=== PATIENT | female | born 2005 | race Caucasian/White ===

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

== ENCOUNTER → 2025-02-16 | Outpatient (CLI) | payer MEDICAID, SELFPAY ==
[2025-02-16 17:12] LABS: Absolute Neutrophil Count 9.5 X10^3/uL (2.0-7.7); Basophil# 0.04 X10^3/uL; Basophil% 0.3 % (0-1); Eosinophil# 0.19 X10^3/uL; Eosinophils% 1.5 % (0-5); Hematocrit 30.9 % (37-47); Lymphocyte % 15.3 % (19-41); Mean Corp Hgb Conc 32.4 g/dL (32-36); Mean Corpuscular Hgb 25.9 pg (27.0-32.0); Mean Corpuscular Volume 80.1 fL (81-99); Mean Platelet Vol. 11.3 fl (6.2-12.0); Monocyte# 0.62 X10^3/uL; NRBC Flagged by Analyzer 0 % (0-5); Neutrophil # 9.45 X10^3/uL (2.7-7.7); Neutrophil % 76.4 % (47-70); Platelet Count 311 K/mm3 (150-450); RBC Distribution Width CV 16.6 % (11.6-14.6); RBC Distribution Width SD 47.3 fl (35.1-43.9); Red Blood Count 3.86 M/mm3 (4.2-5.4); White Blood Count 12.4 K/mm3 (4.4-11.0)
[2025-02-16 18:12] LABS: ALB/GLOB Ratio 1.3 RATIO (0.9-2.4); AST(SGOT) 15 U/L (<=31); Alanine Aminotransfer ALT/SGPT 8 U/L (<=34); Alkaline Phosphatase 58 U/L (35-104); Anion Gap 11 (5-15); BUN 5 mg/dL (4-19); BUN/Creat Ratio 8.5 RATIO (10-20); Calcium,Total 9.1 mg/dL (7.6-11.0); Carbon Dioxide 21.4 mmol/L (21.0-32.0); Chloride 102 mmol/L (98-108); Creatinine, Serum 0.55 mg/dL (0.70-1.20); EST Glomerular Filtration Rate 135 (>60); Glucose 82 mg/dL (70-99); Potassium 3.8 mmol/L (3.3-5.1); Sodium Level 135 mmol/L (133-145)
== END | disposition home or self-care (01) ==
PROVIDERS: Obstetrics & Gynecology; Referring Provider Advanced Practice Midwife; Visit Provider Advanced Practice Midwife
DX: O09.92 Supervision of high risk pregnancy, unspecified, second trimester (principal); O99.891 Other specified diseases and conditions complicating pregnancy; R42 Dizziness and giddiness; Z3A.00 Weeks of gestation of pregnancy not specified
CPT/HCPCS: 36415; 80053; 85025

== ENCOUNTER → 2025-03-01 | Outpatient (CLI) | payer MEDICAID, SELFPAY ==
--- NOTE | 2025-03-01 13:32 | EKG12_ITS ---
Test Reason : DIZZYNESS Blood Pressure : */* mmHG Vent. Rate : 80 BPM Atrial Rate : 80 BPM P-R Int : 116 ms QRS Dur : 82 ms QT Int : 366 ms P-R-T Axes : 58 90 59 degrees QTcB Int : 422 ms Normal sinus rhythm Rightward axis Borderline ECG Confirmed by DWIGHT MENG MD [id number]), publishing editor KATARZYNA HALLMAN ([id number]) on 03/02/2025 8:21:28 AM Referred By: Majo Martins Confirmed By: DWIGHT MENG MD
== END | disposition home or self-care (01) ==
PROVIDERS: Referring Provider Obstetrics & Gynecology; Visit Provider Obstetrics & Gynecology
DX: R42 Dizziness and giddiness (principal); R00.2 Palpitations
CPT/HCPCS: 93005

== ENCOUNTER → 2025-03-21 | Outpatient (CLI) | payer MEDICAID, SELFPAY ==
[2025-03-21 16:22] LABS: Absolute Lymphocyte Count 1.47 X10^3/uL (0.83-4.51); Absolute Neutrophil Count 9.6 X10^3/uL (2.0-7.7); Basophil# 0.03 X10^3/uL; Basophil% 0.3 % (0-1); Eosinophil# 0.07 X10^3/uL; Eosinophils% 0.6 % (0-5); Hematocrit 29.2 % (37-47); Lymphocyte # 1.47 X10^3/ul (0.83-4.51); Lymphocyte % 12.3 % (19-41); Mean Corp Hgb Conc 30.8 g/dL (32-36); Mean Corpuscular Hgb 25.1 pg (27.0-32.0); Mean Corpuscular Volume 81.6 fL (81-99); Monocyte# 0.61 X10^3/uL; Monocyte% 5.1 % (0-10); NRBC Flagged by Analyzer 0 % (0-5); Neutrophil # 9.56 X10^3/uL (2.7-7.7); Neutrophil % 79.9 % (47-70); Platelet Count 282 K/mm3 (150-450); RBC Distribution Width CV 16.2 % (11.6-14.6); RBC Distribution Width SD 48.5 fl (35.1-43.9); Red Blood Count 3.58 M/mm3 (4.2-5.4)
[2025-03-21 17:12] LABS: Glucose Challenge Gest 1H 50g 104 mg/dL (70-140); HIV Nonreactive (Nonreactive); Syphilis Antibodies Nonreactive (Nonreactive)
== END | disposition home or self-care (01) ==
PROVIDERS: Obstetrics & Gynecology; Referring Provider Advanced Practice Midwife; Visit Provider Advanced Practice Midwife
DX: O09.92 Supervision of high risk pregnancy, unspecified, second trimester (principal); Z3A.00 Weeks of gestation of pregnancy not specified; Z13.1 Encounter for screening for diabetes mellitus
CPT/HCPCS: 36415; 82950; 85025; 86703; 86780

== ENCOUNTER → 2025-05-09 | Outpatient (CLI) | payer MEDICAID, SELFPAY | END | disposition home or self-care (01) | LOC: LABSPEC 16:44 | PROVIDERS: Referring Provider Advanced Practice Midwife; Visit Provider Advanced Practice Midwife | DX: Z34.93 Encounter for supervision of normal pregnancy, unspecified, third trimester (principal); Z3A.33 33 weeks gestation of pregnancy | CPT/HCPCS: 87081 ==

== ENCOUNTER → 2025-05-23 | Outpatient (CLI) | payer MEDICAID, SELFPAY ==
[2025-05-23 10:43] LABS: Hematocrit 30.7 % (37-47); Hemoglobin 9.8 g/dL (12.0-15.0); Mean Corp Hgb Conc 31.9 g/dL (32-36); Mean Corpuscular Volume 79.7 fL (81-99); Mean Platelet Vol. 11.4 fl (6.2-12.0); Platelet Count 262 K/mm3 (150-450); RBC Distribution Width CV 17.1 % (11.6-14.6); RBC Distribution Width SD 49.0 fl (35.1-43.9); Red Blood Count 3.85 M/mm3 (4.2-5.4); White Blood Count 11.2 K/mm3 (4.4-11.0)
[2025-05-23 10:44] LABS: Immature Granulocytes Count 0.220 X10^3/uL (0.0-0.0)
[2025-05-23 10:45] LABS: Creatinine, Urine (random) 112.00 mg/dL (28.00-217.00); Protein, Urine (Random) 38.1 mg/dL (0.0-12.0); Protein:Creat Ratio 340 mg/g CRE (0-200)
[2025-05-23 11:09] LABS: AST(SGOT) 16 U/L (<=31); Alanine Aminotransfer ALT/SGPT 8 U/L (<=34); Albumin, Serum 3.7 g/dL (3.5-5.0); Alkaline Phosphatase 175 U/L (35-104); Anion Gap 11 (5-15); BUN 4 mg/dL (4-19); BUN/Creat Ratio 6.4 RATIO (10-20); Calcium,Total 9.7 mg/dL (7.6-11.0); Carbon Dioxide 22.9 mmol/L (21.0-32.0); Chloride 102 mmol/L (98-108); Globulin 3.3 g/dL (2.2-4.2); Glucose 82 mg/dL (70-99); Potassium 3.8 mmol/L (3.3-5.1)
== END | disposition home or self-care (01) ==
PROVIDERS: Referring Provider Obstetrics & Gynecology; Visit Provider Obstetrics & Gynecology
DX: O26.899 Other specified pregnancy related conditions, unspecified trimester (principal); R51.9 Headache, unspecified; R80.9 Proteinuria, unspecified; Z3A.00 Weeks of gestation of pregnancy not specified
CPT/HCPCS: 36415; 80053; 82570; 84156; 85025

== ENCOUNTER → 2025-05-25 | Outpatient (CLI) | payer MEDICAID, SELFPAY ==
--- NOTE | 2025-05-25 17:56 | US_ITS ---
PROCEDURE: OB LIMITED WITH BIOMETRICS 05/25/2025 REASON FOR EXAM: GROWTH TECHNIQUE: OB LIMITED WITH BIOMETRICS COMPARISON: None FINDINGS Number: 1 Position: Vertex Placental Position: Anterior and not low-lying. Placental Abnormalities: No evidence of previa. DIMENSIONS: Biparietal Diameter: 10.1 cm: 41 weeks and 2 days: 99 percentile/ Head Circumference: 33.8 cm: 38 weeks and 6 days: 46.6 percentile/ Abdominal Circumference: 35.1 cm: 39 weeks and 0 days: 87.3%/ Femur Length: 7.1 cm: 36 weeks and 1 day: 10.3 percentile/ ESTIMATED WEIGHT: 3629 g plus/-544 g ESTIMATED WEIGHT PERCENTILE (24+ weeks): 80 ESTIMATED GESTATIONAL AGE: Baseline: 38 weeks and 1 day By Ultrasound: 38 weeks and 3 days ESTIMATED DATE OF DELIVERY: Baseline: June 07, 2025 By Ultrasound: June 05, 2025 BIOPHYSICAL ASSESSMENT: Amniotic Fluid Volume: 3.7 cm Amniotic Fluid Index: 11.5 (8-24 cm normal range) Cardiac Motion: 152 beats per minute (average) Trunk and Limb Motion: Present. MATERNAL ANATOMY: Adnexa: Neither maternal ovary is successfully identified. US/OB Limited With Biometrics IMPRESSION: Single live intrauterine gestation with a mean gestational age of 38 weeks and 3 days. Reading Location: [facility]-
--- NOTE | 2025-05-25 17:56 | US_ITS ---
PROCEDURE: OB LIMITED WITH BIOMETRICS 05/25/2025 REASON FOR EXAM: GROWTH TECHNIQUE: OB LIMITED WITH BIOMETRICS COMPARISON: None FINDINGS Number: 1 Position: Vertex Placental Position: Anterior and not low-lying. Placental Abnormalities: No evidence of previa. DIMENSIONS: Biparietal Diameter: 10.1 cm: 41 weeks and 2 days: 99 percentile/ Head Circumference: 33.8 cm: 38 weeks and 6 days: 46.6 percentile/ Abdominal Circumference: 35.1 cm: 39 weeks and 0 days: 87.3%/ Femur Length: 7.1 cm: 36 weeks and 1 day: 10.3 percentile/ ESTIMATED WEIGHT: 3629 g plus/-544 g ESTIMATED WEIGHT PERCENTILE (24+ weeks): 80 ESTIMATED GESTATIONAL AGE: Baseline: 38 weeks and 1 day By Ultrasound: 38 weeks and 3 days ESTIMATED DATE OF DELIVERY: Baseline: June 07, 2025 By Ultrasound: June 05, 2025 BIOPHYSICAL ASSESSMENT: Amniotic Fluid Volume: 3.7 cm Amniotic Fluid Index: 11.5 (8-24 cm normal range) Cardiac Motion: 152 beats per minute (average) Trunk and Limb Motion: Present. MATERNAL ANATOMY: Adnexa: Neither maternal ovary is successfully identified. US/OB Limited With Biometrics IMPRESSION: Single live intrauterine gestation with a mean gestational age of 38 weeks and 3 days. Reading Location: [facility]-
== END | disposition home or self-care (01) ==
LOC: US 17:52
PROVIDERS: Referring Provider Obstetrics & Gynecology; Visit Provider Obstetrics & Gynecology
DX: O09.93 Supervision of high risk pregnancy, unspecified, third trimester (principal); Z3A.00 Weeks of gestation of pregnancy not specified
CPT/HCPCS: 76816

== ENCOUNTER 2025-05-31 07:20 | Inpatient (IN) | payer OTHER, MEDICAID, SELFPAY ==
[2025-05-31] VITALS (49 sets, daily range): BP systolic 113–147; BP diastolic 58–94; PULSE 66–139; RESP 16; TEMP 36.4–36.9; O2SAT 98–100; BMI 27.9
--- OUTSIDE RECORDS SUMMARY | 2025-05-31 07:14 | XMS RPT_ITS | CCD ---
Author Organization [facility] CliniSyoh Care Team Providers Care Behavioral Sciences Department Chair Name Role Phone Unavailable Primary Care Provider Unavailfabio e Free, Text Entry Unavailable Unavailable Terrell Arteaga Unavailable Unavailable DO Terrell Arteaga Attending Unavailab le Pending, Provider Primary Care Unavailable Rustam Vallejo DO Primary Care Provider RUSTAM VALLEJO Primary Care Unavailable RUSTAM VALLEJO Primary Care Unavailable RUSTAM VALLEJO Primary Care Unavailable SELIN BENAVIDES Attending Unavailable RUSTAM VALLEJO Primary Care Unavailable Generic Provider MD, No Assigned Pcp Primary Car e Provider Unavailable Unavailable Primary Care Provider Unavailfabio e NIKITA DALEY Attending Unavailable EDINIKITA QURESHI Referring Unavailable EDINIKITA QURESHI Attending Unavailable GENERIC PROVIDER, NO ASSIGNED PCP Primary Care Unavailable ZACARIAS GALLARDO Attending Unavailable ZACARIAS GALLARDO Referring Unavailable EDINIKITA QURESHI Referring Unavailable GENERIC PROVIDER, NO ASSIGNED PCP Primary Care Unavailable NO PRIMARY CARE, Primary Care Unavailable JARETT PENDLETON Referring Unavailable SOULEYMANE CONDON Attending Unavailable Care Physician, No Primary Primary Care Provider Unavailable Care Physician, No Primary Referring Provider Un available Rebeca Cruz CNM Attending Provider Rebeca Cruz CNM Referring Provider [phone] Jarett Leos Attending Provider [phone] Dr. Majo Martins MD Attending Provider [phone] Dr. Majo Martins MD Referring Provider [phone] Dr. Jakub Bush MD Attending Provider [phone] Care Physician, No Primary Primary Care Provider Unavailable Care Physician, No Primary Referring Provider Un available Rebeca Cruz CNM Attending Provider [phone] Rebeca Cruz CNM Referring Provider [phone] Dr. Marie Kelly DO Attending Provider Care Physician, No Primary Primary Care Provider Unavailable Care Physician, No Primary Referring Provider Un available Helder HUNT-CJarett Attending Provider [phone] MARIO SEGAL Attending Unavailable NO, PHYSICIAN Primary Care Unavailable NO, PHYSICIAN Primary Care Unavailable LARA RICH Attending Unavailab le NO, PHYSICIAN Primary Care Unavailable LARA RICH Attending Unavailab BARRERA Clifford Attending Unavaila ble NO, PHYSICIAN Primary Care Unavailable NO, PHYSICIAN Primary Care Unavailable PURNIMA MARTINEZ Attending Unavailable Majo Martins Attending Unavailable Care Physician, No Primary Primary Care Unava ilable Care Physician, No Primary Referring Unava ilable Rebeca Cruz Referring Unavailable Rebeca Cruz Attending Unavailable Care Physician, No Primary Primary Care Unava ilable Care Physician, No Primary Primary Care Unava ilable Rebeca Cruz Referring Unavailable Rebeca Cruz Attending Unavailable Care Physician, No Primary Primary Care Unava ilable Care Physician, No Primary Referring Unava ilable Rebeca Cruz Attending Unavailable Care Physician, No Primary Primary Care Unava ilable Care Physician, No Primary Referring Unava ilable Rebeca Cruz Attending Unavailable Care Physician, No Primary Primary Care Unava ilable Rebeca Cruz Attending Unavailable Rebeca Cruz Referring Unavailable Care Physician, No Primary Primary Care Unava ilable Majo Martins Attending Unavailable Majo Martins Referring Unavailable Care Physician, No Primary Primary Care Unava ilable Rebeca Cruz Referring Unavailable Rebeca Cruz Attending Unavailable Care Physician, No Primary Referring Unava ilable Majo Martins Attending Unavailable Care Physician, No Primary Primary Care Unava ilable Care Physician, No Primary Referring Unava ilable Rebeca Cruz Attending Unavailable Care Physician, No Primary Primary Care Unava ilable Majo Martins Referring Unavailable Care Physician, No Primary Primary Care Unava ilable Majo Martins Attending Unavailable MarcanthMajo johnston Referring Unavailable Majo Martins Attending Unavailable Care Physician, No Primary Primary Care Unava ilable Care Physician, No Primary Referring Unava ilable Jarett Pendleton NP Attending Unavailable Care Physician, No Primary Primary Care Unava ilable Care Physician, No Primary Referring Unava ilable Majo Martins Attending Unavailable Care Physician, No Primary Primary Care Unava ilable Care Physician, No Primary Primary Care Unava ilable Care Physician, No Primary Referring Unava ilable Rebeca Cruz Attending Unavailable Care Physician, No Primary Primary Care Unava ilable Care Physician, No Primary Referring Unava ilable Rebeca Cruz Attending Unavailable Care Physician, No Primary Primary Care Unava ilable Care Physician, No Primary Referring Unava ilable Helder CORPORATE ADMINISTRATOR, Jarett Attending Unavailable Marie Kelly Attending [facility] Care Phys[facility], No Primary Primary Care Unava ilable Care Physician, No Primary Referring Unava ilable Care Physician, No Primary Primary Care Unava ilable Care Physician, No Primary Referring Unava ilable Jakub Bush Attending Unavailable Care Physician, No Primary Referring Unava ilable Care Physician, No Primary Primary Care Unava ilable Rebeca Cruz Attending Unavailable Care Physician, No Primary Referring Unava ilable Care Physician, No Primary Primary Care Unava ilable Majo Martins Attending Unavailable Care Physician, No Primary Primary Care Unava ilable Majo Martins Referring Unavailable Jakub Bush Attending Unavailable Medications Current Medications Medication Drug Class(es) Dates Sig (Normalized) Sig (Original) ascorbic acid 500 mg oral tablet (11 sources) Vitamin C Start: 03-30-2025 take 1 tablet by mouth once daily Ascorbic Acid (Vitamin C) 500 mg tablet Active 500 mg PO daily March 30, 2025 12:00am clindamycin 300 mg oral capsule (1 source) Lincosamide Antibacterial Start: 02-21-2022 End: 02-28-2022 take 1 capsule by mouth twice daily clindamycin (CLEOCIN) 300 mg capsule Take 1 capsule by mouth twice daily for 7 days. 14 capsule 0 02/21/2022 02/28/2022 Active Comment on above: Take 1 capsule by [facility] twice daily for 7 days. famotidine 20 mg oral tablet (12 sources) Histamine-2 Receptor Antagonist Start: 03-28-2025 take 1 tablet by mouth twice daily Famotidine (Pepcid) 20 mg tablet Active 20 mg PO TWICE A DAY 60 4 March 28, 2025 12:00am ferrous sulfate 325 mg oral tablet (11 sources) Start: 03-28-2025 take 1 tablet by mouth once daily Ferrous Sulfate 325 mg (65 mg iron) tablet Active 325 mg PO daily March 28, 2025 12:00am [facility] No.[id number]-Dha- Epa-Fish 400 mcg-35 mg- 25 mg-5 mg tablet,chewable (14 sources) Start: 11-19-2024 Pnv No.[id number]-Dha -Epa-Fish 400 mcg-35 mg- 25 mg-5 mg tablet,chewable Active {tbl} PO November 19, 2024 1:00am Completed/Discontinued Medications Medication Drug Class(es) Dates Sig (Normalized) Sig (Original) purified protein derivative of tuberculin 50 unt/ml injectable solution (1 source) Tuberculosis Skin Test, Skin Test Antigen Start: 02-19-2023 End: 02-19-2023 tuberculin 5 UNIT/0.1ML injection Indications: Encounter for well adolescent visit , Encounter for screening for respiratory tuberculosis Inject 0.1 mL (5 Units) into the skin Once for 1 dose. 0.1 mL 0 02/19/2023 02/19/2023 Discontinued NEGATED: Highlighted row has not occurred!No Current Medications (1 source) No Current Medications Problems Active Problems Problem Classification Problem Date Documented Da te Episodic/Chronic Anxiety disorders (20 sources) Anxiety; Translations: [Anxiety disorder, unspecified] Onset: 5 11-19-2024 Chronic Cardiac dysrhythmias (4 sources) Multiple premature ventricular complexes; Translations: [Ventricular premature depolarization] Onset: 4 10-25-2024 Chronic Cardiac dysrhythmias (20 sources) Palpitations; Translations: [Palpitations] Onset: 4 09-23-2024 Episodic Comment on above: cardio consult. ekg ordered, labs cardio consult. ekg ordered, labs. ekg nl. Conditions associated with dizziness or vertigo (20 sources) Dizziness; Translations: [Dizziness and giddiness] Onset: 5 Episodic Conditions associated with dizziness or vertigo (20 sources) Conditions associated with dizziness or vertigo E Codes: Struck by; against (1 source) Other cause of strike by thrown, projected or falling object, initial encounter; Translations: [Oth cause of strike by thrown, projected or fall obj, init] Onset: 2 Episodic Genitourinary symptoms and ill-defined conditions (1 source) Proteinuria, unspecified; Translations: [Proteinuria, unspecified] Onset: 5 Episodic Headache; including migraine (1 source) Headache; including migraine; Translations: [Headache, unspecified] Onset: 5 Immunizations and screening for infectious disease (1 source) Patient encounter status; Translations: [Encounter for screening for respiratory tuberculosis] Episodic Other complications of (20 sources) Anemia of ; Translations: [Anemia complicating , unspecified trimester] 03-22-2025 Chronic Comment on above: PO iron. repeat zbigniew y April Other complications of (1 source) Anemia complicating , unspecified trimester; Translations: [Anemia complicating , unspecified trimester] Onset: 5 Chronic Other complications of (20 sources) Rubella non-immune; Translations: [Supervision of other high risk pregnancies, unspecified trimester] 11-29-2024 Episodic Comment on above: offer MMR PP Other complications of (20 sources) High risk ; Translations: [Supervision of high risk , unspecified, unspecified trimester] 12-23-2024 Episodic Comment on above: PRR, , BRIE Boy, BF Varghese Other complications of (2 sources) Supervision of high risk , unspecified, third trimester; Translations: [Supervision of high risk , unspecified, third trimester] Onset: 5 Episodic Other complications of (1 source) Gestational proteinuria, unspecified trimester; Translations: [Gestational proteinuria, unspecified trimester] Onset: 5 Episodic Other complications of (1 source) Other specified related conditions, unspecified trimester; Translations: [Other specified related conditions, unspecified trimester] Onset: 5 Episodic Other complications of (1 source) Supervision of other high risk pregnancies, unspecified trimester; Translations: [Supervision of other high risk pregnancies, unspecified trimester] Onset: 5 Episodic Other complications of (1 source) Supervision of high risk , unspecified, second trimester; Translations: [Supervision of high risk , unspecified, second trimester] Onset: 5 Episodic Other connective tissue disease (2 sources) Pain in right toe(s); Translations: [Pain in right toe(s)] Onset: 2 Episodic Other gastrointestinal disorders (2 sources) Groin mass; Translations: [Other intra-abdominal and pelvic swelling, mass and lump] Episodic Other injuries and conditions due to external causes (1 source) Unspecified injury of right foot, initial encounter; Translations: [Unspecified injury of right foot, initial encounter] Onset: 2 Episodic Other and delivery including normal (20 sources) ; Translations: [Encounter for supervision of normal , unspecified, unspecified trimester] Onset: 5 02-16-2025 Episodic Comment on above: NIPT low risk with g james- male, declines carrier GBS neg, NIPT low ri sk with gender- male, declines carrier Pleurisy; pneumothorax; pulmonary collapse (2 sources) Pleurisy; Translations: [Pleurisy] Onset: 5 Episodic Residual codes; unclassified (1 source) 37 weeks gestation of ; Translations: [37 weeks gestation of ] Onset: 5 Episodic Residual codes; unclassified (1 source) 35 weeks gestation of ; Translations: [35 weeks gestation of ] Onset: 5 Episodic Residual codes; unclassified (1 source) 33 weeks gestation of ; Translations: [33 weeks gestation of ] Onset: 5 Episodic Residual codes; unclassified (1 source) 32 weeks gestation of ; Translations: [32 weeks gestation of ] Onset: 5 Episodic Residual codes; unclassified (1 source) 29 weeks gestation of ; Translations: [29 weeks gestation of ] Onset: 5 Episodic Residual codes; unclassified (1 source) 24 weeks gestation of ; Translations: [24 weeks gestation of ] Onset: 5 Episodic Superficial injury; contusion (2 sources) Contusion of foot; Translations: [Contusion of foot] Onset: 2 09-08-2022 Episodic Unclassified (2 sources) RIGHT FOOT PAIN 09-08-2022 Comment on above: RIGHT FOOT PAIN Unclassified (1 source) Contusion of right foot, initial encounter 09-08-2022 Unclassified (1 source) Other underimmunization status; Translations: [Other underimmunization status] Onset: 5 Past or Other Problems Problem Classification Problem Date Documented Da te Episodic/Chronic Nonspecific chest pain (3 sources) Chest pain; Translations: [Chest pain, unspecified] Onset: 05-13-2024 05-13-2024 Episodic Other complications of (1 source) Supervision of high risk , unspecified, unspecified trimester; Translations: [Supervision of high risk , unspecified, unspecified trimester] Onset: 12-28-2024 Episodic Other skin disorders (2 sources) Follicular disorder, unspecified; Translations: [Follicular disorder, unspecified] Onset: 12-23-2024 Episodic Otitis media and related conditions (2 sources) Otitis media, unspecified, right ear; Translations: [Otitis media, unspecified, right ear] Onset: 12-16-2024 Episodic Residual codes; unclassified (2 sources) Encounter for procedure for purposes other than remedying health state, unspecified; Translations: [Encounter for procedure for purposes other than remedying health state, unspecified] Onset: 08-01-2024 Episodic Residual codes; unclassified (1 source) 16 weeks gestation of ; Translations: [16 weeks gestation of ] Onset: 12-28-2024 Episodic Residual codes; unclassified (1 source) 12 weeks gestation of ; Translations: [12 weeks gestation of ] Onset: 12-28-2024 Episodic Sprains and strains (2 sources) Unspecified sprain of right foot, initial encounter; Translations: [Unspecified sprain of right foot, initial encounter] Onset: 08-01-2024 Episodic Syncope (2 sources) Syncope and collapse; Translations: [Syncope and collapse] Onset: 09-20-2024 Episodic Unclassified (3 sources) Onset: 09-23-2024 Resolved: 10-25-2024 09-23-2024 Results Test Name Value Interpretation Reference Range Facility Laboratory - Chemistry and C hemistry - challengeOrdered By: Majo Martins on 05-25-2025 Glucose Ql (U) Negative [facility] Laboratory - UrinalysisOrder ed By: Majo Martins on 05-25-2025 Protein Ql (U) Negative [facility] Comment on above: Office Urine Protein previously reported as Trace OB Limited With Biometricson 05-25-2025 OB Limited With Biometrics [facility] [address] [place] [address] [id number] OB Limited With Biometrics MR#: [id number] Acct: [id number] Name: MARILU MONDRAGON Rep #: [id number] : 2005 F 19 From: Arpan jalloh MD PCP: Care Physician,No Primary Status: REG CLI Study: OB Limited With Biometrics Date of Exam: 05/25 Exam# [id number] Ordering Dr: Majo Martins PROCEDURE: OB LIMITED WITH BIOMETRICS 05/25/2025 REASON FOR EXAM: GROWTH TECHNIQUE: OB LIMITED WITH BIOMETRICS COMPARISON: None FINDINGS Number: 1 Position: Vertex Placental Position: Anterior and not low-lying. Placental Abnormalities: No evidence of previa. DIMENSIONS: Biparietal Diameter: 10.1 cm: 41 weeks and 2 days: 99 percentile/ Head Circumference: 33.8 cm: 38 weeks and 6 days: 46.6 percentile/ Abdominal Circumference: 35.1 cm: 39 weeks and 0 days: 87.3%/ Femur Length: 7.1 cm: 36 weeks and 1 day: 10.3 percentile/ ESTIMATED WEIGHT: 3629 g plus/-544 g ESTIMATED WEIGHT PERCENTILE (24+ weeks): 80 ESTIMATED GESTATIONAL AGE: Baseline: 38 weeks and 1 day By Ultrasound: 38 weeks and 3 days ESTIMATED DATE OF DELIVERY: Baseline: June 07, 2025 By Ultrasound: June 05, 2025 BIOPHYSICAL ASSESSMENT: Amniotic Fluid Volume: 3.7 cm Amniotic Fluid Index: 11.5 (8-24 cm normal range) Cardiac Motion: 152 beats per minute (average) Trunk and Limb Motion: Present. MATERNAL ANATOMY: Adnexa: Neither maternal ovary is successfully identified. US/OB Limited With Biometrics IMPRESSION: Single live intrauterine gestation with a mean gestational age of 38 weeks and 3 days. Reading Location: [facility] CC: Dr. Majo Martins MD; No Primary Care Physician E Commerce Project Manager: Signed Normal [facility] Fender Finisher Office Visit Reporton 05-25-2025 Fender Finisher Office Visit Report [facility] [address], [address] [place] [address] OFFICE VISIT Date of Service: 05/25/25 MR#: [id number] Acct: [id number] Name: MARILU MONDRAGON Rep #: [id number] : 2005 Provider: Dr. Majo huffman MD Age/Sex: 19/F Location: [facility] [place] Status: Signed Intake Vital Signs 05/23/25 09:53 05/25/25 15:32 05/25/25 15:37 Height 5 ft 8 in 5 ft 8 in 5 ft 8 in Weight: 192 lb 4 oz 191 lb BMI 29.2 29.0 BP 127/79 H 126/83 H Intake Visit Reasons: 38wk ob/nst, BP *ok per SM Chief Complaint: 38 Week OB/NST Medical Scientific Officer Required: No Is patient in pain?: No Allergies No Known Allergies Allergy (Verified 05/25/25 15:31) Medications ???Medication ???Instructions ???Recorded ???Confirmed ???Type PNV 153-FA 400 mcg-om3 35 mg-dha tab PO 11/19/24 05/25/25 History 25 mg-epa 5 mg-fish oil chew tablet famotidine 20 mg tablet (Pepcid) 20 mg PO BID #60 tabs 03/28/25 Rx ferrous sulfate 325 mg (65 mg 325 mg PO QDAY 03/28/25 05/25/25 H istory iron) tablet ascorbic acid (vitamin C) 500 mg 500 mg PO QDAY 03/30/25 05/25/25 H istory tablet Last Menstrual Period: 08/31/24 Zika: Zika virus screening: Negative : No PFSH PFSH Medical History Tachycardia Palpitations Dizziness Supervision of high-risk Anxiety Surgical History No history of previous surgery Family History Grandmother Diabetes Paternal Mother Heart disease Grandfather Myocardial infarction, Onset Age: 40 Maternal Social History adopted: No household members: significant other current occupational status: unemployed pets and animals: No history of recent travel: No sexually active: Yes Smoking Status: Never smoker alcohol intake: current alcohol intake frequency: a few times a month details: not while substance use type: does not use well-balanced diet: rarely or never caffeine: Yes Type: carbonated beverages Number of servings: 1 eating out: rarely or never during the past year weight has: increased > 10 lbs what type of physical activity do you participate in: none mikie/yarsanism: None seatbelt use: always do you feel safe at home: Yes additional social history: BF- 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 OB Visit BRIE Calculator Estimated Delivery Date Method Current WG Current Estimate 06/07/25 LMP (Certain) 38w 1d Other Estimates 06/05/25 Ultrasound #1 38w 3d Expected Delivery Route/Plan Labor Preferences- CB/BF classes: encouraged labor support person: Varghese labor intervention preferences: [] pain management options preferred: epidural if requested cut cord/dad catch: no : yes PP control planned: discussed discussed possible routes of delivery and associated risks: [] special requests: [] Specific Issue/Plans Covid status: [] Flu vaccine: [] Tdap vaccine: declines Rhogam: na LARC form signed: yes Problem list reviewed and updated with the most current plan of care details and appropriate orders placed. Relevant counseling for the gestational age provided. Continue routine care and follow up unless otherwise noted in visit notes/problem list details Initial Weight: 155 lb Date -???-???-???-???-???-? ??-???-???-???-???-??? -???- EGA Weight BP Urine Prot -???-???-???-???-???-? ??-???-???-???-???-??? -???- Glucose FHR FuHt Pres Dilation -???-???-???-???-???-? ??-???-???-???-???-??? -???- Effaced St Visit Note 11/25/24 -???-???-???-???-???-? ??-???-???-???-???-??? -???- 12w 2d 168 lb (+13 lb) 112/78 -???-???-???-???-???-? ??-???-???-???-???-??? -???- 149 -???-???-???-???-???-? ??-???-???-???-???-??? -???- KW- CRL cons with dates. accepts NIPT MFM US ordered 12/23/24 -???-???-???-???-???-? ??-???-???-???-???-??? -???- 16w 2d 167 lb (+12 lb) 110/80 Negative -???-???-???-???-???-? ??-???-???-???-???-??? -???- Negative 145 -???-???-???-???-???-? ??-???-???-???-???-??? -???- MH-No VB. Na usea resolved. Reviewed PN labs 02/16/25 -???-???-???-???-???-? ??-???-???-???-???-??? -???- 24w 1d 173 lb 4 oz (+18 lb 4 oz) 127/76 Negative -???-???-???-???-???-? ??-???-???-???-???-??? -???- Negative 145 24 -???-???-???-???-???-? ??-? (more content not included)... Normal [facility] Absolute lymphocyte countOrd ered By: Majo Martins on 05-23-2025 Lymphocytes Auto (Unsp spec) [#/Vol] 2.25 10*3/uL 0.83-4.51 [facility] Absolute neutrophil countOrd ered By: Majo Martins on 05-23-2025 Neutrophils (Bld) [#/Vol] 7.9 10*3/uL High 2.0-7.7 [facility] Anion gap in Serum or Plasma Ordered By: Majo Martins on 05-23-2025 Anion gap [Moles/Vol] 11 mmol/L 5-15 [facility] BUN/creatinine ratioOrdered By: Majo Martins on 05-23-2025 Urea nitrogen/Creatinine [Mass ratio] 6.4 mg/mg Low 10-20 [facility] Basophil percentageOrdered B y: Majo Martins on 05-23-2025 Basophils/100 WBC (Bld) 0.4 % 0-1 [facility] Bilirubin, totalOrdered By: Majo Martins on 05-23-2025 Bilirubin [Mass/Vol] 0.28 mg/dL 0.00-1.30 [facility] Blood platelets count (numbe r/volume)Ordered By: Majo Martins on 05-23-2025 Platelets (Bld) [#/Vol] 262 10*3/uL 150-450 [facility] CBC W/Diff, Automatedon 05-10 Absolute Lymph 2.25 X10 3/uL Normal 0.83-4.51 [facility] Comment on above: Performed By: #### L 500.4050, L501.0900, L100.0100 #### [facility] [address] [place], [address] Absolute Neut 7.9 X10 3/uL High 2.0-7.7 [facility] Comment on above: Performed By: #### L 500.4050, L501.0900, L100.0100 #### [facility] [address] [place], [address] Basophils/100 WBC (Bld) 0.4 % Normal 0-1 [facility] Comment on above: Performed By: #### L 500.4050, L501.0900, L100.0100 #### [facility] [address] [place], [address] Eosinophils/100 WBC (Bld) 0.8 % Normal 0-5 [facility] Comment on above: Performed By: #### L 500.4050, L501.0900, L100.0100 #### [facility] [address] [place], [address] IG% 2.000 High 0.0-0.9 [facility] Comment on above: Result Comment: IG% - Immature Granulocytes (promyelocytes, myelocytes and metamyelocytes) > 1% indicates that a LEFT SHIFT is Present. Performed By: #### L 500.4050, L501.0900, L100.0100 #### [facility] [address] [place], [address] Lymphocytes/100 WBC (Bld) 20.1 % Normal 19-41 [facility] Comment on above: Performed By: #### L 500.4050, L501.0900, L100.0100 #### [facility] [address] [place], [address] Monocytes/100 WBC (Bld) 5.8 % Normal 0-10 [facility] Comment on above: Performed By: #### L 500.4050, L501.0900, L100.0100 #### [facility] [address] [place], [address] Neutrophils/100 WBC (Bld) 70.9 % High 47-70 [facility] Comment on above: Performed By: #### L 500.4050, L501.0900, L100.0100 #### [facility] [address] [place] [address] Erythrocyte distribution width (RBC) [Ratio] 17.1 % High 11.6-14.6 [facility] Comment on above: Performed By: #### L 500.4050, L501.0900, L100.0100 #### [facility] [address] [place], [address] Hematocrit (Bld) [Volume fraction] 30.7 % Low 37-47 [facility] Comment on above: Performed By: #### L 500.4050, L501.0900, L100.0100 #### [facility] [address] [place], [address] Hemoglobin (Bld) [Mass/Vol] 9.8 g/dL Low 12.0-15.0 [facility] Comment on above: Performed By: #### L 500.4050, L501.0900, L100.0100 #### [facility] [address] [place], [address] MCH (RBC) [Entitic mass] 25.5 pg Low 27.0-32.0 [facility] Comment on above: Performed By: #### L 500.4050, L501.0900, L100.0100 #### [facility] [address] [place], [address] MCHC (RBC) [Mass/Vol] 31.9 g/dL Low 32-36 [facility] Comment on above: Performed By: #### L 500.4050, L501.0900, L100.0100 #### [facility] [address] [place], [address] MCV (RBC) [Entitic vol] 79.7 fL Low 81-99 [facility] Comment on above: Performed By: #### L 500.4050, L501.0900, L100.0100 #### [facility] [address] [place] [place], [address] Platelet mean volume (Bld) [Entitic vol] 11.4 fL Normal 6.2-12.0 [facility] Comment on above: Performed By: #### L 500.4050, L501.0900, L100.0100 #### [facility] [address] [place], [address] Platelets (Bld) [#/Vol] 262 10*3/uL Normal 150-450 [facility] Comment on above: Performed By: #### L 500.4050, L501.0900, L100.0100 #### [facility] [address] [place], [address] RBC (Bld) [#/Vol] 3.85 10*6/uL Low 4.2-5.4 [facility] Comment on above: Performed By: #### L 500.4050, L501.0900, L100.0100 #### [facility] [address] [place], [address] RDW SD 49.0 fl High 35.1-43.9 [facility] Comment on above: Performed By: #### L 500.4050, L501.0900, L100.0100 #### [facility] [address] [place], [address] WBC (Bld) [#/Vol] 11.2 10*3/uL High 4.4-11.0 [facility] Comment on above: Performed By: #### L 500.4050, L501.0900, L100.0100 #### [facility] [address] [place], [address] Carbon dioxide, total [Moles /volume] in Central venous bloodOrdered By: Majo Martins on 05-23-2025 CO2 [Moles/Vol] 22.9 mmol/L 21.0-32.0 [facility] Chloride assayOrdered By: Malachi Martins on 05-23-2025 Chloride [Moles/Vol] 102 mmol/L 98-108 [facility] Comprehensive Metabolic Prof ilon 05-23-2025 Albumin [Mass/Vol] 3.7 g/dL Normal 3.5-5.0 [facility] Comment on above: Performed By: #### L 500.4050, L501.0900, L100.0100 #### [facility] [address] [place], [address] Albumin/Globulin [Mass ratio] 1.1 {ratio} Normal 0.9-2.4 [facility] Comment on above: Performed By: #### L 500.4050, L501.0900, L100.0100 #### [facility] [address] [place], [address] ALK PHOS 175 U/L High 35-104 [facility] Comment on above: Performed By: #### L 500.4050, L501.0900, L100.0100 #### [facility] [address] [place], [address] ALT [Catalytic activity/Vol] 8 U/L Normal <=34 [facility] Comment on above: Performed By: #### L 500.4050, L501.0900, L100.0100 #### [facility] [address] [place], [address] AST [Catalytic activity/Vol] 16 U/L Normal <=31 [facility] Comment on above: Performed By: #### L 500.4050, L501.0900, L100.0100 #### [facility] [address] [place], [address] Bilirubin [Mass/Vol] 0.28 mg/dL Normal 0.00-1.30 [facility] Comment on above: Performed By: #### L 500.4050, L501.0900, L100.0100 #### [facility] [address] [place], [address] BUN/CRE 6.4 RATIO Low 10-20 [facility] Comment on above: Performed By: #### L 500.4050, L501.0900, L100.0100 #### [facility] [address] [place], [address] Calcium [Mass/Vol] 9.7 mg/dL Normal 7.6-11.0 [facility] Comment on above: Performed By: #### L 500.4050, L501.0900, L100.0100 #### [facility] [address] [place], [address] Chloride [Moles/Vol] 102 mmol/L Normal 98-108 [facility] Comment on above: Performed By: #### L 500.4050, L501.0900, L100.0100 #### [facility] [address] [place], [address] CO2 [Moles/Vol] 22.9 mmol/L Normal 21.0-32.0 [facility] Comment on above: Performed By: #### L 500.4050, L501.0900, L100.0100 #### [facility] [address] [place], [address] Creatinine [Mass/Vol] 0.61 mg/dL Low 0.70-1.20 [facility] Comment on above: Performed By: #### L 500.4050, L501.0900, L100.0100 #### [facility] [address] [place], [address] GAP 11 Normal 5-15 [facility] Comment on above: Performed By: #### L 500.4050, L501.0900, L100.0100 #### [facility] [address] [place], [address] GFR/1.73 sq M.predicted among non-blacks MDRD (S/P/Bld) [Vol rate/Area] 132 mL/min/{1.73_m2} Normal >60 [facility] Comment on above: Result Comment: mL/m in/1.73m2 CKD-EPI Creatinine Equation (2020) Performed By: #### L 500.4050, L501.0900, L100.0100 #### [facility] [address] [place], [address] Globulin (S) [Mass/Vol] 3.3 g/dL Normal 2.2-4.2 [facility] Comment on above: Performed By: #### L 500.4050, L501.0900, L100.0100 #### [facility] [address] [place], [address] Glucose [Mass/Vol] 82 mg/dL Normal 70-99 [facility] Comment on above: Performed By: #### L 500.4050, L501.0900, L100.0100 #### [facility] [address] [place], [address] Potassium [Moles/Vol] 3.8 mmol/L Normal 3.3-5.1 [facility] Comment on above: Performed By: #### L 500.4050, L501.0900, L100.0100 #### [facility] [address] [place], [address] Sodium [Moles/Vol] 135 mmol/L Normal 133-145 [facility] Comment on above: Performed By: #### L 500.4050, L501.0900, L100.0100 #### [facility] [address] [place], [address] T PROT 7.0 g/dL Normal 5.9-8.4 [facility] Comment on above: Performed By: #### L 500.4050, L501.0900, L100.0100 #### [facility] [address] [place], [address] Urea nitrogen [Mass/Vol] 4 mg/dL Normal 4-19 [facility] Comment on above: Performed By: #### L 500.4050, L501.0900, L100.0100 #### [facility] [address] [place], [address] Eosinophil %Ordered By: Alexys Martins on 05-23-2025 Eosinophils/100 WBC (Bld) 0.8 % 0-5 [facility] Erythrocyte distribution wid th ratioOrdered By: Majo Martins on 05-23-2025 Erythrocyte distribution width (RBC) [Ratio] 17.1 % High 11.6-14.6 [facility] Glomerular filtration rate ( GFR) estimation/1.73 sq m using serum, plasma, or whole bOrdered By: Majo Martins on 05-23-2025 GFR/1.73 sq M.predicted among non-blacks MDRD (S/P/Bld) [Vol rate/Area] 132 mL/min/{1.73_m2} >60 [facility] Comment on above: mL/min/1.73m2 CKD-EP I Creatinine Equation (2020) Hematocrit Auto (Bld) [Volum e fraction]Ordered By: Majo Martins on 05-23-2025 Hematocrit (Bld) [Volume fraction] 30.7 % Low 37-47 [facility] Hemoglobin measurementOrdere d By: Majo Mratins on 05-23-2025 Hemoglobin (Bld) [Mass/Vol] 9.8 g/dL Low 12.0-15.0 [facility] Immature granulocyte percent ageOrdered By: Majo Martins on 05-23-2025 Immature granulocytes/100 WBC (Bld) 2.000 % High 0.0-0.9 [facility] Comment on above: IG% - Immature Granu locytes (promyelocytes, myelocytes and metamyelocytes) > 1% indicates that a LEFT SHIFT is Present. Laboratory - Chemistry and C hemistry - challengeOrdered By: Majo Martins on 05-23-2025 AST [Catalytic activity/Vol] 16 U/L <32 [facility] Glucose Ql (U) Negative [facility] - UrinalysisOrder ed By: Majo Martins on 05-23-2025 Protein Ql (U) Trace [facility] Lymphocyte %Ordered By: Alexys Martins on 05-23-2025 Lymphocytes/100 WBC (Bld) 20.1 % 19-41 [facility] MCV (mean corpuscular volume ) determinationOrdered By: Majo Martins on 05-23-2025 MCV (RBC) [Entitic vol] 79.7 fL Low 81-99 [facility] Mean corpuscular hemoglobin (MCH) determinationOrdered By: Majo Martins on 05-23-2025 MCH (RBC) [Entitic mass] 25.5 pg Low 27.0-32.0 [facility] Mean corpuscular hemoglobin concentration (MCHC) determinationOrdered By: Majo Martins on 05-23-2025 MCHC (RBC) [Mass/Vol] 31.9 g/dL Low 32-36 [facility] Mean platelet volume determi nationOrdered By: Majo Martins on 05-23-2025 Platelet mean volume (Bld) [Entitic vol] 11.4 fL 6.2-12.0 [facility] Monocyte percentageOrdered B y: Majo Martins on 05-23-2025 Monocytes/100 WBC (Bld) 5.8 % 0-10 [facility] Neutrophil %Ordered By: Alexys Martins on 05-23-2025 Neutrophils/100 WBC (Bld) 70.9 % High 47-70 [facility] Fender Finisher Office Visit Reporton 05-23-2025 Fender Finisher Office Visit Report [facility]'[address], [address] [place] [address] OFFICE VISIT Date of Service: 05/23/25 MR#: [id number] Acct: [id number] Name: MARILU MONDRAGON Rep #: [id number] : 2005 Provider: Dr. Majo huffman MD Age/Sex: 19/F Location: [facility] [place] Status: Signed Intake Vital Signs 05/20/25 14:07 05/23/25 09:53 Height 5 ft 8 in 5 ft 8 in Weight: 192 lb 4 oz BMI 29.2 BP 127/79 H Intake Visit Reasons: 37/6, leg swelling, occ headache Medical Scientific Officer Required: No Allergies No Known Allergies Allergy (Verified 05/23/25 09:57) Medications ???Medication ???Instructions ???Recorded ???Confirmed ???Type PNV 153-FA 400 mcg-om3 35 mg-dha tab PO 11/19/24 05/23/25 History 25 mg-epa 5 mg-fish oil chew tablet famotidine 20 mg tablet (Pepcid) 20 mg PO BID #60 tabs 03/28/25 Rx ferrous sulfate 325 mg (65 mg 325 mg PO QDAY 03/28/25 05/23/25 H istory iron) tablet ascorbic acid (vitamin C) 500 mg 500 mg PO QDAY 03/30/25 05/23/25 H istory tablet Last Menstrual Period: 08/31/24 Zika: Zika virus screening: Negative : No PFSH PFSH Medical History Tachycardia Palpitations Dizziness Supervision of high-risk Anxiety Surgical History No history of previous surgery Family History Grandmother Diabetes Paternal Mother Heart disease Grandfather Myocardial infarction, Onset Age: 40 Maternal Social History adopted: No household members: significant other current occupational status: unemployed pets and animals: No history of recent travel: No sexually active: Yes Smoking Status: Never smoker alcohol intake: current alcohol intake frequency: a few times a month details: not while substance use type: does not use well-balanced diet: rarely or never caffeine: Yes Type: carbonated beverages Number of servings: 1 eating out: rarely or never during the past year weight has: increased > 10 lbs what type of physical activity do you participate in: none mikie/yarsanism: None seatbelt use: always do you feel safe at home: Yes additional social history: BF- 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 OB Visit BRIE Calculator Estimated Delivery Date Method Current WG Current Estimate 06/07/25 LMP (Certain) 37w 6d Other Estimates 06/05/25 Ultrasound #1 38w 1d Expected Delivery Route/Plan Labor Preferences- CB/BF classes: encouraged labor support person: Varghese labor intervention preferences: [] pain management options preferred: epidural if requested cut cord/dad catch: no : yes PP control planned: discussed discussed possible routes of delivery and associated risks: [] special requests: [] Specific Issue/Plans Covid status: [] Flu vaccine: [] Tdap vaccine: declines Rhogam: na LARC form signed: yes Problem list reviewed and updated with the most current plan of care details and appropriate orders placed. Relevant counseling for the gestational age provided. Continue routine care and follow up unless otherwise noted in visit notes/problem list details Initial Weight: 155 lb Date -???-???-???-???-???-? ??-???-???-???-???-??? -???- EGA Weight BP Urine Prot -???-???-???-???-???-? ??-???-???-???-???-??? -???- Glucose FHR FuHt Pres Dilation -???-???-???-???-???-? ??-???-???-???-???-??? -???- Effaced St Visit Note 11/25/24 -???-???-???-???-???-? ??-???-???-???-???-??? -???- 12w 2d 168 lb (+13 lb) 112/78 -???-???-???-???-???-? ??-???-???-???-???-??? -???- 149 -???-???-???-???-???-? ??-???-???-???-???-??? -???- KW- CRL cons with dates. accepts NIPT MFM US ordered 12/23/24 -???-???-???-???-???-? ??-???-???-???-???-??? -???- 16w 2d 167 lb (+12 lb) 110/80 Negative -???-???-???-???-???-? ??-???-???-???-???-??? -???- Negative 145 -???-???-???-???-???-? ??-???-???-???-???-??? -???- MH-No VB. Na usea resolved. Reviewed PN labs 02/16/25 -???-???-???-???-???-? ??-???-???-???-???-??? -???- 24w 1d 173 lb 4 oz (+18 lb 4 oz) 127/76 Negative -???-???-???-???-???-? ??-???-???-???-???-??? -???- Negative 145 24 -???-???-???-???-???-? ??-???-???-???-???-??? -???- SM- co dizzy spells where when she first stands up she will have heart rate and (more content not included)... Normal [facility] Potassium measurement (mass/ volume)Ordered By: Majo Martins on 05-23-2025 Potassium (Unsp spec) [Mass/Vol] 3.8 mmol/L 3.3-5.1 [facility] Protein+Creatinine Ratio,Uri neon 05-23-2025 PROT:CRE RATIO 340 mg/g CRE High 0-200 [facility] Comment on above: Performed By: #### L 500.4050, L501.0900, L100.0100 #### [facility] [address] [place], [address] Protein (U) [Mass/Vol] 38.1 mg/dL High 0.0-12.0 [facility] Comment on above: Performed By: #### L 500.4050, L501.0900, L100.0100 #### [facility] [address] [place], [address] UR CREAT 112.00 mg/dL Normal 28.00-217.00 [facility] Comment on above: Performed By: #### L 500.4050, L501.0900, L100.0100 #### [facility] [address] [place], [address] RBC Auto (Bld) [#/Vol]Ordere d By: Majo Martins on 05-23-2025 RBC (Bld) [#/Vol] 3.85 10*6/uL Low 4.2-5.4 [facility] RDWOrdered By: Majo murcia on 05-23-2025 RDW 49.0 fl High 35.1-43.9 [facility] Random urine creatinine otoniel urement (mass/volume)Ordered By: Majo Martins on 05-23-2025 Creatinine Unsp time (U) [Mass/Vol] 112.00 mg/dL 28.00-217.00 [facility] Serum creatinine measurement (mass/volume)Ordered By: Majo Martins on 05-23-2025 Creatinine [Mass/Vol] 0.61 mg/dL Low 0.70-1.20 [facility] Serum globulin measurementOr dered By: Majo Martins on 05-23-2025 Globulin (S) [Mass/Vol] 3.3 g/dL 2.2-4.2 [facility] Serum glucose measurement (m ass/volume)Ordered By: Majo Martins on 05-23-2025 Glucose [Mass/Vol] 82 mg/dL 70-99 [facility] Serum or plasma alanine yadav otransferase (ALT) measurementOrdered By: Majo Martins on 05-23-2025 ALT [Catalytic activity/Vol] 8 U/L <35 [facility] Serum or plasma albumin otoniel urement (mass/volume)Ordered By: Majo Martins on 05-23-2025 Albumin [Mass/Vol] 3.7 g/dL 3.5-5.0 [facility] Serum or plasma albumin/glob ulin mass ratioOrdered By: Majo Martins on 05-23-2025 Albumin/Globulin [Mass ratio] 1.1 {ratio} 0.9-2.4 [facility] Serum or plasma alkaline dora sphatase measurementOrdered By: Majo Martins on 05-23-2025 ALP [Catalytic activity/Vol] 175 U/L High 35-104 [facility] Serum or plasma calcium otoniel urement (mass/volume)Ordered By: Majo Martins on 05-23-2025 Calcium [Mass/Vol] 9.7 mg/dL 7.6-11.0 [facility] Serum or plasma urea nitroge n measurement (mass/volume)Ordered By: Majo Martins on 05-23-2025 Urea nitrogen [Mass/Vol] 4 mg/dL 4-19 [facility] Sodium levelOrdered By: Alexys Martins on 05-23-2025 Sodium [Moles/Vol] 135 mmol/L 133-145 [facility] Total proteinOrdered By: Oneal Martins on 05-23-2025 Protein [Mass/Vol] 7.0 g/dL 5.9-8.4 [facility] Urine protein measurement (m ass/volume)Ordered By: Majo Martins on 05-23-2025 Protein (U) [Mass/Vol] 38.1 mg/dL High 0.0-12.0 [facility] Urine protein/creatinine mas s ratioOrdered By: Majo Martins on 05-23-2025 Protein/Creatinine (U) [Mass ratio] 340 mg/g CRE High 0-200 [facility] White blood cell (WBC) count Ordered By: Majo Martins on 05-23-2025 WBC (Bld) [#/Vol] 11.2 10*3/uL High 4.4-11.0 [facility] Laboratory - Chemistry and C hemistry - challengeOrdered By: Rebeca Cruz on 05-20-2025 Glucose Ql (U) Negative [facility] - UrinalysisOrder ed By: Rebeca Cruz on 05-20-2025 Protein Ql (U) Negative [facility] Fender Finisher Office Visit Reporton 05-20-2025 Fender Finisher Office Visit Report [facility] [address], [address] [place] [address] OFFICE VISIT Date of Service: 05/20/25 MR#: [id number] Acct: [id number] Name: MARILU MONDRAGON Rep #: [id number] : 2005 Provider: TERRY Yeager ams Age/Sex: 19/F Location: [facility] [place] Status: Signed Intake Vital Signs 04/25/25 11:32 05/09/25 14:11 05/20/25 14:07 Height 5 ft 8 in 5 ft 8 in 5 ft 8 in Weight: 189 lb 6 oz BMI 28.8 BP 122/72 H Intake Visit Reasons: 37 wk ob Chief Complaint: 37wk OB Medical Scientific Officer Required: No Is patient in pain?: No Allergies No Known Allergies Allergy (Verified 05/20/25 14:05) Medications ???Medication ???Instructions ???Recorded ???Confirmed ???Type PNV 153-FA 400 mcg-om3 35 mg-dha tab PO 11/19/24 05/20/25 History 25 mg-epa 5 mg-fish oil chew tablet famotidine 20 mg tablet (Pepcid) 20 mg PO BID #60 tabs 03/28/2510/04 Rx ferrous sulfate 325 mg (65 mg 325 mg PO QDAY 03/28/25 05/20/25 H istory iron) tablet ascorbic acid (vitamin C) 500 mg 500 mg PO QDAY 03/30/25 05/20/25 H istory tablet Last Menstrual Period: 08/31/24 : No PFSH PFSH Medical History Tachycardia Palpitations Dizziness Supervision of high-risk Anxiety Surgical History No history of previous surgery Family History Grandmother Diabetes Paternal Mother Heart disease Grandfather Myocardial infarction, Onset Age: 40 Maternal Social History adopted: No household members: significant other current occupational status: unemployed pets and animals: No history of recent travel: No sexually active: Yes Smoking Status: Never smoker alcohol intake: current alcohol intake frequency: a few times a month details: not while substance use type: does not use well-balanced diet: rarely or never caffeine: Yes Type: carbonated beverages Number of servings: 1 eating out: rarely or never during the past year weight has: increased > 10 lbs what type of physical activity do you participate in: none mikie/yarsanism: None seatbelt use: always do you feel safe at home: Yes additional social history: BF- Varghese- Marcelino [employer] welder operator History 1 Elective abortions Hx Para 0 Spontaneous abortions Hx # Term Pregnancies Ectopic pregnancies Hx # Pregnancies Multiple births # of living children HPI 37 wk ob Details: MARILU MONDRAGON is a 19 year old who presents for routine OB visit. OB Visit BRIE Calculator Estimated Delivery Date Method Current WG Current Estimate 06/07/25 LMP (Certain) 37w 3d Other Estimates 06/05/25 Ultrasound #1 37w 5d Expected Delivery Route/Plan Labor Preferences- CB/BF classes: encouraged labor support person: Varghese labor intervention preferences: [] pain management options preferred: epidural if requested cut cord/dad catch: no : yes PP control planned: discussed discussed possible routes of delivery and associated risks: [] special requests: [] Specific Issue/Plans Covid status: [] Flu vaccine: [] Tdap vaccine: declines Rhogam: na LARC form signed: yes Problem list reviewed and updated with the most current plan of care details and appropriate orders placed. Relevant counseling for the gestational age provided. Continue routine care and follow up unless otherwise noted in visit notes/problem list details Initial Weight: 155 lb Date -???-???-???-???-???-? ??-???-???-???-???-??? -???- EGA Weight BP Urine Prot -???-???-???-???-???-? ??-???-???-???-???-??? -???- Glucose FHR FuHt Pres Dilation -???-???-???-???-???-? ??-???-???-???-???-??? -???- Effaced St Visit Note 11/25/24 -???-???-???-???-???-? ??-???-???-???-???-??? -???- 12w 2d 168 lb (+13 lb) 112/78 -???-???-???-???-???-? ??-???-???-???-???-??? -???- 149 -???-???-???-???-???-? ??-???-???-???-???-??? -???- KW- CRL cons with dates. accepts NIPT MFM US ordered 12/23/24 -???-???-???-???-???-? ??-???-???-???-???-??? -???- 16w 2d 167 lb (+12 lb) 110/80 Negative -???-???-???-???-???-? ??-???-???-???-???-??? -???- Negative 145 -???-???-???-???-???-? ??-???-???-???-???-??? -???- -No VB. Na usea resolved. Reviewed PN labs 02/16/25 -???-???-???-???-???-? ??-???-???-???-???-??? -???- 24w 1d 173 lb 4 oz (+18 lb 4 oz) 127/76 Negative -???-???-???-???-???-? ??-???-???-???-???-??? -???- Negative 145 24 -???-???-???-???-???-? ??-???-???-???-???-??? -???- SM- co dizzy spells where when she first stands up she will have heart rate and blood pressure spikes, he (more content not included)... Normal [facility] CT PULMONARY ARTERIESon 07-0 CT PULMONARY ARTERIES EXAMINATION: CT PULMONARY ARTERIES HISTORY: ORDERING SYSTEM PROVIDED HISTORY: Pulmonary embolism (PE) suspected, , TECHNOLOGIST PROVIDED HISTORY: Illness/Other Reason for exam: short of breath Encounter Type: Initial Additional signs and symptoms: elevated D-Dimer ORDERING SYSTEM PROVIDED DIAGNOSIS CODES: COMPARISON: None. TECHNIQUE: CT angiography of the pulmonary arteries was performed following the administration of 75 mL Isovue-370 intravenous contrast. Coronal and sagittal MIP images were performed. Dose reduction techniques were achieved by using automated exposure control and/or adjustment of mA and/or kV according to patient size and/or use of iterative reconstruction technique. FINDINGS: No supraclavicular adenopathy. Inferior visualized portion of the thyroid gland is normal. No axillary adenopathy. Heart size is normal. No pericardial effusion. Visualized portions of the lungs are clear. No acute osseous abnormality. Vertebral body height is preserved. There is thickening of the distal esophagus, may represent esophagitis. No pulmonary embolism evaluated to the level of the subsegmental pulmonary arteries. No acute aortic abnormality. IMPRESSION: 1. No pulmonary embolism evaluated to the level of the subsegmental pulmonary arteries. 2. No acute aortic abnormality. 3. No acute osseous abnormality. IPR/ads Workstation ID: [id number] Dictated by: KP BURT on FriMay 16, 2025 10:34:46 AM EDT Transcribed by: JULIAN SOTO on FriMay 16, 2025 10:48:44 AM EDT Finalized by: KP BURT on FriMay 16, 2025 10:50:14 AM EDT [facility] Comment on above: Order Comment: Injur y/Trauma or Illness?:Illness/Other How long have you had these symptoms (acute/chronic)?:Acute Reason for exam?:short of breath Type of Exam?:Initial Additional signs and symptoms?:elevated D-Dimer ED Prov Noteon 05-16-2025 ED Prov Note [facility] EMERGENCY DEPARTMENT ATTENDING NOTE: NAME: Marilu Mondragon CSN: [id number] 19 y.o. PCP: No, Physician History: Chief Complaint: Shortness of Breath HPI: The history was obtained from the patient. Marilu is a 19 y.o. female who presents with a chief complaint of Shortness of Breath. Patient is G1, 37 weeks who states that for the past 3 days has had right upper chest pain worse with breathing and shortness of breath. She was at work today and called her OB was advised to come to the ED. She denies recent travel, unilateral leg pain/swelling, cough fever chills nor any other complaints. ED Course / Medical Decision Making: ED COURSE: 19-year-old female presents with chest pain and shortness of breath. Differentials include pleurisy, PE, pneumothorax. I have ordered labs and CT PE. D-dimer elevated. CT PE demonstrates no acute findings. She is given instructions regarding pain control/Tylenol and return instructions. She verbalizes understanding and agreement with this plan After reviewing the items above, I did look at previous medical documentation, such as recent hospitalizations, office visits, and/or recent consultations with PCP/specialist. SDOH: Another factor that I considered in Marilu's care was her Social Determinants of Health (SDOH). During this ED encounter, she did NOT appear to have any significant issues identified. Laboratory & Radiological Imaging (if done): Labs Reviewed POC CBC AND DIFFERENTIAL - Abnormal; Notable for the following components: Result Value WBC 13.31 (*) RBC 3.76 (*) Hemoglobin 9.5 (*) Hematocrit 29.8 (*) MCV 79.3 (*) MCH 25.3 (*) RDW - CV 16.5 (*) Neutrophils Abs 10.34 (*) All other components within normal limits POC D-DIMER RALS - Abnormal; Notable for the following components: POC D-Dimer 1,300 (*) All other components within normal limits Narrative: A D-Dimer concentration of <350 ng/mL DDU is considered a low probability for pulmonary embolism (PE) and deep venous thrombosis (DVT). Results of this test should always be interpreted in conjunction with the patient's medical history, clinical presentation, and other findings. Clinical diagnosis should not be based on the results of the D-dimer alone. The above D-dimer cutoff pertains to its use for the exclusion of DVT or PE. The range associated with other clinical conditions (e.g. sepsis) has not been validated for this method. 90% of normal patients are less than 400 ng/ml. POC BASIC METABOLIC PANEL - RALS - Normal Narrative: [facility] has implemented the eGFR calculation approach that does not have a coefficient for race that conforms to the NKF-ASN Task Force Recommendations. POC TROPONIN I RALS - Normal POC D-DIMER POC BASIC METABOLIC PANEL POC TROPONIN I CT Pulmonary Arteries Non-public Result 1. No pulmonary embolism evaluated to the level of the subsegmental pulmonary arteries. 2. No acute aortic abnormality. 3. No acute osseous abnormality. Workstation ID: [id number] Clinical Impression: No diagnosis found. ROS: Review of Systems Respiratory: Positive for shortness of breath. Negative for cough. Cardiovascular: Positive for chest pain. Negative for leg swelling. Positives and pertinent negatives as per HPI. All other systems were reviewed and are negative. Physical Exam: Patient Vitals for the past 24 hrs: BP Temp Temp src Pulse Resp SpO2 Height Weight 05/16/25 0930 127/82 -- -- 88 17 97 % -- -- 05/16/25 0901 132/87 98.4 degrees F (36.9 degrees C) Oral 90 18 98 % 5' 10 86.2 kg (190 lb) Physical Exam Vitals and nursing note reviewed. Constitutional: Appearance: Normal appearance. HENT: Head: Normocephalic and atraumatic. Nose: Nose normal. Mouth/Throat: Mouth: Mucous membranes are moist. Pharynx: Oropharynx is clear. Eyes: Conjunctiva/sclera: Conjunctivae normal. Pupils: Pupils are equal, round, and reactive to light. Cardiovascular: Rate and Rhythm: Normal rate and regular rhythm. Heart sounds: Normal heart sounds. Musculoskeletal: Comments: No chest pain to palpation Pulmonary: Effort: Pulmonary effort is normal. Breath sounds: Normal breath sounds. Abdominal: General: Abdomen is flat. Palpations: Abdomen is soft. Skin: General: Skin is warm and dry. Neurological: General: No focal deficit present. Mental Status: She is alert and oriented to person, place, and time. Psychiatric: Mood and Affect: Mood normal. Behavior: Behavior normal. Procedures I did personally review Marilu's past medical history, surgical history, social history, as well as family history (when relevant). In this case, I also oversaw the her drug management by reviewing her medication list, allergy list, as well as the medications that I prescribed during the ED course and/or recommended as an out-patient (including possible OTC medications s (more content not included)... Normal [facility] POC BASIC METABOLIC PANEL - [facility] 05-16-2025 Chloride [Moles/Vol] 103 mmol/L Normal 98-108 [facility] Comment on above: Order Comment: [facility] has implemented the eGFR calculation approach that does not have a coefficient for race that conforms to the NKF-ASN Task Force Recommendations. CO2 [Moles/Vol] 23 mmol/L Normal 21-32 [facility] Comment on above: Order Comment: [facility] has implemented the eGFR calculation approach that does not have a coefficient for race that conforms to the NKF-ASN Task Force Recommendations. Creatinine [Mass/Vol] 0.60 mg/dL Normal 0.40-1.10 [facility] Comment on above: Order Comment: [facility] has implemented the eGFR calculation approach that does not have a coefficient for race that conforms to the NKF-ASN Task Force Recommendations. Glucose [Mass/Vol] 96 mg/dL Normal 65-99 [facility] Comment on above: Order Comment: [facility] has implemented the eGFR calculation approach that does not have a coefficient for race that conforms to the NKF-ASN Task Force Recommendations. POC GFR 133 mL/min/1.73 m2 Normal >=60 [facility] Comment on above: Order Comment: [facility] has implemented the eGFR calculation approach that does not have a coefficient for race that conforms to the NKF-ASN Task Force Recommendations. Result Comment: Tracy mated GFR was calculated using the 2020 CKD-EPI creatinine equation. POC IONIZED CALCIUM 5.1 mg/dL Normal 4.5-5.3 [facility] Comment on above: Order Comment: [facility] has implemented the eGFR calculation approach that does not have a coefficient for race that conforms to the NKF-ASN Task Force Recommendations. Potassium [Moles/Vol] 3.7 mmol/L Normal 3.5-5.1 [facility] Comment on above: Order Comment: [facility] has implemented the eGFR calculation approach that does not have a coefficient for race that conforms to the NKF-ASN Task Force Recommendations. Sodium [Moles/Vol] 137 mmol/L Normal 135-145 [facility] Comment on above: Order Comment: [facility] has implemented the eGFR calculation approach that does not have a coefficient for race that conforms to the NKF-ASN Task Force Recommendations. Urea nitrogen [Mass/Vol] 9 mg/dL Normal 8-25 [facility] Comment on above: Order Comment: [facility] has implemented the eGFR calculation approach that does not have a coefficient for race that conforms to the NKF-ASN Task Force Recommendations. POC CBC AND DIFFERENTIALon 0 05-16-2025 BASOPHILS ABSOLUTE COUNT 0.03 K/mcL Normal 0.00-0.30 [facility] Basophils/100 WBC (Bld) 0.2 % Normal [facility] Eosinophils (Bld) [#/Vol] 0.08 10*3/uL Normal 0.00-0.50 [facility] Eosinophils/100 WBC (Bld) 0.6 % Normal [facility] Erythrocyte distribution width (RBC) [Ratio] 16.5 % High 11.6-14.8 [facility] Hematocrit (Bld) [Volume fraction] 29.8 % Low 36.0-46.0 [facility] Hemoglobin (Bld) [Mass/Vol] 9.5 g/dL Low 12.0-16.0 [facility] IG ABSOLUTE 0.14 K/mcL Normal 0.00-0.30 [facility] IG PERCENT 1.10 % Normal [facility] Comment on above: Result Comment: The IG parameter is the percentage of metamyelocytes, myelocytes and promyelocytes. An immature granulocyte count (IG) of 1% or more suggests the possibility of infection, an IG count of 3% is very likely related to an infection. Lymphocytes (Bld) [#/Vol] 1.97 10*3/uL Normal 0.90-4.00 [facility] Lymphocytes/100 WBC (Bld) 14.8 % Normal [facility] MCH (RBC) [Entitic mass] 25.3 pg Low 26.0-34.0 [facility] MCV (RBC) [Entitic vol] 79.3 fL Low 80.0-100.0 [facility] MEAN CORPUSCULAR HEMOGLOBIN CONC 31.9 g/dL Normal 31.0-37.0 [facility] Monocytes (Bld) [#/Vol] 0.75 10*3/uL Normal 0.30-0.90 [facility] Monocytes/100 WBC (Bld) 5.6 % Normal [facility] NEUTROPHILS ABSOLUTE COUNT 10.34 K/mcL High 1.70-7.00 [facility] Neutrophils/100 WBC (Bld) 77.7 % Normal [facility] Platelet mean volume (Bld) [Entitic vol] 11.6 fL Normal 9.4-12.4 [facility] Platelets (Bld) [#/Vol] 242 10*3/uL Normal 150-400 [facility] RBC (Bld) [#/Vol] 3.76 10*6/uL Low 4.00-5.20 [facility] WBC (Bld) [#/Vol] 13.31 10*3/uL High 4.50-11.00 [facility] POC D-DIMER Kika 5 POC D-DIMER 1300 ng/mL DDU High <350 [facility] Comment on above: Order Comment: A D-D gerald concentration of <350 ng/mL DDU is considered a low probability for pulmonary embolism (PE) and deep venous thrombosis (DVT). Results of this test should always be interpreted in conjunction with the patient's medical history, clinical presentation, and other findings. Clinical diagnosis should not be based on the results of the D-dimer alone. The above D-dimer cutoff pertains to its use for the exclusion of DVT or PE. The range associated with other clinical conditions (e.g. sepsis) has not been validated for this method. 90% of normal patients are less than 400 ng/ml. POC TROPONIN I [facility] 2024 POC TROPONIN I < Normal <0.05 [facility] Rule out Beta Strep (Grp. B) on 05-11-2025 EFRA Group B Beta Streptococcus is not isolated. Normal [facility] Comment on above: Performed By: #### L 500.4050, L501.0900, L100.0100 #### [facility] [address] [place], [address] Laboratory - Chemistry and C hemistry - challengeOrdered By: Rebeca Cruz on 05-09-2025 Glucose Ql (U) Negative [facility] - UrinalysisOrder ed By: Rebeca Cruz on 05-09-2025 Protein Ql (U) Negative [facility] Fender Finisher Office Visit Reporton 05-09-2025 Fender Finisher Office Visit Report [facility] [address], [address] [place] [address] OFFICE VISIT Date of Service: 05/09/25 MR#: [id number] Acct: [id number] Name: MARILU MONDRAGON Rep #: [id number] : 2005 Provider: TERRY Yeager ams Age/Sex: 19/F Location: [facility] Status: Signed Intake Vital Signs 03/28/25 14:25 04/25/25 11:32 05/09/25 14:11 Height 5 ft 8 in 5 ft 8 in 5 ft 8 in Weight: 192 lb BMI 29.2 BP 121/73 H Blood Pressure Location Rt brachial Position Sitting Pulse 74 Pulse Source Monitor Intake Visit Reasons: 36 wk ob Medical Scientific Officer Required: No Accompanied by: Self Is patient in pain?: No Allergies No Known Allergies Allergy (Verified 05/09/25 14:14) Last Menstrual Period: 08/31/24 Zika: Zika virus screening: Negative : No Nurse's Note: Increased sharp, shooting pain near ribs attributes to positioning. Occasional dizziness when changing of position or moving head quickly. PFSH PFSH Medical History Tachycardia Palpitations Dizziness Supervision of high-risk Anxiety Surgical History No history of previous surgery Family History Grandmother Diabetes Paternal Mother Heart disease Grandfather Myocardial infarction, Onset Age: 40 Maternal Social History adopted: No household members: significant other current occupational status: unemployed pets and animals: No history of recent travel: No sexually active: Yes Smoking Status: Never smoker alcohol intake: current alcohol intake frequency: a few times a month details: not while substance use type: does not use well-balanced diet: rarely or never caffeine: Yes Type: carbonated beverages Number of servings: 1 eating out: rarely or never during the past year weight has: increased > 10 lbs what type of physical activity do you participate in: none mikie/yarsanism: None seatbelt use: always do you feel safe at home: Yes 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 OB Visit BRIE Calculator Estimated Delivery Date Method Current WG Current Estimate 06/07/25 LMP (Certain) 35w 6d Other Estimates 06/05/25 Ultrasound #1 36w 1d Expected Delivery Route/Plan Labor Preferences- CB/BF classes: encouraged labor support person: Varghese labor intervention preferences: [] pain management options preferred: epidural if requested cut cord/dad catch: no : yes PP control planned: discussed discussed possible routes of delivery and associated risks: [] special requests: [] Specific Issue/Plans Covid status: [] Flu vaccine: [] Tdap vaccine: declines Rhogam: na LARC form signed: yes Problem list reviewed and updated with the most current plan of care details and appropriate orders placed. Relevant counseling for the gestational age provided. Continue routine care and follow up unless otherwise noted in visit notes/problem list details Initial Weight: 155 lb Date -???-???-???-???-???-? ??-???-???-???-???-??? -???- EGA Weight BP Urine Prot -???-???-???-???-???-? ??-???-???-???-???-??? -???- Glucose FHR FuHt Pres Dilation -???-???-???-???-???-? ??-???-???-???-???-??? -???- Effaced St Visit Note 11/25/24 -???-???-???-???-???-? ??-???-???-???-???-??? -???- 12w 2d 168 lb (+13 lb) 112/78 -???-???-???-???-???-? ??-???-???-???-???-??? -???- 149 -???-???-???-???-???-? ??-???-???-???-???-??? -???- KW- CRL cons with dates. accepts NIPT MFM US ordered 12/23/24 -???-???-???-???-???-? ??-???-???-???-???-??? -???- 16w 2d 167 lb (+12 lb) 110/80 Negative -???-???-???-???-???-? ??-???-???-???-???-??? -???- Negative 145 -???-???-???-???-???-? ??-???-???-???-???-??? -???- -No VB. Na usea resolved. Reviewed PN labs 02/16/25 -???-???-???-???-???-? ??-???-???-???-???-??? -???- 24w 1d 173 lb 4 oz (+18 lb 4 oz) 127/76 Negative -???-???-???-???-???-? ??-???-???-???-???-??? -???- Negative 145 24 -???-???-???-???-???-? ??-???-???-???-???-??? -???- SM- co dizzy spells where when she first stands up she will have heart rate and blood pressure spikes, her legs turn purple, she can't stand longer than a few minutes, she also co tingling in her legs when she's sitting for too long. she saw a financial planning analyst (more content not included)... Normal [facility] Screening beta-hemolytic Str eptococcus cultureOrdered By: Rebeca Cruz on 05-09-2025 Beta-hemolytic Streptococcus culture Group B Beta Streptococcus is not isolated. [facility] - Chemistry and C hemistry - challengeOrdered By: Rebeca Cruz on 04-25-2025 Glucose Ql (U) Negative [facility] - UrinalysisOrder ed By: Rebeca Cruz on 04-25-2025 Protein Ql (U) Negative [facility] Fender Finisher Office Visit Reporton 04-25-2025 Fender Finisher Office Visit Report [address], [address] [place] [address] OFFICE VISIT Date of Service: 04/25/25 MR#: [id number] Acct: [id number] Name: MARILU MONDRAGON Rep #: [id number] : 2005 Provider: TERRY Yeager ams Age/Sex: 19/F Location: [facility] Status: Signed Intake Vital Signs 03/28/25 14:25 04/15/25 13:04 04/25/25 11:32 Height 5 ft 8 in 5 ft 8 in 5 ft 8 in Weight: 187 lb 2 oz BMI 28.4 BP 117/79 Intake Visit Reasons: 34 wk ob Chief Complaint: 34wk ob Medical Scientific Officer Required: No Is patient in pain?: No Allergies No Known Allergies Allergy (Verified 04/25/25 11:31) Medications ???Medication ???Instructions ???Recorded ???Confirmed ???Type PNV 153-FA 400 mcg-om3 35 mg-dha tab PO 11/19/24 04/25/25 History 25 mg-epa 5 mg-fish oil chew tablet famotidine 20 mg tablet (Pepcid) 20 mg PO BID #60 tabs 03/28/25 Rx ferrous sulfate 325 mg (65 mg 325 mg PO QDAY 03/28/25 04/25/25 H istory iron) tablet ascorbic acid (vitamin C) 500 mg 500 mg PO QDAY 03/30/25 04/25/25 H istory tablet Last Menstrual Period: 08/31/24 : No PFSH PFSH Medical History Tachycardia Palpitations Dizziness Supervision of high-risk Anxiety Surgical History No history of previous surgery Family History Grandmother Diabetes Paternal Mother Heart disease Grandfather Myocardial infarction, Onset Age: 40 Maternal Social History adopted: No household members: significant other current occupational status: unemployed pets and animals: No history of recent travel: No sexually active: Yes Smoking Status: Never smoker alcohol intake: current alcohol intake frequency: a few times a month details: not while substance use type: does not use well-balanced diet: rarely or never caffeine: Yes Type: carbonated beverages Number of servings: 1 eating out: rarely or never during the past year weight has: increased > 10 lbs what type of physical activity do you participate in: none mikie/yarsanism: None seatbelt use: always do you feel safe at home: Yes 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 OB Visit BRIE Calculator Estimated Delivery Date Method Current WG Current Estimate 06/07/25 LMP (Certain) 33w 6d Other Estimates 06/05/25 Ultrasound #1 34w 1d Expected Delivery Route/Plan Labor Preferences- CB/BF classes: encouraged labor support person: Varghese labor intervention preferences: [] pain management options preferred: epidural if requested cut cord/dad catch: no : yes PP control planned: discussed discussed possible routes of delivery and associated risks: [] special requests: [] Specific Issue/Plans Covid status: [] Flu vaccine: [] Tdap vaccine: declines Rhogam: na LARC form signed: yes Problem list reviewed and updated with the most current plan of care details and appropriate orders placed. Relevant counseling for the gestational age provided. Continue routine care and follow up unless otherwise noted in visit notes/problem list details Initial Weight: 155 lb Date -???-???-???-???-???-? ??-???-???-???-???-??? -???- EGA Weight BP Urine Prot -???-???-???-???-???-? ??-???-???-???-???-??? -???- Glucose FHR FuHt Pres Dilation -???-???-???-???-???-? ??-???-???-???-???-??? -???- Effaced St Visit Note 11/25/24 -???-???-???-???-???-? ??-???-???-???-???-??? -???- 12w 2d 168 lb (+13 lb) 112/78 -???-???-???-???-???-? ??-???-???-???-???-??? -???- 149 -???-???-???-???-???-? ??-???-???-???-???-??? -???- KW- CRL cons with dates. accepts NIPT MFM US ordered 12/23/24 -???-???-???-???-???-? ??-???-???-???-???-??? -???- 16w 2d 167 lb (+12 lb) 110/80 Negative -???-???-???-???-???-? ??-???-???-???-???-??? -???- Negative 145 -???-???-???-???-???-? ??-???-???-???-???-??? -???- MH-No VB. Na usea resolved. Reviewed PN labs 02/16/25 -???-???-???-???-???-? ??-???-???-???-???-??? -???- 24w 1d 173 lb 4 oz (+18 lb 4 oz) 127/76 Negative -???-???-???-???-???-? ??-???-???-???-???-??? -???- Negative 145 24 -???-???-???-???-???-? ??-???-???-???-???-??? -???- SM- co dizzy spells where when she first stands up she will have heart rate and blood pressure spikes, her (more content not included)... Normal [facility] - Chemistry and C hemistry - challengeOrdered By: Rebeca Cruz on 04-15-2025 Glucose Ql (U) Negative [facility] - UrinalysisOrder ed By: Rebeca Cruz on 04-15-2025 Protein Ql (U) Negative [facility] Fender Finisher Office Visit Reporton 04-15-2025 Fender Finisher Office Visit Report [facility] [address], [address] [place] [address] OFFICE VISIT Date of Service: 04/15/25 MR#: [id number] Acct: [id number] Name: MARILU MONDRAGON Rep #: [id number] : 2005 Provider: TERRY Yeager ams Age/Sex: 19/F Location: [facility] Status: Signed Intake Vital Signs 03/30/25 14:08 04/15/25 13:02 04/15/25 13:04 Height 5 ft 8 in 5 ft 8 in 5 ft 8 in Weight: 188 lb 2 oz BMI 28.5 BP 103/69 Intake Visit Reasons: 32wk ob Chief Complaint: 32 Week OB Medical Scientific Officer Required: No Is patient in pain?: No Allergies No Known Allergies Allergy (Verified 04/15/25 13:01) Medications ???Medication ???Instructions ???Recorded ???Confirmed ???Type PNV 153-FA 400 mcg-om3 35 mg-dha tab PO 11/19/24 04/15/25 History 25 mg-epa 5 mg-fish oil chew tablet famotidine 20 mg tablet (Pepcid) 20 mg PO BID #60 tabs 03/28/2505/04 Rx ferrous sulfate 325 mg (65 mg 325 mg PO QDAY 03/28/25 04/15/25 H istory iron) tablet ascorbic acid (vitamin C) 500 mg 500 mg PO QDAY 03/30/25 04/15/25 H istory tablet Last Menstrual Period: 08/31/24 Zika: Zika virus screening: Negative : No PFSH PFSH Medical History Tachycardia Palpitations Dizziness Supervision of high-risk Anxiety Surgical History No history of previous surgery Family History Grandmother Diabetes Paternal Mother Heart disease Grandfather Myocardial infarction, Onset Age: 40 Maternal Social History adopted: No household members: significant other current occupational status: unemployed pets and animals: No history of recent travel: No sexually active: Yes Smoking Status: Never smoker alcohol intake: current alcohol intake frequency: a few times a month details: not while substance use type: does not use well-balanced diet: rarely or never caffeine: Yes Type: carbonated beverages Number of servings: 1 eating out: rarely or never during the past year weight has: increased > 10 lbs what type of physical activity do you participate in: none mikie/yarsanism: None seatbelt use: always do you feel safe at home: Yes additional social history: BF- 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 OB Visit BRIE Calculator Estimated Delivery Date Method Current WG Current Estimate 06/07/25 LMP (Certain) 32w 3d Other Estimates 06/05/25 Ultrasound #1 32w 5d Expected Delivery Route/Plan Labor Preferences- CB/BF classes: encouraged labor support person: Varghese labor intervention preferences: [] pain management options preferred: epidural if requested cut cord/dad catch: no : yes PP control planned: discussed discussed possible routes of delivery and associated risks: [] special requests: [] Specific Issue/Plans Covid status: [] Flu vaccine: [] Tdap vaccine: declines Rhogam: na LARC form signed: yes Problem list reviewed and updated with the most current plan of care details and appropriate orders placed. Relevant counseling for the gestational age provided. Continue routine care and follow up unless otherwise noted in visit notes/problem list details Initial Weight: 155 lb Date -???-???-???-???-???-? ??-???-???-???-???-??? -???- EGA Weight BP Urine Prot -???-???-???-???-???-? ??-???-???-???-???-??? -???- Glucose FHR FuHt Pres Dilation -???-???-???-???-???-? ??-???-???-???-???-??? -???- Effaced St Visit Note 11/25/24 -???-???-???-???-???-? ??-???-???-???-???-??? -???- 12w 2d 168 lb (+13 lb) 112/78 -???-???-???-???-???-? ??-???-???-???-???-??? -???- 149 -???-???-???-???-???-? ??-???-???-???-???-??? -???- KW- CRL cons with dates. accepts NIPT MFM US ordered 12/23/24 -???-???-???-???-???-? ??-???-???-???-???-??? -???- 16w 2d 167 lb (+12 lb) 110/80 Negative -???-???-???-???-???-? ??-???-???-???-???-??? -???- Negative 145 -???-???-???-???-???-? ??-???-???-???-???-??? -???- MH-No VB. Na usea resolved. Reviewed PN labs 02/16/25 -???-???-???-???-???-? ??-???-???-???-???-??? -???- 24w 1d 173 lb 4 oz (+18 lb 4 oz) 127/76 Negative -???-???-???-???-???-? ??-???-???-???-???-??? -???- Negative 145 24 -???-???-???-???-???-? ??-???-???-???-???-??? -???- SM- co dizzy spells where when she first lucía (more content not included)... Normal [facility] Cardiology Visit Reporton Cardiology Visit Report [facility] [address] [place] [address] OFFICE VISIT Date of Service: 03/30/25 MR#: [id number] Acct: [id number] Name: MARILU MONDRAGON Rep #: [id number] : 2005 Provider: Dr. Jakub Bush MD Age/Sex: 19/F Location: [facility] [place] Status: Signed HPI HPI History of Present Illness Details: 19-year-old lady with no previous cardiac history who is currently in her first and says that she has been having palpitations as well as shortness of breath with activity. She has had some dizzy spells and what she calls near syncope but no whit syncopal episodes. She did start having some of this in September of last year she had an event monitor placed and it did not demonstrate significant abnormalities. She tells me that she has been low on iron and is being given iron supplements. She denies any whit syncopal episodes and has not had any chest pain suggestive of angina. She presents today for an evaluation of the above. Her physical exam today is unremarkable her electrocardiogram demonstrates sinus rhythm with a rate of 84 bpm and no acute changes. Intake Vital Signs 03/28/25 14:25 03/30/25 14:08 Height 5 ft 8 in 5 ft 8 in Weight: 180 lb BMI 27.3 BP 107/71 Blood Pressure Location Lt brachial Position Sitting Respiration 16 Pulse 81 Pulse Source Monitor Intake Visit Reasons: Dizziness and Giddiness/Palps (Marcanthony) Medical Scientific Officer Required: No Is patient in pain?: No Allergies No Known Allergies Allergy (Verified 03/30/25 14:16) Medications ???Medication ???Instructions ???Recorded ???Confirmed ???Type PNV 153-FA 400 mcg-om3 35 mg-dha tab PO 11/19/24 03/28/25 History 25 mg-epa 5 mg-fish oil chew tablet famotidine 20 mg tablet (Pepcid) 20 mg PO BID #60 tabs 03/28/25 Rx ferrous sulfate 325 mg (65 mg 325 mg PO QDAY 03/28/25 03/30/25 H istory iron) tablet ascorbic acid (vitamin C) 500 mg 500 mg PO QDAY 03/30/25 03/30/25 H istory tablet PFSH Medical History Tachycardia Palpitations Dizziness Supervision of high-risk Anxiety Surgical History No history of previous surgery Family History Grandmother Diabetes Paternal Mother Heart disease Grandfather Myocardial infarction, Onset Age: 40 Maternal Social History adopted: No household members: significant other current occupational status: unemployed pets and animals: No history of recent travel: No sexually active: Yes Smoking Status: Never smoker alcohol intake: current alcohol intake frequency: a few times a month details: not while substance use type: does not use well-balanced diet: rarely or never caffeine: Yes Type: carbonated beverages Number of servings: 1 eating out: rarely or never during the past year weight has: increased > 10 lbs what type of physical activity do you participate in: none mikie/yarsanism: None seatbelt use: always do you feel safe at home: Yes additional social history: ROCHELLE- 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 ROS Const Const: Negative for fatigue, weakness, headache(s), daytime sleepiness or difficulty sleeping ENT ENT: Positive for dizziness; Negative for headache(s) or Nosebleed/epistaxis Cardio Chest Pain: No Palpitations: Yes Edema: Bilateral (BLE) Resp Respiratory: Positive for SOB with activity; Negative for SOB at rest, SOB orthopnea SOB lying down or Cough GI GI: Negative nausea, vomiting or heartburn Neuro Neuro: Positive for dizziness and near syncope; Negative for lightheadedness, headache(s) or weakness Endo Endo: Negative for fatigue Cardiology Exam Const Appearance: cooperative, healthy appearing, no acute distress, well developed and well groomed Nutritional Appearance: average body habitus and well nourished Orientation: alert, awake and oriented x3 Head Head: normal to inspection, normocephalic and atraumatic Ears: hearing grossly normal bilaterally and external ears normal Nose: external nose normal, nares normal, nasal mucous membranes and turbinates normal, septum normal and no nasal discharge Face and Sinus: face symmetric Mouth: oral mucosae normal, tongue normal, oropharynx normal and moist mucous membranes Teeth and gingiva: dentition normal Throat: posterior oropharynx normal, tonsils normal and uvula midline Eyes General: appearance normal, both eyes and all related structures Eyelids: eyelids normal Conjunctivae: conjunctivae normal Pupils: PERRL, normal by confrontation and accommodation normal EOM: EOM intact bilateral (more content not included)... Normal [facility] - Chemistry and C hemistry - challengeOrdered By: Marie Dimas on 03-28-2025 Glucose Ql (U) Negative [facility] - UrinalysisOrder ed By: Marie Dimas on 03-28-2025 Protein Ql (U) Negative [facility] Office Visit Reporton 03-28-2025 [facility] Office Visit Report [address], [address] [place] [address] OFFICE VISIT Date of Service: 03/28/25 MR#: [id number] Acct: [id number] Name: MARILU MONDRAGON Rep #: [id number] : 2005 Provider: Dr. Marie Adair DO Age/Sex: 19/F Location: [facility] [place] Status: Signed Intake Vital Signs 03/17/25 09:38 03/28/25 14:24 03/28/25 14:25 Height 5 ft 8 in 5 ft 8 in 5 ft 8 in Weight: 178 lb BMI 27.0 BP 116/75 Intake Visit Reasons: 30wk ob Medical Scientific Officer Required: No Is patient in pain?: No Allergies No Known Allergies Allergy (Verified 03/28/25 14:24) Medications ???Medication ???Instructions ???Recorded ???Confirmed ???Type PNV 153-FA 400 mcg-om3 35 mg-dha tab PO 11/19/24 03/28/25 History 25 mg-epa 5 mg-fish oil chew tablet famotidine 20 mg tablet (Pepcid) 20 mg PO BID #60 tabs 03/28/25 Rx Last Menstrual Period: 08/31/24 Zika: Zika virus screening: Negative : No PFSH PFSH Medical History Tachycardia Palpitations Dizziness Supervision of high-risk Anxiety Surgical History No history of previous surgery Family History Grandmother Diabetes Paternal Mother Heart disease Grandfather Myocardial infarction, Onset Age: 40 Maternal Social History adopted: No household members: significant other current occupational status: unemployed pets and animals: No history of recent travel: No sexually active: Yes Smoking Status: Never smoker alcohol intake: current alcohol intake frequency: a few times a month details: not while substance use type: does not use well-balanced diet: rarely or never caffeine: Yes Type: carbonated beverages Number of servings: 1 eating out: rarely or never during the past year weight has: increased > 10 lbs what type of physical activity do you participate in: none mikie/yarsanism: None seatbelt use: always do you feel safe at home: Yes 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 OB Visit BRIE Calculator Estimated Delivery Date Method Current WG Current Estimate 06/07/25 LMP (Certain) 29w 6d Other Estimates 06/05/25 Ultrasound #1 30w 1d Expected Delivery Route/Plan Labor Preferences- CB/BF classes: encouraged labor support person: Varghese labor intervention preferences: [] pain management options preferred: epidural if requested cut cord/dad catch: no : yes PP control planned: discussed discussed possible routes of delivery and associated risks: [] special requests: [] Specific Issue/Plans Covid status: [] Flu vaccine: [] Tdap vaccine: declines Rhogam: na LARC form signed: yes Problem list reviewed and updated with the most current plan of care details and appropriate orders placed. Relevant counseling for the gestational age provided. Continue routine care and follow up unless otherwise noted in visit notes/problem list details Initial Weight: 155 lb Date -???-???-???-???-???-? ??-???-???-???-???-??? -???- EGA Weight BP Urine Prot -???-???-???-???-???-? ??-???-???-???-???-??? -???- Glucose FHR FuHt Pres Dilation -???-???-???-???-???-? ??-???-???-???-???-??? -???- Effaced St Visit Note 11/25/24 -???-???-???-???-???-? ??-???-???-???-???-??? -???- 12w 2d 168 lb (+13 lb) 112/78 -???-???-???-???-???-? ??-???-???-???-???-??? -???- 149 -???-???-???-???-???-? ??-???-???-???-???-??? -???- KW- CRL cons with dates. accepts NIPT MFM US ordered 12/23/24 -???-???-???-???-???-? ??-???-???-???-???-??? -???- 16w 2d 167 lb (+12 lb) 110/80 Negative -???-???-???-???-???-? ??-???-???-???-???-??? -???- Negative 145 -???-???-???-???-???-? ??-???-???-???-???-??? -???- MH-No VB. Tracy olivas resolved. Reviewed PN labs 02/16/25 -???-???-???-???-???-? ??-???-???-???-???-??? -???- 24w 1d 173 lb 4 oz (+18 lb 4 oz) 127/76 Negative -???-???-???-???-???-? ??-???-???-???-???-??? -???- Negative 145 24 -???-???-???-???-???-? ??-???-???-???-???-??? -???- SM- co dizzy spells where when she first stands up she will have heart rate and blood pressure spikes, her legs turn purple, she can't stand longer than a few minutes, she also co tingling in her legs when she's sitting for too long. she saw a financial planning analyst (more content not included)... Normal [facility] Absolute lymphocyte countOrd ered By: Majo Martins on 03-21-2025 Lymphocytes Auto (Unsp spec) [#/Vol] 1.47 10*3/uL 0.83-4.51 [facility] Absolute neutrophil countOrd ered By: Majo Martins on 03-21-2025 Neutrophils (Bld) [#/Vol] 9.6 10*3/uL High 2.0-7.7 [facility] Automated lymphocyte count a s percentage of total leukocytesOrdered By: Majo Martins on 03-21-2025 Lymphocytes/100 WBC Auto (Unsp spec) 12.3 % Low 19-41 [facility] Basophil percentageOrdered B y: Majo Martins on 03-21-2025 Basophils/100 WBC (Bld) 0.3 % 0-1 [facility] CBC W/Diff, Automatedon 03-10 Absolute Lymph 1.47 X10 3/uL Normal 0.83-4.51 [facility] Comment on above: Performed By: #### L 100.0100, L501.0250, L3890.6006, L509.8002 ####[facility] [address] [place], [address] Absolute Neut 9.6 X10 3/uL High 2.0-7.7 [facility] Comment on above: Performed By: #### L 100.0100, L501.0250, L3890.6006, L509.8002 ####[facility] [address] [place], [address] Basophils/100 WBC (Bld) 0.3 % Normal 0-1 [facility] Comment on above: Performed By: #### L 100.0100, L501.0250, L3890.6006, L509.8002 ####[facility] [address] [place], [address] Eosinophils/100 WBC (Bld) 0.6 % Normal 0-5 [facility] Comment on above: Performed By: #### L 100.0100, L501.0250, L3890.6006, L509.8002 ####[facility] [address] [place], [address] Erythrocyte distribution width (RBC) [Ratio] 16.2 % High 11.6-14.6 [facility] Comment on above: Performed By: #### L 100.0100, L501.0250, L3890.6006, L509.8002 ####[facility] [address] [place], [address] Hematocrit (Bld) [Volume fraction] 29.2 % Low 37-47 [facility] Comment on above: Performed By: #### L 100.0100, L501.0250, L3890.6006, L509.8002 ####[facility] [address] [place], [address] Hemoglobin (Bld) [Mass/Vol] 9.0 g/dL Low 12.0-15.0 [facility] Comment on above: Performed By: #### L 100.0100, L501.0250, L3890.6006, L509.8002 ####[facility] [address] [place], [address] IG% 1.800 High 0.0-0.9 [facility] Comment on above: Result Comment: IG% - Immature Granulocytes (promyelocytes, myelocytes and metamyelocytes) > 1% indicates that a LEFT SHIFT is Present. Performed By: #### L 100.0100, L501.0250, L3890.6006, L509.8002 ####[facility] [address] [place], [address] Lymphocytes/100 WBC (Bld) 12.3 % Low 19-41 [facility] Comment on above: Performed By: #### L 100.0100, L501.0250, L3890.6006, L509.8002 ####[facility] [address] [place], [address] MCH (RBC) [Entitic mass] 25.1 pg Low 27.0-32.0 [facility] Comment on above: Performed By: #### L 100.0100, L501.0250, L3890.6006, L509.8002 ####[facility] [address] [place], [address] MCHC (RBC) [Mass/Vol] 30.8 g/dL Low 32-36 [facility] Comment on above: Performed By: #### L 100.0100, L501.0250, L3890.6006, L509.8002 ####[facility] [address] [place], [address] MCV (RBC) [Entitic vol] 81.6 fL Normal 81-99 [facility] Comment on above: Performed By: #### L 100.0100, L501.0250, L3890.6006, L509.8002 ####[facility] [address] [place], [address] Monocytes/100 WBC (Bld) 5.1 % Normal 0-10 [facility] Comment on above: Performed By: #### L 100.0100, L501.0250, L3890.6006, L509.8002 ####[facility] [address] [place], [address] Neutrophils/100 WBC (Bld) 79.9 % High 47-70 [facility] Comment on above: Performed By: #### L 100.0100, L501.0250, L3890.6006, L509.8002 ####[facility] [address] [place], [address] Nucleated RBC (Bld) [#/Vol] 0 10*3/uL Normal 0-5 [facility] Comment on above: Performed By: #### L 100.0100, L501.0250, L3890.6006, L509.8002 ####[facility] [address] [place], [address] Platelet mean volume (Bld) [Entitic vol] 11.0 fL Normal 6.2-12.0 [facility] Comment on above: Performed By: #### L 100.0100, L501.0250, L3890.6006, L509.8002 ####[facility] [address] [place], [address] Platelets (Bld) [#/Vol] 282 10*3/uL Normal 150-450 [facility] Comment on above: Performed By: #### L 100.0100, L501.0250, L3890.6006, L509.8002 ####[facility] [address] [place], [address] RBC (Bld) [#/Vol] 3.58 10*6/uL Low 4.2-5.4 [facility] Comment on above: Performed By: #### L 100.0100, L501.0250, L3890.6006, L509.8002 ####[facility] [address] [place], [address] RDW SD 48.5 fl High 35.1-43.9 [facility] Comment on above: Performed By: #### L 100.0100, L501.0250, L3890.6006, L509.8002 ####[facility] [address] [place], [address] WBC (Bld) [#/Vol] 12.0 10*3/uL High 4.4-11.0 [facility] Comment on above: Performed By: #### L 100.0100, L501.0250, L3890.6006, L509.8002 ####[facility] [address] [place], [place], [id number] Eosinophil percentageOrdered By: Majo Castroemerald on 03-21-2025 Eosinophils/100 WBC (Bld) 0.6 % 0-5 [facility] Erythrocyte distribution wid th ratioOrdered By: Majo Matthewemerald on 03-21-2025 Erythrocyte distribution width (RBC) [Ratio] 16.2 % High 11.6-14.6 [facility] Erythrocyte distribution wid th standard deviationOrdered By: Majojaqui Martins on 03-21-2025 Erythrocyte distribution width (RBC) [Ratio] 48.5 fl High 35.1-43.9 [facility] Glucose Challenge Gest 1H 50 otf 03-21-2025 GLU GEST 50g 1H 104 mg/dL Normal 70-140 [facility] Comment on above: Performed By: #### L 100.0100, L501.0250, L3890.6006, L509.8002 ####[facility] [address] [place], [place], [id number] Glucose measurement at 2 lolis rs post-dose gestational glucose tolerance testOrdered By: Majo Martins on 03-21-2025 Glucose [Mass/Vol] 104 mg/dL 70-140 [facility] HIVon 03-21-2025 HIV Non-Reactive Normal Nonreactive [facility] Comment on above: Result Comment: Non- Reactive Reactive Repeatedly reactive samples must be confirmed according to CDC recommended confirmatory algorithms. The subresults for either HIVAG or AHIV can be used as an aid in the selection of the confirmation algorithm for reactive samples. Send out specimens with Reactive results to [facility] for confirmation. Order the HIV antibody detection and differentiation: lc#[id number] Performed By: #### L 100.0100, L501.0250, L3890.6006, L509.8002 ####[facility] [address] [place], [address] Hematocrit Auto (Bld) [Volum e fraction]Ordered By: Majo Martins on 03-21-2025 Hematocrit (Bld) [Volume fraction] 29.2 % Low 37-47 [facility] Hemoglobin measurementOrdere d By: Majo Martins on 03-21-2025 Hemoglobin (Bld) [Mass/Vol] 9.0 g/dL Low 12.0-15.0 [facility] Immature granulocytes/100 WB C Auto (Bld)Ordered By: Majo Martins on 03-21-2025 Immature granulocytes/100 WBC (Bld) 1.800 % High 0.0-0.9 [facility] Comment on above: IG% - Immature Granu locytes (promyelocytes, myelocytes and metamyelocytes) > 1% indicates that a LEFT SHIFT is Present. MCV (mean corpuscular volume ) determinationOrdered By: Majo Martins on 03-21-2025 MCV (RBC) [Entitic vol] 81.6 fL 81-99 [facility] Mean corpuscular hemoglobin (MCH) determinationOrdered By: Majo Martins on 03-21-2025 MCH (RBC) [Entitic mass] 25.1 pg Low 27.0-32.0 [facility] Mean corpuscular hemoglobin concentration (MCHC) determinationOrdered By: Majo Martins on 03-21-2025 MCHC (RBC) [Mass/Vol] 30.8 g/dL Low 32-36 [facility] Mean platelet volume determi nationOrdered By: Majo Martins on 03-21-2025 Platelet mean volume (Bld) [Entitic vol] 11.0 fL 6.2-12.0 [facility] Monocyte percentageOrdered B y: Majo Martins on 03-21-2025 Monocytes/100 WBC (Bld) 5.1 % 0-10 [facility] Neutrophil percentageOrdered By: Majo Martins on 03-21-2025 Neutrophils/100 WBC (Bld) 79.9 % High 47-70 [facility] No Panel InformationOrdered By: Majo Martins on 03-21-2025 HIV (1&2) Antibody Non-Reactive Nonreactive [facility] Comment on above: Non-ReactiveReactive Repeatedly reactive samples must be confirmed according to CDC recommended confirmatory algorithms. The subresults for either HIVAG or AHIV can be used as an aid in the selection of the confirmation algorithm for reactive samples.Send out specimens with Reactive results to [facility] for confirmation.Order the HIV antibody detection and differentiation: maximus#[id number] Nucleated red blood cell per centageOrdered By: Majo Martins on 03-21-2025 Nucleated RBC/100 WBC (Bld) [Ratio] 0 % 0-5 [facility] Platelet countOrdered By: Malachi Martins on 03-21-2025 Platelets (Bld) [#/Vol] 282 10*3/uL 150-450 [facility] RBC Auto (Bld) [#/Vol]Ordere d By: Majo Martins on 03-21-2025 RBC (Bld) [#/Vol] 3.58 10*6/uL Low 4.2-5.4 [facility] Syphilis Antibodieson 2024 Syphilis Abs Non-Reactive Normal Nonreactive [facility] Comment on above: Performed By: #### L 100.0100, L501.0250, L3890.6006, L509.8002 ####[facility] [address] [place], [address] White blood cell (WBC) count Ordered By: Majo Martins on 03-21-2025 WBC (Bld) [#/Vol] 12.0 10*3/uL High 4.4-11.0 [facility] Laboratory - Chemistry and C hemistry - challengeOrdered By: Jarett Pendleton on 03-17-2025 Glucose Ql (U) Negative [facility] - UrinalysisOrder ed By: Jarett Pendleton on 03-17-2025 Protein Ql (U) Negative [facility] [employer] Office Visit Reporton 03-17-2025 Fender [facility]isher Office Visit Report [address], [address] [place] [address] OFFICE VISIT Date of Service: 03/17/25 MR#: [id number] Acct: [id number] Name: MARILU MONDRAGON Rep #: [id number] : 2005 Provider: LYLY cruz Age/Sex: 19/F Location: [facility] [place] Status: Signed Intake Vital Signs 03/17/25 09:38 Height 5 ft 8 in Weight: 178 lb 8 oz BMI 27.1 BP 109/68 Intake Visit Reasons: 28wk ob/glucose Medical Scientific Officer Required: No Is patient in pain?: No Allergies No Known Allergies Allergy (Verified 03/17/25 09:38) Medications ???Medication ???Instructions ???Recorded ???Confirmed ???Type PNV 153-FA 400 mcg-om3 35 mg-dha tab PO 11/19/24 03/17/25 History 25 mg-epa 5 mg-fish oil chew tablet Last Menstrual Period: 08/31/24 Zika: Zika virus screening: Negative : Yes PFSH PFSH Medical History Tachycardia Palpitations Dizziness Supervision of high-risk Anxiety Surgical History No history of previous surgery Family History Grandmother Diabetes Paternal Mother Heart disease Grandfather Myocardial infarction, Onset Age: 40 Maternal Social History adopted: No household members: significant other current occupational status: unemployed pets and animals: No history of recent travel: No sexually active: Yes Smoking Status: Never smoker alcohol intake: current alcohol intake frequency: a few times a month details: not while substance use type: does not use well-balanced diet: rarely or never caffeine: Yes Type: carbonated beverages Number of servings: 1 eating out: rarely or never during the past year weight has: increased > 10 lbs what type of physical activity do you participate in: none mikie/yarsanism: None seatbelt use: always do you feel safe at home: Yes 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 OB Visit BRIE Calculator Estimated Delivery Date Method Current WG Current Estimate 06/07/25 LMP (Certain) 28w 2d Other Estimates 06/05/25 Ultrasound #1 28w 4d Expected Delivery Route/Plan Labor Preferences- CB/BF classes: encouraged labor support person: Varghese labor intervention preferences: [] pain management options preferred: epidural if requested cut cord/dad catch: no : yes PP control planned: discussed discussed possible routes of delivery and associated risks: [] special requests: [] Specific Issue/Plans Covid status: [] Flu vaccine: [] Tdap vaccine: declines Rhogam: na LARC form signed: yes Problem list reviewed and updated with the most current plan of care details and appropriate orders placed. Relevant counseling for the gestational age provided. Continue routine care and follow up unless otherwise noted in visit notes/problem list details Initial Weight: Not Recorded Date -???-???-???-???-???-? ??-???-???-???-???-??? -???- EGA Weight BP Urine Prot -???-???-???-???-???-? ??-???-???-???-???-??? -???- Glucose FHR FuHt Pres Dilation -???-???-???-???-???-? ??-???-???-???-???-??? -???- Effaced St Visit Note 11/25/24 -???-???-???-???-???-? ??-???-???-???-???-??? -???- 12w 2d 168 lb 112/78 -???-???-???-???-???-? ??-???-???-???-???-??? -???- 149 -???-???-???-???-???-? ??-???-???-???-???-??? -???- KW- CRL cons with dates. accepts NIPT MFM US ordered 12/23/24 -???-???-???-???-???-? ??-???-???-???-???-??? -???- 16w 2d 167 lb 110/80 Negative -???-???-???-???-???-? ??-???-???-???-???-??? -???- Negative 145 -???-???-???-???-???-? ??-???-???-???-???-??? -???- MH-No VB. Na usea resolved. Reviewed PN labs 02/16/25 -???-???-???-???-???-? ??-???-???-???-???-??? -???- 24w 1d 173 lb 4 oz 127/76 Negative -???-???-???-???-???-? ??-???-???-???-???-??? -???- Negative 145 24 -???-???-???-???-???-? ??-???-???-???-???-??? -???- SM- co dizzy spells where when she first stands up she will have heart rate and blood pressure spikes, her legs turn purple, she can't stand longer than a few minutes, she also co tingling in her legs when she's sitting for too long. she saw a financial planning analyst in the past and it was normal. she has a strong family history of heart disease. plan labs today and cardio consult 03/17/25 -???-???-???-???- (more content not included)... Normal [facility] 12 Lead EKGon 04-22-2025 12 Lead EKG [facility] [address] [place] [address] 12 Lead EKG 03/01/25 1345 MR#: [id number] Acct: [id number] Name: MARILU MONDRAGON Rep #: [id number] : 2005 19 From: Jakub Bush MD Attending Dr: Dr. Majo Martins MD Status: REG CLI Ordering Dr: Majo Martins MD Date: 03/01/25 Location: [facility] Sex: F C Admitted: Test Reason : DIZZYNESS Blood Pressure : */* mmHG Vent. Rate : 80 BPM Atrial Rate : 80 BPM P-R Int : 116 ms QRS Dur : 82 ms QT Int : 366 ms P-R-T Axes : 58 90 59 degrees QTcB Int : 422 ms Normal sinus rhythm Rightward axis Borderline ECG Confirmed by JAKUB BUSH MD ([id number]), newspaper editor managing KATARZYNA HALLMAN ([id number]) on 03/02/2025 8:21:28 AM Referred By: Majo Martins Confirmed By: JAKUB BUSH MD 03/02/25820 Date Jakub Bush MD CC: Dr. Majo Martins MD; No Primary Care Physician Signed Normal [facility] Absolute lymphocyte countOrd ered By: Majo Martins on 02-16-2025 Lymphocytes Auto (Unsp spec) [#/Vol] 1.90 10*3/uL 0.83-4.51 [facility] Absolute neutrophil countOrd ered By: Majo Martins on 02-16-2025 Neutrophils (Bld) [#/Vol] 9.5 10*3/uL High 2.0-7.7 [facility] Anion gap in Serum or Plasma Ordered By: Majo Martins on 02-16-2025 Anion gap [Moles/Vol] 11 mmol/L 5-15 [facility] Automated lymphocyte count a s percentage of total leukocytesOrdered By: Majo Martins on 02-16-2025 Lymphocytes/100 WBC Auto (Unsp spec) 15.3 % Low 19-41 [facility] BUN/creatinine ratioOrdered By: Majo Maritns on 02-16-2025 Urea nitrogen/Creatinine [Mass ratio] 8.5 mg/mg Low 10-20 [facility] Basophil percentageOrdered B y: Majo Martins on 02-16-2025 Basophils/100 WBC (Bld) 0.3 % 0-1 [facility] Bilirubin, totalOrdered By: Majo Martins on 02-16-2025 Bilirubin [Mass/Vol] 0.30 mg/dL 0.00-1.30 [facility] CBC W/Diff, Automatedon Absolute Lymph 1.90 X10 3/uL Normal 0.83-4.51 [facility] Comment on above: Performed By: #### L 500.4050, L501.0900, L100.0100 #### [facility] [address] [place], [address] Absolute Neut 9.5 X10 3/uL High 2.0-7.7 [facility] Comment on above: Performed By: #### L 500.4050, L501.0900, L100.0100 #### [facility] [address] [place], [address] Basophils/100 WBC (Bld) 0.3 % Normal 0-1 [facility] Comment on above: Performed By: #### L 500.4050, L501.0900, L100.0100 #### [facility] [address] [place], [address] Eosinophils/100 WBC (Bld) 1.5 % Normal 0-5 [facility] Comment on above: Performed By: #### L 500.4050, L501.0900, L100.0100 #### [facility] [address] [place], [address] Erythrocyte distribution width (RBC) [Ratio] 16.6 % High 11.6-14.6 [facility] Comment on above: Performed By: #### L 500.4050, L501.0900, L100.0100 #### [facility] [address] [place], [address] Hematocrit (Bld) [Volume fraction] 30.9 % Low 37-47 [facility] Comment on above: Performed By: #### L 500.4050, L501.0900, L100.0100 #### [facility] [address] [place], [address] Hemoglobin (Bld) [Mass/Vol] 10.0 g/dL Low 12.0-15.0 [facility] Comment on above: Performed By: #### L 500.4050, L501.0900, L100.0100 #### [facility] [address] [place], [address] IG% 1.500 High 0.0-0.9 [facility] Comment on above: Result Comment: IG% - Immature Granulocytes (promyelocytes, myelocytes and metamyelocytes) > 1% indicates that a LEFT SHIFT is Present. Performed By: #### L 500.4050, L501.0900, L100.0100 #### [facility] [address] [place], [address] Lymphocytes/100 WBC (Bld) 15.3 % Low 19-41 [facility] Comment on above: Performed By: #### L 500.4050, L501.0900, L100.0100 #### [facility] [address] [place], [address] MCH (RBC) [Entitic mass] 25.9 pg Low 27.0-32.0 [facility] Comment on above: Performed By: #### L 500.4050, L501.0900, L100.0100 #### [facility] [address] [place], [address] MCHC (RBC) [Mass/Vol] 32.4 g/dL Normal 32-36 [facility] Comment on above: Performed By: #### L 500.4050, L501.0900, L100.0100 #### [facility] [address] [place], [address] MCV (RBC) [Entitic vol] 80.1 fL Low 81-99 [facility] Comment on above: Performed By: #### L 500.4050, L501.0900, L100.0100 #### [facility] [address] [place], [address] Monocytes/100 WBC (Bld) 5.0 % Normal 0-10 [facility] Comment on above: Performed By: #### L 500.4050, L501.0900, L100.0100 #### [facility] [address] [place], [address] Neutrophils/100 WBC (Bld) 76.4 % High 47-70 [facility] Comment on above: Performed By: #### L 500.4050, L501.0900, L100.0100 #### [facility] [address] [place], [address] Nucleated RBC (Bld) [#/Vol] 0 10*3/uL Normal 0-5 [facility] Comment on above: Performed By: #### L 500.4050, L501.0900, L100.0100 #### [facility] [address] [place], [address] Platelet mean volume (Bld) [Entitic vol] 11.3 fL Normal 6.2-12.0 [facility] Comment on above: Performed By: #### L 500.4050, L501.0900, L100.0100 #### [facility] [address] [place], [address] Platelets (Bld) [#/Vol] 311 10*3/uL Normal 150-450 [facility] Comment on above: Performed By: #### L 500.4050, L501.0900, L100.0100 #### [facility] [address] [place], [address] RBC (Bld) [#/Vol] 3.86 10*6/uL Low 4.2-5.4 [facility] Comment on above: Performed By: #### L 500.4050, L501.0900, L100.0100 #### [facility] [address] [place], [address] RDW SD 47.3 fl High 35.1-43.9 [facility] Comment on above: Performed By: #### L 500.4050, L501.0900, L100.0100 #### [facility] [address] [place], [address] WBC (Bld) [#/Vol] 12.4 10*3/uL High 4.4-11.0 [facility] Comment on above: Performed By: #### L 500.4050, L501.0900, L100.0100 #### [facility] [address] [place], [address] Carbon dioxide, total [Moles /volume] in Central venous bloodOrdered By: Majo Martins on 02-16-2025 CO2 [Moles/Vol] 21.4 mmol/L 21.0-32.0 [facility] Chloride assayOrdered By: Malachi Martins on 02-16-2025 Chloride [Moles/Vol] 102 mmol/L 98-108 [facility] Comprehensive Metabolic Prof ilon 02-16-2025 Albumin [Mass/Vol] 4.0 g/dL Normal 3.5-5.0 [facility] Comment on above: Performed By: #### L 500.4050, L501.0900, L100.0100 #### [facility] [address] [place], [address] Albumin/Globulin [Mass ratio] 1.3 {ratio} Normal 0.9-2.4 [facility] Comment on above: Performed By: #### L 500.4050, L501.0900, L100.0100 #### [facility] [address] [place], [address] ALK PHOS 58 U/L Normal 35-104 [facility] Comment on above: Performed By: #### L 500.4050, L501.0900, L100.0100 #### [facility] [address] [place], [address] ALT [Catalytic activity/Vol] 8 U/L Normal <=34 [facility] Comment on above: Performed By: #### L 500.4050, L501.0900, L100.0100 #### [facility] [address] [place], [address] AST [Catalytic activity/Vol] 15 U/L Normal <=31 [facility] Comment on above: Performed By: #### L 500.4050, L501.0900, L100.0100 #### [facility] [address] [place], [address] Bilirubin [Mass/Vol] 0.30 mg/dL Normal 0.00-1.30 [facility] Comment on above: Performed By: #### L 500.4050, L501.0900, L100.0100 #### [facility] [address] [place], [address] BUN/CRE 8.5 RATIO Low 10-20 [facility] Comment on above: Performed By: #### L 500.4050, L501.0900, L100.0100 #### [facility] [address] [place], [address] Calcium [Mass/Vol] 9.1 mg/dL Normal 7.6-11.0 [facility] Comment on above: Performed By: #### L 500.4050, L501.0900, L100.0100 #### [facility] [address] [place], [address] Chloride [Moles/Vol] 102 mmol/L Normal 98-108 [facility] Comment on above: Performed By: #### L 500.4050, L501.0900, L100.0100 #### [facility] [address] [place], [address] CO2 [Moles/Vol] 21.4 mmol/L Normal 21.0-32.0 [facility] Comment on above: Performed By: #### L 500.4050, L501.0900, L100.0100 #### [facility] [address] [place], [address] Creatinine [Mass/Vol] 0.55 mg/dL Low 0.70-1.20 [facility] Comment on above: Performed By: #### L 500.4050, L501.0900, L100.0100 #### [facility] [address] [place], [address] GAP 11 Normal 5-15 [facility] Comment on above: Performed By: #### L 500.4050, L501.0900, L100.0100 #### [facility] [address] [place], [address] GFR/1.73 sq M.predicted among non-blacks MDRD (S/P/Bld) [Vol rate/Area] 135 mL/min/{1.73_m2} Normal >60 [facility] Comment on above: Result Comment: mL/m in/1.73m2 CKD-EPI Creatinine Equation (2020) Performed By: #### L 500.4050, L501.0900, L100.0100 #### [facility] [address] [place], [address] Globulin (S) [Mass/Vol] 3.0 g/dL Normal 2.2-4.2 [facility] Comment on above: Performed By: #### L 500.4050, L501.0900, L100.0100 #### [facility] [address] [place], [address] Glucose [Mass/Vol] 82 mg/dL Normal 70-99 [facility] Comment on above: Performed By: #### L 500.4050, L501.0900, L100.0100 #### [facility] [address] [place], [address] Potassium [Moles/Vol] 3.8 mmol/L Normal 3.3-5.1 [facility] Comment on above: Performed By: #### L 500.4050, L501.0900, L100.0100 #### [facility] [address] [place], [address] Sodium [Moles/Vol] 135 mmol/L Normal 133-145 [facility] Comment on above: Performed By: #### L 500.4050, L501.0900, L100.0100 #### [facility] [address] [place], [address] T PROT 7.0 g/dL Normal 5.9-8.4 [facility] Comment on above: Performed By: #### L 500.4050, L501.0900, L100.0100 #### [facility] [address] [place], [address] Urea nitrogen [Mass/Vol] 5 mg/dL Normal 4-19 [facility] Comment on above: Performed By: #### L 500.4050, L501.0900, L100.0100 #### [facility] [address] [place], [address] Eosinophil percentageOrdered By: Majo Martins on 02-16-2025 Eosinophils/100 WBC (Bld) 1.5 % 0-5 [facility] Erythrocyte distribution wid th (RBC) [Ratio]Ordered By: Majo Martins on 02-16-2025 Erythrocyte distribution width (RBC) [Entitic vol] 47.3 fL High 35.1-43.9 [facility] Erythrocyte distribution wid th ratioOrdered By: Majo Martins on 02-16-2025 Erythrocyte distribution width (RBC) [Ratio] 16.6 % High 11.6-14.6 [facility] Erythrocyte distribution wid th standard deviationOrdered By: Majo Martins on 02-16-2025 Erythrocyte distribution width (RBC) [Ratio] 47.3 fl High 35.1-43.9 [facility] GFR/1.73 sq M.predicted jessica g non-blacks MDRD (S/P/Bld) [Vol rate/Area]Ordered By: Majo Martins on 02-16-2025 Estimated GFR (MDRD) Non-Af Amer 135 >60 [facility] Comment on above: mL/min/1.73m2 CKD-EP I Creatinine Equation (2020) Glomerular filtration rate ( GFR) estimation/1.73 sq m using serum, plasma, or whole bOrdered By: Majo Martins on 02-16-2025 GFR/1.73 sq M.predicted among non-blacks MDRD (S/P/Bld) [Vol rate/Area] 135 mL/min/{1.73_m2} >60 [facility] Comment on above: mL/min/1.73m2 CKD-EP I Creatinine Equation (2020) Hematocrit Auto (Bld) [Volum e fraction]Ordered By: Majo Martins on 02-16-2025 Hematocrit (Bld) [Volume fraction] 30.9 % Low 37-47 [facility] Hemoglobin measurementOrdere d By: Majo Martins on 02-16-2025 Hemoglobin (Bld) [Mass/Vol] 10.0 g/dL Low 12.0-15.0 [facility] Immature granulocytes/100 WB C Auto (Bld)Ordered By: Majo Martins on 02-16-2025 Immature granulocytes/100 WBC (Bld) 1.500 % High 0.0-0.9 [facility] Comment on above: IG% - Immature Granu locytes (promyelocytes, myelocytes and metamyelocytes) > 1% indicates that a LEFT SHIFT is Present. Laboratory - Chemistry and C hemistry - challengeOrdered By: Majo Martins on 02-16-2025 AST [Catalytic activity/Vol] 15 U/L <32 [facility] Glucose Ql (U) Negative [facility] - UrinalysisOrder ed By: Majo Martins on 02-16-2025 Protein Ql (U) Negative [facility] Lymphocytes Auto (Unsp spec) [#/Vol]Ordered By: Majo Martins on 02-16-2025 Lymphocytes (Bld) [#/Vol] 1.90 10*3/uL 0.83-4.51 [facility] Lymphocytes/100 WBC Auto (Un sp spec)Ordered By: Majo Martins on 02-16-2025 Lymphocytes/100 WBC (Bld) 15.3 % Low 19-41 [facility] MCV (mean corpuscular volume ) determinationOrdered By: Majo Martins on 02-16-2025 MCV (RBC) [Entitic vol] 80.1 fL Low 81-99 [facility] Mean corpuscular hemoglobin (MCH) determinationOrdered By: Majo Martins on 02-16-2025 MCH (RBC) [Entitic mass] 25.9 pg Low 27.0-32.0 [facility] Mean corpuscular hemoglobin concentration (MCHC) determinationOrdered By: Majo Martins on 02-16-2025 MCHC (RBC) [Mass/Vol] 32.4 g/dL 32-36 [facility] Mean platelet volume determi nationOrdered By: Majo Martins on 02-16-2025 Platelet mean volume (Bld) [Entitic vol] 11.3 fL 6.2-12.0 [facility] Monocyte percentageOrdered B y: Majo Martins on 02-16-2025 Monocytes/100 WBC (Bld) 5.0 % 0-10 [facility] Neutrophil percentageOrdered By: Majo Martins on 02-16-2025 Neutrophils/100 WBC (Bld) 76.4 % High 47-70 [facility] Nucleated red blood cell per centageOrdered By: Majo Martins on 02-16-2025 Nucleated RBC/100 WBC (Bld) [Ratio] 0 % 0-5 [facility] Fender Finisher Office Visit Reporton 02-16-2025 Fender Finisher Office Visit Report [facility] [address], [address] [place] [address] OFFICE VISIT Date of Service: 02/16/25 MR#: [id number] Acct: [id number] Name: MARILU MONDRAGON Rep #: [id number] : 2005 Provider: Dr. Majo huffman MD Age/Sex: 19/F Location: [facility] Status: Signed Intake Vital Signs 12/23/24 10:14 02/16/25 15:38 02/16/25 15:41 Height 4 ft 11 in 5 ft 8 in Weight: 173 lb 4 oz BMI 26.3 BP 127/76 H Intake Visit Reasons: 24 wk ob Medical Scientific Officer Required: No Is patient in pain?: No Allergies No Known Allergies Allergy (Verified 02/16/25 15:38) Medications ???Medication ???Instructions ???Recorded ???Confirmed ???Type PNV 153-FA 400 mcg-om3 35 mg-dha tab PO 11/19/24 02/16/25 History 25 mg-epa 5 mg-fish oil chew tablet Last Menstrual Period: 08/31/24 Zika: Zika virus screening: Negative : No PFSH PFSH Family History Grandmother Diabetes Paternal Mother Heart disease Grandfather Myocardial infarction, Onset Age: 40 Maternal Social History adopted: No household members: significant other current occupational status: unemployed pets and animals: No history of recent travel: No sexually active: Yes Smoking Status: Never smoker alcohol intake: current alcohol intake frequency: a few times a month details: not while substance use type: does not use well-balanced diet: rarely or never caffeine: Yes Type: carbonated beverages Number of servings: 1 eating out: rarely or never during the past year weight has: increased > 10 lbs what type of physical activity do you participate in: none mikie/yarsanism: None seatbelt use: always do you feel safe at home: Yes additional social history: 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 OB Visit BRIE Calculator Estimated Delivery Date Method Current WG Current Estimate 06/07/25 LMP (Certain) 24w 1d Other Estimates 06/05/25 Ultrasound #1 24w 3d Expected Delivery Route/Plan Labor Preferences- CB/BF classes: [] labor support person: [] labor intervention preferences: [] pain management options preferred: [] cut cord/dad catch: [] : [] PP control planned: [] discussed possible routes of delivery and associated risks: [] special requests: [] Specific Issue/Plans Covid status: [] Flu vaccine: [] Tdap vaccine: [] Rhogam: [] LARC form signed: [] Problem list reviewed and updated with the most current plan of care details and appropriate orders placed. Relevant counseling for the gestational age provided. Continue routine care and follow up unless otherwise noted in visit notes/problem list details Initial Weight: Not Recorded Date -???-???-???-???-???-? ??-???-???-???-???-??? -???- EGA Weight BP Urine Prot -???-???-???-???-???-? ??-???-???-???-???-??? -???- Glucose FHR FuHt Pres Dilation -???-???-???-???-???-? ??-???-???-???-???-??? -???- Effaced St Visit Note 11/25/24 -???-???-???-???-???-? ??-???-???-???-???-??? -???- 12w 2d 168 lb 112/78 -???-???-???-???-???-? ??-???-???-???-???-??? -???- 149 -???-???-???-???-???-? ??-???-???-???-???-??? -???- KW- CRL cons with dates. accepts NIPT MFM US ordered 12/23/24 -???-???-???-???-???-? ??-???-???-???-???-??? -???- 16w 2d 167 lb 110/80 Negative -???-???-???-???-???-? ??-???-???-???-???-??? -???- Negative 145 -???-???-???-???-???-? ??-???-???-???-???-??? -???- MH-No VB. Na usea resolved. Reviewed PN labs 02/16/25 -???-???-???-???-???-? ??-???-???-???-???-??? -???- 24w 1d 173 lb 4 oz 127/76 -???-???-???-???-???-? ??-???-???-???-???-??? -???- 145 24 -???-???-???-???-???-? ??-???-???-???-???-??? -???- SM- co dizzy spells where when she first stands up she will have heart rate and blood pressure spikes, her legs turn purple, she can't stand longer than a few minutes, she also co tingling in her legs when she's sitting for too long. she saw a financial planning analyst in the past and it was normal. she has a strong family history of heart disease. plan labs today and cardio consult [facility] First Trimester First Trimester: Desire for , Alcohol, Tobacco Cessation, Illicit/Recreational Drug/Substance Use, Intimate Partner Violence, Barriers to care, Anticipated Course of Care, Use of Any medications, Sexual activity, Exercise, Dental Care, Sauna/Hot tub use, Seat Belt use, Childbirth classes/Hos (more content not included)... Normal [facility] Platelet countOrdered By: Malachi Martins on 02-16-2025 Platelets (Bld) [#/Vol] 311 10*3/uL 150-450 [facility] Potassium (Unsp spec) [Mass/ Vol]Ordered By: Majo Martins on 02-16-2025 Potassium [Moles/Vol] 3.8 mmol/L 3.3-5.1 [facility] Potassium measurement (mass/ volume)Ordered By: Majo Martins on 02-16-2025 Potassium (Unsp spec) [Mass/Vol] 3.8 mmol/L 3.3-5.1 [facility] RBC Auto (Bld) [#/Vol]Ordere d By: Majo Martins on 02-16-2025 RBC (Bld) [#/Vol] 3.86 10*6/uL Low 4.2-5.4 [facility] Serum creatinine measurement (mass/volume)Ordered By: Majo Martins on 02-16-2025 Creatinine [Mass/Vol] 0.55 mg/dL Low 0.70-1.20 [facility] Serum globulin measurementOr dered By: Majo Martins on 02-16-2025 Globulin (S) [Mass/Vol] 3.0 g/dL 2.2-4.2 [facility] Serum glucose measurement (m ass/volume)Ordered By: Majo Martins on 02-16-2025 Glucose [Mass/Vol] 82 mg/dL 70-99 [facility] Serum or plasma alanine yadav otransferase (ALT) measurementOrdered By: Majo Martins on 02-16-2025 ALT [Catalytic activity/Vol] 8 U/L <35 [facility] Serum or plasma albumin otoniel urement (mass/volume)Ordered By: Majo Martins on 02-16-2025 Albumin [Mass/Vol] 4.0 g/dL 3.5-5.0 [facility] Serum or plasma albumin/glob ulin mass ratioOrdered By: Majo Martins on 02-16-2025 Albumin/Globulin [Mass ratio] 1.3 {ratio} 0.9-2.4 [facility] Serum or plasma alkaline dora sphatase measurementOrdered By: Majo Martins on 02-16-2025 ALP [Catalytic activity/Vol] 58 U/L 35-104 [facility] Serum or plasma calcium otoniel urement (mass/volume)Ordered By: Majo Martins on 02-16-2025 Calcium [Mass/Vol] 9.1 mg/dL 7.6-11.0 [facility] Serum or plasma urea nitroge n measurement (mass/volume)Ordered By: Majo Martins on 02-16-2025 Urea nitrogen [Mass/Vol] 5 mg/dL 4-19 [facility] Sodium levelOrdered By: Alexys Martins on 02-16-2025 Sodium [Moles/Vol] 135 mmol/L 133-145 [facility] Total proteinOrdered By: Oneal Martins on 02-16-2025 Protein [Mass/Vol] 7.0 g/dL 5.9-8.4 [facility] White blood cell (WBC) count Ordered By: Majo Martins on 02-16-2025 WBC (Bld) [#/Vol] 12.4 10*3/uL High 4.4-11.0 [facility] ED Prov Noteon 12-23-2024 ED Prov Note ED PROVIDER NOTE [facility] EM[facility] NAME: Marilu Mondragon AGE: 19 y.o. : 2005 VISIT DATE: 12/23/2024 CSN: [id number] PCP: No, Physician Chief Complaint Patient presents with Rash Chief complaint rash History of present illness 19-year-old female who has a rash to her suprapubic area where she was shaving. 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 History reviewed. No pertinent past medical history. History reviewed. No pertinent surgical history. History reviewed. No pertinent family history. Social History Socioeconomic History Marital status: Single Tobacco Use Smoking status: Never Smokeless tobacco: Never Vaping Use Vaping status: Never Used Substance and Sexual Activity Alcohol use: Not Currently Drug use: Never Previous Medications Medication Sig amoxicillin (AMOXIL) 500 MG capsule Take 1 (one) capsule (500 mg total) by mouth 3 (three) times a day for 10 days . levonorgestrel-ethinyl estradiol (ENPRESSE) 50-30 (6)/75-40 (5)/125-30(10) per tablet Take 1 (one) tablet by mouth daily . No Known Allergies Review of Systems All other systems reviewed and are negative. No data found. Physical Exam Vitals and nursing note reviewed. Exam conducted with a experience planning strategist present. Constitutional: Appearance: Normal appearance. She is normal weight. HENT: Head: Normocephalic and atraumatic. Nose: Nose normal. Mouth/Throat: Mouth: Mucous membranes are dry. Pharynx: No posterior oropharyngeal erythema. Eyes: Extraocular Movements: Extraocular movements intact. Pupils: Pupils are equal, round, and reactive to light. Cardiovascular: Rate and Rhythm: Normal rate and regular rhythm. Pulmonary: Effort: Pulmonary effort is normal. Abdominal: General: Abdomen is flat. Bowel sounds are normal. Skin: Comments: Examination of the suprapubic area reveals folliculitis Neurological: Mental Status: She is alert. Laboratory & Radiographic Imaging (if done): No results found for this visit on 12/23/24. No orders to display Procedures Medical Decision Making Differential diagnosis Folliculitis Herpes Syphilis warts Patient's condition is consistent with a folliculitis she was placed on antibiotics Clinical Impression: 1. Folliculitis ED Disposition ED Disposition Discharge Condition Stable Comment Marilu Mondragon discharged to home/self care in stable condition. Follow-up Information Follow-up information has not been specified. Contact information for after-discharge care Follow-up information has not been specified. New Prescriptions clindamycin (CLEOCIN) 300 MG capsule Take 1 (one) capsule (300 mg total) by mouth 3 (three) times a day for 10 days . Lara Rich MD 12/26/24 2012 AUTHENTICATED BY LARA RICH, ON 12/26/2024 20:12:09 [facility] - Chemistry and C hemistry - challengeOrdered By: Jarett Pendleton on 12-23-2024 Glucose Ql (U) Negative [facility] - UrinalysisOrder ed By: Jarett Pendleton on 12-23-2024 Protein Ql (U) Negative [facility] Fender Finisher Office Visit Reporton 12-23-2024 Fender Finisher Office Visit Report [facility] [address], [address] [place] [address] OFFICE VISIT Date of Service: 12/23/24 MR#: [id number] Acct: [id number] Name: MARILU MONDRAGON Rep #: [id number] : 2005 Provider: LYLY cruz Age/Sex: 19/F Location: [facility] Status: Signed Intake Vital Signs 06/30/15 17:44 11/25/24 14:47 12/23/24 10:14 Height 4 ft 11 in 4 ft 11 in 4 ft 11 in Weight: 167 lb BMI 33.7 BP 110/80 Intake Visit Reasons: 16wk OB Chief Complaint: 16 Week OB Medical Scientific Officer Required: No Allergies No Known Allergies Allergy (Verified 11/25/24 14:39) Medications ???Medication ???Instructions ???Recorded ???Confirmed ???Type PNV 153-FA 400 mcg-om3 35 mg-dha tab PO 11/19/24 12/23/24 History 25 mg-epa 5 mg-fish oil chew tablet Last Menstrual Period: 08/31/24 Zika: Zika virus screening: Negative : Yes PFSH PFSH Family History Grandmother Diabetes Paternal Mother Heart disease Grandfather Myocardial infarction, Onset Age: 40 Maternal Social History adopted: No household members: significant other current occupational status: unemployed pets and animals: No history of recent travel: No sexually active: Yes Smoking Status: Never smoker alcohol intake: current alcohol intake frequency: a few times a month details: not while substance use type: does not use well-balanced diet: rarely or never caffeine: Yes Type: carbonated beverages Number of servings: 1 eating out: rarely or never during the past year weight has: increased > 10 lbs what type of physical activity do you participate in: none mikie/yarsanism: None seatbelt use: always do you feel safe at home: Yes additional social history: BF- 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 OB Visit BRIE Calculator Estimated Delivery Date Method Current WG Current Estimate 06/07/25 LMP (Certain) 16w 2d Other Estimates 06/05/25 Ultrasound #1 16w 4d Expected Delivery Route/Plan Labor Preferences- CB/BF classes: [] labor support person: [] labor intervention preferences: [] pain management options preferred: [] cut cord/dad catch: [] : [] PP control planned: [] discussed possible routes of delivery and associated risks: [] special requests: [] Specific Issue/Plans Covid status: [] Flu vaccine: [] Tdap vaccine: [] Rhogam: [] LARC form signed: [] Problem list reviewed and updated with the most current plan of care details and appropriate orders placed. Relevant counseling for the gestational age provided. Continue routine care and follow up unless otherwise noted in visit notes/problem list details Initial Weight: Not Recorded Date -???-???-???-???-???-? ??-???-???-???-???-??? -???- EGA Weight BP Urine Prot -???-???-???-???-???-? ??-???-???-???-???-??? -???- Glucose FHR FuHt Pres Dilation -???-???-???-???-???-? ??-???-???-???-???-??? -???- Effaced St Visit Note 11/25/24 -???-???-???-???-???-? ??-???-???-???-???-??? -???- 12w 2d 168 lb 112/78 -???-???-???-???-???-? ??-???-???-???-???-??? -???- 149 -???-???-???-???-???-? ??-???-???-???-???-??? -???- KW- CRL cons with dates. accepts NIPT MFM US ordered 12/23/24 -???-???-???-???-???-? ??-???-???-???-???-??? -???- 16w 2d 167 lb 110/80 -???-???-???-???-???-? ??-???-???-???-???-??? -???- 145 -???-???-???-???-???-? ??-???-???-???-???-??? -???- -No VB. Na usea resolved. Reviewed PN labs ACOG First Trimester First Trimester: Desire for , Alcohol, Tobacco Cessation, Illicit/Recreational Drug/Substance Use, Intimate Partner Violence, Barriers to care, Anticipated Course of Care, Use of Any medications, Sexual activity, Exercise, Dental Care, Sauna/Hot tub use, Seat Belt use, Childbirth classes/Hospital facilities, , Travel, Indications for Ultrasound and Screening for Aneuploidy; Discussed Unstable Housing, Discussed Communication Barriers, Discussed Environmental/Work Hazards and Discussed Toxoplasmosis Precations Second Trimester Second Trimester: Signs and Symptoms of Labor, Selecting a care provider, Reproductive Life Planning Contreception, Care Planning, Depression/Anxiety and Intimate Partner Violence; Discussed Tobacco Cessation Third Trimester Third Trimester: Pain Management Plans, Labor support person(s), Immediate Po (more content not included)... Normal [facility] ED Prov Noteon 12-16-2024 ED Prov Note ED PROVIDER NOTE [facility] EMERGENCY [facility] NAME: Marilu Mondragon AGE: 19 y.o. : 2005 VISIT DATE: 12/16/2024 CSN: [id number] PCP: No, Physician Chief Complaint Patient presents with Otalgia Chief complaint ear pain History of present illness 19-year-old who is here with right ear pain preceded by URI symptoms. Is here for assessment with a pulse 104 blood pressure 122/75 respirate 18 temp 98.5 History reviewed. No pertinent past medical history. History reviewed. No pertinent surgical history. History reviewed. No pertinent family history. Social History Socioeconomic History Marital status: Single Tobacco Use Smoking status: Never Smokeless tobacco: Never Vaping Use Vaping status: Never Used Substance and Sexual Activity Alcohol use: Not Currently Drug use: Never Previous Medications Medication Sig levonorgestrel-ethinyl estradiol (ENPRESSE) 50-30 (6)/75-40 (5)/125-30(10) per tablet Take 1 (one) tablet by mouth daily . No Known Allergies Review of Systems All other systems reviewed and are negative. Patient Vitals for the past 24 hrs: BP Temp Temp src Pulse Resp SpO2 Height Weight 12/16/24 1859 122/75 98.5 degrees F (36.9 degrees C) Oral (!) 104 18 96 % 5' 10 76.2 kg (168 lb) Physical Exam Vitals and nursing note reviewed. Exam conducted with a experience planning strategist present. Constitutional: Appearance: Normal appearance. She is normal weight. HENT: Head: Normocephalic and atraumatic. Ears: Comments: Right erythema edema Nose: Rhinorrhea present. Mouth/Throat: Pharynx: Posterior oropharyngeal erythema present. Eyes: Extraocular Movements: Extraocular movements intact. Pupils: Pupils are equal, round, and reactive to light. Cardiovascular: Rate and Rhythm: Normal rate and regular rhythm. Musculoskeletal: General: Normal range of motion. Cervical back: Normal range of motion and neck supple. Pulmonary: Effort: Pulmonary effort is normal. Breath sounds: Normal breath sounds. Skin: Capillary Refill: Capillary refill takes less than 2 seconds. Neurological: Mental Status: She is alert. Laboratory & Radiographic Imaging (if done): No results found for this visit on 12/16/24. No orders to display Procedures Medical Decision Making Differential diagnosis considered #1 otitis externa 2 otitis media #3 tympanic membrane rupture #4 cerumen impaction #5 foreign body #6 malignant otitis externa Patient was given a dose amoxicillin here Clinical Impression: 1. Right otitis media, unspecified otitis media type ED Disposition ED Disposition Discharge Condition Stable Comment Marilu Mondragon discharged to home/self care in stable condition. Follow-up Information Follow-up information has not been specified. Contact information for after-discharge care Follow-up information has not been specified. New Prescriptions amoxicillin (AMOXIL) 500 MG capsule Take 1 (one) capsule (500 mg total) by mouth 3 (three) times a day for 10 days . Lara Rich MD 12/16/241915 AUTHENTICATED BY LARA RICH, ON 12/16/2024 19:16:51 [facility] Chlamydia/GC ROCIO aptimaon CHLAMY,NUC ACID Negative Normal Negative [facility] Comment on above: Performed By: #### L 500.4050, L501.0900, L100.0100 #### [facility] [address] [place], [place], [id number] GC BY NUC ACID Negative Normal Negative [facility] Comment on above: Result Comment: Perf ormed at: =G - [facility] [address] [id number] Swing Type Lathe Operator: Kaila Adhiakri MD, Phone: [phone] Performed By: #### L 500.4050, L501.0900, L100.0100 #### [facility] [address] [place], [place], [id number] Urine Cultureon 11-26-2024 URC Below infection leve l. GPC Poss Enterococcus sp Joice Count 1000-10,000 Normal [facility] Comment on above: Performed By: #### L 500.4050, L501.0900, L100.0100 #### [facility] [address] [place], [address] Absolute lymphocyte countOrd ered By: Rebeca Anthony on 11-25-2024 Lymphocytes Auto (Unsp spec) [#/Vol] 2.13 10*3/uL 0.83-4.51 [facility] Absolute neutrophil countOrd ered By: Rebeca Cruz on 11-25-2024 Neutrophils (Bld) [#/Vol] 6.7 10*3/uL 2.0-7.7 [facility] Automated lymphocyte count a s percentage of total leukocytesOrdered By: Rebeca Cruz on 11-25-2024 Lymphocytes/100 WBC Auto (Unsp spec) 22.5 % 19-41 [facility] Basophil percentageOrdered B y: Rebeca Cruz on 11-25-2024 Basophils/100 WBC (Bld) 0.3 % 0-1 [facility] C. trachomatis rRNA ROCIO+prob e Ql (Unsp spec)Ordered By: Rebeca Cruz on 11-25-2024 Chlamydia DNA (ROCIO) Negative Negative [facility] CBC W/Diff, Automatedon 11-10 Absolute Lymph 2.13 X10 3/uL Normal 0.83-4.51 [facility] Comment on above: Performed By: #### L 500.4050, L501.0900, L100.0100 #### [facility] [address] [place], [address] Absolute Neut 6.7 X10 3/uL Normal 2.0-7.7 [facility] Comment on above: Performed By: #### L 500.4050, L501.0900, L100.0100 #### [facility] [address] [place], [address] Basophils/100 WBC (Bld) 0.3 % Normal 0-1 [facility] Comment on above: Performed By: #### L 500.4050, L501.0900, L100.0100 #### [facility] [address] [place], [address] Eosinophils/100 WBC (Bld) 1.1 % Normal 0-5 [facility] Comment on above: Performed By: #### L 500.4050, L501.0900, L100.0100 #### [facility] [address] [place], [address] Erythrocyte distribution width (RBC) [Ratio] 17.5 % High 11.6-14.6 [facility] Comment on above: Performed By: #### L 500.4050, L501.0900, L100.0100 #### [facility] [address] [place], [address] Hematocrit (Bld) [Volume fraction] 36.5 % Low 37-47 [facility] Comment on above: Performed By: #### L 500.4050, L501.0900, L100.0100 #### [facility] [address] [place], [address] Hemoglobin (Bld) [Mass/Vol] 11.7 g/dL Low 12.0-15.0 [facility] Comment on above: Performed By: #### L 500.4050, L501.0900, L100.0100 #### [facility] [address] [place], [address] IG% 0.500 Normal 0.0-0.9 [facility] Comment on above: Result Comment: IG% - Immature Granulocytes (promyelocytes, myelocytes and metamyelocytes) > 1% indicates that a LEFT SHIFT is Present. Performed By: #### L 500.4050, L501.0900, L100.0100 #### [facility] [address] [place], [address] Lymphocytes/100 WBC (Bld) 22.5 % Normal 19-41 [facility] Comment on above: Performed By: #### L 500.4050, L501.0900, L100.0100 #### [facility] [address] [place], [address] MCH (RBC) [Entitic mass] 23.6 pg Low 27.0-32.0 [facility] Comment on above: Performed By: #### L 500.4050, L501.0900, L100.0100 #### [facility] [address] [place], [address] MCHC (RBC) [Mass/Vol] 32.1 g/dL Normal 32-36 [facility] Comment on above: Performed By: #### L 500.4050, L501.0900, L100.0100 #### [facility] [address] [place], [address] MCV (RBC) [Entitic vol] 73.6 fL Low 81-99 [facility] Comment on above: Performed By: #### L 500.4050, L501.0900, L100.0100 #### [facility] [address] [place], [address] Monocytes/100 WBC (Bld) 5.1 % Normal 0-10 [facility] Comment on above: Performed By: #### L 500.4050, L501.0900, L100.0100 #### [facility] [address] [place], [address] Neutrophils/100 WBC (Bld) 70.5 % High 47-70 [facility] Comment on above: Performed By: #### L 500.4050, L501.0900, L100.0100 #### [facility] [address] [place], [address] Nucleated RBC (Bld) [#/Vol] 0 10*3/uL Normal 0-5 [facility] Comment on above: Performed By: #### L 500.4050, L501.0900, L100.0100 #### [facility] [address] [place], [address] Platelet mean volume (Bld) [Entitic vol] 10.8 fL Normal 6.2-12.0 [facility] Comment on above: Performed By: #### L 500.4050, L501.0900, L100.0100 #### [facility] [address] [place], [address] Platelets (Bld) [#/Vol] 345 10*3/uL Normal 150-450 [facility] Comment on above: Performed By: #### L 500.4050, L501.0900, L100.0100 #### [facility] [address] [place], [address] RBC (Bld) [#/Vol] 4.96 10*6/uL Normal 4.2-5.4 [facility] Comment on above: Performed By: #### L 500.4050, L501.0900, L100.0100 #### [facility] [address] [place], [address] RDW SD 45.1 fl High 35.1-43.9 [facility] Comment on above: Performed By: #### L 500.4050, L501.0900, L100.0100 #### [facility] [address] [place], [address] WBC (Bld) [#/Vol] 9.5 10*3/uL Normal 4.4-11.0 [facility] Comment on above: Performed By: #### L 500.4050, L501.0900, L100.0100 #### [facility] [address] [place], [address] Chlamydia trachomatis rRNA d etection by probe and target amplification methodOrdered By: Rebeca Cruz on 11-25-2024 C. trachomatis rRNA ROCIO+probe Ql (Unsp spec) Negative Negative [facility] Eosinophil percentageOrdered By: Rebeca Cruz on 11-25-2024 Eosinophils/100 WBC (Bld) 1.1 % 0-5 [facility] Erythrocyte distribution wid th (RBC) [Ratio]Ordered By: Rebeca Cruz on 11-25-2024 Erythrocyte distribution width (RBC) [Entitic vol] 45.1 fL High 35.1-43.9 [facility] Erythrocyte distribution wid th ratioOrdered By: Rebeca Cruz on 11-25-2024 Erythrocyte distribution width (RBC) [Ratio] 17.5 % High 11.6-14.6 [facility] Erythrocyte distribution wid th standard deviationOrdered By: Rebeca Cruz on 11-25-2024 Erythrocyte distribution width (RBC) [Ratio] 45.1 fl High 35.1-43.9 [facility] HIV - WCHon 11-25-2024 HIV Non-Reactive Normal Nonreactive [facility] Comment on above: Order Comment: Reaso n for Exam: Performed By: #### L 500.4050, L501.0900, L100.0100 #### [facility] [address] [place], [place] [address]all [facility] [place], [address] HIV 1 and HIV-2 antibody ass ay with HIV-1 p24 antigen detectionOrdered By: Rebeca Cruz on 11-25-2024 HIV 1+2 Ab+HIV1 p24 Ag IA Ql [facility] HIV 1+2 Ab+HIV1 p24 Ag IA Ql Ordered By: Rebeca Cruz on 11-25-2024 HIV (1&2) Antibody Non-Reactive Nonreactive [facility] Hematocrit Auto (Bld) [Volum e fraction]Ordered By: Rebeca Cruz on 11-25-2024 Hematocrit (Bld) [Volume fraction] 36.5 % Low 37-47 [facility] Hemoglobin measurementOrdere d By: Rebeca Cruz on 11-25-2024 Hemoglobin (Bld) [Mass/Vol] 11.7 g/dL Low 12.0-15.0 [facility] Hepatitis B Surface Antigeno n 11-25-2024 HEP B Surf Ag Non-Reactive Normal [facility] Comment on above: Order Comment: Reaso n for Exam: Performed By: #### L 500.4050, L501.0900, L100.0100 #### [facility] [address] [place], [place], [id number] Hepatitis B surface antigen detectionOrdered By: Rebeca Cruz on 11-25-2024 Hepatitis B Surface Antigen Non-Reactive Nonreactive [facility] Hepatitis C Antibodyon 11-25 Hepatitis C AB Non-Reactive Normal Nonreactive [facility] Comment on above: Order Comment: Reaso n for Exam: Result Comment: Non Reactive: < 0.8 Equivocal: >/= 0.8 to < 1.0 Reactive: >/= 1.0 The [facility] requires that a reactive/equivocal HCV antibody result be sent out for confirmation. HCV Quant by PCR testing. Performed By: #### L 500.4050, L501.0900, L100.0100 #### [facility] [address] [facility] [place], [place], [id number] Hepatitis C virus antibody a ssayOrdered By: Rebeca Cruz on 11-25-2024 Hepatitis C Antibody Non-Reactive Nonreactive [facility] Comment on above: Non Reactive: < 0.8 Equivocal: >/= 0.8 to < 1.0 Reactive: >/= 1.0The [facility] requires that a reactive/equivocal HCV antibody result be sent out for confirmation. HCV Quant by PCR testing. Immature granulocytes/100 WB C Auto (Bld)Ordered By: Rebeca Cruz on 11-25-2024 Immature granulocytes/100 WBC (Bld) 0.500 % 0.0-0.9 [facility] Comment on above: IG% - Immature Granu locytes (promyelocytes, myelocytes and metamyelocytes) > 1% indicates that a LEFT SHIFT is Present. L509.8000on 11-25-2024 Syphilis Abs Non-Reactive Normal [facility] Comment on above: Order Comment: Reaso n for Exam: Performed By: #### L 500.4050, L501.0900, L100.0100 #### [facility] [address] [place], [place], [id number] Lymphocytes Auto (Unsp spec) [#/Vol]Ordered By: Rebeca Cruz on 11-25-2024 Lymphocytes (Bld) [#/Vol] 2.13 10*3/uL 0.83-4.51 [facility] Lymphocytes/100 WBC Auto (Un sp spec)Ordered By: Rebeca Cruz on 11-25-2024 Lymphocytes/100 WBC (Bld) 22.5 % 19-41 [facility] MCV (mean corpuscular volume ) determinationOrdered By: Rebeca Cruz on 11-25-2024 MCV (RBC) [Entitic vol] 73.6 fL Low 81-99 [facility] Mean corpuscular hemoglobin (MCH) determinationOrdered By: Rebeca Cruz on 11-25-2024 MCH (RBC) [Entitic mass] 23.6 pg Low 27.0-32.0 [facility] Mean corpuscular hemoglobin concentration (MCHC) determinationOrdered By: Rebeca Cruz on 11-25-2024 MCHC (RBC) [Mass/Vol] 32.1 g/dL 32-36 [facility] Mean platelet volume determi nationOrdered By: Rebeca Cruz on 11-25-2024 Platelet mean volume (Bld) [Entitic vol] 10.8 fL 6.2-12.0 [facility] Miscellaneous procedureOrder ed By: Rebeca Cruz on 11-25-2024 Miscellaneous Test Comment SEE SCANNED REPORT [facility] Monocyte percentageOrdered B y: Rebeca Cruz on 11-25-2024 Monocytes/100 WBC (Bld) 5.1 % 0-10 [facility] NATERAon 11-25-2024 NATURA SEE SCANNED REPORT Normal [facility] Comment on above: Performed By: #### L 500.4050, L501.0900, L100.0100 #### [facility] [address] [facility] [place], [address] Neisseria gonorrhoeae nuclei c acid detection by amplified probe techniqueOrdered By: Rebeca Cruz on 11-25-2024 N. gonorrhoeae DNA ROCIO+probe Ql (Unsp spec) Negative Negative [facility] Comment on above: Performed at: =[address] [id number] Director: Kaila Adhikari MD, Phone: [phone] Neutrophil percentageOrdered By: Rebeca Cruz on 11-25-2024 Neutrophils/100 WBC (Bld) 70.5 % High 47-70 [facility] Nucleated red blood cell per centageOrdered By: Rebeca Cruz on 11-25-2024 Nucleated RBC/100 WBC (Bld) [Ratio] 0 % 0-5 [facility] Fender Finisher Office Visit Reporton 11-25-2024 Fender Finisher Office Visit Report [facility] [address], [address] [place] [address] OFFICE VISIT Date of Service: 11/25/24 MR#: [id number] Acct: [id number] Name: MARILU MONDRAGON Rep #: [id number] : 2005 Provider: TERRY Yeager ams Age/Sex: 19/F Location: [facility] Status: Signed Intake Vital Signs 06/30/15 17:44 11/25/24 14:36 11/25/24 14:47 Height 4 ft 11 in 5 ft 10 in 4 ft 11 in Weight: 168 lb BMI 24.0 BP 112/78 Intake Visit Reasons: New OB, BRIE 06/07/25 per JV Chief Complaint: ringworm on back and abdomen, dizzy episodes as well Medical Scientific Officer Required: No Is patient in pain?: No Allergies No Known Allergies Allergy (Verified 11/25/24 14:39) Medications ???Medication ???Instructions ???Recorded ???Confirmed ???Type PNV 153-FA 400 mcg-om3 35 mg-dha tab PO 11/19/24 11/25/24 History 25 mg-epa 5 mg-fish oil chew tablet Last Menstrual Period: 08/31/24 Zika: Zika virus screening: Negative : Yes Have you fallen in the past year?: No PFSH PFSH Family History Grandmother Diabetes Paternal Mother Heart disease Grandfather Myocardial infarction, Onset Age: 40 Maternal Social History adopted: No household members: significant other service: No current occupational status: unemployed pets and animals: No history of recent travel: No sexually active: Yes Smoking Status: Never smoker alcohol intake: current alcohol intake frequency: a few times a month details: not while substance use type: does not use well-balanced diet: rarely or never caffeine: Yes Type: carbonated beverages Number of servings: 1 eating out: rarely or never during the past year weight has: increased > 10 lbs what type of physical activity do you participate in: none mikie/yarsanism: None seatbelt use: always do you feel safe at home: Yes 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 OB Visit BRIE Calculator Estimated Delivery Date Method Current WG Current Estimate 06/07/25 LMP (Certain) 12w 2d Other Estimates 06/05/25 Ultrasound #1 12w 4d Comments: HIV: Urine Culture: Sequential Screen: NIPT Screen: Estimated Due Date: 06/07/25 Expected Delivery Route/Plan Labor Preferences- CB/BF classes: [] labor support person: [] labor intervention preferences: [] pain management options preferred: [] cut cord/dad catch: [] : [] PP control planned: [] discussed possible routes of delivery and associated risks: [] special requests: [] Specific Issue/Plans Covid status: [] Flu vaccine: [] Tdap vaccine: [] Rhogam: [] LARC form signed: [] Problem list reviewed and updated with the most current plan of care details and appropriate orders placed. Relevant counseling for the gestational age provided. Continue routine care and follow up unless otherwise noted in visit notes/problem list details Initial Weight: Not Recorded Date -???-???-???-???-???-? ??-???-???-???-???-??? -???- EGA Weight BP Urine Prot -???-???-???-???-???-? ??-???-???-???-???-??? -???- Glucose FHR FuHt Pres Dilation -???-???-???-???-???-? ??-???-???-???-???-??? -???- Effaced St Visit Note 11/25/24 -???-???-???-???-???-? ??-???-???-???-???-??? -???- 12w 2d 168 lb 112/78 -???-???-???-???-???-? ??-???-???-???-???-??? -???- 149 -???-???-???-???-???-? ??-???-???-???-???-??? -???- KW- CRL cons with dates. accepts NIPT MFM US ordered Menstrual History Last Menstrual Period: 08/31/24 Reported LMP: definite Normal amount/duration: No (shorter than usual- 4 days) Frequency in days: 28 On hormonal BC at conception: No hCG+: 10/07/24 Antepartum Record Genetic Screening: Congenital Heart Defect: Other, Neural Tube Defect: Other, Hemoglobinopathy Or Carrier: Other, Cystic Fibrosis: Other, Chromosome Abnormality: Other, Chas-Sachs: Other, Hemophilia: Other, Intellectual Disability/Autism: Other, Recurrent Loss/Stillbirth: Other, Other Structural Defect: Other, Other Genetic Disease: Other and Maternal Metabolic Disorder: Other Infection History: Live with someone with TB or Exposed to TB: No, Patient or Partner has history of Genital Herpes: No, Rash or Viral illness since last mentrual period: No, Prior GBS-Infected child: No, History of STD: No, HIV Infection: No, History of Hepatitis: No, Recent (more content not included)... Normal [facility] Platelet countOrdered By: Kamran Cruz on 11-25-2024 Platelets (Bld) [#/Vol] 345 10*3/uL 150-450 [facility] RBC Auto (Bld) [#/Vol]Ordere d By: Rebeca Cruz on 11-25-2024 RBC (Bld) [#/Vol] 4.96 10*6/uL 4.2-5.4 [facility] Rubella IgGon 11-25-2024 Rubella IgG Reactive Normal Nonreactive [facility] Comment on above: Order Comment: Reaso n for Exam: Result Comment: Anti body Results Interpretation of Immune Status Non Reactive Presumed Non-Immune Equivocal Equivocal Reactive Presumed Immune Performed By: #### L 500.4050, L501.0900, L100.0100 #### [facility] [address] [place], [place], [address] Rubella immune status IgGOrd ered By: Rebeca Cruz on 11-25-2024 Rubella IgG Antibody Reactive Nonreactive [facility] Comment on above: Antibody Results Int erpretation of Immune Status Non Reactive Presumed Non-Immune Equivocal Equivocal Reactive Presumed Immune Serum Treponema species anti body detectionOrdered By: Rebeca Cruz on 11-25-2024 Treponema sp Ab Ql (S) Non-Reactive [facility] Treponema sp Ab Ql (S)Ordere d By: Rebeca Cruz on 11-25-2024 Syphilis Total Antibody Non-Reactive [facility] Type AND Screenon 11-25-2024 Ab SCREEN GEL Negative Normal [facility] Comment on above: Order Comment: PN Performed By: #### L 500.4050, L501.0900, L100.0100 #### [facility] [address] [place], [address] Urine cultureOrdered By: Sujit Cruz on 11-25-2024 Bacteria identified Cx Nom (U) GPC Poss Enterococcus sp Abnormal [facility] White blood cell (WBC) count Ordered By: Rebeca Cruz on 11-25-2024 WBC (Bld) [#/Vol] 9.5 10*3/uL 4.4-11.0 [facility] ECG 12 lead (Clinic Performe d)on 09-23-2024 Normal sinus rhythm [facility] Work Phone: ED Prov Noteon 09-20-2024 ED Prov Note ED PROVIDER NOTE [facility] EMERGENCY DEPARTMENT NAME: Marilu Mondragon AGE: 19 y.o. : 2005 VISIT DATE: 09/20/2024 CSN: [id number] PCP: No, Physician Chief Complaint Patient presents with Dizziness Shortness of Breath Tachycardia 19-year-old female patient presents ER for evaluation of palpitations. Patient states that work when she felt lightheaded weak, noted her pulse is elevated and came in for further evaluation. Denies any syncopal episodes, chest pain or difficulty breathing, no nausea or emesis, no lower extremity swelling, symptoms were brief and self resolved History reviewed. No pertinent past medical history. History reviewed. No pertinent surgical history. History reviewed. No pertinent family history. Social History Socioeconomic History Marital status: Single Tobacco Use Smoking status: Never Smokeless tobacco: Never Vaping Use Vaping status: Never Used Substance and Sexual Activity Alcohol use: Not Currently Drug use: Never Previous Medications Medication Sig levonorgestrel-ethinyl estradiol (ENPRESSE) 50-30 (6)/75-40 (5)/125-30(10) per tablet Take 1 (one) tablet by mouth daily . No Known Allergies Review of Systems All other systems reviewed and are negative. Patient Vitals for the past 24 hrs: BP Temp Temp src Pulse Resp SpO2 Height Weight 09/20/24 1705 (!) 140/73 98.6 degrees F (37 degrees C) Temporal 88 16 100 % 5' 10 80.3 kg (177 lb) Physical Exam Vitals and nursing note reviewed. Constitutional: Appearance: Normal appearance. HENT: Head: Normocephalic and atraumatic. Right Ear: External ear normal. Left Ear: External ear normal. Nose: Nose normal. Mouth/Throat: Mouth: Mucous membranes are moist. Pharynx: Oropharynx is clear. Eyes: Extraocular Movements: Extraocular movements intact. Conjunctiva/sclera: Conjunctivae normal. Pupils: Pupils are equal, round, and reactive to light. Cardiovascular: Rate and Rhythm: Normal rate and regular rhythm. Musculoskeletal: General: Normal range of motion. Cervical back: Normal range of motion and neck supple. Pulmonary: Effort: Pulmonary effort is normal. Breath sounds: Normal breath sounds. Abdominal: General: Abdomen is flat. Bowel sounds are normal. Palpations: Abdomen is soft. Neurological: General: No focal deficit present. Mental Status: She is alert and oriented to person, place, and time. Mental status is at baseline. Psychiatric: Mood and Affect: Mood normal. Thought Content: Thought content normal. Laboratory & Radiographic Imaging (if done): No results found for this visit on 09/20/24. No orders to display EKG 12-lead Date/Time: 09/20/2024 5:20 PM Performed by: Barrera Wright MD Authorized by: Barrera Wright MD BPM: 96 Comments: Sinus rhythm, normal, normal intervals, rate 96, no Medical Decision Making Patient presents to the ER for presyncopal episode, elevated heart rate likely secondary to vasovagal episode, she otherwise well-appearing, no acute distress, EKG demonstrates no acute dysrhythmias, clinical exam she got no pitting edema, her lungs are clear, heart rate is normal, no murmurs. Recommend fluids, rest, follow-up, advised of signs and symptoms when to return The patient has been informed that they may have pre-hypertension or hypertension based on a blood pressure reading in the Emergency Department. I recommend that the patient call the primary care provider listed on their discharge instructions or a physician of their choice as soon as possible to arrange follow-up in the next 4 weeks for further evaluation of possible pre-hypertension or hypertension. . Clinical Impression: No diagnosis found. ED Disposition None Follow-up Information Follow-up information has not been specified. Contact information for after-discharge care Follow-up information has not been specified. Barrera Wright MD 09/20/24 1721 AUTHENTICATED BY BARRERA WRIGHT, ON 09/20/2024 17:21:04 [facility] ED Prov Noteon 08-01-2024 ED Prov Note ED PROVIDER NOTE [facility] EMERGENCY DEPARTMENT NAME: Marilu Mondragon AGE: 18 y.o. : 2005 VISIT DATE: 08/01/2024 CSN: [id number] PCP: No, Physician Chief Complaint Patient presents with Foot Injury History provided by: Patient Foot Injury Location: Foot Time since incident: 2 hours Severity: Mild (was able to continue to play kickball until the end of the game') Injury: yes Mechanism of injury: sports injury Foot location: Dorsum of R foot Pain details: Onset quality: Gradual Severity: Mild Ineffective treatments: Nothing tried Associated symptoms: stiffness and tenderness No past medical history on file. No past surgical history on file. No family history on file. Social History Socioeconomic History Marital status: Single Tobacco Use Smoking status: Never Smokeless tobacco: Never Vaping Use Vaping status: Never Used Substance and Sexual Activity Alcohol use: Not Currently Drug use: Never Previous Medications Medication Sig levonorgestrel-ethinyl estradiol (ENPRESSE) 50-30 (6)/75-40 (5)/125-30(10) per tablet Take 1 (one) tablet by mouth daily . No Known Allergies Review of Systems Musculoskeletal: Positive for stiffness. Patient Vitals for the past 24 hrs: BP Temp Pulse Resp SpO2 Weight 08/01/24 2243 125/81 98 degrees F (36.7 degrees C) (!) 108 16 100 % 75.3 kg (166 lb) Physical Exam Vitals and nursing note reviewed. Constitutional: General: She is awake. She is not in acute distress. Appearance: Normal appearance. She is well-developed. She is not toxic-appearing or diaphoretic. Eyes: Extraocular Movements: Extraocular movements intact. Comments: PER, unremarkable size Neck: Trachea: No tracheal deviation. Musculoskeletal: General: Tenderness present. No swelling, deformity or signs of injury. Cervical back: Normal range of motion. Right foot: Tenderness present. No bony tenderness. Pulmonary: Effort: Pulmonary effort is normal. No respiratory distress. Neurological: General: No focal deficit present. Mental Status: She is alert. Motor: No abnormal muscle tone. Coordination: Coordination normal. Comments: Awake, alert and appropriate. Psychiatric: Mood and Affect: Mood normal. Behavior: Behavior normal. Behavior is cooperative. Laboratory & Radiographic Imaging (if done): No results found for this visit on 08/01/24. XR Foot Right 3+ Views (Standard) (Results Pending) Procedures Medical Decision Making The patient has been informed that they may have pre-hypertension or hypertension based on a blood pressure reading in the Emergency Department. I recommend that the patient call the primary care provider listed on their discharge instructions or a physician of their choice as soon as possible to arrange follow-up in the next 4 weeks for further evaluation of possible pre-hypertension or hypertension. . Clinical Impression: 1. Foot sprain, right, initial encounter 2. Patient-requested procedure ED Disposition ED Disposition Discharge Condition Stable Comment Marilu Mondragon discharged to home/self care in stable condition. Follow-up Information 1. [facility] Emergency Department. Specialty: Emergency Medicine Why: If symptoms worsen [address] [facility] [id number] Contact information for after-discharge care Follow-up information has not been specified. Mario Segal MD 08/01/24 2311 AUTHENTICATED BY MARIO SEGAL, ON 08/01/2024 23:11:55 [facility] XR FOOT RIGHT 3+ VIEWS (LUCÍA DARD)on 08-01-2024 XR FOOT RIGHT 3+ VIEWS (STANDARD) EXAMINATION: XR FOOT RIGHT 3+ VIEWS (STANDARD) HISTORY: ORDERING SYSTEM PROVIDED HISTORY: Sports injury. COMPARISON: None FINDINGS: Three views of the right foot. No acute fracture. Lisfranc alignment is preserved. The joint spaces are intact. Soft tissues are within normal limits. IMPRESSION: No acute fracture or traumatic malalignment. Workstation ID: [id number] Dictated by: HUMBERTO REYES on FriAug 02, 2024 12:21:23 AM EDT Transcribed by: HUMBERTO REYES on FriAug 02, 2024 12:21:23 AM EDT Finalized by: HUMBERTO REYES on FriAug 02, 2024 12:21:23 AM EDT [facility] Comment on above: Order Comment: Injur y/Trauma or Illness?:Injury/Trauma How long have you had these symptoms (acute/chronic)?:Acute Reason for exam?:Was playing kickball tonight and missed the ball kicking the ground. Right foot pain History of cancer?:n Surgeries, chemotherapy, or radiation?:n Type of Exam?:Initial Mechanism of injury?:Was playing kickball tonight and missed the ball kicking the ground. ECG 12-LEADon 05-13-2024 ECG 12-LEAD Ventricular Rate 113 Atrial Rate 113 P-R Interval 126 QRS Duration 86 Q-T Interval 324 QTC Calculation(Bazett) 444 P Carpenter 80 R Carpenter 92 T Carpenter 67 QRS Count 19 Q Onset 218 P Onset 155 P Offset 203 T Offset 380 QTC Fredericia 400 Diagnosis Sinus tachycardia Rightward axis Nonspecific ST abnormality Abnormal ECG No previous ECGs available See ED provider note for full interpretation and clinical correlation Confirmed by Beatris Petersen ([id number]) on 05/21/2024 8:15:26 PM Normal [facility] XR CHEST 2 VIEWSon XR CHEST 2 VIEWS Interpreted By: Mcihael Finley, STUDY: XR CHEST 2 VIEWS; 05/13/2024 5:35 am INDICATION: Signs/Symptoms:cp. COMPARISON: None. ACCESSION NUMBER(S): [id number] ORDERING CLINICIAN: ZACARIAS GALLARDO FINDINGS: CARDIOMEDIASTINAL SILHOUETTE: Cardiomediastinal silhouette is normal in size and configuration. LUNGS: No pulmonary consolidation, pleural effusion or pneumothorax. ABDOMEN: No remarkable upper abdominal findings. BONES: No acute osseous abnormality. IMPRESSION: No radiographic evidence of acute cardiopulmonary pathology. MACRO: None. Signed by: Michael Finley 05/13/2024 6:26 AM Dictation workstation: [id number] [facility] XR Chest 2 Viewson No radiographic evidence of acute cardiopulmonary pathology. MACRO: None. Signed by: Michael Finley 05/13/2024 6:26 AM Dictation workstation: [id number] [facility] Interpreted By: Michael Finley, STUDY: XR CHEST 2 VIEWS; 05/13/2024 5:35 am INDICATION: Signs/Symptoms:cp. COMPARISON: None. ACCESSION NUMBER(S): [id number] ORDERING CLINICIAN: ZACARIAS GALLARDO FINDINGS: CARDIOMEDIASTINAL SILHOUETTE: Cardiomediastinal silhouette is normal in size and configuration. LUNGS: No pulmonary consolidation, pleural effusion or pneumothorax. ABDOMEN: No remarkable upper abdominal findings. BONES: No acute osseous abnormality. MMODAL Michael Finley MD - 05/13/2024 Interpreted By: Michael Finley, STUDY: XR CHEST 2 VIEWS; 05/13/2024 5:35 am INDICATION: Signs/Symptoms:cp. COMPARISON: None. ACCESSION NUMBER(S): [id number] ORDERING CLINICIAN: ZACARIAS GALLARDO FINDINGS: CARDIOMEDIASTINAL SILHOUETTE: Cardiomediastinal silhouette is normal in size and configuration. LUNGS: No pulmonary consolidation, pleural effusion or pneumothorax. ABDOMEN: No remarkable upper abdominal findings. BONES: No acute osseous abnormality. IMPRESSION: No radiographic evidence of acute cardiopulmonary pathology. MACRO: None. Signed by: Michael Finley 05/13/2024 6:26 AM Dictation workstation: [id number] [facility] Work Phone: Radiology Study observation (narrative) [facility] Work Phone: XR Chest 2 ViewsOrdered By: Michael Finley on 05-13-2024 [facility] Work Phone: 36on 02-20-2023 36 Spoke to mother willem and all was addressed patient will schedule her 2 step when she comes in for her TB read tmrw. Normal [facility] 36 Name of caller: Jany Chau phone number: [phone] Relationship to Patient: family member patient and parents Provider: Jerry Practice: Lorenza [facility]AI[facility] Chief Complaint/Reason for Call: Mother states school wants TB test that pt took 4.12.23 read twice in order for pt to start clinicals what is a good time mom ca bring pt in today. Please advise as soon as possible Best time of day caller can be reached: any Patient advised that office/PCP has 24-48 business hours to return their call: No Normal [facility] Office Visiton 02-19-2023 Follow-up visit [id number] Marilu Mondragon 2005 F Date Provider Department Center 02/19/2023 [id number] HENDERSON [facility] Family History Problem Relation Age of Onset No Known Problems Father No Known Problems Mother No Known Problems Brother No Known Problems Sister Family Status - Relation Status Age at Father Alive Mother Alive Brother Sister Level of Service:23720 [place] OFFICE/OUTPATIENT ESTABLISHED SF MDM 10-19 MIN Reason for Visit and Comments: TB test for school [Other] [facility] Progress Noteon 02-19-2023 Progress Note [facility] [address] [facility] [address] Dept: [phone] Dept Loc: [phone] Visit type: Established Patient Reason for Visit: TB test for school Assessment and Plan 1. Encounter for well adolescent visit - TB Skin Test Follow up in about 1 year (around 02/20/2024). Patient appears to be in no acute distress has no acute medical concerns during clinical stress Liset simply here to have evaluation for TV otherwise doing well. Mom discussed at bedside patient is sexually active we did discuss referral to [facility] [employer] [facility] to discuss control options mom would like her to have an implant and she states she will follow-up with [employer]. 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 She has not denies any recent concerns no shortness of breath cough cold flexion fever chills rigors nausea vomiting no ill exposures diabetic with tuberculosis or any concern for this. Has never tested positive for patient does not believe she has ever had a TB test in the past. Review of Systems Constitutional: Negative for chills and fever. HENT: Negative for congestion and sore throat. Respiratory: Negative for cough and shortness of breath. Cardiovascular: Negative for chest pain. Gastrointestinal: Negative for abdominal pain, diarrhea, nausea and vomiting. Genitourinary: Negative for difficulty urinating, dysuria, frequency and urgency. Musculoskeletal: Negative for back pain. Neurological: Negative for dizziness and light-headedness. All other systems reviewed and are negative. No Known Allergies No outpatient medications prior to visit. No facility-administered medications prior to visit. No past medical history on file. Social History Tobacco Use Smoking status: Never Smokeless tobacco: Never Substance Use Topics Alcohol use: Never No past surgical history on file. Family History Problem Relation Name Age of Onset No Known Problems Father Jose Martin No Known Problems Mother Jany No Known Problems Brother 2 No Known Problems Sister 1 Objective BP 110/64 (BP Location: Left arm, Patient Position: Sitting, BP Cuff Size: Large adult) Pulse (!) 97 Temp 36.7 ?C (98 ?F) (Temporal) Ht 5' 10 (1.778 m) Wt 149 lb 12.8 oz (67.9 kg) SpO2 98% BMI 21.49 kg/m? Physical Exam Vitals reviewed. Constitutional: General: She is not in acute distress. Appearance: Normal appearance. She is not ill-appearing or toxic-appearing. HENT: Right Ear: Tympanic membrane and ear canal normal. Left Ear: Tympanic membrane and ear canal normal. Nose: Nose normal. No congestion. Eyes: General: No scleral icterus. Conjunctiva/sclera: Conjunctivae normal. Pupils: Pupils are equal, round, and reactive to light. Cardiovascular: Rate and Rhythm: Normal rate and regular rhythm. Heart sounds: Normal heart sounds. Pulmonary: Effort: Pulmonary effort is normal. No respiratory distress. Breath sounds: Normal breath sounds. Musculoskeletal: Cervical back: Normal range of motion and neck supple. Skin: General: Skin is warm and dry. Neurological: Mental Status: She is alert. Psychiatric: Mood and Affect: Mood normal. Data Reviewed and Summarized Labs: Imaging/Testing: Selin Benavides PA-C 02/19/2023 Please note that portions of this note may have been completed with voice recognition software. Documentation reviewed prior to signing but minor errors in general ledger bookkeeper may have occurred. [facility] FO[facility] COMPLETE, MIN 3 VIEWSon 09-08-2022 FOOT COMPLETE, MIN 3 VIEWS Patient Name: MARILU MONDRAGON STUDY: FOOT; COMPLETE, MIN 3 VIEWS INDICATION: Injury to right foot, dropped a piece of wood onto foot . COMPARISON: None ACCESSION NUMBER(S): [id number] ORDERING CLINICIAN: TERRELL ARTEAGA FINDINGS: No osseous, articular, or soft tissue abnormality. IMPRESSION: Normal radiographs right foot. Electronically signed by: MALIK ZAMARRIPA MD [facility] Provider Note - ED v3on 10-3 Provider Note - ED v3 Provider Note: Chart Review: ED NOTES ED NOTES: Source of Information: Patient. EMR was reviewed for previous records. HPI: Injury to right foot. This 17-year-old white female states that prior to arrival to the ED she was chopping wood when a piece of wood fell and dropped on top of her right foot with injury. She states that she was wearing normal shoes at the time of this injury. Indicates that the pain is at the dorsal aspect of her right foot at the metatarsophalangeal joint of her third, fourth and fifth digits. Patient denies any previous injury. She denies any numbness tingling or any other injuries from this incident. Her immunizations are up-to-date. PMH: Denies PSH: Denies Social Hx: The patient denies any use of tobacco, alcohol or illicit drugs. Fam: MEDS: Denies ALLERGIES: NKDA PHYSICAL EXAM: General: Patient alert, awake, oriented X3, appears to be in no obvious distress, nontoxic, cooperative Skin: Warm. Dry. Intact. No rash. Eyes: PEARTLA, EOMIs intact, sclera white, conjunctiva clear HEENT: Atraumatic. Normo-cephalic. Oral and nasal mucosa pink and moist. Neck: Supple without meningismus, no lymphadenopathy. CV: Regular rate and rhythm without murmurs, heaves, lifts or thrills. Respiratory: Nonlabored breathing. There are no retractions or tachypnea. Lungs are clear to auscultation bilaterally. GI: Soft, nontender, without gross distention, bowel sounds present in all 4 quadrants. There is no pulsatile masses. There is no CVA tenderness. No rebound, rigidity or guarding. MUSC: Evaluation of the right lower extremity reveals no obvious deformity or obvious evidence of trauma. Patient's distal pulses are +2/4 and present the dorsalis pedis and tibialis. Cap refill less than 2 seconds light touch sensations intact. Patient does have tenderness over the dorsal aspect of the foot over the third fourth and fifth metatarsals distally. Patient has forage motion flexion-extension of the toes. Neuro: Cranial nerves II - XII grossly intact. No focal neurologic deficits are noted on exam. Lower extremities: There is no peripheral edema bilaterally, negative Homans sign. No palpable cords. Distal pulses are +2/4 and present in both lower extremities. Psych: Maintains eye contact. Cooperative. ED course: X-rays of the right foot were performed which were negative for acute abnormality. I did offer a postop shoe which she accepted and was ordered for the patient prior to being discharged home with a diagnosis: contusion of right foot. Patient encouraged to use ice for the next 48 hours for discomfort as well as [id number] Tylenol ibuprofen for pain. Referred back to her primary care doctor for follow-up. This chart was dictated with the use of Roadmap software within the framework of the current electronic medical records software. Attempts were made to edit in real time, given time constraints there is the potential for inaccuracies in my dictation. 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 MSP intact)(1). Triage Information: Most recent Vital Sign Value Date Temp (F): 98.4 09-08-2022 14:38 Temp (C): 36.8 09-08-2022 14:38 Heart Rate (beats/min): 77 09-08-2022 14:38 Respirations (breaths/min): 16 09-08-2022 14:38 SpO2 (%): 98 09-08-2022 14:38 BP Systolic (mm Hg): 122 09-08-2022 14:38 BP Diastolic (mm Hg): 77 09-08-2022 14:38 PAST MEDICAL HISTORY CURRENT OR FORMER SUBSTANCE USE: Tobacco/Nicotine Use: never smoker Alcohol Use: denies Drug Use: denies,ALLERGIES/INTOL ERANCES: No Known Allergies HEALTH HISTORY: No documented data. OUTPATIENT MEDICATIONS: Home Medications Review Status for Reconciliation: Complete Med Status: No Current Medications SIGNIFICANT EVENTS: No documented data. REVIEW OF SYSTEMS CONSTITUTIONAL: Negative for: anorexia, chills, diaphoresis, fever, malaise, weakness and weight loss EYES: Negative for: itching, lacrimation, lid swelling, pain, photophobia, redness and vision changes ENMTEars: Negative for: discharge, itching, hearing disturbance, hearing loss, (more content not included)... 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 MSP intact). Triage Date/Time: 08-Sep-2022 14:38 Vital Signs: Temperature: 98.4F ( 36.8C) Temperature Location: temporal Blood Pressure: 122/77 Mean: Heart Rate: 77 Respiratory Rate: 16 Pulse Oximetry: 98% on room air, no respiratory support Capillary Refill: < 2 seconds Weight: 70.000 kilogram(s) Pain Scale: VAS (8 yrs & older) VAS Pain Ratin Pain Location/Comments: R foot Description (frequency/quality): constant [place] Coma Scale Peds (2yrs to Adult): Best Eye Response: (E4) spontaneous Best Verbal Response: (V5) oriented Best Motor Response: (M6) obeys commands Joe Coma Scale Score: 15 Cough Lasting Greater than 2 Weeks: no Allergies: no Mask Applied: yes Last Menstrual Period: 02-Sep-2022 Patient has Homicidal Thoughts: no Acuity Level: 4 Peds Complaint Code ([facility] [place] [facility]): N/A [facility] Mode of Arrival: private vehicle The patient and/or guardian verbally acknowledges placement for services into the following (when Urgent Care Service hours are operating): emergency department ABCD PRIMARY ASSESSMENT Mental Status: active and alert Respiratory: clear Hydration: normal Symptom Notes: . Symptoms Are POSITIVE For: pain (describe) and decreased ROM. Symptoms Are Negative For: abrasion, bleeding, bruising, deformity, difficulty bending, difficulty walking, numbness and tingling. RISK SCREEN [place] Suicide Risk Screen Risk Screen Not Applicable/Able to Answer: able to be screened In the Past Month: Have you wished you were or could go to sleep and not wake up no Have you had any actual thoughts of killing yourself no Lifetime: Have you ever done, started to or prepared to do anything to end your life no Sepsis Screen High Risk Criteria Does the patient have any High Risk Conditionsno Physical Exam Pulses decreased, weak or bounding: no Capillary refill Delayed >/= 3 seconds or Flash <1 second:no Skin: Mottled, cool, flushed, tara, full body erythematous (peeling rash), petechiae below the nipple, or any purpua:no Decreased alertness, irritability, confusion, inappropriate cry, drowsiness or abnormal behavior (compared to baseline)no TRAVEL HISTORY Travel History Coronavirus Screening: no exposure or symptoms Travel Exposure History: NO travel to International locations in the past 30 days Past Medical History: Past Medical History Reviewedyes Electronic Signatures: Gi Zavala (RN) (Signed 08-Sep-2022 14:41) Authored: Quick Triage, Risk Screens, Travel History, Chart Review, Scores, Past Medical History Last Updated: 08-Sep-2022 14:41 by Gi Zavala (RN) [place] 03-01-2022 CNPN Telephone (OBGYWM) MARILU MONDRAGON ([id number]) 5 F Date Time Provider Department 03/01/22 ELENITA JEAN During your visit today, we recorded the following information about you: Elenita Jean APRN.OBIEE ARCHITECT 03/01/2022 10:52 AM Signed Please let the pt know that her US show some enlarged lymph nodes in the right and left groin area. I would recommend following up with her PCP. She can stop the atb if she has not completed it. Elenita Jean APRN.INGRID Thapa RN 03/01/2022 11:05 AM Signed Left message to call office. Melinda Terry RN 03/01/2022 11:27 AM Signed Patient's step mom notified. Kaylen Terry RN Allergies As of Date: 03/01/2022 (No Known Allergies) Date Reviewed: 02/25/2022 Reviewed by: Rosario Love Ma - Fully Assessed Reason for Visit: Results [95] Problem List As Of Date: 03/01/2022 (None) Encounter Status:Closed by KAYLEN TERRY RN on 03/01/22 [facility] US PELVIS LTDon 03-01-2022 PELVIS LTD * * *Final Report* * * DATE OF EXAM: Mar 01 2022 9:39AM U 1043 - US PELVIS LTD / PROCEDURE REASON: Lump in the groin * * * * Physician Interpretation * * * * EXAM: US PELVIS LTD EXAM DATE: 03/01/2022 9:39 AM CLINICAL HISTORY: Lump in the groin COMPARISON: None TECHNIQUE: Ultrasound of the bilateral groin soft tissues was performed using a high frequency linear transducer. The images were obtained and stored in permanent archive. RESULT: Sonographic evaluation of the bilateral groin in the region of the palpable abnormality demonstrates multiple mildly prominent and normal appearing lymph nodes. The largest lymph node on the right measures 2.6 x 1.2 x 2.1 cm and on the left groin the largest lymph node measures 1.8 x 0.7 x 1.1 cm. IMPRESSION: Prominent normal appearing lymph nodes of groin E Commerce Project Manager: ZEESHAN Transcribe Date/Time: Mar 01 2022 9:43A Dictated by : TYRONE ROGERS MD This examination was interpreted and the report reviewed and electronically signed by: TYRONE ROGERS MD on Mar 01 2022 9:50AM EST [id number] Normal [facility] CNOVon 02-25-2022 CNOV Office Visit (OBGYWM ) MARILU MONDRAGON ([id number]) 5 F Date Time Provider Department 02/25/22 4:15 PM ELENITA JEAN OBGYWM During your visit today, we recorded the following information about you: Blood pressure Weight 108/54 69.9 kg Elenita Jean APRN.OBIEE ARCHITECT 02/26/2022 8:09 AM Signed Marilu Pettitton is a 16 year old female who presents for follow up for groin lump HPI: pt states that the lump is not as painful, but feels like it has changed in size. She is still taking the antibiotic. Denies any fever or chills. 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 LMP: 02/11/2022 (Exact Date), Having periods Age at Menarche: Age at First : Age at Menopause: Flexographic Press Plate Setter History Comments: Sexual Activity: Not Asked; No partner data on record Contraception: No contraception data on record PAST MEDICAL HISTORY Diagnosis Date - NEGATIVE MEDICAL HISTORY PAST SURGICAL HISTORY Procedure Laterality Date - NONE FAMILY HISTORY Problem Relation Age of Onset - Heart Mother - Hypertension Father - Asthma Sister Social History Tobacco Use - Smoking status: Passive Smoke Exposure - Never Smoker - Smokeless tobacco: Never Used Vaping Use - Vaping Use: Never used Substance Use Topics - Alcohol use: Never - Drug use: Never Current Outpatient Medications Medication Sig - clindamycin (CLEOCIN) 300 mg capsule Take 1 capsule by mouth twice daily for 7 days. No current facility-administered medications for this visit. Allergies As of Date: 02/25/2022 (No Known Allergies) Fully Assessed 02/21/2022 REVIEW OF SYSTEMS Abdomen: No bloating, early satiety, indigestion, or increased flatulence. No abdominal pain, nausea, vomiting, diarrhea, or constipation. Bladder: No dysuria, gross hematuria, urinary frequency, urinary urgency, or incontinence. Expanded ROS: N/A Allergies and current medication updated:Yes EXAM: LMP 02/11/2022 GENERAL: pleasant, female in no apparent distress HEENT: Normocephalic, atraumatic, mucus membranes moist and no lesions CHEST: Normal inspiratory effort ABDOMEN: soft, non-tender and no masses PELVIC: Lump is slightly smaller in width but about 2 cm in length NEURO: alert and oriented x3,exam grossly non-focal ASSESSMENT/PLAN: 1. Lump in the groin - ICD9: 789.39, ICD10: R19.09 - US PELVIS LTD Elenita Jean APRN.INGRID Medical Decision Making: Problems: Low: Acute, uncomplicated illness or injury Data: Unique test(s) ordered: 1 Risk: Low: Low risk from testing/treatment Medical Decision Making Level: 3 - Low Referring Provider: SELF [200] Allergies As of Date: 02/25/2022 (No Known Allergies) Date Reviewed: 02/25/2022 Reviewed by: Rosario Love Ma - Fully Assessed Reason for Visit: Follow Up [171] Cmt: not gotten bigger but has not gotten smaller with antibiotic Primary Visit Diagnosis:Lump in the groin [R19.09] Order(s):US PELVIS LTD [[id number]] Order #: [id number] FUTURE Prescriptions as of 02/26/2022 - clindamycin (CLEOCIN) 300 mg capsule Take 1 capsule by mouth twice daily for 7 days. Problem List As Of Date: 02/25/2022 (None) Encounter Status:Closed by ELENITA JEAN on 02/26/22 [facility] CNOVon 02-21-2022 CNOV Office Visit (OBGYWM ) MARILU MONDRAGON ([id number]) 5 F Date Time Provider Department 02/21/22 11:30 AM ELENITA JEAN OBGYWM During your visit today, we recorded the following information about you: Blood pressure Weight Last Period 108/64 70.3 kg 02/11/22 Elenita Jean APRN.OBIEE ARCHITECT 02/21/2022 12:00 PM Signed Marilu Pettitton is a 16 year old female who presents for problem visit. HPI: Lump was found 2 days ago in R groin. Painful to touch with 5/10 pain. Has gotten bigger over the last couple of days. Denies any trauma to that area. She has not tried to pop it. Feels hard to touch. Denies fever/chills. Does not appear to be red. OB History No obstetric history on file. 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 Social History Tobacco Use - Smoking status: Passive Smoke Exposure - Never Smoker - Smokeless tobacco: Not on file Substance Use Topics - Alcohol use: Not on file - Drug use: Not on file No current outpatient medications on file. No current facility-administered medications for this visit. Allergies As of Date: 02/21/2022 (No Known Allergies) Fully Assessed 03/08/2016 REVIEW OF SYSTEMS Abdomen: No bloating, early satiety, indigestion, or increased flatulence. No abdominal pain, nausea, vomiting, diarrhea, or constipation. Bladder: No dysuria, gross hematuria, urinary frequency, urinary urgency, or incontinence. Breast: No breast lumps, nipple d/c, overlying skin changes, redness or skin retraction. Expanded ROS: N/A Allergies and current medication updated:Yes EXAM: BP 108/64 Wt 155 lb (70.3kg) LMP 02/11/2022 GENERAL: pleasant, female in no apparent distress HEENT: Normocephalic NECK: Supple BREAST: deferred CHEST: Normal inspiratory effort PELVIC: external genitalia normal, +right groin moveable lump under the skin measuring 1-2 cm and appears swollen resembling an abscess, normal appearing right groin BIMANUAL: Deferred NEURO: alert and oriented x3,exam grossly non-focal EXTREMITIES: normal ASSESSMENT AND PLAN: ASSESSMENT/PLAN: 1. Lump in the groin - ICD9: 789.39, ICD10: R19.09 -Clindamycin Start antibiotics. Use warm compress and ibuprofen to help with discomfort. Return with worsening symptoms for an ultrasound, or with new concerns. Sarina Cisneros APRN student TEACHING PROVIDER (Physician/PA/SOURCING ASSOCIATE) NOTE OF PERSONAL INVOLVEMENT IN CARE: I have personally seen and examined the patient and performed the medical decision-making components. I have reviewed the Advanced Practice Registered Nurse (SOURCING ASSOCIATE) Student's documentation and verified the findings in the note as written. Any additions or changes are noted in bold/italics. Signature: Elenita Jean Date: 02/21/2022 Time: 12:00 PM Medical Decision Making: Problems: Low: Acute, uncomplicated illness or injury Risk: Low: Low risk from testing/treatment Moderate: Drug management Medical Decision Making Level: 3 - Low Referring Provider: SELF [200] Allergies As of Date: 02/21/2022 (No Known Allergies) Date Reviewed: 02/21/2022 Reviewed by: Rosario Love Ma - Fully Assessed Reason for Visit: Vaginal Problem [117] Cmt: lump in the groin/ pelvic area Primary Visit Diagnosis:Lump in the groin [R19.09] Order(s):clindamycin (CLEOCIN) 300 mg capsuleTake 1 capsule by mouth twice daily for 7 days.Disp: 14 capsuleRfl: 0 Prescriptions as of 02/21/2022 - clindamycin (CLEOCIN) 300 mg capsule Take 1 capsule by mouth twice daily for 7 days. Problem List As Of Date: 02/21/2022 (None) Prescriptions ordered this encounter Disp Refills Start End CLINDAMYCIN HCL 300 MG CAPSULE 14 c* 0 02/21/2022 02/28/2022 Route: ORAL Sig: Take 1 capsule by mouth twice daily for 7 days. Encounter Status:Closed by ELENITA JEAN on 02/21/22 Normal [facility] Vital Signs Date Time Vital Sign Value Performing Clinician Facility 05-30-2025 12:50-0400 Body height 172.72 cm No Primary Care Physician [facility] 05-30-2025 12:50-0400 Body mass index (BMI) [Percentile] Per age and sex 92.1 % No Primary Care Physician [facility] 05-30-2025 12:50-0400 Body mass index (BMI) [Ratio] 29.2 kg/m2 No Primary Care Physician [facility] 05-30-2025 12:50-0400 Body weight 87.31 kg No Primary Care Physician [facility] 05-30-2025 12:50-0400 Diastolic blood pressure 80 mm[Hg] No Primary Care Physician [facility] 05-30-2025 12:50-0400 Systolic blood pressure 125 mm[Hg] No Primary Care Physician [facility] 05-25-2025 15:37-0400 Body height 172.72 cm No Primary Care Physician [facility] 05-25-2025 15:32-0400 Body mass index (BMI) [Percentile] Per age and sex 91.8 % No Primary Care Physician [facility] 05-25-2025 15:32-0400 Body mass index (BMI) [Ratio] 29 kg/m2 No Primary Care Physician [facility] 05-25-2025 15:32-0400 Body weight 86.63 kg No Primary Care Physician [facility] 05-25-2025 15:32-0400 Diastolic blood pressure 83 mm[Hg] No Primary Care Physician [facility] 05-25-2025 15:32-0400 Systolic blood pressure 126 mm[Hg] No Primary Care Physician [facility] 05-23-2025 09:53-0400 Body height 172.72 cm No Primary Care Physician [facility] 05-23-2025 09:53-0400 Body mass index (BMI) [Percentile] Per age and sex 92.1 % No Primary Care Physician [facility] 05-23-2025 09:53-0400 Body mass index (BMI) [Ratio] 29.2 kg/m2 No Primary Care Physician [facility] 05-23-2025 09:53-0400 Body weight 87.2 kg No Primary Care Physician [facility] 05-23-2025 09:53-0400 Diastolic blood pressure 79 mm[Hg] No Primary Care Physician [facility] 05-23-2025 09:53-0400 Systolic blood pressure 127 mm[Hg] No Primary Care Physician [facility] 05-20-2025 14:07-0400 Body height 172.72 cm No Primary Care Physician [facility] 05-20-2025 14:07-0400 Body mass index (BMI) [Percentile] Per age and sex 91.4 % No Primary Care Physician [facility] 05-20-2025 14:07-0400 Body mass index (BMI) [Ratio] 28.8 kg/m2 No Primary Care Physician [facility] 05-20-2025 14:07-0400 Body weight 85.89 kg No Primary Care Physician [facility] 05-20-2025 14:07-0400 Diastolic blood pressure 72 mm[Hg] No Primary Care Physician [facility] 05-20-2025 14:07-0400 Systolic blood pressure 122 mm[Hg] No Primary Care Physician [facility] 05-09-2025 14:11-0400 Body height 172.72 cm No Primary Care Physician [facility] 05-09-2025 14:11-0400 Body mass index (BMI) [Percentile] Per age and sex 92.1 % No Primary Care Physician [facility] 05-09-2025 14:11-0400 Body mass index (BMI) [Ratio] 29.2 kg/m2 No Primary Care Physician [facility] 05-09-2025 14:11-0400 Body weight 87.08 kg No Primary Care Physician [facility] 05-09-2025 14:11-0400 Diastolic blood pressure 73 mm[Hg] No Primary Care Physician [facility] 05-09-2025 14:11-0400 Heart rate 74 /min No Primary Care Physician [facility] 05-09-2025 14:11-0400 Systolic blood pressure 121 mm[Hg] No Primary Care Physician [facility] 04-25-2025 11:32-0400 Body height 172.72 cm No Primary Care Physician [facility] 04-25-2025 11:32-0400 Body mass index (BMI) [Percentile] Per age and sex 90.7 % No Primary Care Physician [facility] 04-25-2025 11:32-0400 Body mass index (BMI) [Ratio] 28.4 kg/m2 No Primary Care Physician [facility] 04-25-2025 11:32-0400 Body weight 84.87 kg No Primary Care Physician [facility] 04-25-2025 11:32-0400 Diastolic blood pressure 79 mm[Hg] No Primary Care Physician [facility] 04-25-2025 11:32-0400 Systolic blood pressure 117 mm[Hg] No Primary Care Physician [facility] 04-15-2025 13:04-0400 Body height 172.72 cm No Primary Care Physician [facility] 04-15-2025 13:02-0400 Body mass index (BMI) [Percentile] Per age and sex 90.9 % No Primary Care Physician [facility] 04-15-2025 13:02-0400 Body mass index (BMI) [Ratio] 28.5 kg/m2 No Primary Care Physician [facility] 04-15-2025 13:02-0400 Body weight 85.33 kg No Primary Care Physician [facility] 04-15-2025 13:02-0400 Diastolic blood pressure 69 mm[Hg] No Primary Care Physician [facility] 04-15-2025 13:02-0400 Systolic blood pressure 103 mm[Hg] No Primary Care Physician [facility] 03-30-2025 14:08-0400 Body height 172.72 cm No Primary Care Physician [facility] 03-30-2025 14:08-0400 Body mass index (BMI) [Percentile] Per age and sex 88.2 % No Primary Care Physician [facility] 03-30-2025 14:08-0400 Body mass index (BMI) [Ratio] 27.3 kg/m2 No Primary Care Physician [facility] 03-30-2025 14:08-0400 Body weight 81.64 kg No Primary Care Physician [facility] 03-30-2025 14:08-0400 Diastolic blood pressure 71 mm[Hg] No Primary Care Physician [facility] 03-30-2025 14:08-0400 Heart rate 81 /min No Primary Care Physician [facility] 03-30-2025 14:08-0400 Respiratory rate 16 /min No Primary Care Physician [facility] 03-30-2025 14:08-0400 Systolic blood pressure 107 mm[Hg] No Primary Care Physician [facility] 03-28-2025 14:25-0400 Body height 172.72 cm No Primary Care Physician [facility] 03-28-2025 14:24-0400 Body mass index (BMI) [Percentile] Per age and sex 87.3 % No Primary Care Physician [facility] 03-28-2025 14:24-0400 Body mass index (BMI) [Ratio] 27 kg/m2 No Primary Care Physician [facility] 03-28-2025 14:24-0400 Body weight 80.73 kg No Primary Care Physician [facility] 03-28-2025 14:24-0400 Diastolic blood pressure 75 mm[Hg] No Primary Care Physician [facility] 03-28-2025 14:24-0400 Systolic blood pressure 116 mm[Hg] No Primary Care Physician [facility] 03-17-2025 09:38-0400 Body height 172.72 cm No Primary Care Physician [facility] 03-17-2025 09:38-0400 Body mass index (BMI) [Percentile] Per age and sex 87.6 % No Primary Care Physician [facility] 03-17-2025 09:38-0400 Body mass index (BMI) [Ratio] 27.1 kg/m2 No Primary Care Physician [facility] 03-17-2025 09:38-0400 Body weight 80.96 kg No Primary Care Physician [facility] 03-17-2025 09:38-0400 Diastolic blood pressure 68 mm[Hg] No Primary Care Physician [facility] 03-17-2025 09:38-0400 Systolic blood pressure 109 mm[Hg] No Primary Care Physician [facility] 02-16-2025 15:38-0400 Body mass index (BMI) [Percentile] Per age and sex 85.1 % No Primary Care Physician [facility] 02-16-2025 15:38-0400 Body mass index (BMI) [Ratio] 26.3 kg/m2 No Primary Care Physician [facility] 02-16-2025 15:38-0400 Body weight 78.58 kg No Primary Care Physician [facility] 02-16-2025 15:38-0400 Diastolic blood pressure 76 mm[Hg] No Primary Care Physician [facility] 02-16-2025 15:38-0400 Systolic blood pressure 127 mm[Hg] No Primary Care Physician [facility] 12-23-2024 10:14-0500 Body mass index (BMI) [Percentile] Per age and sex 96.7 % No Primary Care Physician [facility] 12-23-2024 10:14-0500 Body mass index (BMI) [Ratio] 33.7 kg/m2 No Primary Care Physician [facility] 12-23-2024 10:14-0500 Body weight 75.74 kg No Primary Care Physician [facility] 12-23-2024 10:14-0500 Diastolic blood pressure 80 mm[Hg] No Primary Care Physician [facility] 12-23-2024 10:14-0500 Systolic blood pressure 110 mm[Hg] No Primary Care Physician [facility] 11-25-2024 14:36-0500 Body mass index (BMI) [Percentile] Per age and sex 73.4 % No Primary Care Physician [facility] 11-25-2024 14:36-0500 Body mass index (BMI) [Ratio] 24 kg/m2 No Primary Care Physician [facility] 11-25-2024 14:36-0500 Body weight 76.2 kg No Primary Care Physician [facility] 11-25-2024 14:36-0500 Diastolic blood pressure 78 mm[Hg] No Primary Care Physician [facility] 11-25-2024 14:36-0500 Systolic blood pressure 112 mm[Hg] No Primary Care Physician [facility] 10-25-2024 08:56-0500 Body height 177.8 cm Nikita Daley APRN-INGRID Work Phone: [facility] 10-25-2024 08:56-0500 Body mass index (BMI) [Ratio] 25.45 kg/m2 Nikita Daley APRN-INGRID Work Phone: [phone] [address] 10-25-2024 08:56-0500 Body weight 80.47 kg Nikita Daley APRN-INGRID Work Phone: [phone] [place] [address] 10-25-2024 08:56-0500 Diastolic blood pressure 54 mm[Hg] Nikita Daley APRN-INGRID Work Phone: [phone] [address] 10-25-2024 08:56-0500 Heart rate 85 /min Nikita SUAZO Work Phone: [facility] 10-25-2024 08:56-0500 SaO2% (BldA) [Mass fraction] 99 % Nikita Daley APRN-INGRID Work Phone: [phone] [address] 10-25-2024 08:56-0500 Systolic blood pressure 100 mm[Hg] Nikita Daley APRN-INGRID Work Phone: [facility] 09-23-2024 09:10-0500 Body mass index (BMI) [Ratio] 24.79 kg/m2 Nikita Daley APRN-OBIEE ARCHITECT Work Phone: [phone] [address] 09-23-2024 09:10-0500 Body weight 78.38 kg Nikita Daley APRN-INGRID Work Phone: [phone] [place] [address] 09-23-2024 08:59-0500 Body height 177.8 cm Nikita Daley APRN-INGRID Work Phone: [phone] [address] 09-23-2024 08:59-0500 Diastolic blood pressure 64 mm[Hg] Nikita Edi SOURCING ASSOCIATE-OBIEE ARCHITECT Work Phone: [facility] 09-23-2024 08:59-0500 Heart rate 105 /min Nikita Daley SOURCING ASSOCIATE-OBIEE ARCHITECT Work Phone: [facility] 09-23-2024 08:59-0500 SaO2% (BldA) [Mass fraction] 100 % Nikita Daley SOURCING ASSOCIATE-OBIEE ARCHITECT Work Phone: [facility] 09-23-2024 08:59-0500 Systolic blood pressure 118 mm[Hg] Nikita Daley SOURCING ASSOCIATE-OBIEE ARCHITECT Work Phone: [facility] 05-13-2024 06:57-0400 Diastolic blood pressure 78 mm[Hg] Zacarias Gallardo DO Work Phone: [facility] 05-13-2024 06:57-0400 Heart rate 88 /min Zacarias Gallardo DO Work Phone: [facility] 05-13-2024 06:57-0400 Respiratory rate 20 /min Zacarias Gallardo DO Work Phone: [facility] 05-13-2024 06:57-0400 SaO2% (BldA) [Mass fraction] 100 % Zacarias Gallardo DO Work Phone: [facility] 05-13-2024 06:57-0400 Systolic blood pressure 109 mm[Hg] Zacarias Gallardo DO Work Phone: [facility] 05-13-2024 05:14-0400 Body temperature 98.4 [degF] Zacarias Gallardo DO Work Phone: [facility] 05-13-2024 05:14-0400 Body weight 70.31 kg Zacarias Gallardo DO Work Phone: [facility] 02-19-2023 13:09-0400 Body height 177.8 cm Selin Benavides PA-C Work Phone: [employer] 02-19-2023 13:09-0400 Body mass index (BMI) [Percentile] Per age and sex 55.04 % Selin Benavides PA-C Work Phone: [facility] 02-19-2023 13:09-0400 Body mass index (BMI) [Ratio] 21.49 kg/m2 Selin Benavides PA-C Work Phone: [facility] 02-19-2023 13:09-0400 Body temperature 98.01 [degF] Selin Benavides PA-C Work Phone: [facility] 02-19-2023 13:09-0400 Body weight 67.95 kg Selin Benavides PA-C Work Phone: [facility] 02-19-2023 13:09-0400 Diastolic blood pressure 64 mm[Hg] Selin Benavides PA-C Work Phone: [facility] 02-19-2023 13:09-0400 Heart rate 97 /min Selin Benavides PA-C Work Phone: [facility] 02-19-2023 13:09-0400 SaO2% (BldA) [Mass fraction] 98 % Selin Benavides PA-C Work Phone: [facility] 02-19-2023 13:09-0400 Systolic blood pressure 110 mm[Hg] Selin RICHARDS-C Work Phone: [facility] 09-08-2022 17:51-0400 Diastolic blood pressure 74 mm[Hg] Text Entry Free [facility] 09-08-2022 17:51-0400 Heart rate 75 /min Text Entry Free [facility] 09-08-2022 17:51-0400 Respiratory rate 14 /min Text Entry Free [facility] 09-08-2022 17:51-0400 SaO2% (BldA) [Mass fraction] 100 % Text Entry Free [facility] 09-08-2022 17:51-0400 Systolic blood pressure 112 mm[Hg] Text Entry Free [facility] 09-08-2022 16:38-0400 Body temperature 98.24 [degF] Text Entry Free [facility] 02-25-2022 16:26-0400 Body weight 69.85 kg Elenita [place] SOURCING ASSOCIATE.OBIEE ARCHITECT Work Phone: [facility] 02-25-2022 16:26-0400 Diastolic blood pressure 54 mm[Hg] Elenita [place] SOURCING ASSOCIATE.OBIEE ARCHITECT Work Phone: [facility] 02-25-2022 16:26-0400 Systolic blood pressure 108 mm[Hg] Elenita [place] SOURCING ASSOCIATE.OBIEE ARCHITECT Work Phone: [facility] Encounters Encounter Date Encounter Type Care Provider Facility Start: 06-03-2025 ambulatory No Primary Car e Physician Facility:[facility] Start: 05-30-2025 End: 05-30-2025 ambulatory No Primary Care Physician Facility:[facility] Start: 05-30-2025 End: 05-30-[address] Majo Martins MD -[facility] Work Phone: Start: 05-25-2025 End: 05-25-[address] Majo Martins MD -[facility] Work Phone: Start: 05-25-2025 End: 05-25-2025 ambulatory Majo Martins Facility:[facility] Start: 05-25-2025 End: 05-25-[address] Majo Martins MD -[facility] Work Phone: Start: 05-25-2025 End: 05-25-2025 ambulatory No Primary Care Physician -[facility] Start: 05-23-2025 End: 05-23-[address] Majo Martins MD -[facility] Work Phone: Start: 05-23-2025 End: 05-23-2025 ambulatory No Primary Care Physician -[facility] Start: 05-23-2025 End: 05-23-2025 ambulatory Majo Martins Facility:[facility] Start: 05-20-2025 End: 05-20-2025 Patient encounter procedure Rebeca Cruz CNM -[facility] Work Phone: Start: 05-20-2025 End: 05-20-2025 ambulatory No Primary Care Physician -[facility] Start: 05-16-2025 End: 05-16-2025 Emergency department patient visit PHYSICIAN [facility] Start: 05-09-2025 End: 05-09-2025 ambulatory No Primary Care Physician -Laboratory Specimen Start: 05-09-2025 End: 05-09-2025 Patient encounter procedure Rebeca VALE -Laboratory Specimen Work Phone: Start: 05-09-2025 End: 05-09-2025 Patient encounter procedure Rebeca VALE -[facility] Work Phone: Start: 05-09-2025 End: 05-09-2025 ambulatory No Primary Care Physician -[facility] Start: 05-09-2025 End: 05-09-2025 ambulatory No Primary Care Physician Facility:[facility] Start: 04-25-2025 End: 04-25-2025 Patient encounter procedure Rebeca VALE -[facility] Work Phone: Start: 04-25-2025 End: 04-25-2025 ambulatory No Primary Care Physician [facility] Work Phone: Start: 04-15-2025 End: 04-15-2025 Patient encounter procedure Rebeca VALE -[facility] Work Phone: Start: 04-15-2025 End: 04-15-2025 ambulatory No Primary Care Physician [facility] Work Phone: Start: 03-30-2025 End: 03-30-[address] Jakub Bush MD -[facility] Work Phone: Start: 03-30-2025 End: 03-30-2025 ambulatory No Primary Care Physician [facility] Work Phone: Start: 03-28-2025 End: 03-28-[address] Marie Kelly DO -[facility] Work Phone: Start: 03-28-2025 End: 03-28-2025 ambulatory No Primary Care Physician [facility] Work Phone: Start: 03-21-2025 End: 03-21-2025 ambulatory No Primary Care Physician [facility] Work Phone: Start: 03-21-2025 End: 03-21-2025 Patient encounter procedure Rebeca Cruz CNM -Lab [facility] Start: 03-21-2025 End: 03-21-2025 ambulatory No Primary Care Physician Facility:[facility] Start: 03-17-2025 End: 03-17-2025 Patient encounter procedure aJrett Pendleton NP-Joey -[facility] Work Phone: Start: 03-17-2025 End: 03-17-2025 ambulatory No Primary Care Physician Facility:[facility] Start: 03-01-2025 End: 03-01-2025 ambulatory No Primary Care Physician Facility:[facility] Start: 03-01-2025 End: 03-01-2025 Non-patient / Non-visit Dr. Jakub Bush MD -[facility] Work Phone: Start: 03-01-2025 End: 03-01-[address] Majo Martins MD -Pulmonary Services/Neurology Work Phone: Start: 03-01-2025 End: 03-01-2025 ambulatory No Primary Care Physician Facility:[facility] Start: 02-16-2025 End: 02-16-[address] Majo Martins MD -[facility] Work Phone: Start: 02-16-2025 End: 02-16-2025 ambulatory No Primary Care Physician [facility] Work Phone: Start: 02-16-2025 End: 02-16-2025 ambulatory No Primary Care Physician Facility:[facility] Start: 01-17-2025 End: 01-17-2025 ambulatory MD NO PRIMARY CARE [facility] Start: 12-23-2024 End: 12-23-2024 Emergency department patient visit PHYSICIAN [facility] Start: 12-23-2024 End: 12-23-2024 Patient encounter procedure Jarett DESOUZA -[facility] Work Phone: Start: 12-23-2024 End: 12-23-2024 ambulatory No Primary Care Physician Facility:[facility] Start: 12-16-2024 End: 12-16-2024 Emergency department patient visit PHYSICIAN SOCO [facility] Start: 11-25-2024 End: 11-25-2024 Patient encounter procedure Rebeca Cruz CNM -[facility] Work Phone: Start: 11-25-2024 End: 11-25-2024 ambulatory No Primary Care Physician Facility:[facility] Start: 11-25-2024 End: 11-25-2024 ambulatory Rebeca Cruz Facility:[facility] Start: 10-25-2024 End: 10-25-2024 Office outpatient visit 15 minutes Nikita Daley SOURCING ASSOCIATE-OBIEE ARCHITECT Work Phone: [facility] Comment on above: Palpitations (Primar y Dx); PVC (premature ventricular contraction) Start: 10-25-2024 End: 10-25-2024 ambulatory [facility] Start: 09-23-2024 End: 09-23-2024 Subsequent hospital visit by physician Gee Gould Cardiac Room [facility] Comment on above: Palpitations Start: 09-23-2024 End: 09-23-2024 Office outpatient new 45 minutes Nikita Daley SOURCING ASSOCIATE-OBIEE ARCHITECT Work Phone: [facility] Comment on above: Palpitations (Primar y Dx) Start: 09-23-2024 End: 09-23-2024 ambulatory [facility] Start: 09-20-2024 End: 09-20-2024 Emergency department patient visit BARRERA WRIGHT [facility] Start: 08-01-2024 End: 08-01-2024 Emergency department patient visit MARIO SEGAL [facility] Start: 05-13-2024 End: 05-14-[address] [facility] Start: 05-13-2024 End: 05-13-2024 Subsequent hospital visit by physician Gee 2e Cr Nonv1 Ecg Resource [facility] Comment on above: Arrived Start: 05-13-2024 End: 05-13-2024 Emergency department patient visit Zacarias Perkins Sami DO Work Phone: [facility] Emergency Medicine Comment on above: Chest pain, unspecif ied type (Primary Dx) Start: 03-12-2023 End: 03-12-2023 ambulatory [facility] Start: 03-10-2023 End: 03-10-2023 ambulatory [facility] Start: 02-21-2023 End: 02-21-2023 ambulatory [facility] Start: 02-19-2023 End: 02-19-2023 ambulatory SELIN [facility] Start: 02-19-2023 End: 02-19-2023 Encounter for routine child health examination without abnormal findings [facility] Start: 02-19-2023 End: 02-19-2023 Office outpatient visit 10 minutes Selin Benavides PA-C Work Phone: [facility] Comment on above: Encounter for well a dolescent visit (Primary Dx); Encounter for screening for respiratory tuberculosis Start: 02-19-2023 End: 02-19-2023 Patient encounter status Selin Benavides PA-C Work Phone: [facility] Start: 09-08-2022 End: 09-08-2022 Emergency department patient visit Terrell Arteaga [facility] Emergency 04 Start: 03-01-2022 Telephone encounter Elenita guerra SOURCING ASSOCIATE.OBIEE ARCHITECT Work Phone: OB/Gynecology Comment on above: Results Start: 03-01-2022 End: 03-01-2022 Subsequent hospital visit by physician [facility] Work Phone: Radiology Comment on above: Lump in the groin [R 19.09] Start: 02-25-2022 End: 02-25-2022 Patient encounter procedure Elenita Jean SOURCING ASSOCIATE.OBIEE ARCHITECT Work Phone: OB/Gynecology Comment on above: Lump in the groin (P rimary Dx) Procedures Date Procedure Procedure Detail Performing Clinician Start: 05-25-2025 Ultrasound scan for growth No Primary Care Physician Start: 05-09-2025 Beta-hemolytic Streptococcus culture No Primary Care Physician Start: 03-21-2025 Serologic test for syphilis No Primary Care Physician Start: 11-25-2024 Hepatitis B surface antigen measurement No Primary Care Physician Start: 11-25-2024 Hepatitis C antibody measurement No Primary Care Physician Comment on above: Non Reactive: < 0.8 Equivocal: >/= 0.8 to < 1.0 Reactive: >/= 1.0The CDC requires that a reactive/equivocal HCV antibody result be sent out for confirmation. HCV Quant by PCR testing. Start: 11-25-2024 Procedure No Primary Care Physician Start: 11-25-2024 Rubella IgG measurement No Primary Care Physician Comment on above: Antibody Results Int erpretation of Immune Status Non Reactive Presumed Non-Immune Equivocal Equivocal Reactive Presumed Immune Start: 11-25-2024 Urine culture No Primar y Care Physician Start: 09-23-2024 Ecg routine ecg w/le ast 12 lds w/i&r Nikita Daley SOURCING ASSOCIATE-OBIEE ARCHITECT Work Phone: Start: 05-13-2024 Radiologic exam ches t 2 views Zacarias Gallardo DO Work Phone: Start: 05-13-2024 Ecg routine ecg w/le ast 12 lds trcg only w/o i&r Zacarias Gallardo DO Work Phone: Start: 03-01-2022 Us pelvic nonobstetr ic image dcmtn limited/f/u Elenita John SOURCING ASSOCIATE.OBIEE ARCHITECT Work Phone: Plan of Treatment Date Care Activity Detail Author Start: 2055 Zoster Vaccines (1 of 2) Zoster Vaccines (1 of 2) [facility] Start: 05-23-2025 CBC W Auto Differential panel - Blood [facility] Start: 05-23-2025 Comprehensive metabolic 2000 panel - Serum or Plasma [facility] Start: 05-23-2025 Protein/Creatinine [Ratio] in Urine [facility] Start: 05-09-2025 Group B Streptococcus Culture Group B Streptococcus Culture [facility] Start: 05-09-2025 Streptococcus agalactiae [Presence] in Unspecified specimen by Organism specific culture [facility] Start: 03-30-2025 Evaluation of diagnostic study results [facility] Start: 02-16-2025 Patient referral [facility] Work Phone: Start: 10-25-2024 End: 10-25-2024 Patient encounter procedure 10/25/2024 9:00 AM EST Office Visit [facility] [address] [place] [id number] Nikita Daley, SOURCING ASSOCIATE-OBIEE ARCHITECT [address], [address] [place] [id number] [facility] Start: 09-23-2024 End: 09-23-2026 Holter monitor study [facility] Service Area Work Phone: Comment on above: Expected: 09/23/2024 (Approximate), Expi res: 09/23/2026 Once for 1 Occurrenc es starting 09/23/2024 until 09/23/2024 Start: 07-11-2024 COVID-19 Vaccine ( season) COVID-19 Vaccine ( season) [facility] Start: 07-11-2024 Influenza vaccination Influenza Vaccine (#1) [facility] Start: 2023 Hepatitis C screening Hepatitis C Screening [facility] Start: 07-11-2023 COVID-19 Vaccine ( season) COVID-19 Vaccine ( season) [facility] Start: 07-11-2023 Influenza vaccination Influenza Vaccine (Season Ended) [facility] Start: 07-11-2022 Influenza vaccination INFLUENZA (Season Ended) [facility] Start: 2021 MENINGOCOCCAL CONJUGATE (1 - 2-dose series) MENINGOCOCCAL CONJUGATE (1 - 2-dose series) [facility] Start: 2021 Meningococcal Vaccine (1 - 2-dose series) Meningococcal Vaccine (1 - 2-dose series) [facility] Start: 2020 CHLAMYDIA SCREENING (<18) CHLAMYDIA SCREENING (<18) [facility] Start: 2020 GC (GONORRHEA) SCREENING (<18) GC (GONORRHEA) SCREENING (<18) [facility] Start: 2020 HPV Vaccines (1 - 3-dose series) HPV Vaccines (1 - 3-dose series) [facility] Start: 2019 PEDS TO ADULT TRANSITION ANNUAL ASSESSMENT PEDS TO ADULT TRANSITION ANNUAL ASSESSMENT [facility] Start: 2017 Adolescent Depression Screening Adolescent Depression Screening [facility] Start: 2017 Adult depression screening assessment DEPRESSION SCREENING [facility] Start: 2017 PEDS TO ADULT TRANSITION INITIAL DISCUSSION PEDS TO ADULT TRANSITION INITIAL DISCUSSION [facility] Start: 2016 DTaP/Tdap/Td Vaccines (6 - Tdap) DTaP/Tdap/Td Vaccines (6 - Tdap) [facility] Start: 2016 HPV VACCINE (1 - 2-dose series) HPV VACCINE (1 - 2-dose series) [facility] Start: 2016 HPV Vaccines (1 - 2-dose series) HPV Vaccines (1 - 2-dose series) [facility] Start: 2016 Urine microalbumin profile DTAP,TDAP,TD (6 - Tdap) [facility] Start: 2015 Adolescent Depression Screening Adolescent Depression Screening [facility] Start: 2015 MENINGOCOCCAL B: Consider based on risk (1 of 2 - Risk Bexsero 2-dose series) MENINGOCOCCAL B: Consider based on risk (1 of 2 - Risk Bexsero 2-dose series) [facility] Start: 2010 COVID-19 VACCINE (1) COVID-19 VACCINE (1) [facility] Start: 06-20-2010 MMR (2 of 2 - Standard series) MMR (2 of 2 - Standard series) [facility] Start: 06-20-2010 MMR Vaccines (2 of 2 - Standard series) MMR Vaccines (2 of 2 - Standard series) [facility] Start: 2009 Hearing Screening (#1) Hearing Screening (#1) [facility] Start: 2008 Well Child Visit (WCV) - Annual Well Child Visit (WCV) - Annual [facility] Start: 04-22-2006 Application of dental fluoride varnish Fluoride Varnish [facility] Start: 02-20-2006 COVID-19 Vaccine (#1) COVID-19 Vaccine (#1) [facility] Start: 2005 HIV screening HIV Screening [facility] Start: 2005 Lipid panel Lipid Panel [facility] Start: 2005 Yearly Adult Physical Yearly Adult Physical [facility] Alanine aminotransfe rase [Enzymatic activity/volume] in Serum or Plasma [facility] Albumin [Mass/volume ] in Serum or Plasma [facility] Alkaline phosphatase [Enzymatic activity/volume] in Serum or Plasma [facility] Anion gap in Serum or Plasma [facility] Beta-hemolytic Strep tococcus culture [facility] Bilirubin, total measurement [facility] BUN/Creatinine ratio [facility] Calcium [Mass/volume ] in Serum or Plasma [facility] Carbon dioxide, tota l [Moles/volume] in Central venous blood [facility] CBC W Auto Different ial panel - Blood [facility] Creatinine [Mass/vol ume] in Serum or Plasma [facility] Creatinine [Mass/vol ume] in Urine collected for unspecified duration [facility] End: 05-13-2024 ECG 12 lead [facility] Service Area Work Phone: Comment on above: Once for 1 Occurrences starting 05/13/20 until 05/13/2024 Electrocardiographic procedure [facility] Erythrocyte mean cor puscular volume determination [facility] Glucose [Mass/volume ] in Serum or Plasma [facility] Hematocrit [Volume F raction] of Blood [facility] Hemoglobin [Mass/vol ume] in Blood [facility] Leukocytes [#/volume ] in Blood [facility] Mean corpuscular hem oglobin concentration determination [facility] Mean corpuscular hem oglobin determination [facility] Measurement of gluco se 2 hours after glucose challenge for glucose tolerance test [facility] Measurement of renal function [facility] Neutrophil count [facility] Neutrophil percent differential count [facility] Patient referral [facility] Work Phone: Platelets [#/volume] in Blood [facility] Potassium measurement [facility] Protein [Mass/volume ] in Urine [facility] Protein/Creatinine [ Mass Ratio] in Urine [facility] Red blood cell count [facility] Red cell distributio n width determination [facility] Serologic test for syphilis [facility] Serum chloride measurement [facility] Sodium measurement [facility] Streptococcus agalac tiae [Presence] in Unspecified specimen by Organism specific culture [facility] Total protein measurement [facility] Urea nitrogen [Mass/ volume] in Serum or Plasma [facility] End: 03-27-2023 Us pelvic nonobstetric image dcmtn limited/f/u [facility] Radiology Routine Lump in the groin 1 Occurrences starting 02/25/2022 until 03/27/2023 [facility] Work Phone: Comment on above: 1 Occurrences starting 02/25/2022 until 03/27/2023 [facility] Immunizations Immunization Date Immunization Notes Care Provider [facility] 05-23-2010 Diphtheria, tetanus toxoids and acellular pertussis vaccine, and poliovirus vaccine, inactivated Elenita [place] SOURCING ASSOCIATE.OBIEE ARCHITECT Work Phone: [facility] 05-23-2010 hepatitis A vaccine, pediatric/adolescent dosage, 2 dose schedule Elenita [place] SOURCING ASSOCIATE.OBIEE ARCHITECT Work Phone: [facility] 05-23-2010 measles, mumps and rubella virus vaccine Elenita [place] SOURCING ASSOCIATE.OBIEE ARCHITECT Work Phone: [facility] 05-23-2010 pneumococcal conjuga te vaccine, 13 valent Elenita [place] SOURCING ASSOCIATE.OBIEE ARCHITECT Work Phone: [facility] 05-23-2010 varicella virus vaccine Quincy e [place] SOURCING ASSOCIATE.OBIEE ARCHITECT Work Phone: [facility] 09-16-2007 diphtheria, tetanus toxoids and acellular pertussis vaccine Elenita John SOURCING ASSOCIATE.OBIEE ARCHITECT Work Phone: [facility] 09-16-2007 hepatitis A vaccine, unspecified formulation Elenita [place] SOURCING ASSOCIATE.OBIEE ARCHITECT Work Phone: [facility] 09-16-2007 influenza, seasonal, injectable, preservative free Elenita Ojhn SOURCING ASSOCIATE.OBIEE ARCHITECT Work Phone: [facility] 09-16-2007 varicella virus vaccine Quincy e John SOURCING ASSOCIATE.OBIEE ARCHITECT Work Phone: [facility] 09-16-2007 influenza virus vacc ine, unspecified formulation Selin Benavides PA-C Work Phone: [facility] 08-25-2006 haemophilus influenz ae type b conjugate and Hepatitis B vaccine Elenita [place] SOURCING ASSOCIATE.OBIEE ARCHITECT Work Phone: [facility] 08-25-2006 pneumococcal conjuga te vaccine, 7 valent Elenita John SOURCING ASSOCIATE.OBIEE ARCHITECT Work Phone: [facility] 02-25-2006 diphtheria, tetanus toxoids and acellular pertussis vaccine, unspecified formulation Elenita [place] SOURCING ASSOCIATE.OBIEE ARCHITECT Work Phone: [facility] 02-25-2006 pneumococcal conjuga te vaccine, 7 valent Elenita [place] SOURCING ASSOCIATE.OBIEE ARCHITECT Work Phone: [facility] 02-25-2006 poliovirus vaccine, unspecified formulation Elenita John SOURCING ASSOCIATE.OBIEE ARCHITECT Work Phone: [facility] 2005 diphtheria, tetanus toxoids and acellular pertussis vaccine Elenita John SOURCING ASSOCIATE.OBIEE ARCHITECT Work Phone: [facility] 2005 haemophilus influenz ae type b conjugate and Hepatitis B vaccine Elenita [place] SOURCING ASSOCIATE.OBIEE ARCHITECT Work Phone: [facility] 2005 pneumococcal conjuga te vaccine, 7 valent Elenita John SOURCING ASSOCIATE.OBIEE ARCHITECT Work Phone: [facility] 2005 poliovirus vaccine, inactivated Elenita John SOURCING ASSOCIATE.OBIEE ARCHITECT Work Phone: [facility] 2005 diphtheria, tetanus toxoids and acellular pertussis vaccine, unspecified formulation Elenita John SOURCING ASSOCIATE.OBIEE ARCHITECT Work Phone: [facility] 2005 haemophilus influenz ae type b conjugate and Hepatitis B vaccine Elenita [place] SOURCING ASSOCIATE.OBIEE ARCHITECT Work Phone: [facility] 2005 pneumococcal conjuga te vaccine, 7 valent Elenita [place] SOURCING ASSOCIATE.OBIEE ARCHITECT Work Phone: [facility] 2005 poliovirus vaccine, inactivated Elenita [place] SOURCING ASSOCIATE.OBIEE ARCHITECT Work Phone: [facility] Payers Date Payer Category Payer Self-pay 2024 Private Health Insurance [id number] 2022 Medicaid [employer] U[employer] MEDICAID ODM [id number] 2022-Present [phone] [address] [place] [address] Medicaid HMO [id number] 2021 Medicaid [facility] MEDICAID [facility] MEDICAID [id number] 2021-Present [phone] [address] [place] [address] Medicaid [id number] 2021 Medicaid (Managed Care) [facility] [id number] 2021 Private Health Insurance [facility] [id number] 2021-Present [address] [place] [address] [id number]. [id number] 2021 Medicaid [id number] 2005 Unknown [id number] 2.16.840.1.945090.3.579.2. 1244 2005 Unknown [id number] 2.16.840.1.479514.3.579.2. 1244 2005 Unknown [id number] 2.16.840.1.127029.3.579.2. 1243 2005 Unknown [id number] 2.16.840.1.632400.3.579.2. 1243 2005 Unknown [id number] 2.16.840.1.540470.3.579.2. 1243 2005 Unknown [id number] 2.16.840.1.157328.3.579.2. 479 2005 Unknown [id number] 2.16840.1.944949.3.579.2. 902 2005 Unknown [id number] 2.16.840.1.529374.3.579.2. 902 2005 Unknown [id number] 2.16840.1.207414.3.579.2. 902 2005 Unknown [id number] 2.16.840.1.264562.3.579.2. 902 2005 Unknown [id number] 2.16840.1.368583.3.579.2. 902 1988 Unknown [id number] 2.16840.1.309097.3.579.2. 1069 Unknown [facility] Private Health Insurance [id number] Unknown [id number] 2.16.840.1.501745.3.579.2. 462 Unknown [id number] 2.16.840.1.045523.3.579.2. 462 Unknown [id number] 2.16.840.1.754468.3.579.2. 462 Unknown [id number] 2.16.840.1.296802.3.579.2. 462 Unknown [id number] 2.16.840.1.661882.3.579.2. 462 Unknown [id number] 2.16.840.1.640045.3.579.2. 462 Unknown [id number] 2.16.840.1.713838.3.579.2. 462 Unknown [id number] 2.16840.1.291987.3.579.2. 462 Unknown [id number] 2.16840.1.502712.3.579.2. 462 Unknown [id number] 2.840.1.090381.3.579.2. 462 Unknown [id number] 2.840.1.203224.3.579.2. 462 Unknown [id number] 2.840.1.752100.3.579.2. 462 Unknown [id number] 2.840.1.163575.3.579.2. 462 Unknown [id number] 2.840.1.930079.3.579.2. 462 Unknown [id number] 2.840.1.115197.3.579.2. 462 Unknown [id number] 2.840.1.410842.3.579.2. 462 Unknown [id number] 2.840.1.268199.3.579.2. 462 Unknown [id number] 2.840.1.942119.3.579.2. 462 Unknown [id number] 2.16840.1.255262.3.579.2. 462 Unknown [id number] 2.16840.1.365804.3.579.2. 462 Unknown [id number] 2.16840.1.466406.3.579.2. 462 Unknown [id number] 2.840.1.646126.3.579.2. 462 Social History Date Type Detail Facility Start: 01-19-2016 End: 02-16-2025 Tobacco smoking status NHIS Never smoked tobacco [facility] Start: 01-19-2016 End: 09-23-2024 Tobacco use and exposure Smokeless tobacco non-user [facility] Start: 02-21-2022 End: 02-19-2023 Alcohol intake Lifetime non-drinker (finding) [facility] Start: 02-21-2022 History SDOH Alcohol Frequency 1 [facility] Start: 2005 Sex Assigned At Not on file [facility] Start: 02-15-2022 End: 10-25-2024 Exposure to SARS-CoV-2 (event) Not sure [facility] Tobacco smoking consumption unknown [facility] History of tobacco use Passive smoker [facility] Work Phone: Start: 09-23-2024 End: 10-25-2024 Alcoholic beverage intake Ex-drinker (finding) [facility] Work Phone: Start: 09-23-2024 End: 10-25-2024 History of Social function [facility] Work Phone: Start: 09-23-2024 End: 10-25-2024 Tobacco use panel [facility] Work Phone: Start: 02-21-2025 Sex Female (finding) [facility] Start: 2005 Sex Assigned At Female [facility] Clinical Notes 02-21-2022 to 05-30-2025 Note Date & Type Note Facility 05-30-2025 Progress note [facility] 05-26-2025 Radiology Diagnostic study note [facility] Imaging Services [address] [place], [place] [address] OB Limited With Biometrics MR#: [id number] Acct: [id number] Name: MARILU MONDRAGON Rep #: [id number] : 2005 F 19 From: Andreas Joe MD PCP: Care Physician,No Primary Status: REG CLI Study:OB Limited With Biometrics Date of Exam : 05/25/25 Exam# [id number] Ordering Dr: Majo Parra MD PROCEDURE: OB LIMITED WITH BIOMETRICS 05/25/2025 REASON FOR EXAM: GROWTH TECHNIQUE: OB LIMITED WITH BIOMETRICS COMPARISON: None FINDINGS Number: 1 Position: Vertex Placental Position: Anterior and not low-lying. Placental Abnormalities: No evidence of previa. DIMENSIONS: Biparietal Diameter: 10.1 cm: 41 weeks and 2 days: 99 percentile/ Head Circumference: 33.8 cm: 38 weeks and 6 days: 46.6 percentile/ Abdominal Circumference: 35.1 cm: 39 weeks and 0 days: 87.3%/ Femur Length: 7.1 cm: 36 weeks and 1 day: 10.3 percentile/ ESTIMATED WEIGHT: 3629 g plus/-544 g ESTIMATED WEIGHT PERCENTILE (24+ weeks): 80 ESTIMATED GESTATIONAL AGE: Baseline: 38 weeks and 1 day By Ultrasound: 38 weeks and 3 days ESTIMATED DATE OF DELIVERY: Baseline: June 07, 2025 By Ultrasound: June 05, 2025 BIOPHYSICAL ASSESSMENT: Amniotic Fluid Volume: 3.7 cm Amniotic Fluid Index: 11.5 (8-24 cm normal range) Cardiac Motion: 152 beats per minute (average) Trunk and Limb Motion: Present. MATERNAL ANATOMY: Adnexa: Neither maternal ovary is successfully identified. US/OB Limited With Biometrics IMPRESSION: Single live intrauterine gestation with a mean gestational age of 38 weeks and 3days. Reading Location: [place] [address] CC: Dr. Majo Martins MD; No Primary Care Physician ~ [employer] Project Manager: Signed [facility] 05-23-2025 Progress note [facility] 05-20-2025 Progress note [facility] 05-20-2025 Progress note Note Date/Time May 20, 2025 2:44pm [facility] [address] [place] [address], [address] [place] [address] OFFICE VISIT Date of Service: 05/20/25 MR#: [id number] Acct: [id number] Name: MARILU MONDRAGON Rep #: [id number] : 2005 Provider: TERRY Cruz Age/Sex: 19/F Location: [facility] Status: Signed Intake Vital Signs 04/25/25 11:32 05/09/25 14:11 05/20/25 14:07 Height 5 ft 8 in 5 ft 8 in 5 ft 8 in Weight: 189 lb 6 oz BMI 28.8 BP 122/72 H Intake Visit Reasons: 37 wk ob Chief Complaint: 37wk OB Medical Scientific Officer Required: No Is patient in pain?: No Allergies No Known Allergies Allergy (Verified 05/20/25 14:05) Medications ?Medication ?Instructions ?Recorded ?Confirmed ?Type PNV 153-FA 400 mcg-om3 35 mg-dha tab PO 11/19/2405/20 History 25 mg-epa 5 mg-fish oil chew tablet famotidine 20 mg tablet (Pepcid) 20 mg PO BID #60 tabs 03/28/25 05/20/25 Rx ferrous sulfate 325 mg (65 mg 325 mg PO QDAY 03/28/25 05/20/25 History iron) tablet ascorbic acid (vitamin C) 500 mg 500 mg PO QDAY 05/20/25 History tablet Last Menstrual Period: 08/31/24 : No PFSH PFSH Medical History Tachycardia Palpitations Dizziness Supervision of high-risk Anxiety Surgical History No history of previous surgery Family History Grandmother Diabetes Paternal Mother Heart disease Grandfather Myocardial infarction, Onset Age: 40 Maternal Social History adopted: No household members: significant other current occupational status: unemployed pets and animals: No history of recent travel: No sexually active: Yes Smoking Status: Never smoker alcohol intake: current alcohol intake frequency: a few times a month details: not while substance use type: does not use well-balanced diet: rarely or never caffeine: Yes Type: carbonated beverages Number of servings: 1 eating out: rarely or never during the past year weight has: increased > 10 lbs what type of physical activity do you participate in: none mikie/yarsanism: None seatbelt use: always do you feel safe at home: Yes 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 OB Visit BRIE Calculator Estimated Delivery Date Method Current WG Current Estimate 06/07/25 LMP (Certain) 37w 3d Other Estimates 06/05/25 Ultrasound #1 37w 5d Expected Delivery Route/Plan Labor Preferences- CB/BF classes: encouraged labor support person: Varghese labor intervention preferences: [] pain management options preferred: epidural if requested cut cord/dad catch: no : yes PP control planned: discussed discussed possible routes of delivery and associated risks: [] special requests: [] Specific Issue/Plans Covid status: [] Flu vaccine: [] Tdap vaccine: declines Rhogam: na LARC form signed: yes Problem list reviewed and updated with the most current plan of care details and appropriate orders placed. Relevant counseling for the gestational age provided. Continue routine care and follow up unless otherwise noted in visit notes/problem list details Initial Weight: 155 lb Date -?-?-?-?-?-?-?-?-?-?-?-?- EGA Weight BP Urine Prot -?-?-?-?-?-?-?-?-?-?-?-?- Glucose FHR FuHt Pres Dilation -?-?-?-?-?-?-?-?-?-?-?-?- Effaced St Visit Note 11/25/24 -?-?-?-?-?-?-?-?-?-?-?-?- 12w 2d 168 lb (+13 lb) 112/78 -?-?-?-?-?-?-?-?-?-?-?-?- 149 -?-?-?-?-?-?-?-?-?-?-?-?- KW- CRL cons wit h dates. accepts NIPT MFM US ordered 12/23/24 -?-?-?-?-?-?-?-?-?-?-?-?- 16w 2d 167 lb (+12 lb) 110/80 Negative -?-?-?-?-?-?-?-?-?-?-?-?- Negative 145 -?-?-?-?-?-?-?-?-?-?-?-?- MH-No VB. Nausea resolved. Reviewed PN labs 02/16/25 -?-?-?-?-?-?-?-?-?-?-?-?- 24w 1d 173 lb 4 oz (+18 lb 4 oz) 127/76 Negative -?-?-?-?-?-?-?-?-?-?-?-?- Negative 145 24 -?-?-?-?-?-?-?-?-?-?-?-?- SM- co dizzy spe lls where when she first stands up she will have heart rate and blood pressure spikes, her legs turn purple, she can't stand longer than a few minutes, she also co tingling in her legs when she's sitting for too long. she saw a financial planning analyst in the past and it was normal. she has a strong family history of heart disease. plan labs today and cardio consult 03/17/25 -?-?-?-?-?-?-?-?-?-?-?-?- 28w 2d 178 lb 8 oz (+23 lb 8 oz) 109/68 Negative -?-?-?-?-?-?-?-?-?-?-?-?- Negative 153 28 -?-?-?-?-?-?-?-?-?-?-?-?- -No Vb, LOF. G ood Fm. Dizzy spells improved. Larc. Declines tdap. Will RTO next few days for 28 wk labs. 03/28/25 -?-?-?-?-?-?-?-?-?-?-?-?- 29w 6d 178 lb (+23 lb) 116/75 Negative -?-?-?-?-?-?-?-?-?-?-?-?- Negative 155 30 -?-?-?-?-?-?-?-?-?-?-?-?- JV- no lof, vagi nal bleeding, or dec fm. has been experiencing some vasovagal symptoms without passing out. sees cardiology soon. wearing compression stockings and drinking over 100oz of water a day. 04/15/25 -?-?-?-?-?-?-?-?-?-?-?-?- 32w 3d 188 lb 2 oz (+33 lb 2 oz) 103/69 Negative -?-?-?-?-?-?-?-?-?-?-?-?- Negative 140 32 -?-?-?-?-?-?-?-?-?-?-?-?- KW- no vb/lof/ct x. good fm. saw cardiology and did not get any results from this. still having intermittent tachycardia (up to 160) and swelling- drinking 100+oz water and wearing compression hose. also recommended sports drink. discussed coming off work or light duty. will discuss with her work. 04/25/25 -?-?-?-?-?-?-?-?-?-?-?-?- 33w 6d 187 lb 2 oz (+32 lb 2 oz) 117/79 Negative -?-?-?-?-?-?-?-?-?-?-?-?- Negative 135 34 -?-?-?-?-?-?-?-?-?-?-?-?- kw- no vb/lof/ct x. good fm. still having episodes of not feeling well- but is doing light duty at work and not having episodes of tachycardia. FMLA papers to triage to get filled out. paper given to be US model for [facility] 05/09/25 -?-?-?-?-?-?-?-?-?-?-?-?- 35w 6d 192 lb (+37 lb) 121/73 Negative -?-?-?-?-?-?-?-?-?-?-?-?- Negative 140 36 Cephalic 1 .5 -?-?-?-?-?-?-?-?-?-?-?-?- 60 -2 KW- no vb/ lof/ctx. good fm GBS today. Light duty papers given for work due to episodes of tachycardia. albert just last week. 05/20/25 -?-?-?-?-?-?-?-?-?-?-?-?- 37w 3d 189 lb 6 oz (+34 lb 6 oz) 122/72 Negative -?-?-?-?-?-?-?-?-?-?-?-?- Negative 145 37 Cephalic 2 -?-?-?-?-?-?-?-?-?-?-?-?- 60 -2 KW- no vb/ lof/ctx. good fm. was in [facility] ER on friday for SOB and trouble breathing dx with Pleuritis- requesting 39 week IOL on 06/03. discussed risks of elective IOL ACOG First Trimester First Trimester: Desire for , Alcohol, Tobacco Cessation, Illicit/Recreational Drug/Substance Use, Intimate Partner Violence, Barriers to care, Anticipated Course of Care, Use of Any medications, Sexual activity, Exercise, Dental Care, Sauna/Hot tub use, Seat Belt use, Childbirth classes/Hospital facilities, Travel, Indications for Ultrasound and Screening for Aneuploidy; Discussed Unstable Housing, Discussed Communication Barriers, Discussed Environmental/Work Hazards, Discussed Toxoplasmosis Precations and Discussed Second Trimester Second Trimester: Signs and Symptoms of Labor, Selecting a care provider, Reproductive Life Planning & Contreception and Care Planning; Discussed Tobacco Cessation, Discussed Depression/Anxiety and Discussed Intimate Partner Violence Third Trimester Third Trimester: Pain Management Plans, Labor support person(s), Immediate Larc, Circumcision preference, Signs and Symptoms of Preeclampsia, Infant Feeding No , [place] Education and Family Medical Leave or Disability Forms ROS Const Reports system reviewed and no additional complaints, except as documented Eyes Reports system reviewed and no additional complaints, except as documented ENT Reports system reviewed and no additional complaints, except as documented Card Reports system reviewed and no additional complaints, except as documented Resp Reports system reviewed and no additional complaints, except as documented GI Reports system reviewed and no additional complaints, except as documented, Denies nausea and Denies vomiting Reports system reviewed and no additional complaints, except as documented Musc Reports system reviewed and no additional complaints, except as documented Skin/Breast Reports system reviewed and no additional complaints, except as documented Neuro Yes system reviewed and no additional complaints, except as documented Psych Reports system reviewed and no additional complaints, except as documented Endo Reports system reviewed and no additional complaints, except as documented Nigel/Lymph Reports system reviewed and no additional complaints, except as documented Aller/Immun Reports system reviewed and no additional complaints, except as documented Exam Const General: cooperative, healthy appearing and no acute distress Orientation: alert, awake and oriented x3 Neck Neck: normal visual inspection and full ROM Resp Effort & Inspection: normal respiratory effort, able to speak in complete sentences and symmetric chest movement GI Inspection: normal to inspection Palpation: soft and other Other: gravid Skin General: no rashes or lesions noted Neuro General: patient alert, patient awake and patient oriented x3 Cognition: normal cognition Speech: speech normal Gait: normal gait Motor: muscle tone normal throughout Extrem General: normal to inspection and full ROM Psych Appearance: grossly normal Mental Status: mental status grossly normal Mood: congruent mood Affect: normal affect Speech and Movement: speech and movement normal Attitude: cooperative Thought Process: normal Thought Content: normal Judgment: judgment good Results POC Urinalysis 2 Dip (Clinic) Office Urine Glucose Negative Last Edit by Shanell Artis on 05/20/25 14:19 Office Urine Protein Negative Last Edit by Shanell Artis on 05/20/25 14:19 Coding Level of Care Code Off vis,est,level 3 Diagnoses Anemia affecting O99.019 Tachycardia R00.0 Palpitations R00.2 Dizziness R42 Rubella non-immune status, antepartum O09.899; Z28.39 Supervision of high risk in third trimester O09.93 Trimester: third trimester 37 weeks gestation of Z3A.37 Weeks of gestation: 37 weeks Anxiety F41.9 Assessment and Plan Assessment and Plan (1) Anemia affecting : Status: Acute Comment: PO iron. repeat early April (2) Tachycardia: Status: Acute (3) Palpitations: Status: Acute Comment: cardio consult. ekg ordered, labs. ekg nl. (4) Dizziness: Status: Acute (5) Rubella non-immune status, antepartum: Status: Acute Comment: offer MMR PP (6) Supervision of high-risk : Status: Acute Qualifiers: Trimester: third trimester Qualified Code(s): O09.93 - Supervision of high risk , unspecified, third trimester Comment: PRR, , BRIE 06/07/25 Boy, BF Varghese (7) : Status: Acute Qualifiers: Weeks of gestation: 37 weeks Qualified Code(s): Z3A.37 - 37 weeks gestation of Comment: GBS neg, NIPT low risk with gender- male, declines carrier (8) Anxiety: Status: Acute Orders: Orders POC Urinalysis 2 Dip (Clinic) Today Plan Details Additional Comments: ACOG trimester education reviewed and updated. see problem list details for updated plan management information and see below for orders placed at this visit. GA appropriate handout given. 05/20/25 1444 <Electronically signed by Rebeca ybarra CNM> Date _ Rebeca Cruz CNM [facility] Signature: Date (if applicable) CC: ~ [employer] Work Phone: 1(591) 940-900006-30-2025 Progress [facility] [address] [place] [address], [address] [place] [address] OFFICE VISIT Date of Service: 05/09/25 MR#: [id number] Acct: [id number] Name: MARILU MONDRAGON Rep #: [id number] : 2005 Provider: TERRY Cruz Age/Sex: 19/F Location: [facility] Status: Signed Intake Vital Signs 03/28/25 14:25 04/25/25 11:32 05/09/25 14:11 Height 5 ft 8 in 5 ft 8 in 5 ft 8 in Weight: 192 lb BMI 29.2 BP 121/73 H Blood Pressure Location Rt brachial Position Sitting Pulse 74 Pulse Source Monitor Intake Visit Reasons: 36 wk ob Medical Scientific Officer Required: No Accompanied by: Self Is patient in pain?: No Allergies No Known Allergies Allergy (Verified 05/09/25 14:14) Last Menstrual Period: 08/31/24 Zika: Zika virus screening: Negative : No Nurse's Note: Increased sharp, shooting pain near ribs attributes to positioning. Occasional dizziness whenchanging of position or moving head quickly. PFSH [facility] Medical History Tachycardia Palpitations Dizziness Supervision of high-risk Anxiety Surgical History No history of previous surgery Family History Grandmother Diabetes Paternal Mother Heart disease Grandfather Myocardial infarction, Onset Age: 40 Maternal Social History adopted: No household members: significant other current occupational status: unemployed pets and animals: No history of recent travel: No sexually active: Yes Smoking Status: Never smoker alcohol intake: current alcohol intake frequency: a few times a month details: not while substance use type: does not use well-balanced diet: rarely or never caffeine: Yes Type: carbonated beverages Number of servings: 1 eating out: rarely or never during the past year weight has: increased > 10 lbs what type of physical activity do you participate in: none mikie/yarsanism: None seatbelt use: always do you feel safe at home: Yes 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 OB Visit BRIE Calculator Estimated Delivery Date Method Current WG Current Estimate 06/07/25 LMP (Certain) 35w 6d Other Estimates 06/05/25 Ultrasound #1 36w 1d Expected Delivery Route/Plan Labor Preferences- CB/BF classes: encouraged labor support person: Varghese labor intervention preferences: [] pain management options preferred: epidural if requested cut cord/dad catch: no : yes PP control planned: discussed discussed possible routes of delivery and associated risks: [] special requests: [] Specific Issue/Plans Covid status: [] Flu vaccine: [] Tdap vaccine: declines Rhogam: na LARC form signed: yes Problem list reviewed and updated with the most current plan of care details and appropriate ordersplaced. Relevant counseling for the gestational age provided. Continue routine care and follow up unless otherwise noted in visit notes/problem list details Initial Weight: 155 lb Date -?-?-?-?-?-?-?-?-?-?-?-?- EGA Weight BP Urine Prot -?-?-?-?-?-?-?-?-?-?-?-?- Glucose FHR FuHt Pres Dilation -?-?-?-?-?-?-?-?-?-?-?-?- Effaced St Visit Note 11/25/24 -?-?-?-?-?-?-?-?-?-?-?-?- 12w 2d 168 lb (+13 lb) 112/78 -?-?-?-?-?-?-?-?-?-?-?-?- 149 -?-?-?-?-?-?-?-?-?-?-?-?- KW- CRL cons wit h dates. accepts NIPT MFM US ordered 12/23/24 -?-?-?-?-?-?-?-?-?-?-?-?- 16w 2d 167 lb (+12 lb) 110/80 Negative -?-?-?-?-?-?-?-?-?-?-?-?- Negative 145 -?-?-?-?-?-?-?-?-?-?-?-?- MH-No VB. Nausea resolved. Reviewed PN labs 02/16/25 -?-?-?-?-?-?-?-?-?-?-?-?- 24w 1d 173 lb 4 oz (+18 lb 4 oz) 127/76 Negative -?-?-?-?-?-?-?-?-?-?-?-?- Negative 145 24 -?-?-?-?-?-?-?-?-?-?-?-?- SM- co dizzy spe lls where when she first stands up she will have heart rate and blood pressure spikes, her legs turn purple, she can't stand longer than a few minutes, she also co tingling in her legs when she's sitting for too long. she saw a financial planning analyst in the past and itwas normal. she has a strong family history of heart disease. plan labs today and cardio consult 03/17/25 -?-?-?-?-?-?-?-?-?-?-?-?- 28w 2d 178 lb 8 oz (+23 lb 8 oz) 109/68 Negative -?-?-?-?-?-?-?-?-?-?-?-?- Negative 153 28 -?-?-?-?-?-?-?-?-?-?-?-?- MH-No Vb, LOF. G ood Fm. Dizzy spells improved. Larc. Declines tdap. Will RTO next few days for 28 wk labs. 03/28/25 -?-?-?-?-?-?-?-?-?-?-?-?- 29w 6d 178 lb (+23 lb) 116/75 Negative -?-?-?-?-?-?-?-?-?-?-?-?- Negative 155 30 -?-?-?-?-?-?-?-?-?-?-?-?- JV- no lof, vagi nal bleeding, or dec fm. has been experiencing some vasovagal symptoms without passing out. sees cardiology soon. wearing compression stockings and drinking [id number] of water a day. 04/15/25 -?-?-?-?-?-?-?-?-?-?-?-?- 32w 3d 188 lb 2 oz (+33 lb 2 oz) 103/69 Negative -?-?-?-?-?-?-?-?-?-?-?-?- Negative 140 32 -?-?-?-?-?-?-?-?-?-?-?-?- KW- no vb/lof/ct x. good fm. saw cardiology and did not get any results from this. still having intermittent tachycardia (up to 160) and swelling- drinking 100+oz water and wearing compression hose. also recommended sports drink. discussed coming off work or light duty. will discuss with her work. 04/25/25 -?-?-?-?-?-?-?-?-?-?-?-?- 33w 6d 187 lb 2 oz (+32 lb 2 oz) 117/79 Negative -?-?-?-?-?-?-?-?-?-?-?-?- Negative 135 34 -?-?-?-?-?-?-?-?-?-?-?-?- kw- no vb/lof/ct x. good fm. still having episodes of not feeling well- but is doing light duty at work and not having episodes of tachycardia. FMLA papers to triage to get filled out. paper given to be US model for [facility] 05/09/25 -?-?-?--?-?-?-?-?-?-?-?-?- 35w 6d 192 lb (+37 lb) 121/73 Negative -?-?-?-?-?-?-?-?-?-?-?-?- Negative 140 36 Cephalic 1 .5 -?-?-?-?-?-?-?-?-?--?-?-?- 60 -2 KW- no vb/ lof/ctx. good fm GBS today. Light duty papers given for work due to episodes of tachycardia. grandma just last week. ACOG First Trimester First Trimester: Desire for , Alcohol, Tobacco Cessation, Illicit/Recreational Drug/Substance Use, Intimate Partner Violence, Barriers to care, Anticipated Course of Care, Use of Any medications, Sexual activity, Exercise, Dental Care, Sauna/Hot tub use, Seat Belt use, Childbirth c lasses/Hospital facilities, Travel, Indications for Ultrasound and Screening for Aneuploidy; Discussed Unstable Housing, Discussed Communication Barriers, Discussed Environmental/Work Hazards, Discussed Toxoplasmosis Precations and Discussed Second Trimester Second Trimester: Signs and Symptoms of Labor, Selecting a care provider, Reproductive Life Planning & Contreception and Care Planning; Discussed Tobacco Cessation, Discussed Depression/Anxiety and Discussed Intimate Partner Violence Third Trimester Third Trimester: Pain Management Plans, Labor support person(s), Immediate Larc, Circumcision preference, Signs and Symptoms of Preeclampsia, Infant Feeding No , Education and Family Medical Leave or Disability Forms ROS Const Reports system reviewed and no additional complaints, except as documented Eyes Reports system reviewed and no additional complaints, except as documented ENT Reports system reviewed and no additional complaints, except as documented Card Reports system reviewed and no additional complaints, except as documented Resp Reports system reviewed and no additional complaints, except as documented GI Reports system reviewed and no additional complaints, except as documented, Denies nausea and Denies vomiting Reports system reviewed and no additional complaints, except as documented Musc Reports system reviewed and no additional complaints, except as documented Skin/Breast Reports system reviewed and no additional complaints, except as documented Neuro Yes system reviewed and no additional complaints, except as documented Psych Reports system reviewed and no additional complaints, except as documented Endo Reports system reviewed and no additional complaints, except as documented Nigel/Lymph Reports system reviewed and no additional complaints, except as documented Aller/Immun Reports system reviewed and no additional complaints, except as documented Exam Const General: cooperative, healthy appearing and no acute distress Orientation: alert, awake and oriented x3 Neck Neck: normal visual inspection and full ROM Resp Effort & Inspection: normal respiratory effort, able to speak in complete sentences and symmetric chest movement GI Inspection: normal to inspection Palpation: soft and other Other: gravid Skin General: no rashes or lesions noted Neuro General: patient alert, patient awake and patient oriented x3 Cognition: normal cognition Speech: speech normal Gait: normal gait Motor: muscle tone normal throughout Extrem General: normal to inspection and full ROM Psych Appearance: grossly normal Mental Status: mental status grossly normal Mood: congruent mood Affect: normal affect Speech and Movement: speech and movement normal Attitude: cooperative Thought Process: normal Thought Content: normal Judgment: judgment good Results POC Urinalysis 2 Dip (Clinic) Office Urine Glucose Negative Last Edit by Liliana Khanna on 05/09/25 14 :24 Office Urine Protein Negative Last Edit by Liliana Khanna on 05/09/25 14 :24 Coding Level of Care Code Off vis,est,level 3 Diagnoses Anemia affecting O99.019 Tachycardia R00.0 Palpitations R00.2 Dizziness R42 Rubella non-immune status, antepartum O09.899; Z28.39 Supervision of high risk in third trimester O09.93 Trimester: third trimester 35 weeks gestation of Z3A.35 Weeks of gestation: 35 weeks Anxiety F41.9 Assessment and Plan Assessment and Plan (1) Anemia affecting : Status: Acute Comment: PO iron. repeat early April (2) Tachycardia: Status: Acute (3) Palpitations: Status: Acute Comment: cardio consult. ekg ordered, labs. ekg nl. (4) Dizziness: Status: Acute (5) Rubella non-immune status, antepartum: Status: Acute Comment: offer MMR PP (6) Supervision of high-risk : Status: Acute Qualifiers: Trimester: third trimester Qualified Code(s): O09.93 - Supervision of high risk , unspecified, third trimester Comment: PRR, , BRIE 06/07/25 Boy, BF Varghese (7) : Status: Acute Qualifiers: Weeks of gestation: 35 weeks Qualified Code(s): Z3A.35 - 35 weeks gestation of Comment: NIPT low risk with gender- male, declines carrier (8) Anxiety: Status: Acute Orders: Orders Culture, Group B Streptococcus Today Z3A.33 - 33 weeks gestation of POC Urinalysis 2 Dip (Clinic) Today Plan Details Additional Comments: ACOG trimester education reviewed and updated. see problem list details for updated plan management information and see below for orders placed atthis visit. [place] appropriate handout given. 05/09/25 1438 s CNM> Date _ Rebeca Cruz CNM Cosigner Signature: Date (if applicable) CC: ~ [facility]06-30-2025 Progress note Author Rebeca Cruz [facility] Note Date/Time May 09, 2025 2:38 pm [facility] [address], [address] [place] [address] OFFICE VISIT Date of Service: 05/09/25 MR#: [id number] Acct: [id number] Name: MARILU MONDRAGON Rep #: [id number] : 2005 Provider: TERRY Cruz Age/Sex: 19/F Location: [facility] [place] Status: Signed Intake Vital Signs 03/28/25 14:25 04/25/25 11:32 05/09/25 14:11 Height 5 ft 8 in 5 ft 8 in 5 ft 8 in Weight: 192 lb BMI 29.2 BP 121/73 H Blood Pressure Location Rt brachial Position Sitting Pulse 74 Pulse Source Monitor Intake Visit Reasons: 36 wk ob Medical Scientific Officer Required: No Accompanied by: Self Is patient in pain?: No Allergies No Known Allergies Allergy (Verified 05/09/25 14:14) Last Menstrual Period: 08/31/24 Zika: Zika virus screening: Negative : No Nurse's Note: Increased sharp, shooting pain near ribs attributes to positioning. Occasional dizziness when changing of position or moving head quickly. PFSH PFSH Medical History Tachycardia Palpitations Dizziness Supervision of high-risk Anxiety Surgical History No history of previous surgery Family History Grandmother Diabetes Paternal Mother Heart disease Grandfather Myocardial infarction, Onset Age: 40 Maternal Social History adopted: No household members: significant other current occupational status: unemployed pets and animals: No history of recent travel: No sexually active: Yes Smoking Status: Never smoker alcohol intake: current alcohol intake frequency: a few times a month details: not while substance use type: does not use well-balanced diet: rarely or never caffeine: Yes Type: carbonated beverages Number of servings: 1 eating out: rarely or never during the past year weight has: increased > 10 lbs what type of physical activity do you participate in: none mikie/yarsanism: None seatbelt use: always do you feel safe at home: Yes 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 OB Visit BRIE Calculator Estimated Delivery Date Method Current WG Current Estimate 06/07/25 LMP (Certain) 35w 6d Other Estimates 06/05/25 Ultrasound #1 36w 1d Expected Delivery Route/Plan Labor Preferences- CB/BF classes: encouraged labor support person: Varghese labor intervention preferences: [] pain management options preferred: epidural if requested cut cord/dad catch: no : yes PP control planned: discussed discussed possible routes of delivery and associated risks: [] special requests: [] Specific Issue/Plans Covid status: [] Flu vaccine: [] Tdap vaccine: declines Rhogam: na LARC form signed: yes Problem list reviewed and updated with the most current plan of care details and appropriate orders placed. Relevant counseling for the gestational age provided. Continue routine care and follow up unless otherwise noted in visit notes/problem list details Initial Weight: 155 lb Date -?-?-?-?-?-?-?-?-?-?-?-?- EGA Weight BP Urine Prot -?-?-?-?-?-?-?-?-?-?-?-?- Glucose FHR FuHt Pres Dilation -?-?-?-?-?-?-?-?-?-?-?-?- Effaced St Visit Note 11/25/24 -?-?-?-?-?-?-?-?-?-?-?-?- 12w 2d 168 lb (+13 lb) 112/78 -?-?-?-?-?-?-?-?-?-?-?-?- 149 -?-?-?-?-?-?-?-?-?-?-?-?- KW- CRL cons wit h dates. accepts NIPT MFM US ordered 12/23/24 -?-?-?-?-?-?-?-?-?-?-?-?- 16w 2d 167 lb (+12 lb) 110/80 Negative -?-?-?-?-?-?-?-?-?-?-?-?- Negative 145 -?-?-?-?-?-?-?-?-?-?-?-?- MH-No VB. Nausea resolved. Reviewed PN labs 02/16/25 -?-?-?-?-?-?-?-?-?-?-?-?- 24w 1d 173 lb 4 oz (+18 lb 4 oz) 127/76 Negative -?-?-?-?-?-?-?-?-?-?-?-?- Negative 145 24 -?-?-?-?-?-?-?-?-?-?-?-?- SM- co dizzy spe lls where when she first stands up she will have heart rate and blood pressure spikes, her legs turn purple, she can't stand longer than a few minutes, she also co tingling in her legs when she's sitting for too long. she saw a financial planning analyst in the past and it was normal. she has a strong family history of heart disease. plan labs today and cardio consult 03/17/25 -?-?-?-?-?-?-?-?-?-?-?-?- 28w 2d 178 lb 8 oz (+23 lb 8 oz) 109/68 Negative -?-?-?-?-?-?-?-?-?-?-?-?- Negative 153 28 -?-?-?-?-?-?-?-?-?-?-?-?- MH-No Vb, LOF. G ood Fm. Dizzy spells improved. Larc. Declines tdap. Will RTO next few days for 28 wk labs. 03/28/25 -?-?-?-?-?-?-?-?-?-?-?-?- 29w 6d 178 lb (+23 lb) 116/75 Negative -?-?-?-?-?-?-?-?-?-?-?-?- Negative 155 30 -?-?-?-?-?-?-?-?-?-?-?-?- JV- no lof, vagi nal bleeding, or dec fm. has been experiencing some vasovagal symptoms without passing out. sees cardiology soon. wearing compression stockings and drinking over 100oz of water a day. 04/15/25 -?-?-?-?-?-?-?-?-?-?-?-?- 32w 3d 188 lb 2 oz (+33 lb 2 oz) 103/69 Negative -?-?-?-?-?-?-?-?-?-?-?-?- Negative 140 32 -?-?-?-?-?-?-?-?-?-?-?-?- KW- no vb/lof/ct x. good fm. saw cardiology and did not get any results from this. still having intermittent tachycardia (up to 160) and swelling- drinking 100+oz water and wearing compression hose. also recommended sports drink. discussed coming off work or light duty. will discuss with her work. 04/25/25 -?-?-?-?-?-?-?-?-?-?-?-?- 33w 6d 187 lb 2 oz (+32 lb 2 oz) 117/79 Negative -?-?-?-?-?-?-?-?-?-?-?-?- Negative 135 34 -?-?-?-?-?-?-?-?-?-?-?-?- kw- no vb/lof/ct x. good fm. still having episodes of not feeling well- but is doing light duty at work and not having episodes of tachycardia. FMLA papers to triage to get filled out. paper given to be US model for [facility] 05/09/25 -?-?-?--?-?-?-?-?-?-?-?-?- 35w 6d 192 lb (+37 lb) 121/73 Negative -?-?-?-?-?-?-?-?-?-?-?-?- Negative 140 36 Cephalic 1 .5 -?-?-?-?-?-?-?-?-?--?-?-?- 60 -2 KW- no vb/ lof/ctx. good fm GBS today. Light duty papers given for work due to episodes of tachycardia. grandma just last week. ACOG First Trimester First Trimester: Desire for , Alcohol, Tobacco Cessation, Illicit/Recreational Drug/Substance Use, Intimate Partner Violence, Barriers to care, Anticipated Course of Care, Use of Any medications, Sexual activity, Exercise, Dental Care, Sauna/Hot tub use, Seat Belt use, Childbirth classes/Hospital facilities, Travel, Indications for Ultrasound and Screening for Aneuploidy; Discussed Unstable Housing, Discussed Communication Barriers, Discussed Environmental/Work Hazards, Discussed Toxoplasmosis Precations and Discussed Second Trimester Second Trimester: Signs and Symptoms of Labor, Selecting a care provider, Reproductive Life Planning & Contreception and Care Planning; Discussed Tobacco Cessation, Discussed Depression/Anxiety and Discussed Intimate Partner Violence Third Trimester Third Trimester: Pain Management Plans, Labor support person(s), Immediate Larc, Circumcision preference, Signs and Symptoms of Preeclampsia, Infant Feeding No , Education and Family Medical Leave or Disability Forms ROS Const Reports system reviewed and no additional complaints, except as documented Eyes Reports system reviewed and no additional complaints, except as documented ENT Reports system reviewed and no additional complaints, except as documented Card Reports system reviewed and no additional complaints, except as documented Resp Reports system reviewed and no additional complaints, except as documented GI Reports system reviewed and no additional complaints, except as documented, Denies nausea and Denies vomiting Reports system reviewed and no additional complaints, except as documented Musc Reports system reviewed and no additional complaints, except as documented Skin/Breast Reports system reviewed and no additional complaints, except as documented Neuro Yes system reviewed and no additional complaints, except as documented Psych Reports system reviewed and no additional complaints, except as documented Endo Reports system reviewed and no additional complaints, except as documented Nigel/Lymph Reports system reviewed and no additional complaints, except as documented Aller/Immun Reports system reviewed and no additional complaints, except as documented Exam Const General: cooperative, healthy appearing and no acute distress Orientation: alert, awake and oriented x3 Neck Neck: normal visual inspection and full ROM Resp Effort & Inspection: normal respiratory effort, able to speak in complete sentences and symmetric chest movement GI Inspection: normal to inspection Palpation: soft and other Other: gravid Skin General: no rashes or lesions noted Neuro General: patient alert, patient awake and patient oriented x3 Cognition: normal cognition Speech: speech normal Gait: normal gait Motor: muscle tone normal throughout Extrem General: normal to inspection and full ROM Psych Appearance: grossly normal Mental Status: mental status grossly normal Mood: congruent mood Affect: normal affect Speech and Movement: speech and movement normal Attitude: cooperative Thought Process: normal Thought Content: normal Judgment: judgment good Results POC Urinalysis 2 Dip (Clinic) Office Urine Glucose Negative Last Edit by Liliana Khanna on 05/09/25 14 :24 Office Urine Protein Negative Last Edit by Liliana Khanna on 05/09/25 14 :24 Coding Level of Care Code Off vis,est,level 3 Diagnoses Anemia affecting O99.019 Tachycardia R00.0 Palpitations R00.2 Dizziness R42 Rubella non-immune status, antepartum O09.899; Z28.39 Supervision of high risk in third trimester O09.93 Trimester: third trimester 35 weeks gestation of Z3A.35 Weeks of gestation: 35 weeks Anxiety F41.9 Assessment and Plan Assessment and Plan (1) Anemia affecting : Status: Acute Comment: PO iron. repeat early April (2) Tachycardia: Status: Acute (3) Palpitations: Status: Acute Comment: cardio consult. ekg ordered, labs. ekg nl. (4) Dizziness: Status: Acute (5) Rubella non-immune status, antepartum: Status: Acute Comment: offer MMR PP (6) Supervision of high-risk : Status: Acute Qualifiers: Trimester: third trimester Qualified Code(s): O09.93 - Supervision of high risk , unspecified, third trimester Comment: PRR, , BRIE 06/07/25 Boy, BF Varghese (7) : Status: Acute Qualifiers: Weeks of gestation: 35 weeks Qualified Code(s): Z3A.35 - 35 weeks gestation of Comment: NIPT low risk with gender- male, declines carrier (8) Anxiety: Status: Acute Orders: Orders Culture, Group B Streptococcus Today Z3A.33 - 33 weeks gestation of POC Urinalysis 2 Dip (Clinic) Today Plan Details Additional Comments: ACOG trimester education reviewed and updated. see problem list details for updated plan management information and see below for orders placed at this visit. [place] appropriate handout given. 05/09/25 9711 <Electronically signed by Rebeca ybarra CNM> Date _ Rebeca Cruz CNM Cosignzenon Signature: Date (if applicable) CC: ~ [facility] Work Phone: [phone] [facility] [address] [place] [address], [address] [place] [address] OFFICE VISIT Date of Service: 04/25/25 MR#: [id number] Acct: [id number] Name: MARILU MONDRAGON #: [id number] : 2005 Provider: TERRY Cruz Age/Sex: 19/F Location: [facility] [place] Status: Signed Intake Vital Signs 03/28/25 14:25 04/15/25 13:04 04/25/25 11:32 Height 5 ft 8 in 5 ft 8 in 5 ft 8 in Weight: 187 lb 2 oz BMI 28.4 BP 117/79 Intake Visit Reasons: 34 wk ob Chief Complaint: 34wk ob Medical Scientific Officer Required: No Is patient in pain?: No Allergies No Known Allergies Allergy (Verified 04/25/25 11:31) Medications 3 ?Medication ?Instructions ?Recorded ?Confirmed ?Type PNV 153-FA 400 mcg-om3 35 mg-dha tab PO 11/19/2404/25 History 25 mg-epa 5 mg-fish oil chew tablet famotidine 20 mg tablet (Pepcid) 20 mg PO BID #60 tabs 03/28/25 04/25/25 Rx ferrous sulfate 325 mg (65 mg 325 mg PO QDAY 03/28/25 04/25/25 History iron) tablet ascorbic acid (vitamin C) 500 mg 500 mg PO QDAY 04/25/25 History tablet Last Menstrual Period: 08/31/24 : No PFSH PFSH Medical History Tachycardia Palpitations Dizziness Supervision of high-risk Anxiety Surgical History No history of previous surgery Family History Grandmother Diabetes Paternal Mother Heart disease Grandfather Myocardial infarction, Onset Age: 40 Maternal Social History adopted: No household members: significant other current occupational status: unemployed pets and animals: No history of recent travel: No sexually active: Yes Smoking Status: Never smoker alcohol intake: current alcohol intake frequency: a few times a month details: not while substance use type: does not use well-balanced diet: rarely or never caffeine: Yes Type: carbonated beverages Number of servings: 1 eating out: rarely or never during the past year weight has: increased > 10 lbs what type of physical activity do you participate in: none mikie/yarsanism: None seatbelt use: always do you feel safe at home: Yes 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 OB Visit BRIE Calculator Estimated Delivery Date Method Current WG Current Estimate 06/07/25 LMP (Certain) 33w 6d Other Estimates 06/05/25 Ultrasound #1 34w 1d Expected Delivery Route/Plan Labor Preferences- CB/BF classes: encouraged labor support person: Varghese labor intervention preferences: [] pain management options preferred: epidural if requested cut cord/dad catch: no : yes PP control planned: discussed discussed possible routes of delivery and associated risks: [] special requests: [] Specific Issue/Plans Covid status: [] Flu vaccine: [] Tdap vaccine: declines Rhogam: na LARC form signed: yes Problem list reviewed and updated with the most current plan of care details and appropriate ordersplaced. Relevant counseling for the gestational age provided. Continue routine care and follow up unless otherwise noted in visit notes/problem list details Initial Weight: 155 lb Date -?-?-?-?-?-?-?-?-?-?-?-?- EGA Weight BP Urine Prot -?-?-?-?-?-?-?-?-?-?-?-?- Glucose FHR FuHt Pres Dilation -?-?-?-?-?-?-?-?-?-?-?-?- Effaced St Visit Note 11/25/24 -?-?-?-?-?-?-?-?-?-?-?-?- 12w 2d 168 lb (+13 lb) 112/78 -?-?-?-?-?-?-?-?-?-?-?-?- 149 -?-?-?-?-?-?-?-?-?-?-?-?- KW- CRL cons wit h dates. accepts NIPT MFM US ordered 12/23/24 -?-?-?-?-?-?-?-?-?-?-?-?- 16w 2d 167 lb (+12 lb) 110/80 Negative -?-?-?-?-?-?-?-?-?-?-?-?- Negative 145 -?-?-?-?-?-?-?-?-?-?-?-?- MH-No VB. Nausea resolved. Reviewed PN labs 02/16/25 -?-?-?-?-?-?-?-?-?-?-?-?- 24w 1d 173 lb 4 oz (+18 lb 4 oz) 127/76 Negative -?-?-?-?-?-?-?-?-?-?-?-?- Negative 145 24 -?-?-?-?-?-?-?-?-?-?-?-?- SM- co dizzy spe lls where when she first stands up she will have heart rate and blood pressure spikes, her legs turn purple, she can't stand longer than a few minutes, she also co tingling in her legs when she's sitting for too long. she saw a financial planning analyst in the past and itwas normal. she has a strong family history of heart disease. plan labs today and cardio consult 03/17/25 -?-?-?-?-?-?-?-?-?-?-?-?- 28w 2d 178 lb 8 oz (+23 lb 8 oz) 109/68 Negative -?-?-?-?-?-?-?-?-?-?-?-?- Negative 153 28 -?-?-?-?-?-?-?-?-?-?-?-?- -No Vb, LOF. G ood Fm. Dizzy spells improved. Larc. Declines tdap. Will RTO next few days for 28 wk labs. 03/28/25 -?-?-?-?-?-?-?-?-?-?-?-?- 29w 6d 178 lb (+23 lb) 116/75 Negative -?-?-?-?-?-?-?-?-?-?-?-?- Negative 155 30 -?-?-?-?-?-?-?-?-?-?-?-?- JV- no lof, vagi nal bleeding, or dec fm. has been experiencing some vasovagal symptoms without passing out. sees cardiology soon. wearing compression stockings and drinking rleg530te of water a day. 04/15/25 -?-?-?-?-?-?-?-?-?-?-?-?- 32w 3d 188 lb 2 oz (+33 lb 2 oz) 103/69 Negative -?-?-?-?-?-?-?-?-?-?-?-?- Negative 140 32 -?-?-?-?-?-?-?-?-?-?-?-?- KW- no vb/lof/ct x. good fm. saw cardiology and did not get any results from this. still having intermittent tachycardia (up to 160) and swelling- drinking 100+oz water and wearing compression hose. also recommended sports drink. discussed coming off work or light duty. will discuss with her work. 04/25/25 -?-?-?-?-?-?-?-?-?-?-?-?- 33w 6d 187 lb 2 oz (+32 lb 2 oz) 117/79 Negative -?-?-?-?-?-?-?-?-?-?-?-?- Negative 135 34 -?-?-?-?-?-?-?-?-?-?-?-?- kw- no vb/lof/ct x. good fm. still having episodes of not feeling well- but is doing light duty at work and not having episodes of tachycardia. FMLA papers to triage to get filled out. paper given to be US model for [facility] ACOG First Trimester First Trimester: Desire for , Alcohol, Tobacco Cessation, Illicit/Recreational Drug/Substance Use, Intimate Partner Violence, Barriers to care, Anticipated Course of Care, Use of Any medications, Sexual activity, Exercise, Dental Care, Sauna/Hot tub use, Seat Belt use, Childbirth c lasses/Hospital facilities, Travel, Indications for Ultrasound and Screening for Aneuploidy; Discussed Unstable Housing, Discussed Communication Barriers, Discussed Environmental/Work Hazards, Discussed Toxoplasmosis Precations and Discussed Second Trimester Second Trimester: Signs and Symptoms of Labor, Selecting a care provider, Reproductive Life Planning & Contreception and Care Planning; Discussed Tobacco Cessation, Discussed Depression/Anxiety and Discussed Intimate Partner Violence Third Trimester Third Trimester: Pain Management Plans, Labor support person(s), Immediate Larc, Circumcision preference, Signs and Symptoms of Preeclampsia, Feeding No , [place] Education and Family Medical Leave or Disability Forms ROS Const Reports system reviewed and no additional complaints, except as documented Eyes Reports system reviewed and no additional complaints, except as documented ENT Reports system reviewed and no additional complaints, except as documented Card Reports system reviewed and no additional complaints, except as documented Resp Reports system reviewed and no additional complaints, except as documented GI Reports system reviewed and no additional complaints, except as documented, Denies nausea and Denies vomiting Reports system reviewed and no additional complaints, except as documented Musc Reports system reviewed and no additional complaints, except as documented Skin/Breast Reports system reviewed and no additional complaints, except as documented Neuro Yes system reviewed and no additional complaints, except as documented Psych Reports system reviewed and no additional complaints, except as documented Endo Reports system reviewed and no additional complaints, except as documented Nigel/Lymph Reports system reviewed and no additional complaints, except as documented Aller/Immun Reports system reviewed and no additional complaints, except as documented Exam Const General: cooperative, healthy appearing and no acute distress Orientation: alert, awake and oriented x3 Neck Neck: normal visual inspection and full ROM Resp Effort & Inspection: normal respiratory effort, able to speak in complete sentences and symmetric chest movement GI Inspection: normal to inspection Palpation: soft and other Other: gravid Skin General: no rashes or lesions noted Neuro General: patient alert, patient awake and patient oriented x3 Cognition: normal cognition Speech: speech normal Gait: normal gait Motor: muscle tone normal throughout Extrem General: normal to inspection and full ROM Psych Appearance: grossly normal Mental Status: mental status grossly normal Mood: congruent mood Affect: normal affect Speech and Movement: speech and movement normal Attitude: cooperative Thought Process: normal Thought Content: normal Judgment: judgment good Results POC Urinalysis 2 Dip (Clinic) Office Urine Glucose Negative Last Edit by Shanell Artis on 04/25/25 11:39 Office Urine Protein Negative Last Edit by Shanell Artis on 04/25/25 11:39 Coding Level of Care Code Off vis,est,level 3 Diagnoses Anemia affecting O99.019 Tachycardia R00.0 Palpitations R00.2 Dizziness R42 Rubella non-immune status, antepartum O09.899; Z28.39 Supervision of high risk in third trimester O09.93 Trimester: third trimester 33 weeks gestation of Z3A.33 Weeks of gestation: 33 weeks Anxiety F41.9 Assessment and Plan Assessment and Plan (1) Anemia affecting : Status: Acute Comment: PO iron. repeat early April (2) Tachycardia: Status: Acute (3) Palpitations: Status: Acute Comment: cardio consult. ekg ordered, labs. ekg nl. (4) Dizziness: Status: Acute (5) Rubella non-immune status, antepartum: Status: Acute Comment: offer MMR PP (6) Supervision of high-risk : Status: Acute Qualifiers: Trimester: third trimester Qualified Code(s): O09.93 - Supervision of high risk , unspecified, third trimester Comment: PRR, , BRIE 06/07/25 Boy, BF Varghese (7) : Status: Acute Qualifiers: Weeks of gestation: 33 weeks Qualified Code(s): Z3A.33 - 33 weeks gestation of Comment: NIPT low risk with gender- male, declines carrier (8) Anxiety: Status: Acute Orders: Orders POC Urinalysis 2 Dip (Clinic) Today Plan Details Additional Comments: ACOG trimester education reviewed and updated. see problem list details for updated plan management information and see below for orders placed atthis visit. [place] appropriate handout given. 04/25/25 1202 s TERRY> Date _ Rebeca Lira Signature: Date (if applicable) CC: ~ [facility] [id number] [facility] [address] [place] [address], [address] [place] [address] OFFICE VISIT Date of Service: 04/15/25 MR#: [id number] Acct: [id number] Name: MARILU MONDRAGON #: [id number] : 2005 Provider: TERRY Cruz Age/Sex: 19/F Location: [facility] [place] Status: Signed Intake Vital Signs 03/30/25 14:08 04/15/25 13:02 04/15/25 13:04 Height 5 ft 8 in 5 ft 8 in 5 ft 8 in Weight: 188 lb 2 oz BMI 28.5 BP 103/69 Intake Visit Reasons: 32wk ob Chief Complaint: 32 Week OB Medical Scientific Officer Required: No Is patient in pain?: No Allergies No Known Allergies Allergy (Verified 04/15/25 13:01) Medications ?Medication ?Instructions ?Recorded ?Confirmed ?Type PNV 153-FA 400 mcg-om3 35 mg-dha tab PO 11/19/2404/15 History 25 mg-epa 5 mg-fish oil chew tablet famotidine 20 mg tablet (Pepcid) 20 mg PO BID #60 tabs 03/28/25 04/15/25 Rx ferrous sulfate 325 mg (65 mg 325 mg PO QDAY 03/28/25 04/15/25 History iron) tablet ascorbic acid (vitamin C) 500 mg 500 mg PO QDAY 04/15/25 History tablet Last Menstrual Period: 08/31/24 Zika: Zika virus screening: Negative : No PFSH PFSH Medical History Tachycardia Palpitations Dizziness Supervision of high-risk Anxiety Surgical History No history of previous surgery Family History Grandmother Diabetes Paternal Mother Heart disease Grandfather Myocardial infarction, Onset Age: 40 Maternal Social History adopted: No household members: significant other current occupational status: unemployed pets and animals: No history of recent travel: No sexually active: Yes Smoking Status: Never smoker alcohol intake: current alcohol intake frequency: a few times a month details: not while substance use type: does not use well-balanced diet: rarely or never caffeine: Yes Type: carbonated beverages Number of servings: 1 eating out: rarely or never during the past year weight has: increased > 10 lbs what type of physical activity do you participate in: none mikie/yarsanism: None seatbelt use: always do you feel safe at home: Yes 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 OB Visit BRIE Calculator Estimated Delivery Date Method Current WG Current Estimate 06/07/25 LMP (Certain) 32w 3d Other Estimates 06/05/25 Ultrasound #1 32w 5d Expected Delivery Route/Plan Labor Preferences- CB/BF classes: encouraged labor support person: Varghese labor intervention preferences: [] pain management options preferred: epidural if requested cut cord/dad catch: no : yes PP control planned: discussed discussed possible routes of delivery and associated risks: [] special requests: [] Specific Issue/Plans Covid status: [] Flu vaccine: [] Tdap vaccine: declines Rhogam: na LARC form signed: yes Problem list reviewed and updated with the most current plan of care details and appropriate ordersplaced. Relevant counseling for the gestational age provided. Continue routine care and follow up unless otherwise noted in visit notes/problem list details Initial Weight: 155 lb Date -?-?-?-?-?-?-?-?-?-?-?-?- EGA Weight BP Urine Prot -?-?-?-?-?-?-?-?-?-?-?-?- Glucose FHR FuHt Pres Dilation -?-?-?-?-?-?-?-?-?-?-?-?- Effaced St Visit Note 11/25/24 -?-?-?-?-?-?-?-?-?-?-?-?- 12w 2d 168 lb (+13 lb) 112/78 -?-?-?-?-?-?-?-?-?-?-?-?- 149 -?-?-?-?-?-?-?-?-?-?-?-?- KW- CRL cons wit h dates. accepts NIPT MFM US ordered 12/23/24 -?-?-?-?-?-?-?-?-?-?-?-?- 16w 2d 167 lb (+12 lb) 110/80 Negative -?-?-?-?-?-?-?-?-?-?-?-?- Negative 145 -?-?-?-?-?-?-?-?-?-?-?-?- MH-No VB. Nausea resolved. Reviewed PN labs 02/16/25 -?-?-?-?-?-?-?-?-?-?-?-?- 24w 1d 173 lb 4 oz (+18 lb 4 oz) 127/76 Negative -?-?-?-?-?-?-?-?-?-?-?-?- Negative 145 24 -?-?-?-?-?-?--?-?-?-?-?-?- SM- co dizzy spe lls where when she first stands up she will have heart rate and blood pressure spikes, her legs turn purple, she can't stand longer than a few minutes, she also co tingling in her legs when she's sitting for too long. she saw a financial planning analyst in the past and itwas normal. she has a strong family history of heart disease. plan labs today and cardio consult 03/17/25 -?-?-?-?-?-?-?-?-?-?-?-?- 28w 2d 178 lb 8 oz (+23 lb 8 oz) 109/68 Negative -?-?-?-?-?-?-?-?-?-?-?-?- Negative 153 28 -?-?-?-?-?-?-?-?-?-?-?-?- MH-No Vb, LOF. G ood Fm. Dizzy spells improved. Larc. Declines tdap. Will RTO next few days for 28 wk labs. 03/28/25 -?-?-?-?-?-?-?--?-?-?-?-?- 29w 6d 178 lb (+23 lb) 116/75 Negative -?-?-?-?-?-?-?-?-?-?-?-?- Negative 155 30 -?-?-?-?-?-?-?-?-?-?-?-?- JV- no lof, vagi nal bleeding, or dec fm. has been experiencing some vasovagal symptoms without passing out. sees cardiology soon. wearing compression stockings and drinking [id number] of water a day. 04/15/25 -?-?-?-?-?-?-?-?-?-?-?-?- 32w 3d 188 lb 2 oz (+33 lb 2 oz) 103/69 -?-?-?-?-?-?-?-?-?-?-?-?- 140 32 -?-?-?-?-?-?-?-?-?-?-?-?- KW- no vb/lof/ct x. good fm. saw cardiology and did not get any results from this. still having intermittent tachycardia (up to 160) and swelling- drinking 100+oz water and wearing compression hose. also recommended sports drink. discussed coming off work or light duty. will discuss with her work. ACOG First Trimester First Trimester: Desire for , Alcohol, Tobacco Cessation, Illicit/Recreational Drug/Substance Use, Intimate Partner Violence, Barriers to care, Anticipated Course of Care, Use of Any medications, Sexual activity, Exercise, Dental Care, Sauna/Hot tub use, Seat Belt use, Childbirth c lasses/Hospital facilities, Travel, Indications for Ultrasound and Screening for Aneuploidy; Discussed Unstable Housing, Discussed Communication Barriers, Discussed Environmental/Work Hazards, Discussed Toxoplasmosis Precations and Discussed Second Trimester Second Trimester: Signs and Symptoms of Labor, Selecting a care provider, Reproductive Life Planning & Contreception and Care Planning; Discussed Tobacco Cessation, Discussed Depression/Anxiety and Discussed Intimate Partner Violence Third Trimester Third Trimester: Pain Management Plans, Labor support person(s), Immediate Larc, Circumcision preference, Signs and Symptoms of Preeclampsia, Feeding No , [place] Education and Family Medical Leave or Disability Forms ROS Const Reports system reviewed and no additional complaints, except as documented Eyes Reports system reviewed and no additional complaints, except as documented ENT Reports system reviewed and no additional complaints, except as documented Card Reports system reviewed and no additional complaints, except as documented Resp Reports system reviewed and no additional complaints, except as documented GI Reports system reviewed and no additional complaints, except as documented, Denies nausea and Denies vomiting Reports system reviewed and no additional complaints, except as documented Musc Reports system reviewed and no additional complaints, except as documented Skin/Breast Reports system reviewed and no additional complaints, except as documented Neuro Yes system reviewed and no additional complaints, except as documented Psych Reports system reviewed and no additional complaints, except as documented Endo Reports system reviewed and no additional complaints, except as documented Nigel/Lymph Reports system reviewed and no additional complaints, except as documented Aller/Immun Reports system reviewed and no additional complaints, except as documented Exam Const General: cooperative, healthy appearing and no acute distress Orientation: alert, awake and oriented x3 Neck Neck: normal visual inspection and full ROM Resp Effort & Inspection: normal respiratory effort, able to speak in complete sentences and symmetric chest movement GI Inspection: normal to inspection Palpation: soft and other Other: gravid Skin General: no rashes or lesions noted Neuro General: patient alert, patient awake and patient oriented x3 Cognition: normal cognition Speech: speech normal Gait: normal gait Motor: muscle tone normal throughout Extrem General: normal to inspection and full ROM Psych Appearance: grossly normal Mental Status: mental status grossly normal Mood: congruent mood Affect: normal affect Speech and Movement: speech and movement normal Attitude: cooperative Thought Process: normal Thought Content: normal Judgment: judgment good Coding Level of Care Code Off vis,est,level 3 Diagnoses 32 weeks gestation of Z3A.32 Weeks of gestation: 32 weeks Supervision of high risk in third trimester O. Trimester: third trimester Rubella non-immune status, antepartum O09.899; Z28.39 Dizziness R42 Palpitations R00.2 Tachycardia R00.0 Anemia affecting O99.019 Anxiety F41.9 Assessment and Plan Assessment and Plan (1) : Status: Acute Qualifiers: Weeks of gestation: 32 weeks Qualified Code(s): Z3A.32 - 32 weeks gestation of Comment: NIPT low risk with gender- male, declines carrier (2) Supervision of high-risk : Status: Acute Qualifiers: Trimester: third trimester Qualified Code(s): O09.93 - Supervision of high risk , unspecified, third trimester Comment: PRR, , BRIE 06/07/25 Boy, BF Varghese (3) Rubella non-immune status, antepartum: Status: Acute Comment: offer MMR PP (4) Dizziness: Status: Acute (5) Palpitations: Status: Acute Comment: cardio consult. ekg ordered, labs. ekg nl. (6) Tachycardia: Status: Acute (7) Anemia affecting : Status: Acute Comment: PO iron. repeat early April (8) Anxiety: Status: Acute Orders: Orders POC Urinalysis 2 Dip (Clinic) Today Plan Details Additional Comments: ACOG trimester education reviewed and updated. see problem list details for updated plan management information and see below for orders placed atthis visit. [place] appropriate handout given. 04/15/25 1329 s TERRY> Date _ Rebeca Lira Signature: Date (if applicable) CC: ~ [id number] [facility] [address] [place] [address], [address] [place] [address] OFFICE VISIT Date of Service: 03/28/25 MR#: [id number] Acct: [id number] Name: MARILU MONDRAGON Rep #: [id number] : 2005 Provider: Dr. Donna Kelly, Age/Sex: 19/F Location: [facility] [place] Status: Signed Intake Vital Signs 03/17/25 09:38 03/28/25 14:24 03/28/25 14:25 Height 5 ft 8 in 5 ft 8 in 5 ft 8 in Weight: 178 lb BMI 27.0 BP 116/75 Intake Visit Reasons: 30wk ob Medical Scientific Officer Required: No Is patient in pain?: No Allergies No Known Allergies Allergy (Verified 03/28/25 14:24) Medications ?Medication ?Instructions ?Recorded ?Confirmed ?Type PNV 153-FA 400 mcg-om3 35 mg-dha tab PO 11/19/2403/28 History 25 mg-epa 5 mg-fish oil chew tablet famotidine 20 mg tablet (Pepcid) 20 mg PO BID #60 tabs 03/28/25 03/28/25 Rx Last Menstrual Period: 08/31/24 Zika: Zika virus screening: Negative : No PFSH PFSH Medical History Tachycardia Palpitations Dizziness Supervision of high-risk Anxiety Surgical History No history of previous surgery Family History Grandmother Diabetes Paternal Mother Heart disease Grandfather Myocardial infarction, Onset Age: 40 Maternal Social History adopted: No household members: significant other current occupational status: unemployed pets and animals: No history of recent travel: No sexually active: Yes Smoking Status: Never smoker alcohol intake: current alcohol intake frequency: a few times a month details: not while substance use type: does not use well-balanced diet: rarely or never caffeine: Yes Type: carbonated beverages Number of servings: 1 eating out: rarely or never during the past year weight has: increased > 10 lbs what type of physical activity do you participate in: none mikie/yarsanism: None seatbelt use: always do you feel safe at home: Yes 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 OB Visit BRIE Calculator Estimated Delivery Date Method Current WG Current Estimate 06/07/25 LMP (Certain) 29w 6d Other Estimates 06/05/25 Ultrasound #1 30w 1d Expected Delivery Route/Plan Labor Preferences- CB/BF classes: encouraged labor support person: Varghese labor intervention preferences: [] pain management options preferred: epidural if requested cut cord/dad catch: no : yes PP control planned: discussed discussed possible routes of delivery and associated risks: [] special requests: [] Specific Issue/Plans Covid status: [] Flu vaccine: [] Tdap vaccine: declines Rhogam: na LARC form signed: yes Problem list reviewed and updated with the most current plan of care details and appropriate ordersplaced. Relevant counseling for the gestational age provided. Continue routine care and follow up unless otherwise noted in visit notes/problem list details Initial Weight: 155 lb Date -?-?-?-?-?-?-?-?-?-?-?-?- EGA Weight BP Urine Prot -?-?-?-?-?-?-?-?-?-?-?-?- Glucose FHR FuHt Pres Dilation -?-?-?-?-?-?-?-?-?-?-?-?- Effaced St Visit Note 11/25/24 -?-?-?-?-?-?-?-?-?-?-?-?- 12w 2d 168 lb (+13 lb) 112/78 -?-?-?-?-?-?-?-?-?-?-?-?- 149 -?-?-?-?-?-?-?-?-?-?-?-?- KW- CRL cons wit h dates. accepts NIPT MFM US ordered 12/23/24 -?-?-?-?-?-?-?-?-?-?-?-?- 16w 2d 167 lb (+12 lb) 110/80 Negative -?-?-?-?-?-?--?-?-?-?-?-?- Negative 145 -?-?-?-?-?-?-?-?-?-?-?-?- MH-No VB. Nausea resolved. Reviewed PN labs 02/16/25 -?-?-?-?-?-?-?-?-?-?-?-?- 24w 1d 173 lb 4 oz (+18 lb 4 oz) 127/76 Negative -?-?-?-?-?-?-?-?-?-?-?-?- Negative 145 24 -?-?-?-?-?-?-?-?-?-?-?-?- SM- co dizzy spe lls where when she first stands up she will have heart rate and blood pressure spikes, her legs turn purple, she can't stand longer than a few minutes, she also co tingling in her legs when she's sitting for too long. she saw a financial planning analyst in the past and itwas normal. she has a strong family history of heart disease. plan labs today and cardio consult 03/17/25 -?-?-?-?-?-?--?-?-?-?-?-?- 28w 2d 178 lb 8 oz (+23 lb 8 oz) 109/68 Negative -?-?-?-?-?-?-?-?-?-?-?-?- Negative 153 28 -?-?-?-?-?-?-?-?-?-?-?-?- MH-No Vb, LOF. G ood Fm. Dizzy spells improved. Larc. Declines tdap. Will RTO next few days for 28 wk labs. 03/28/25 -?-?-?-?-?-?-?-?-?-?-?-?- 29w 6d 178 lb (+23 lb) 116/75 -?-?-?-?-?-?-?-?-?-?-?-?- 155 30 -?-?-?-?-?-?-?-?-?-?-?-?- JV- no lof, vagi nal bleeding, or dec fm. has been experiencing some vasovagal symptoms without passing out. sees cardiology soon. wearing compression stockings and drinking [id number] of water a day. ACOG First Trimester First Trimester: Desire for , Alcohol, Tobacco Cessation, Illicit/Recreational Drug/Substance Use, Intimate Partner Violence, Barriers to care, Anticipated Course of Care, Use of Any medications, Sexual activity, Exercise, Dental Care, Sauna/Hot tub use, Seat Belt use, Childbirth c lasses/Hospital facilities, Travel, Indications for Ultrasound and Screening for Aneuploidy; Discussed Unstable Housing, Discussed Communication Barriers, Discussed Environmental/Work Hazards, Discussed Toxoplasmosis Precations and Discussed Second Trimester Second Trimester: Signs and Symptoms of Labor, Selecting a care provider, Reproductive Life Planning & Contreception and Care Planning; Discussed Tobacco Cessation, Discussed Depression/Anxiety and Discussed Intimate Partner Violence Third Trimester Third Trimester: Pain Management Plans, Labor support person(s), Immediate Larc, Circumcision preference, Signs and Symptoms of Preeclampsia, Feeding No , [place] Education and Family Medical Leave or Disability Forms ROS Const Denies fever(s) GI Reports as per HPI and Denies abdominal pain Reports as per HPI, Denies abnormal vaginal bleeding, Denies dysuria and Denies vaginal discharge Exam Const General: healthy appearing, comfortable and no acute distress GI Inspection: normal to inspection Palpation: soft and nontender Coding Level of Care Code Off vis,est,level 3 Diagnoses Anemia affecting O99.019 Tachycardia R00.0 Palpitations R00.2 Dizziness R42 Rubella non-immune status, antepartum O09.899; Z28.39 Supervision of high risk in third trimester O09.93 Trimester: third trimester 29 weeks gestation of Z3A.29 Weeks of gestation: 29 weeks Anxiety F41.9 Assessment and Plan Assessment and Plan (1) Anemia affecting : Status: Acute Comment: PO iron. repeat early April (2) Tachycardia: Status: Acute (3) Palpitations: Status: Acute Comment: cardio consult. ekg ordered, labs. ekg nl. (4) Dizziness: Status: Acute (5) Rubella non-immune status, antepartum: Status: Acute Comment: offer MMR PP (6) Supervision of high-risk : Status: Acute Qualifiers: Trimester: third trimester Qualified Code(s): O09.93 - Supervision of high risk , unspecified, third trimester Comment: PRR, , BRIE 06/07/25 Boy, BF Varghese (7) : Status: Acute Qualifiers: Weeks of gestation: 29 weeks Qualified Code(s): Z3A.29 - 29 weeks gestation of Comment: NIPT low risk with gender- male, declines carrier (8) Anxiety: Status: Acute Medications: New famotidine (Pepcid) 20 mg PO BID 60 tabs 4RF 03/28/25 1448 e Veljasbir DO> Date _ Marie Gloverignzenon Signature: Date (if applicable) CC: ~ [facility]05-19-2025 Progress note Author Marie Dimas [facility] Note Date/Time March 28, 2025 2:48p m [facility] [address], [address] [place] [address] OFFICE VISIT Date of Service: 03/28/25 MR#: [id number] Acct: [id number] Name: MARILU MONDRAGON Rep #: [id number] : 2005 Provider: Dr. Donna Kelly, Age/Sex: 19/F Location: [facility] [place] Status: Signed Intake Vital Signs 03/17/25 09:38 03/28/25 14:24 03/28/25 14:25 Height 5 ft 8 in 5 ft 8 in 5 ft 8 in Weight: 178 lb BMI 27.0 BP 116/75 Intake Visit Reasons: 30wk ob Medical Scientific Officer Required: No Is patient in pain?: No Allergies No Known Allergies Allergy (Verified 03/28/25 14:24) Medications ?Medication ?Instructions ?Recorded ?Confirmed ?Type PNV 153-FA 400 mcg-om3 35 mg-dha tab PO 11/19/2403/28 History 25 mg-epa 5 mg-fish oil chew tablet famotidine 20 mg tablet (Pepcid) 20 mg PO BID #60 tabs 03/28/25 03/28/25 Rx Last Menstrual Period: 08/31/24 Zika: Zika virus screening: Negative : No PFSH PFSH Medical History Tachycardia Palpitations Dizziness Supervision of high-risk Anxiety Surgical History No history of previous surgery Family History Grandmother Diabetes Paternal Mother Heart disease Grandfather Myocardial infarction, Onset Age: 40 Maternal Social History adopted: No household members: significant other current occupational status: unemployed pets and animals: No history of recent travel: No sexually active: Yes Smoking Status: Never smoker alcohol intake: current alcohol intake frequency: a few times a month details: not while substance use type: does not use well-balanced diet: rarely or never caffeine: Yes Type: carbonated beverages Number of servings: 1 eating out: rarely or never during the past year weight has: increased > 10 lbs what type of physical activity do you participate in: none mikie/yarsanism: None seatbelt use: always do you feel safe at home: Yes 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 OB Visit BRIE Calculator Estimated Delivery Date Method Current WG Current Estimate 06/07/25 LMP (Certain) 29w 6d Other Estimates 06/05/25 Ultrasound #1 30w 1d Expected Delivery Route/Plan Labor Preferences- CB/BF classes: encouraged labor support person: Varghese labor intervention preferences: [] pain management options preferred: epidural if requested cut cord/dad catch: no : yes PP control planned: discussed discussed possible routes of delivery and associated risks: [] special requests: [] Specific Issue/Plans Covid status: [] Flu vaccine: [] Tdap vaccine: declines Rhogam: na LARC form signed: yes Problem list reviewed and updated with the most current plan of care details and appropriate orders placed. Relevant counseling for the gestational age provided. Continue routine care and follow up unless otherwise noted in visit notes/problem list details Initial Weight: 155 lb Date -?-?-?-?-?-?-?-?-?-?-?-?- EGA Weight BP Urine Prot -?-?-?-?-?-?-?-?-?-?-?-?- Glucose FHR FuHt Pres Dilation -?-?-?-?-?-?-?-?-?-?-?-?- Effaced St Visit Note 11/25/24 -?-?-?-?-?-?-?-?-?-?-?-?- 12w 2d 168 lb (+13 lb) 112/78 -?-?-?-?-?-?-?-?-?-?-?-?- 149 -?-?-?-?-?-?-?-?-?-?-?-?- KW- CRL cons wit h dates. accepts NIPT MFM US ordered 12/23/24 -?-?-?-?-?-?-?-?-?-?-?-?- 16w 2d 167 lb (+12 lb) 110/80 Negative -?-?-?-?-?-?--?-?-?-?-?-?- Negative 145 -?-?-?-?-?-?-?-?-?-?-?-?- MH-No VB. Nausea resolved. Reviewed PN labs 02/16/25 -?-?-?-?-?-?-?-?-?-?-?-?- 24w 1d 173 lb 4 oz (+18 lb 4 oz) 127/76 Negative -?-?-?-?-?-?-?-?-?-?-?-?- Negative 145 24 -?-?-?-?-?-?-?-?-?-?-?-?- SM- co dizzy spe lls where when she first stands up she will have heart rate and blood pressure spikes, her legs turn purple, she can't stand longer than a few minutes, she also co tingling in her legs when she's sitting for too long. she saw a financial planning analyst in the past and it was normal. she has a strong family history of heart disease. plan labs today and cardio consult 03/17/25 -?-?-?-?-?-?--?-?-?-?-?-?- 28w 2d 178 lb 8 oz (+23 lb 8 oz) 109/68 Negative -?-?-?-?-?-?-?-?-?-?-?-?- Negative 153 28 -?-?-?-?-?-?-?-?-?-?-?-?- MH-No Vb, LOF. G ood Fm. Dizzy spells improved. Larc. Declines tdap. Will RTO next few days for 28 wk labs. 03/28/25 -?-?-?-?-?-?-?-?-?-?-?-?- 29w 6d 178 lb (+23 lb) 116/75 -?-?-?-?-?-?-?-?-?-?-?-?- 155 30 -?-?-?-?-?-?-?-?-?-?-?-?- JV- no lof, vagi nal bleeding, or dec fm. has been experiencing some vasovagal symptoms without passing out. sees cardiology soon. wearing compression stockings and drinking over 100oz of water a day. ACOG First Trimester First Trimester: Desire for , Alcohol, Tobacco Cessation, Illicit/Recreational Drug/Substance Use, Intimate Partner Violence, Barriers to care, Anticipated Course of Care, Use of Any medications, Sexual activity, Exercise, Dental Care, Sauna/Hot tub use, Seat Belt use, Childbirth classes/Hospital facilities, Travel, Indications for Ultrasound and Screening for Aneuploidy; Discussed Unstable Housing, Discussed Communication Barriers, Discussed Environmental/Work Hazards, Discussed Toxoplasmosis Precations and Discussed Second Trimester Second Trimester: Signs and Symptoms of Labor, Selecting a care provider, Reproductive Life Planning & Contreception and Care Planning; Discussed Tobacco Cessation, Discussed Depression/Anxiety and Discussed Intimate Partner Violence Third Trimester Third Trimester: Pain Management Plans, Labor support person(s), Immediate Larc, Circumcision preference, Signs and Symptoms of Preeclampsia, Infant Feeding No , [place] Education and Family Medical Leave or Disability Forms ROS Const Denies fever(s) GI Reports as per HPI and Denies abdominal pain Reports as per HPI, Denies abnormal vaginal bleeding, Denies dysuria and Denies vaginal discharge Exam Const General: healthy appearing, comfortable and no acute distress GI Inspection: normal to inspection Palpation: soft and nontender Coding Level of Care Code Off vis,est,level 3 Diagnoses Anemia affecting O99.019 Tachycardia R00.0 Palpitations R00.2 Dizziness R42 Rubella non-immune status, antepartum O09.899; Z28.39 Supervision of high risk in third trimester O09.93 Trimester: third trimester 29 weeks gestation of Z3A.29 Weeks of gestation: 29 weeks Anxiety F41.9 Assessment and Plan Assessment and Plan (1) Anemia affecting : Status: Acute Comment: PO iron. repeat early April (2) Tachycardia: Status: Acute (3) Palpitations: Status: Acute Comment: cardio consult. ekg ordered, labs. ekg nl. (4) Dizziness: Status: Acute (5) Rubella non-immune status, antepartum: Status: Acute Comment: offer MMR PP (6) Supervision of high-risk : Status: Acute Qualifiers: Trimester: third trimester Qualified Code(s): O09.93 - Supervision of high risk , unspecified, third trimester Comment: PRR, , BRIE 06/07/25 Boy, BF [place] (7) : Status: Acute Qualifiers: Weeks of gestation: 29 weeks Qualified Code(s): Z3A.29 - 29 weeks gestation of Comment: NIPT low risk with gender- male, declines carrier (8) Anxiety: Status: Acute Medications: New famotidine (Pepcid) 20 mg PO BID 60 tabs 4RF 03/28/25 1448 <Electronically signed by Marie Loyd DO> Date _ Marie Kelly DO Cosigner Signature: Date (if applicable) CC: ~ [facility] Work Phone: [phone] 867-123304-09-2025 Evaluation note* Diagnosis Onset Date Resolution Status Admit Date Anxiety acute February 16 3:21pm Dizziness acute February 16 3:21pm Palpitations acute February 16, 2 025 3:21pm acute February 16 3:21pm Rubella non-immune status, antepartum acute February 16, 2025 3:21pm Supervision of high-risk acute February 16, 2025 3:21pm Anxiety acute March 17, 2025 9:34am Dizziness acute March 17, 2025 9:34am Palpitations acute March 17 9:34am acute March 17, 2025 9:34am Rubella non-immune status, antepartum acute March 17, 2025 9: 34am Supervision of high-risk acute March 17, 2025 9: 34am Tachycardia acute March 17, 2025 9:34am Anemia affecting acute March 28, 2025 2:14pm Anxiety acute March 28, 2025 2:14pm Dizziness acute March 28, 2025 2:14pm Palpitations acute March 28 2:14pm acute March 28, 2025 2:14pm Rubella non-immune status, antepartum acute March 28, 2025 2 :14pm Supervision of high-risk acute March 28, 2025 2 :14pm Tachycardia acute March 28 2:14pm Dizziness acute March 30, 2025 2:07pm Palpitations acute March 30 2:07pm Anemia affecting acute April 15, 2025 12:47pm Anxiety acute April 15, 2025 12:47pm Dizziness acute April 15, 2025 12:47pm Palpitations acute April 15 12:47pm acute April 15, 2025 12:47pm Rubella non-immune status, antepartum acute April 15, 2025 1 2:47pm Supervision of high-risk acute April 15, 2025 1 2:47pm Tachycardia acute April 15 12:47pm Anemia affecting acute April 25, 2025 11:29am Anxiety acute April 25 11:29am Dizziness acute April 25 11:29am Palpitations acute April 25, 025 11:29am acute April 25 11:29am Rubella non-immune status, antepartum acute April 25, 2025 11:29am Supervision of high-risk acute April 25, 2025 11:29am Tachycardia acute April 25 11:29am [facility] Work Phone: [phone] Evaluation note* Diagnosis Onset Date Resolution Status Admit Date Anxiety acute February 16 3:21pm Dizziness acute February 16 3:21pm Palpitations acute February 16, 2 025 3:21pm acute February 16 3:21pm Rubella non-immune status, antepartum acute February 16, 2025 3:21pm Supervision of high-risk acute February 16, 2025 3:21pm Anxiety acute March 17, 2025 9:34am Dizziness acute March 17, 2025 9:34am Palpitations acute March 17 9:34am acute March 17, 2025 9:34am Rubella non-immune status, antepartum acute March 17, 2025 9: 34am Supervision of high-risk acute March 17, 2025 9: 34am Tachycardia acute March 17, 2025 9:34am Anemia affecting acute March 28, 2025 2:14pm Anxiety acute March 28, 2025 2:14pm Dizziness acute March 28, 2025 2:14pm Palpitations acute March 28 2:14pm acute March 28, 2025 2:14pm Rubella non-immune status, antepartum acute March 28, 2025 2 :14pm Supervision of high-risk acute March 28, 2025 2 :14pm Tachycardia acute March 28 2:14pm Dizziness acute March 30, 2025 2:07pm Palpitations acute March 30 2:07pm Anemia affecting acute April 15, 2025 12:47pm Anxiety acute April 15, 2025 12:47pm Dizziness acute April 15, 2025 12:47pm Palpitations acute April 15 12:47pm acute April 15, 2025 12:47pm Rubella non-immune status, antepartum acute April 15, 2025 1 2:47pm Supervision of high-risk acute April 15, 2025 1 2:47pm Tachycardia acute April 15 12:47pm Anemia affecting acute April 25, 2025 11:29am Anxiety acute April 25 11:29am Dizziness acute April 25 11:29am Palpitations acute April 25, 025 11:29am acute April 25 11:29am Rubella non-immune status, antepartum acute April 25, 2025 11:29am Supervision of high-risk acute April 25, 2025 11:29am Tachycardia acute April 25 11:29am Anemia affecting acute May 09, 2025 1:46pm Anxiety acute May 09 1:46pm Dizziness acute May 09 1:46pm Palpitations acute May 09, 2 025 1:46pm acute May 09 1:46pm Rubella non-immune status, antepartum acute May 09, 2025 1:46pm Supervision of high-risk acute May 09, 2025 1:46pm Tachycardia acute May 09 1:46pm [facility] Work Phone: [phone] 349-720204-09-2025 Evaluation note* Diagnosis Onset Date Resolution Status Admit Date Anxiety acute February 16 3:21pm Dizziness acute February 16 3:21pm Palpitations acute February 16, 2 025 3:21pm acute February 16 3:21pm Rubella non-immune status, antepartum acute February 16, 2025 3:21pm Supervision of high-risk acute February 16, 2025 3:21pm Anxiety acute March 17, 2025 9:34am Dizziness acute March 17, 2025 9:34am Palpitations acute March 17 9:34am acute March 17, 2025 9:34am Rubella non-immune status, antepartum acute March 17, 2025 9: 34am Supervision of high-risk acute March 17, 2025 9: 34am Tachycardia acute March 17, 2025 9:34am Anemia affecting acute March 28, 2025 2:14pm Anxiety acute March 28, 2025 2:14pm Dizziness acute March 28, 2025 2:14pm Palpitations acute March 28 2:14pm acute March 28, 2025 2:14pm Rubella non-immune status, antepartum acute March 28, 2025 2 :14pm Supervision of high-risk acute March 28, 2025 2 :14pm Tachycardia acute March 28 2:14pm Dizziness acute March 30, 2025 2:07pm Palpitations acute March 30 2:07pm Anemia affecting acute April 15, 2025 12:47pm Anxiety acute April 15, 2025 12:47pm Dizziness acute April 15, 2025 12:47pm Palpitations acute April 15 12:47pm acute April 15, 2025 12:47pm Rubella non-immune status, antepartum acute April 15, 2025 1 2:47pm Supervision of high-risk acute April 15, 2025 1 2:47pm Tachycardia acute April 15 12:47pm Anemia affecting acute April 25, 2025 11:29am Anxiety acute April 25 11:29am Dizziness acute April 25 11:29am Palpitations acute April 25, 2 025 11:29am acute April 25 11:29am Rubella non-immune status, antepartum acute April 25, 2025 11:29am Supervision of high-risk acute April 25, 2025 11:29am Tachycardia acute April 25 11:29am Anemia affecting acute May 09, 2025 1:46pm Anxiety acute May 09 1:46pm Dizziness acute May 09 1:46pm Palpitations acute May 09, 025 1:46pm acute May 09 1:46pm Rubella non-immune status, antepartum acute May 09, 2025 1:46pm Supervision of high-risk acute May 09, 2025 1:46pm Tachycardia acute May 09 1:46pm Anemia affecting acute May 20, 2025 2:01pm Anxiety acute May 20 2:01pm Dizziness acute May 20 2:01pm Palpitations acute May 20, 025 2:01pm acute May 20 2:01pm Rubella non-immune status, antepartum acute May 20, 2025 2:01pm Supervision of high-risk acute May 20, 2025 2:01pm Tachycardia acute May 20 2:01pm [facility] Work Phone: [phone] 446-273304-09-2025 Evaluation note* Diagnosis Onset Date Resolution Status Admit Date Anxiety acute February 16 3:21pm Dizziness acute February 16 3:21pm Palpitations acute February 16, 2 025 3:21pm acute February 16 3:21pm Rubella non-immune status, antepartum acute February 16, 2025 3:21pm Supervision of high-risk acute February 16, 2025 3:21pm Anxiety acute March 17, 2025 9:34am Dizziness acute March 17, 2025 9:34am Palpitations acute March 17 9:34am acute March 17, 2025 9:34am Rubella non-immune status, antepartum acute March 17, 2025 9: 34am Supervision of high-risk acute March 17, 2025 9: 34am Tachycardia acute March 17, 2025 9:34am Anemia affecting acute March 28, 2025 2:14pm Anxiety acute March 28, 2025 2:14pm Dizziness acute March 28, 2025 2:14pm Palpitations acute March 28 2:14pm acute March 28, 2025 2:14pm Rubella non-immune status, antepartum acute March 28, 2025 2 :14pm Supervision of high-risk acute March 28, 2025 2 :14pm Tachycardia acute March 28 2:14pm Dizziness acute March 30, 2025 2:07pm Palpitations acute March 30 2:07pm Anemia affecting acute April 15, 2025 12:47pm Anxiety acute April 15, 2025 12:47pm Dizziness acute April 15, 2025 12:47pm Palpitations acute April 15 12:47pm acute April 15, 2025 12:47pm Rubella non-immune status, antepartum acute April 15, 2025 1 2:47pm Supervision of high-risk acute April 15, 2025 1 2:47pm Tachycardia acute April 15 12:47pm Anemia affecting acute April 25, 2025 11:29am Anxiety acute April 25 11:29am Dizziness acute April 25 11:29am Palpitations acute April 25, 2 025 11:29am acute April 25 11:29am Rubella non-immune status, antepartum acute April 25, 2025 11:29am Supervision of high-risk acute April 25, 2025 11:29am Tachycardia acute April 25 11:29am Anemia affecting acute May 09, 2025 1:46pm Anxiety acute May 09 1:46pm Dizziness acute May 09 1:46pm Palpitations acute May 09, 2 025 1:46pm acute May 09 1:46pm Rubella non-immune status, antepartum acute May 09, 2025 1:46pm Supervision of high-risk acute May 09, 2025 1:46pm Tachycardia acute May 09 1:46pm Anemia affecting acute May 20, 2025 2:01pm Anxiety acute May 20 2:01pm Dizziness acute May 20 2:01pm Palpitations acute May 20, 2 025 2:01pm acute May 20 2:01pm Rubella non-immune status, antepartum acute May 20, 2025 2:01pm Supervision of high-risk acute May 20, 2025 2:01pm Tachycardia acute May 20 2:01pm Anemia affecting acute May 23, 2025 9:49am Anxiety acute May 23 9:49am Dizziness acute May 23 9:49am Palpitations acute May 23, 025 9:49am acute May 23 9:49am Rubella non-immune status, antepartum acute May 23, 2025 9:49am Supervision of high-risk acute May 23, 2025 9:49am Tachycardia acute May 23 9:49am [facility] Work Phone: [phone] 999-542404-09-2025 Evaluation note* Diagnosis Onset Date Resolution Status Admit Date Anxiety acute February 16 3:21pm Dizziness acute February 16 3:21pm Palpitations acute February 16, 2 025 3:21pm acute February 16 3:21pm Rubella non-immune status, antepartum acute February 16, 2025 3:21pm Supervision of high-risk acute February 16, 2025 3:21pm Anxiety acute March 17, 2025 9:34am Dizziness acute March 17, 2025 9:34am Palpitations acute March 17 9:34am acute March 17, 2025 9:34am Rubella non-immune status, antepartum acute March 17, 2025 9: 34am Supervision of high-risk acute March 17, 2025 9: 34am Tachycardia acute March 17, 2025 9:34am Anemia affecting acute March 28, 2025 2:14pm Anxiety acute March 28, 2025 2:14pm Dizziness acute March 28, 2025 2:14pm Palpitations acute March 28 2:14pm acute March 28, 2025 2:14pm Rubella non-immune status, antepartum acute March 28, 2025 2 :14pm Supervision of high-risk acute March 28, 2025 2 :14pm Tachycardia acute March 28 2:14pm Dizziness acute March 30, 2025 2:07pm Palpitations acute March 30 2:07pm Anemia affecting acute April 15, 2025 12:47pm Anxiety acute April 15, 2025 12:47pm Dizziness acute April 15, 2025 12:47pm Palpitations acute April 15 12:47pm acute April 15, 2025 12:47pm Rubella non-immune status, antepartum acute April 15, 2025 1 2:47pm Supervision of high-risk acute April 15, 2025 1 2:47pm Tachycardia acute April 15 12:47pm Anemia affecting acute April 25, 2025 11:29am Anxiety acute April 25 11:29am Dizziness acute April 25 11:29am Palpitations acute April 25, 025 11:29am acute April 25 11:29am Rubella non-immune status, antepartum acute April 25, 2025 11:29am Supervision of high-risk acute April 25, 2025 11:29am Tachycardia acute April 25 11:29am Anemia affecting acute May 09, 2025 1:46pm Anxiety acute May 09 1:46pm Dizziness acute May 09 1:46pm Palpitations acute May 09, 2 025 1:46pm acute May 09 1:46pm Rubella non-immune status, antepartum acute May 09, 2025 1:46pm Supervision of high-risk acute May 09, 2025 1:46pm Tachycardia acute May 09 1:46pm Anemia affecting acute May 20, 2025 2:01pm Anxiety acute May 20 2:01pm Dizziness acute May 20 2:01pm Palpitations acute May 20, 2 025 2:01pm acute May 20 2:01pm Rubella non-immune status, antepartum acute May 20, 2025 2:01pm Supervision of high-risk acute May 20, 2025 2:01pm Tachycardia acute May 20 2:01pm Anemia affecting acute May 23, 2025 9:49am Anxiety acute May 23 9:49am Dizziness acute May 23 9:49am Palpitations acute May 23, 2 025 9:49am acute May 23 9:49am Rubella non-immune status, antepartum acute May 23, 2025 9:49am Supervision of high-risk acute May 23, 2025 9:49am Tachycardia acute May 23 9:49am Anemia affecting acute May 25, 2025 3:26pm Anxiety acute May 25 3:26pm Dizziness acute May 25 3:26pm Palpitations acute May 25, 2 025 3:26pm acute May 25 3:26pm Rubella non-immune status, antepartum acute May 25, 2025 3:26pm Supervision of high-risk acute May 25, 2025 3:26pm Tachycardia acute May 25 3:26pm [facility] Work Phone: [phone] 951-337404-09-2025 Evaluation note* Diagnosis Onset Date Resolution Status Admit Date Anxiety acute February 16 3:21pm Dizziness acute February 16 3:21pm Palpitations acute February 16, 2 025 3:21pm acute February 16 3:21pm Rubella non-immune status, antepartum acute February 16, 2025 3:21pm Supervision of high-risk acute February 16, 2025 3:21pm Anxiety acute March 17, 2025 9:34am Dizziness acute March 17, 2025 9:34am Palpitations acute March 17 9:34am acute March 17, 2025 9:34am Rubella non-immune status, antepartum acute March 17, 2025 9: 34am Supervision of high-risk acute March 17, 2025 9: 34am Tachycardia acute March 17, 2025 9:34am Anemia affecting acute March 28, 2025 2:14pm Anxiety acute March 28, 2025 2:14pm Dizziness acute March 28, 2025 2:14pm Palpitations acute March 28 2:14pm acute March 28, 2025 2:14pm Rubella non-immune status, antepartum acute March 28, 2025 2 :14pm Supervision of high-risk acute March 28, 2025 2 :14pm Tachycardia acute March 28 2:14pm Dizziness acute March 30, 2025 2:07pm Palpitations acute March 30 2:07pm Anemia affecting acute April 15, 2025 12:47pm Anxiety acute April 15, 2025 12:47pm Dizziness acute April 15, 2025 12:47pm Palpitations acute April 15 12:47pm acute April 15, 2025 12:47pm Rubella non-immune status, antepartum acute April 15, 2025 1 2:47pm Supervision of high-risk acute April 15, 2025 1 2:47pm Tachycardia acute April 15 12:47pm Anemia affecting acute April 25, 2025 11:29am Anxiety acute April 25 11:29am Dizziness acute April 25 11:29am Palpitations acute April 25, 2 025 11:29am acute April 25 11:29am Rubella non-immune status, antepartum acute April 25, 2025 11:29am Supervision of high-risk acute April 25, 2025 11:29am Tachycardia acute April 25 11:29am Anemia affecting acute May 09, 2025 1:46pm Anxiety acute May 09 1:46pm Dizziness acute May 09 1:46pm Palpitations acute May 09, 2 025 1:46pm acute May 09 1:46pm Rubella non-immune status, antepartum acute May 09, 2025 1:46pm Supervision of high-risk acute May 09, 2025 1:46pm Tachycardia acute May 09 1:46pm Anemia affecting acute May 20, 2025 2:01pm Anxiety acute May 20 2:01pm Dizziness acute May 20 2:01pm Palpitations acute May 20, 2 025 2:01pm acute May 20 2:01pm Rubella non-immune status, antepartum acute May 20, 2025 2:01pm Supervision of high-risk acute May 20, 2025 2:01pm Tachycardia acute May 20 2:01pm Anemia affecting acute May 23, 2025 9:49am Anxiety acute May 23 9:49am Dizziness acute May 23 9:49am Palpitations acute May 23, 025 9:49am acute May 23 9:49am Rubella non-immune status, antepartum acute May 23, 2025 9:49am Supervision of high-risk acute May 23, 2025 9:49am Tachycardia acute May 23 9:49am Anemia affecting acute May 25, 2025 3:26pm Anxiety acute May 25 3:26pm Dizziness acute May 25 3:26pm Palpitations acute May 25, 3:26pm acute May 25 3:26pm Rubella non-immune status, antepartum acute May 25, 2025 3:26pm Supervision of high-risk acute May 25, 2025 3:26pm Tachycardia acute May 25 3:26pm Anemia affecting acute May 30, 2025 12:44pm Anxiety acute May 30 12:44pm Dizziness acute May 30 12:44pm Palpitations acute May 30, 12:44pm acute May 30 12:44pm Rubella non-immune status, antepartum acute May 30, 2025 12:44pm Supervision of high-risk acute May 30, 2025 12:44pm Tachycardia acute May 30 12:44pm [facility] Work Phone: [phone] 997-495702-13-2025 Evaluation note* Diagnosis Onset Date Resolution Status Admit Date Anxiety acute December 23, 2024 10:12am acute December 23, 2024 10:12am Rubella non-immune status, antepartum acute December 23, 2 025 10:12am Supervision of high-risk acute December 23 10:12am Anxiety acute February 16 3:21pm Dizziness acute February 16 3:21pm Palpitations acute February 16, 2 025 3:21pm acute February 16 3:21pm Rubella non-immune status, antepartum acute February 16, 2025 3:21pm Supervision of high-risk acute February 16, 2025 3:21pm Anxiety acute March 17, 2025 9:34am Dizziness acute March 17, 2025 9:34am Palpitations acute March 17 9:34am acute March 17, 2025 9:34am Rubella non-immune status, antepartum acute March 17, 2025 9: 34am Supervision of high-risk acute March 17, 2025 9: 34am Tachycardia acute March 17, 2025 9:34am Anemia affecting acute March 28, 2025 2:14pm Anxiety acute March 28, 2025 2:14pm Dizziness acute March 28, 2025 2:14pm Palpitations acute March 28 2:14pm acute March 28, 2025 2:14pm Rubella non-immune status, antepartum acute March 28, 2025 2 :14pm Supervision of high-risk acute March 28, 2025 2 :14pm Tachycardia acute March 28 2:14pm [facility] Work Phone: [phone] 962-218402-13-2025 Evaluation note* Diagnosis Onset Date Resolution Status Admit Date Anxiety acute December 23, 2024 10:12am acute December 23, 2024 10:12am Rubella non-immune status, antepartum acute December 23, 2 025 10:12am Supervision of high-risk acute December 23, 2 025 10:12am Anxiety acute February 16 3:21pm Dizziness acute February 16 3:21pm Palpitations acute February 16, 2 025 3:21pm acute February 16 3:21pm Rubella non-immune status, antepartum acute February 16, 2025 3:21pm Supervision of high-risk acute February 16, 2025 3:21pm Anxiety acute March 17, 2025 9:34am Dizziness acute March 17, 2025 9:34am Palpitations acute March 17 9:34am acute March 17, 2025 9:34am Rubella non-immune status, antepartum acute March 17, 2025 9: 34am Supervision of high-risk acute March 17, 2025 9: 34am Tachycardia acute March 17, 2025 9:34am Anemia affecting acute March 28, 2025 2:14pm Anxiety acute March 28, 2025 2:14pm Dizziness acute March 28, 2025 2:14pm Palpitations acute March 28 2:14pm acute March 28, 2025 2:14pm Rubella non-immune status, antepartum acute March 28, 2025 2 :14pm Supervision of high-risk acute March 28, 2025 2 :14pm Tachycardia acute March 28 2:14pm Dizziness acute March 30, 2025 2:07pm Palpitations acute March 30 2:07pm Anemia affecting acute April 15, 2025 12:47pm Anxiety acute April 15, 2025 12:47pm Dizziness acute April 15, 2025 12:47pm Palpitations acute April 15 12:47pm acute April 15, 2025 12:47pm Rubella non-immune status, antepartum acute April 15, 2025 1 2:47pm Supervision of high-risk acute April 15, 2025 1 2:47pm Tachycardia acute April 15 12:47pm [facility] Work Phone: [phone] 834-870701-16-2025 Evaluation note* Diagnosis Onset Date Resolution Status Admit Date Anxiety acute November 25, 2024 2:32pm acute November 25, 2024 2:32pm Supervision of high-risk acute November 25 2:32pm Anxiety acute December 23, 2024 10:12am acute December 23, 2024 10:12am Rubella non-immune status, antepartum acute December 23, 2 025 10:12am Supervision of high-risk acute December 23, 2 025 10:12am Anxiety acute February 16 3:21pm Dizziness acute February 16 3:21pm Palpitations acute February 16, 2 025 3:21pm acute February 16 3:21pm Rubella non-immune status, antepartum acute February 16, 2025 3:21pm Supervision of high-risk acute February 16, 2025 3:21pm [facility] Work Phone: [phone] 613-577101-16-2025 Evaluation note* Diagnosis Onset Date Resolution Status Admit Date Anxiety acute November 25, 2024 2:32pm acute November 25, 2024 2:32pm Supervision of high-risk acute November 25 2:32pm Anxiety acute December 23, 2024 10:12am acute December 23, 2024 10:12am Rubella non-immune status, antepartum acute December 23 025 10:12am Supervision of high-risk acute December 23 025 10:12am Anxiety acute February 16 3:21pm Dizziness acute February 16 3:21pm Palpitations acute February 16 025 3:21pm acute February 16 3:21pm Rubella non-immune status, antepartum acute February 16, 2025 3:21pm Supervision of high-risk acute February 16, 2025 3:21pm Anxiety acute March 17, 2025 9:34am Dizziness acute March 17, 2025 9:34am Palpitations acute March 17 9:34am acute March 17, 2025 9:34am Rubella non-immune status, antepartum acute March 17, 2025 9: 34am Supervision of high-risk acute March 17, 2025 9: 34am Tachycardia acute March 17, 2025 9:34am [facility] Work Phone: 1([phone] 481-410812-16-2024 History of Present illness Narrative* Nikita Daley, SOURCING ASSOCIATE-OBIEE ARCHITECT - 10/25/2024 9:00 AM EST Images from the original note were not included. [facility] Cardiology Clinic Visit Note History of present illness: This is a 19 y.o. female never smoker with a history of palpitations who presents to the clinic fortesting follow up. I saw her initially on 09/23/2024 for complaints of chest pain and palpitations. 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 She was at work on 09/20/2024 subsequently the patient when she felt dizzy lightheaded and near syncopal. Reportedly her pulse at the time was 160 bpm. [place] [facility] [facility] and was discharged after an unremarkable workup. She was drinking up to 4 cans of Pepsi a day and drinks alcohol on occasion. Denies illicit drug use or tobacco use. Her EKG in the office was sinus rhythm. My examination revealed an irregular heart rhythm, likely ectopic beats so proceeded to order a 7-day event monitor. I also recommended that she avoid caffeineand alcohol. Subjective: She denies any further episodes and also endorses a decrease in frequency of her symptoms. For pastseveral weeks she is only felt random palpitations at night. She has drastically reduced her caffeine intake and mostly drinks water now. Shortly after our previous visit she found out she was and is currently 8 weeks gestation. Active Issues and Current Diagnoses Palpitations PVCs -7-day event monitor 09/23/2024 showed predominantly normal sinus rhythm with average heart rate of89 bpm and a range of 56 to 137 bpm. 22% time was spent with a heart rate greater than 100 bpm PVC burden 4%, PAC burden 0%. There were 2 occurrences of ventricular tachycardia with the longest lasting 3 beats. There were 40 patient triggers all unspecified symptoms with 24 correlating to PVC and 15 events correlating with sinus tachycardia. -CBC and metabolic panel from outside facility unremarkable Assessment and Plan -PVCs, 4% PVC burden on event monitor. Recommend she establish with a primary care provider. Conservative management by avoidance of alcohol and caffeine. Increased heart rate, palpitations and ectopy are very common and normal physiologic finding during . Her symptoms are benign and I do not recommend any treatment with beta-blockers or AV yury blockers at this time. Return to Care: As needed Objective Past Medical History No past medical history on file. Past Surgical History No past surgical history on file. Medications No current outpatient medications Allergies No Known Allergies Social History Social History Tobacco Use Smoking status: Never Passive exposure: Current Smokeless tobacco: Never Substance Use Topics Alcohol use: Not Currently Drug use: Never Family History Family History Problem Relation Name Age of Onset Heart attack Maternal Grandfather VITALS Vitals: 10/25/24 0856 BP: 100/54 Pulse: 85 SpO2: 99% Weight Vitals: 10/25/24 0856 Weight: 80.5 kg (177 lb 6.4 oz) PHYSICAL EXAM Physical Exam Vitals and nursing note reviewed. Constitutional: General: She is not in acute distress. HENT: Head: Normocephalic and atraumatic. Mouth/Throat: Mouth: Mucous membranes are moist. Pharynx: Oropharynx is clear. Eyes: General: No scleral icterus. Pupils: Pupils are equal, round, and reactive to light. Cardiovascular: Rate and Rhythm: Normal rate and regular rhythm. Pulses: Normal pulses. Heart sounds: Normal heart sounds, S1 normal and S2 normal. No murmur heard. No friction rub. Pulmonary: Effort: Pulmonary effort is normal. Breath sounds: Normal breath sounds. Abdominal: General: Bowel sounds are normal. There is no distension. Palpations: Abdomen is soft. Tenderness: There is no abdominal tenderness. Musculoskeletal: General: Normal range of motion. Cervical back: Normal range of motion and neck supple. Right lower leg: No edema. Left lower leg: No edema. Skin: General: Skin is warm and dry. Capillary Refill: Capillary refill takes less than 2 seconds. Findings: No rash. Neurological: General: No focal deficit present. Mental Status: She is alert. Psychiatric: Mood and Affect: Mood normal. Behavior: Behavior normal. Cardiovascular Labs No results found for: HGB, PLT, WBC, NA, K, CREATININE, BUN, CALCIUM, INR, BNP,TROPHS, LDLF Echocardiogram The ASCVD Risk score (Sven DK, et al., 2019) failed to calculate for the following reasons: The 2019 ASCVD risk score is only valid for ages 40 to 79 Low Risk: <5% Borderline Risk: 5%-7.4% Intermediate Risk: 7.5% - 19.9% High Risk: >20% If your symptoms worsen or progress please go directory to your nearest emergency department for evaluation. Thank you for this interesting clinical case and allowing me to participate in the care of this patient. Please reach me out if you have any questions or if you need any clarifications regarding thispatient's care. Disclaimer: This note was dictated by speech recognition, and every effort has been made to prevent any error in general ledger bookkeeper, however minor errors may be present Nikita Daley, MSN, OBIEE ARCHITECT, ACNPC, CCRN Advanced Practice Provider, Nurse Practitioner Division of Cardiovascular Medicine [facility] documented in this [facility] Work Phone: 1(198) 225-157711-14-2024 History of Present illness Narrative* GABRIELE Cespedes - 09/23/2024 9:00 AM EST Images from the original note were not included. [facility] Cardiology Clinic Visit Note History of present illness: This is a 19 y.o. female never smoker with a no significant medical history who presents to the clinic with complaints of palpitations and chest pain. 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 She was drinking up to four cans of Pepsis aday but has cut back down to once a day for the past several weeks. She drinks socially on some weekends and denies binge drinking. She also denies tobacco use or illicit drug use. For the past year she has been experiencing random palpitations that can occur any time of the day and last seconds to minutes. She also states that she has poor exercise tolerance and feels exceptionally winded and fatigue after climbing as little as 1 flight of stairs. 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 She sat down and had someone check her pulse rate which was reportedly 160s. She then presented to the [facility] ED and was evaluated. Wor up was reportedly normal. Labs were personally reviewed and were unremarkable, she was not anemic and no electrolyte abnormalities. She was discharged home. Subjective: Positive for palpitations and skipped beats, dizziness, lightheadedness, shortness of brearth and near syncope. Negative for chest pressure, edema, orthopnea, fever and chills. Past Medical History No past medical history on file. Past Surgical History History reviewed. No pertinent surgical history. Medications No current outpatient medications Allergies No Known Allergies Social History Social History Tobacco Use Smoking status: Never Passive exposure: Current Smokeless tobacco: Never Substance Use Topics Alcohol use: Not Currently Drug use: Never Family History Family History Problem Relation Name Age of Onset Heart attack Maternal Grandfather VITALS Vitals: 09/23/24 0859 BP: 118/64 Pulse: 105 SpO2: 100% Weight Vitals: 09/23/24 0910 Weight: 78.4 kg (172 lb 12.8 oz) PHYSICAL EXAM Physical Exam Vitals and nursing note reviewed. Constitutional: General: She is not in acute distress. HENT: Head: Normocephalic and atraumatic. Mouth/Throat: Mouth: Mucous membranes are moist. Pharynx: Oropharynx is clear. Eyes: General: No scleral icterus. Pupils: Pupils are equal, round, and reactive to light. Cardiovascular: Rate and Rhythm: Normal rate. Rhythm irregular. Pulses: Normal pulses. Heart sounds: Normal heart sounds, S1 normal and S2 normal. No murmur heard. No friction rub. Pulmonary: Effort: Pulmonary effort is normal. Breath sounds: Normal breath sounds. Abdominal: General: Bowel sounds are normal. There is no distension. Palpations: Abdomen is soft. Tenderness: There is no abdominal tenderness. Musculoskeletal: General: Normal range of motion. Cervical back: Normal range of motion and neck supple. Right lower leg: No edema. Left lower leg: No edema. Skin: General: Skin is warm and dry. Capillary Refill: Capillary refill takes less than 2 seconds. Findings: No rash. Neurological: General: No focal deficit present. Mental Status: She is alert. Psychiatric: Mood and Affect: Mood normal. Behavior: Behavior normal. Cardiovascular Labs No results found for: HGB, PLT, WBC, NA, K, CREATININE, BUN, CALCIUM, INR, BNP,TROPHS, LDLF Echocardiogram The ASCVD Risk score (Sven DK, et al., 2019) failed to calculate for the following reasons: The 2019 ASCVD risk score is only valid for ages 40 to 79 Low Risk: <5% Borderline Risk: 5%-7.4% Intermediate Risk: 7.5% - 19.9% High Risk: >20% Assessment and Plan -EKG today shows normal sinus rhythm. During my examination he cardiac auscultation I heard a PVC and then subsequent fast heartbeats and heart rate with slow back down and cycle like this from her 1minute auscultation. I am suspicious for cardiac arrhythmia. Differential includes paroxysmal atrial tachycardia, SVT or perhaps AVNRT. I will proceed with 7-day event monitor for evaluation. I advised her in the meantime to avoid caffeine and alcohol. Return to Care: After event monitor. If your symptoms worsen or progress please go directory to your nearest emergency department for evaluation. Thank you for this interesting clinical case and allowing me to participate in the care of this patient. Please reach me out if you have any questions or if you need any clarifications regarding thispatient's care. Disclaimer: This note was dictated by speech recognition, and every effort has been made to prevent any error in general ledger bookkeeper, however minor errors may be present Nikita Daley, MSN, OBIEE ARCHITECT, ACNPC, CCRN Advanced Practice Provider, Nurse Practitioner Division of Cardiovascular Medicine [facility] documented in this [facility] Work Phone: 1(294) 580-610007-04-2024 Emergency department Note* Zacarias Gallardo, - 05/13/2024 5:07 AM EDT HPI Chief Complaint Patient presents with Chest Pain Pt states she was running around playing tag around 45 minutes ago when she started feeling a fluttering in her chest, she states this caused her to feel panicked which she states made her chest hurt. EKG on arrival Patient presents to the emergency department secondary to palpitations and chest tightness. This occurred while she was playing hide and seek with family members. She states that she felt palpitations and it sent me into a panic attack. No other symptoms reported. History provided by: Patient lang interpreter used: No No data recorded Patient History No past medical history on file. No past surgical history on file. No family history on file. Social History Tobacco Use Smoking status: Not on file Smokeless tobacco: Not on file Substance Use Topics Alcohol use: Not on file Drug use: Not on file Physical Exam ED Triage Vitals [05/13/24 0514] Temperature Heart Rate Respirations BP 36.9 C (98.4 F) (!) 113 20 136/82 Pulse Ox Temp src Heart Rate Source Patient Position 100 % -- -- -- BP Location FiO2 (%) -- -- Physical Exam Vitals and nursing note reviewed. Constitutional: General: She is not in acute distress. Appearance: Normal appearance. She is normal weight. She is not ill-appearing, toxic-appearing or diaphoretic. Comments: Sitting up in bed text messaging on her telephone. Appears well. Not dyspneic or diaphoretic. HENT: Head: Normocephalic and atraumatic. Nose: Nose normal. No rhinorrhea. Neck: Comments: Trachea is midline Cardiovascular: Rate and Rhythm: Normal rate and regular rhythm. Heart sounds: No murmur heard. Pulmonary: Effort: Pulmonary effort is normal. Breath sounds: Normal breath sounds. No decreased breath sounds, wheezing, rhonchi or rales. Abdominal: General: Abdomen is flat. Bowel sounds are normal. There is no distension. Palpations: Abdomen is soft. Tenderness: There is no abdominal tenderness. Musculoskeletal: General: Normal range of motion. Cervical back: Normal range of motion. Skin: General: Skin is warm and dry. Findings: No rash. Neurological: General: No focal deficit present. Mental Status: She is alert and oriented to person, place, and time. Mental status is at baseline. Psychiatric: Mood and Affect: Mood normal. Behavior: Behavior normal. Thought Content: Thought content normal. Judgment: Judgment normal. ED Course & MDM Diagnoses as of 05/13/24628 Chest pain, unspecified type Medical Decision Making Twelve-lead EKG was interpreted by myself this was noted to contribute directly to patient care. Study reveals a sinus tachycardia at 113 bpm, normal axis, normal R wave progression, no acute ischemic changes. Patient's tachycardia was noted to resolve while here in the ER. She has a heart score of 0. Differential considerations would include, but not limited to, anxiety, GERD, musculoskeletal pain, amongst many others. She has no risk factors for pulmonary embolism therefore I feel this is an unlikely diagnosis as per the Wells criteria. Reassurance was given. Instructed limit activity as tolerated and follow-up with her private physician. Return if worse. Procedure Procedures Zacarias Gallardo DO 05/13/24 06 documented in this [facility] Work Phone: 1(188) 658-130607-04-2024 Physician Emergency department Note* Zacarias Perkins DO Sami - 05/13/2024 5:07 AM EDT HPI Chief Complaint Patient presents with Chest Pain Pt states she was running around playing tag around 45 minutes ago when she started feeling a fluttering in her chest, she states this caused her to feel panicked which she states made her chest hurt. EKG on arrival Patient presents to the emergency department secondary to palpitations and chest tightness. This occurred while she was playing hide and seek with family members. She states that she felt palpitations and it sent me into a panic attack. No other symptoms reported. History provided by: Patient lang interpreter used: No No data recorded Patient History No past medical history on file. No past surgical history on file. No family history on file. Social History Tobacco Use Smoking status: Not on file Smokeless tobacco: Not on file Substance Use Topics Alcohol use: Not on file Drug use: Not on file Physical Exam ED Triage Vitals [05/13/24 0514] Temperature Heart Rate Respirations BP 36.9 C (98.4 F) (!) 113 20 136/82 Pulse Ox Temp src Heart Rate Source Patient Position 100 % -- -- -- BP Location FiO2 (%) -- -- Physical Exam Vitals and nursing note reviewed. Constitutional: General: She is not in acute distress. Appearance: Normal appearance. She is normal weight. She is not ill-appearing, toxic-appearing or diaphoretic. Comments: Sitting up in bed text messaging on her telephone. Appears well. Not dyspneic or diaphoretic. HENT: Head: Normocephalic and atraumatic. Nose: Nose normal. No rhinorrhea. Neck: Comments: Trachea is midline Cardiovascular: Rate and Rhythm: Normal rate and regular rhythm. Heart sounds: No murmur heard. Pulmonary: Effort: Pulmonary effort is normal. Breath sounds: Normal breath sounds. No decreased breath sounds, wheezing, rhonchi or rales. Abdominal: General: Abdomen is flat. Bowel sounds are normal. There is no distension. Palpations: Abdomen is soft. Tenderness: There is no abdominal tenderness. Musculoskeletal: General: Normal range of motion. Cervical back: Normal range of motion. Skin: General: Skin is warm and dry. Findings: No rash. Neurological: General: No focal deficit present. Mental Status: She is alert and oriented to person, place, and time. Mental status is at baseline. Psychiatric: Mood and Affect: Mood normal. Behavior: Behavior normal. Thought Content: Thought content normal. Judgment: Judgment normal. ED Course & MDM Diagnoses as of 05/13/24 0629 Chest pain, unspecified type Medical Decision Making Twelve-lead EKG was interpreted by myself this was noted to contribute directly to patient care. Study reveals a sinus tachycardia at 113 bpm, normal axis, normal R wave progression, no acute ischemic changes. Patient's tachycardia was noted to resolve while here in the ER. She has a heart score of 0. Differential considerations would include, but not limited to, anxiety, GERD, musculoskeletal pain, amongst many others. She has no risk factors for pulmonary embolism therefore I feel this is an unlikely diagnosis as per the Wells criteria. Reassurance was given. Instructed limit activity as tolerated and follow-up with her private physician. Return if worse. Procedure Procedures Zacarias Gallardo DO 05/13/24628 [facility] Work Phone: 1(460) 114-642104-12-2023 History of Present illness Narrative* Selin Benavides PA-C - 02/19/2023 1:10 PM EDT Images from the original note were not included. [facility] [address] [facility] [address] Dept: [phone] Dept Loc: [phone] Visit type: Established Patient Reason for Visit: TB test for school Assessment and Plan 1. Encounter for well adolescent visit - TB Skin Test Follow up in about 1 year (around 02/20/2024). Patient appears to be in no acute distress has no acute medical concerns during clinical stress Chandna simply here to have evaluation for TV otherwise doing well. 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 She has not denies any recent concerns no shortness of breath cough cold flexion fever chills rigors nausea vomiting no ill exposures diabetic with tuberculosis or any concern for this. Has never tested positive for patient does not believe shehas ever had a TB test in the past. Review of Systems Constitutional: Negative for chills and fever. HENT: Negative for congestion and sore throat. Respiratory: Negative for cough and shortness of breath. Cardiovascular: Negative for chest pain. Gastrointestinal: Negative for abdominal pain, diarrhea, nausea and vomiting. Genitourinary: Negative for difficulty urinating, dysuria, frequency and urgency. Musculoskeletal: Negative for back pain. Neurological: Negative for dizziness and light-headedness. All other systems reviewed and are negative. No Known Allergies No outpatient medications prior to visit. No facility-administered medications prior to visit. No past medical history on file. Social History Tobacco Use Smoking status: Never Smokeless tobacco: Never Substance Use Topics Alcohol use: Never No past surgical history on file. Family History Problem Relation Name Age of Onset No Known Problems Father Jose Martin No Known Problems Mother Jany No Known Problems Brother 2 No Known Problems Sister 1 Objective BP 110/64 (BP Location: Left arm, Patient Position: Sitting, BP Cuff Size: Large adult) Pulse (!)97 Temp 36.7 C (98 F) (Temporal) Ht 5' 10 (1.778 m) Wt 149 lb 12.8 oz (67.9 kg) SpO2 98% BMI 21.49 kg/m Physical Exam Vitals reviewed. Constitutional: General: She is not in acute distress. Appearance: Normal appearance. She is not ill-appearing or toxic-appearing. HENT: Right Ear: Tympanic membrane and ear canal normal. Left Ear: Tympanic membrane and ear canal normal. Nose: Nose normal. No congestion. Eyes: General: No scleral icterus. Conjunctiva/sclera: Conjunctivae normal. Pupils: Pupils are equal, round, and reactive to light. Cardiovascular: Rate and Rhythm: Normal rate and regular rhythm. Heart sounds: Normal heart sounds. Pulmonary: Effort: Pulmonary effort is normal. No respiratory distress. Breath sounds: Normal breath sounds. Musculoskeletal: Cervical back: Normal range of motion and neck supple. Skin: General: Skin is warm and dry. Neurological: Mental Status: She is alert. Psychiatric: Mood and Affect: Mood normal. Data Reviewed and Summarized Labs: Imaging/Testing: Selin Benavides PA-C 02/19/2023 Please note that portions of this note may have been completed with voice recognition software. Documentation reviewed prior to signing but minor errors in general ledger bookkeeper may have occurred. documented in this [facility]04-22-2022 Miscellaneous Notes* Telephone Encounter - Kaylen Terry RN - 03/01/2022 11:26 AM EDT Patient's step mom notified. Kaylen Terry RN * Telephone Encounter - Melinda Thapa RN - 03/01/2022 11:05 AM EDT Left message to call office. Melinda Thapa RN * Telephone Encounter - Elenita Jean APRN.CNP - 03/01/2022 10:51 AM EDT Please let the pt know that her US show some enlarged lymph nodes in the right and left groin area.I would recommend following up with her PCP. She can stop the atb if she has not completed it. Elenita Jean APRN.CNP [facility] this [facility] NoteHNO ID: [id number] Author: Liliana Meneses RDMS Service: ? Author Type: Metal Painter Type: Progress Notes Filed: 03/01/2022 3:44 PM Note Text: Radiology Service Progress Note PATIENT NAME: Marilu Mondragon DATE OF SERVICE: March 01, 2022 TIME: 3:44 PM PATIENT IDENTITY VERIFICATION COMPLETED USING TWO (2) IDENTIFIERS: Name and Date of confirmed by patient verbally. FALL SCREENING: Has the patient had 2 falls in the last year or 1 fall with injury or currently using an Ambulatory Assistive Device (Walker, Cane, Wheelchair, Crutches, etc.)? No PATIENT GENDER DATA: Female. status: : No status: N/A PATIENT RELEVANT IMPLANT DATA REVIEWED: Not Applicable RADIOLOGY DEPARTMENT: Ultrasound PERIPHERAL IV DATA: Not applicable SIGNED BY: Liliana Meneses RDMS RVParish March 01, 2022 3:44 [facility]04-22-2022 History of Present illness Narrative* Liliana Meneses RDMS - 03/01/2022 9:15 AM EDT Radiology Service Progress Note PATIENT NAME: Marilu Mondragon DATE OF SERVICE: March 01, 2022 TIME: 3:44 PM PATIENT IDENTITY VERIFICATION COMPLETED USING TWO (2) IDENTIFIERS: Name and Date of confirmedby patient verbally. FALL SCREENING: Has the patient had 2 falls in the last year or 1 fall with injury or currently using an Ambulatory Assistive Device (Walker, Cane, Wheelchair, Crutches, etc.)? No PATIENT GENDER DATA: Female. status: : No status: N/A PATIENT RELEVANT IMPLANT DATA REVIEWED: Not Applicable RADIOLOGY DEPARTMENT: Ultrasound PERIPHERAL IV DATA: Not applicable SIGNED BY: Liliana Meneses RDMS RVParish March 01, 2022 3:44 PM documented in this [facility]22 NoteHNO ID: [id number] Author: Elenita Jean APRN.OBIEE ARCHITECT Service: ? Author Type: Nurse Practitioner Type: Progress Notes Filed: 02/26/2022 8:09 AM Note Text: Marilu Mondragon is a 16 year old female who presents for follow up for groin lump HPI: pt states that the lump is not as painful, but feels like it has changed in size. She is still taking the antibiotic. Denies any fever or chills. 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 LMP: 02/11/2022 (Exact Date), Having periods Age at Menarche: Age at First : Age at Menopause: Flexographic Press Plate Setter History Comments: Sexual Activity: Not Asked; No partner data on record Contraception: No contraception data on record PAST MEDICAL HISTORY Diagnosis Date - NEGATIVE MEDICAL HISTORY PAST SURGICAL HISTORY Procedure Laterality Date - NONE FAMILY HISTORY Problem Relation Age of Onset - Heart Mother - Hypertension Father - Asthma Sister Social History Tobacco Use - Smoking status: Passive Smoke Exposure - Never Smoker - Smokeless tobacco: Never Used Vaping Use - Vaping Use: Never used Substance Use Topics - Alcohol use: Never - Drug use: Never Current Outpatient Medications Medication Sig - clindamycin (CLEOCIN) 300 mg capsule Take 1 capsule by mouth twice daily for 7 days. No current facility-administered medications for this visit. Allergies As of Date: 02/25/2022 (No Known Allergies) Fully Assessed 02/21/2022 REVIEW OF SYSTEMS Abdomen: No bloating, early satiety, indigestion, or increased flatulence. No abdominal pain, nausea, vomiting, diarrhea, or constipation. Bladder: No dysuria, gross hematuria, urinary frequency, urinary urgency, or incontinence. Expanded ROS: N/A Allergies and current medication updated:Yes EXAM: LMP 02/11/2022 GENERAL: pleasant, female in no apparent distress HEENT: Normocephalic, atraumatic, mucus membranes moist and no lesions CHEST: Normal inspiratory effort ABDOMEN: soft, non-tender and no masses PELVIC: Lump is slightly smaller in width but about 2 cm in length NEURO: alert and oriented x3,exam grossly non-focal ASSESSMENT/PLAN: 1. Lump in the groin - ICD9: 789.39, ICD10: R19.09 - [employer] Elenita Jean APRN.CNP Medical Decision Making: Problems: Low: Acute, uncomplicated illness or injury Data: Unique test(s) ordered: 1 Risk: Low: Low risk from testing/treatment Medical Decision Making [facility]: [facility] History of Present illness Narrative* Elenita Jean APRN.CNP - 02/25/2022 4:23 PM EDT Marilu Mondragon is a 16 year old female who presents for follow up for groin lump HPI: pt states that the lump is not as painful, but feels like it has changed in size. She is stilltaking the antibiotic. Denies any fever or chills. 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 LMP: 02/11/2022 (Exact Date), Having periods Age at Menarche: Age at First : Age at Menopause: [employer] History Comments: Sexual Activity: Not Asked; No partner data on record Contraception: No contraception data on record PAST MEDICAL HISTORY Diagnosis Date NEGATIVE MEDICAL HISTORY PAST SURGICAL HISTORY Procedure Laterality Date NONE FAMILY HISTORY Problem Relation Age of Onset Heart Mother Hypertension Father Asthma Sister Social History Tobacco Use Smoking status: Passive Smoke Exposure - Never Smoker Smokeless tobacco: Never Used Vaping Use Vaping Use: Never used Substance Use Topics Alcohol use: Never Drug use: Never Current Outpatient Medications Medication Sig clindamycin (CLEOCIN) 300 mg capsule Take 1 capsule by mouth twice daily for 7 days. No current facility-administered medications for this visit. Allergies As of Date: 02/25/2022 (No Known Allergies) Fully Assessed 02/21/2022 REVIEW OF SYSTEMS Abdomen: No bloating, early satiety, indigestion, or increased flatulence. No abdominal pain, nausea, vomiting, diarrhea, or constipation. Bladder: No dysuria, gross hematuria, urinary frequency, urinary urgency, or incontinence. Expanded ROS: N/A Allergies and current medication updated:Yes EXAM: LMP 02/11/2022 GENERAL: pleasant, female in no apparent distress HEENT: Normocephalic, atraumatic, mucus membranes moist and no lesions CHEST: Normal inspiratory effort ABDOMEN: soft, non-tender and no masses PELVIC: Lump is slightly smaller in width but about 2 cm in length NEURO: alert and oriented x3,exam grossly non-focal ASSESSMENT/PLAN: 1. Lump in the groin - ICD9: 789.39, ICD10: R19.09 - US PELVIS LTD Elenita Jean APRN.CNP Medical Decision Making: Problems: Low: Acute, uncomplicated illness or injury Data: Unique test(s) ordered: 1 Risk: Low: Low risk from testing/treatment Medical Decision Making Level: 3 - Low [facility] NoteHNO ID: [id number] Author: Elenita Jean APRN.INGRID Service: ? Author Type: Nurse Practitioner Type: Progress Notes Filed: 02/21/2022 12:00 PM Note Text: Marilu Mondragon is a 16 year old female who presents for problem visit. HPI: Lump was found 2 days ago in R groin. Painful to touch with 5/10 pain. Has gotten bigger over the last couple of days. Denies any trauma to that area. She has not tried to pop it. Feels hard to touch. Denies fever/chills. Does not appear to be red. OB History No obstetric history on file. 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 Social History Tobacco Use - Smoking status: Passive Smoke Exposure - Never Smoker - Smokeless tobacco: Not on file Substance Use Topics - Alcohol use: Not on file - Drug use: Not on file No current outpatient medications on file. No current facility-administered medications for this visit. Allergies As of Date: 02/21/2022 (No Known Allergies) Fully Assessed 03/08/2016 REVIEW OF SYSTEMS Abdomen: No bloating, early satiety, indigestion, or increased flatulence. No abdominal pain, nausea, vomiting, diarrhea, or constipation. Bladder: No dysuria, gross hematuria, urinary frequency, urinary urgency, or incontinence. Breast: No breast lumps, nipple d/c, overlying skin changes, redness or skin retraction. Expanded ROS: N/A Allergies and current medication updated:Yes EXAM: BP 108/64 Wt 155 lb (70.3kg) LMP 02/11/2022 GENERAL: pleasant, female in no apparent distress HEENT: Normocephalic NECK: Supple BREAST: deferred CHEST: Normal inspiratory effort PELVIC: external genitalia normal, +right groin moveable lump under the skin measuring 1-2 cm and appears swollen resembling an abscess, normal appearing right groin BIMANUAL: Deferred NEURO: alert and oriented x3,exam grossly non-focal EXTREMITIES: normal ASSESSMENT AND PLAN: ASSESSMENT/PLAN: 1. Lump in the groin - ICD9: 789.39, ICD10: R19.09 -Clindamycin Start antibiotics. Use warm compress and ibuprofen to help with discomfort. Return with worsening symptoms for an ultrasound, or with new concerns. Sarina Cisneros APRN student TEACHING PROVIDER (Physician/PA/SOURCING ASSOCIATE) NOTE OF PERSONAL INVOLVEMENT IN CARE: I have personally seen and examined the patient and performed the medical decision-making components. I have reviewed the Advanced Practice Registered Nurse (SOURCING ASSOCIATE) Student's documentation and verified the findings in the note as written. Any additions or changes are noted in bold/italics. Signature: Elenita Hernandezcalf Date: 02/21/2022 Time: 12:00 PM Medical Decision Making: Problems: Low: Acute, uncomplicated illness or injury Risk: Low: Low risk from testing/treatment Moderate: Drug management Medical Decision Making [facility]: [facility] Diagnosis Lump in the groin- Primary Abdominal or pelvic swelling, mass or lump, unspecified site documented in this encounter [facility] note* Diagnosis Lump in the groin Abdominal or pelvic swelling, mass or lump, unspecified site documented in this encounter [facility] note* Diagnosis Encounter for well adolescent visit- Primary Encounter for screening for respiratory tuberculosis [facility]* Diagnosis Palpitations- Primary documented in this encounter [facility] Work Phone: Evaluation note* Diagnosis Palpitations documented in this encounter [facility] Work Phone: Evaluation note* Diagnosis Chest pain, unspecified type- Primary documented in this encounter [facility] Work Phone: Evaluation note* Diagnosis Palpitations- Primary PVC (premature ventricular contraction) Other premature beats documented in this encounter [facility] Work Phone: Hospital Discharge instructions* Attachments The following attachments cannot be sent through Care Everywhere. * Chest Pain, Child and Adolescent ED ([facility]) [facility] Work [facility]: Progress note Author Rebeca Cruz [facility] Note Date/Time April 15, 2025 1:29p [facility] [address] [place] [address], [address] [place] [address] OFFICE VISIT Date of Service: 04/15/25 MR#: [id number] Acct: [id number] Name: MARILU MONDRAGON Rep #: [id number] : 2005 Provider: TERRY Cruz Age/Sex: 19/F Location: [facility] Status: Signed Intake Vital Signs 03/30/25 14:08 04/15/25 13:02 04/15/25 13:04 Height 5 ft 8 in 5 ft 8 in 5 ft 8 in Weight: 188 lb 2 oz BMI 28.5 BP 103/69 Intake Visit Reasons: 32wk ob Chief Complaint: 32 Week OB Medical Scientific Officer Required: No Is patient in pain?: No Allergies No Known Allergies Allergy (Verified 04/15/25 13:01) Medications ?Medication ?Instructions ?Recorded ?Confirmed ?Type PNV 153-FA 400 mcg-om3 35 mg-dha tab PO 11/19/2404/15 History 25 mg-epa 5 mg-fish oil chew tablet famotidine 20 mg tablet (Pepcid) 20 mg PO BID #60 tabs 03/28/25 04/15/25 Rx ferrous sulfate 325 mg (65 mg 325 mg PO QDAY 03/28/25 04/15/25 History iron) tablet ascorbic acid (vitamin C) 500 mg 500 mg PO QDAY 04/15/25 History tablet Last Menstrual Period: 08/31/24 Zika: Zika virus screening: Negative : No PFSH PFSH Medical History Tachycardia Palpitations Dizziness Supervision of high-risk Anxiety Surgical History No history of previous surgery Family History Grandmother Diabetes Paternal Mother Heart disease Grandfather Myocardial infarction, Onset Age: 40 Maternal Social History adopted: No household members: significant other current occupational status: unemployed pets and animals: No history of recent travel: No sexually active: Yes Smoking Status: Never smoker alcohol intake: current alcohol intake frequency: a few times a month details: not while substance use type: does not use well-balanced diet: rarely or never caffeine: Yes Type: carbonated beverages Number of servings: 1 eating out: rarely or never during the past year weight has: increased > 10 lbs what type of physical activity do you participate in: none mikie/yarsanism: None seatbelt use: always do you feel safe at home: Yes 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 OB Visit BRIE Calculator Estimated Delivery Date Method Current WG Current Estimate 06/07/25 LMP (Certain) 32w 3d Other Estimates 06/05/25 Ultrasound #1 32w 5d Expected Delivery Route/Plan Labor Preferences- CB/BF classes: encouraged labor support person: Varghese labor intervention preferences: [] pain management options preferred: epidural if requested cut cord/dad catch: no : yes PP control planned: discussed discussed possible routes of delivery and associated risks: [] special requests: [] Specific Issue/Plans Covid status: [] Flu vaccine: [] Tdap vaccine: declines Rhogam: na LARC form signed: yes Problem list reviewed and updated with the most current plan of care details and appropriate orders placed. Relevant counseling for the gestational age provided. Continue routine care and follow up unless otherwise noted in visit notes/problem list details Initial Weight: 155 lb Date -?-?-?-?-?-?-?-?-?-?-?-?- EGA Weight BP Urine Prot -?-?-?-?-?-?-?-?-?-?-?-?- Glucose FHR FuHt Pres Dilation -?-?-?-?-?-?-?-?-?-?-?-?- Effaced St Visit Note 11/25/24 -?-?-?-?-?-?-?-?-?-?-?-?- 12w 2d 168 lb (+13 lb) 112/78 -?-?-?-?-?-?-?-?-?-?-?-?- 149 -?-?-?-?-?-?-?-?-?-?-?-?- KW- CRL cons wit h dates. accepts NIPT MFM US ordered 12/23/24 -?-?-?-?-?-?-?-?-?-?-?-?- 16w 2d 167 lb (+12 lb) 110/80 Negative -?-?-?-?-?-?-?-?-?-?-?-?- Negative 145 -?-?-?-?-?-?-?-?-?-?-?-?- -No VB. Nausea resolved. Reviewed PN labs 02/16/25 -?-?-?-?-?-?-?-?-?-?-?-?- 24w 1d 173 lb 4 oz (+18 lb 4 oz) 127/76 Negative -?-?-?-?-?-?-?-?-?-?-?-?- Negative 145 24 -?-?-?-?-?-?--?-?-?-?-?-?- SM- co dizzy spe lls where when she first stands up she will have heart rate and blood pressure spikes, her legs turn purple, she can't stand longer than a few minutes, she also co tingling in her legs when she's sitting for too long. she saw a financial planning analyst in the past and it was normal. she has a strong family history of heart disease. plan labs today and cardio consult 03/17/25 -?-?-?-?-?-?-?-?-?-?-?-?- 28w 2d 178 lb 8 oz (+23 lb 8 oz) 109/68 Negative -?-?-?-?-?-?-?-?-?-?-?-?- Negative 153 28 -?-?-?-?-?-?-?-?-?-?-?-?- MH-No Vb, LOF. G ood Fm. Dizzy spells improved. Larc. Declines tdap. Will RTO next few days for 28 wk labs. 03/28/25 -?-?-?-?-?-?-?--?-?-?-?-?- 29w 6d 178 lb (+23 lb) 116/75 Negative -?-?-?-?-?-?-?-?-?-?-?-?- Negative 155 30 -?-?-?-?-?-?-?-?-?-?-?-?- JV- no lof, vagi nal bleeding, or dec fm. has been experiencing some vasovagal symptoms without passing out. sees cardiology soon. wearing compression stockings and drinking over 100oz of water a day. 04/15/25 -?-?-?-?-?-?-?-?-?-?-?-?- 32w 3d 188 lb 2 oz (+33 lb 2 oz) 103/69 -?-?-?-?-?-?-?-?-?-?-?-?- 140 32 -?-?-?-?-?-?-?-?-?-?-?-?- KW- no vb/lof/ct x. good fm. saw cardiology and did not get any results from this. still having intermittent tachycardia (up to 160) and swelling- drinking 100+oz water and wearing compression hose. also recommended sports drink. discussed coming off work or light duty. will discuss with her work. ACOG First Trimester First Trimester: Desire for , Alcohol, Tobacco Cessation, Illicit/Recreational Drug/Substance Use, Intimate Partner Violence, Barriers to care, Anticipated Course of Care, Use of Any medications, Sexual activity, Exercise, Dental Care, Sauna/Hot tub use, Seat Belt use, Childbirth classes/Hospital facilities, Travel, Indications for Ultrasound and Screening for Aneuploidy; Discussed Unstable Housing, Discussed Communication Barriers, Discussed Environmental/Work Hazards, Discussed Toxoplasmosis Precations and Discussed Second Trimester Second Trimester: Signs and Symptoms of Labor, Selecting a care provider, Reproductive Life Planning & Contreception and Care Planning; Discussed Tobacco Cessation, Discussed Depression/Anxiety and Discussed Intimate Partner Violence Third Trimester Third Trimester: Pain Management Plans, Labor support person(s), Immediate Larc, Circumcision preference, Signs and Symptoms of Preeclampsia, Feeding No , Education and Family Medical Leave or Disability Forms ROS Const Reports system reviewed and no additional complaints, except as documented Eyes Reports system reviewed and no additional complaints, except as documented ENT Reports system reviewed and no additional complaints, except as documented Card Reports system reviewed and no additional complaints, except as documented Resp Reports system reviewed and no additional complaints, except as documented GI Reports system reviewed and no additional complaints, except as documented, Denies nausea and Denies vomiting Reports system reviewed and no additional complaints, except as documented Musc Reports system reviewed and no additional complaints, except as documented Skin/Breast Reports system reviewed and no additional complaints, except as documented Neuro Yes system reviewed and no additional complaints, except as documented Psych Reports system reviewed and no additional complaints, except as documented Endo Reports system reviewed and no additional complaints, except as documented Nigel/Lymph Reports system reviewed and no additional complaints, except as documented Aller/Immun Reports system reviewed and no additional complaints, except as documented Exam Const General: cooperative, healthy appearing and no acute distress Orientation: alert, awake and oriented x3 Neck Neck: normal visual inspection and full ROM Resp Effort & Inspection: normal respiratory effort, able to speak in complete sentences and symmetric chest movement GI Inspection: normal to inspection Palpation: soft and other Other: gravid Skin General: no rashes or lesions noted Neuro General: patient alert, patient awake and patient oriented x3 Cognition: normal cognition Speech: speech normal Gait: normal gait Motor: muscle tone normal throughout Extrem General: normal to inspection and full ROM Psych Appearance: grossly normal Mental Status: mental status grossly normal Mood: congruent mood Affect: normal affect Speech and Movement: speech and movement normal Attitude: cooperative Thought Process: normal Thought Content: normal Judgment: judgment good Coding Level of Care Code Off vis,est,level 3 Diagnoses 32 weeks gestation of Z3A.32 Weeks of gestation: 32 weeks Supervision of high risk in third trimester O09.93 Trimester: third trimester Rubella non-immune status, antepartum O09.899; Z28.39 Dizziness R42 Palpitations R00.2 Tachycardia R00.0 Anemia affecting O99.019 Anxiety F41.9 Assessment and Plan Assessment and Plan (1) : Status: Acute Qualifiers: Weeks of gestation: 32 weeks Qualified Code(s): Z3A.32 - 32 weeks gestation of Comment: NIPT low risk with gender- male, declines carrier (2) Supervision of high-risk : Status: Acute Qualifiers: Trimester: third trimester Qualified Code(s): O09.93 - Supervision of high risk , unspecified, third trimester Comment: PRR, , BRIE 06/07/25 Boy, BF Varghese (3) Rubella non-immune status, antepartum: Status: Acute Comment: offer MMR PP (4) Dizziness: Status: Acute (5) Palpitations: Status: Acute Comment: cardio consult. ekg ordered, labs. ekg nl. (6) Tachycardia: Status: Acute (7) Anemia affecting : Status: Acute Comment: PO iron. repeat early April (8) Anxiety: Status: Acute Orders: Orders POC Urinalysis 2 Dip (Clinic) Today Plan Details Additional Comments: ACOG trimester education reviewed and updated. see problem list details for updated plan management information and see below for orders placed at this visit. GA appropriate handout given. 04/15/25 1325 <Electronically signed by Rebeca ybarra CNM> Date _ Rebeca Cruz CNM Cosigner Signature: Date (if applicable) CC: ~ [facility] Work Phone: Progress note Author Rebeca Cruz [facility] Note Date/Time April 25, 2025 12:0 2pm [facility] [address] [place] [address], [address] [place] [address] OFFICE VISIT Date of Service: 04/25/25 MR#: [id number] Acct: [id number] Name: MARILU MONDRAGON Rep #: [id number] : 2005 Provider: TERRY Cruz Age/Sex: 19/F Location: [facility] Status: Signed Intake Vital Signs 03/28/25 14:25 04/15/25 13:04 04/25/25 11:32 Height 5 ft 8 in 5 ft 8 in 5 ft 8 in Weight: 187 lb 2 oz BMI 28.4 BP 117/79 Intake Visit Reasons: 34 wk ob Chief Complaint: 34wk ob Medical Scientific Officer Required: No Is patient in pain?: No Allergies No Known Allergies Allergy (Verified 04/25/25 11:31) Medications 3 ?Medication ?Instructions ?Recorded ?Confirmed ?Type PNV 153-FA 400 mcg-om3 35 mg-dha tab PO 11/19/2404/25 History 25 mg-epa 5 mg-fish oil chew tablet famotidine 20 mg tablet (Pepcid) 20 mg PO BID #60 tabs 03/28/25 04/25/25 Rx ferrous sulfate 325 mg (65 mg 325 mg PO QDAY 03/28/25 04/25/25 History iron) tablet ascorbic acid (vitamin C) 500 mg 500 mg PO QDAY 04/25/25 History tablet Last Menstrual Period: 08/31/24 : No PFSH PFSH Medical History Tachycardia Palpitations Dizziness Supervision of high-risk Anxiety Surgical History No history of previous surgery Family History Grandmother Diabetes Paternal Mother Heart disease Grandfather Myocardial infarction, Onset Age: 40 Maternal Social History adopted: No household members: significant other current occupational status: unemployed pets and animals: No history of recent travel: No sexually active: Yes Smoking Status: Never smoker alcohol intake: current alcohol intake frequency: a few times a month details: not while substance use type: does not use well-balanced diet: rarely or never caffeine: Yes Type: carbonated beverages Number of servings: 1 eating out: rarely or never during the past year weight has: increased > 10 lbs what type of physical activity do you participate in: none mikie/yarsanism: None seatbelt use: always do you feel safe at home: Yes 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 OB Visit BRIE Calculator Estimated Delivery Date Method Current WG Current Estimate 06/07/25 LMP (Certain) 33w 6d Other Estimates 06/05/25 Ultrasound #1 34w 1d Expected Delivery Route/Plan Labor Preferences- CB/BF classes: encouraged labor support person: Varghese labor intervention preferences: [] pain management options preferred: epidural if requested cut cord/dad catch: no : yes PP control planned: discussed discussed possible routes of delivery and associated risks: [] special requests: [] Specific Issue/Plans Covid status: [] Flu vaccine: [] Tdap vaccine: declines Rhogam: na LARC form signed: yes Problem list reviewed and updated with the most current plan of care details and appropriate orders placed. Relevant counseling for the gestational age provided. Continue routine care and follow up unless otherwise noted in visit notes/problem list details Initial Weight: 155 lb Date -?-?-?-?-?-?-?-?-?-?-?-?- EGA Weight BP Urine Prot -?-?-?-?-?-?-?-?-?-?-?-?- Glucose FHR FuHt Pres Dilation -?-?-?-?-?-?-?-?-?-?-?-?- Effaced St Visit Note 11/25/24 -?-?-?-?-?-?-?-?-?-?-?-?- 12w 2d 168 lb (+13 lb) 112/78 -?-?-?-?-?-?-?-?-?-?-?-?- 149 -?-?-?-?-?-?-?-?-?-?-?-?- KW- CRL cons wit h dates. accepts NIPT MFM US ordered 12/23/24 -?-?-?-?-?-?-?-?-?-?-?-?- 16w 2d 167 lb (+12 lb) 110/80 Negative -?-?-?-?-?-?-?-?-?-?-?-?- Negative 145 -?-?-?-?-?-?-?-?-?-?-?-?- MH-No VB. Nausea resolved. Reviewed PN labs 02/16/25 -?-?-?-?-?-?-?-?-?-?-?-?- 24w 1d 173 lb 4 oz (+18 lb 4 oz) 127/76 Negative -?-?-?-?-?-?-?-?-?-?-?-?- Negative 145 24 -?-?-?-?-?-?-?-?-?-?-?-?- SM- co dizzy spe lls where when she first stands up she will have heart rate and blood pressure spikes, her legs turn purple, she can't stand longer than a few minutes, she also co tingling in her legs when she's sitting for too long. she saw a financial planning analyst in the past and it was normal. she has a strong family history of heart disease. plan labs today and cardio consult 03/17/25 -?-?-?-?-?-?-?-?-?-?-?-?- 28w 2d 178 lb 8 oz (+23 lb 8 oz) 109/68 Negative -?-?-?-?-?-?-?-?-?-?-?-?- Negative 153 28 -?-?-?-?-?-?-?-?-?-?-?-?- MH-No Vb, LOF. G ood Fm. Dizzy spells improved. Larc. Declines tdap. Will RTO next few days for 28 wk labs. 03/28/25 -?-?-?-?-?-?-?-?-?-?-?-?- 29w 6d 178 lb (+23 lb) 116/75 Negative -?-?-?-?-?-?-?-?-?-?-?-?- Negative 155 30 -?-?-?-?-?-?-?-?-?-?-?-?- JV- no lof, vagi nal bleeding, or dec fm. has been experiencing some vasovagal symptoms without passing out. sees cardiology soon. wearing compression stockings and drinking over 100oz of water a day. 04/15/25 -?-?-?-?-?-?-?-?-?-?-?-?- 32w 3d 188 lb 2 oz (+33 lb 2 oz) 103/69 Negative -?-?-?-?-?-?-?-?-?-?-?-?- Negative 140 32 -?-?-?-?-?-?-?-?-?-?-?-?- KW- no vb/lof/ct x. good fm. saw cardiology and did not get any results from this. still having intermittent tachycardia (up to 160) and swelling- drinking 100+oz water and wearing compression hose. also recommended sports drink. discussed coming off work or light duty. will discuss with her work. 04/25/25 -?-?-?-?-?-?-?-?-?-?-?-?- 33w 6d 187 lb 2 oz (+32 lb 2 oz) 117/79 Negative -?-?-?-?-?-?-?-?-?-?-?-?- Negative 135 34 -?-?-?-?-?-?-?-?-?-?-?-?- kw- no vb/lof/ct x. good fm. still having episodes of not feeling well- but is doing light duty at work and not having episodes of tachycardia. [place] papers to triage to get filled out. paper given to be US model for [facility] ACOG First Trimester First Trimester: Desire for , Alcohol, Tobacco Cessation, Illicit/Recreational Drug/Substance Use, Intimate Partner Violence, Barriers to care, Anticipated Course of Care, Use of Any medications, Sexual activity, Exercise, Dental Care, Sauna/Hot tub use, Seat Belt use, Childbirth classes/Hospital facilities, Travel, Indications for Ultrasound and Screening for Aneuploidy; Discussed Unstable Housing, Discussed Communication Barriers, Discussed Environmental/Work Hazards, Discussed Toxoplasmosis Precations and Discussed Second Trimester Second Trimester: Signs and Symptoms of Labor, Selecting a care provider, Reproductive Life Planning & Contreception and Care Planning; Discussed Tobacco Cessation, Discussed Depression/Anxiety and Discussed Intimate Partner Violence Third Trimester Third Trimester: Pain Management Plans, Labor support person(s), Immediate Larc, Circumcision preference, Signs and Symptoms of Preeclampsia, Infant Feeding No , [place] Education and Family Medical Leave or Disability Forms ROS Const Reports system reviewed and no additional complaints, except as documented Eyes Reports system reviewed and no additional complaints, except as documented ENT Reports system reviewed and no additional complaints, except as documented Card Reports system reviewed and no additional complaints, except as documented Resp Reports system reviewed and no additional complaints, except as documented GI Reports system reviewed and no additional complaints, except as documented, Denies nausea and Denies vomiting Reports system reviewed and no additional complaints, except as documented Musc Reports system reviewed and no additional complaints, except as documented Skin/Breast Reports system reviewed and no additional complaints, except as documented Neuro Yes system reviewed and no additional complaints, except as documented Psych Reports system reviewed and no additional complaints, except as documented Endo Reports system reviewed and no additional complaints, except as documented Nigel/Lymph Reports system reviewed and no additional complaints, except as documented Aller/Immun Reports system reviewed and no additional complaints, except as documented Exam Const General: cooperative, healthy appearing and no acute distress Orientation: alert, awake and oriented x3 Neck Neck: normal visual inspection and full ROM Resp Effort & Inspection: normal respiratory effort, able to speak in complete sentences and symmetric chest movement GI Inspection: normal to inspection Palpation: soft and other Other: gravid Skin General: no rashes or lesions noted Neuro General: patient alert, patient awake and patient oriented x3 Cognition: normal cognition Speech: speech normal Gait: normal gait Motor: muscle tone normal throughout Extrem General: normal to inspection and full ROM Psych Appearance: grossly normal Mental Status: mental status grossly normal Mood: congruent mood Affect: normal affect Speech and Movement: speech and movement normal Attitude: cooperative Thought Process: normal Thought Content: normal Judgment: judgment good Results POC Urinalysis 2 Dip (Clinic) Office Urine Glucose Negative Last Edit by Shanell Artis on 04/25/25 11:39 Office Urine Protein Negative Last Edit by Shanell Artis on 04/25/25 11:39 Coding Level of Care Code Off vis,est,level 3 Diagnoses Anemia affecting O99.019 Tachycardia R00.0 Palpitations R00.2 Dizziness R42 Rubella non-immune status, antepartum O09.899; Z28.39 Supervision of high risk in third trimester O09.93 Trimester: third trimester 33 weeks gestation of Z3A.33 Weeks of gestation: 33 weeks Anxiety F41.9 Assessment and Plan Assessment and Plan (1) Anemia affecting : Status: Acute Comment: PO iron. repeat early April (2) Tachycardia: Status: Acute (3) Palpitations: Status: Acute Comment: cardio consult. ekg ordered, labs. ekg nl. (4) Dizziness: Status: Acute (5) Rubella non-immune status, antepartum: Status: Acute Comment: offer MMR PP (6) Supervision of high-risk : Status: Acute Qualifiers: Trimester: third trimester Qualified Code(s): O09.93 - Supervision of high risk , unspecified, third trimester Comment: PRR, , BRIE 06/07/25 Boy, BF Varghese (7) : Status: Acute Qualifiers: Weeks of gestation: 33 weeks Qualified Code(s): Z3A.33 - 33 weeks gestation of Comment: NIPT low risk with gender- male, declines carrier (8) Anxiety: Status: Acute Orders: Orders POC Urinalysis 2 Dip (Clinic) Today Plan Details Additional Comments: ACOG trimester education reviewed and updated. see problem list details for updated plan management information and see below for orders placed at this visit. GA appropriate handout given. 04/25/25 1202 <Electronically signed by Rebeca ybarra CNM> Date _ Rebeca Cruz CNM Cosigner Signature: Date (if applicable) CC: ~ [facility] Work Phone: Progress note Author Majo Martins [facility] Note Date/Time May 23, 2025 10:1 5am [facility] [address] [place] [address], [address] [place] [id number] OFFICE VISIT Date of Service: 05/23/25 MR#: [id number] Acct: [id number] Name: MARILU MONDRAGON Rep #: [id number] : 2005 Provider: Dr. Alexys Martins MD Age/Sex: 19/F Location: [facility] Status: Signed Intake Vital Signs 05/20/25 14:07 05/23/25 09:53 Height 5 ft 8 in 5 ft 8 in Weight: 192 lb 4 oz BMI 29.2 BP 127/79 H Intake Visit Reasons: 37/6, leg swelling, occ headache Medical Scientific Officer Required: No Allergies No Known Allergies Allergy (Verified 05/23/25 09:57) Medications ?Medication ?Instructions ?Recorded ?Confirmed ?Type PNV 153-FA 400 mcg-om3 35 mg-dha tab PO 11/19/2405/23 History 25 mg-epa 5 mg-fish oil chew tablet famotidine 20 mg tablet (Pepcid) 20 mg PO BID #60 tabs 03/28/25 05/23/25 Rx ferrous sulfate 325 mg (65 mg 325 mg PO QDAY 03/28/25 05/23/25 History iron) tablet ascorbic acid (vitamin C) 500 mg 500 mg PO QDAY 05/23/25 History tablet Last Menstrual Period: 08/31/24 Zika: Zika virus screening: Negative : No PFSH PFSH Medical History Tachycardia Palpitations Dizziness Supervision of high-risk Anxiety Surgical History No history of previous surgery Family History Grandmother Diabetes Paternal Mother Heart disease Grandfather Myocardial infarction, Onset Age: 40 Maternal Social History adopted: No household members: significant other current occupational status: unemployed pets and animals: No history of recent travel: No sexually active: Yes Smoking Status: Never smoker alcohol intake: current alcohol intake frequency: a few times a month details: not while substance use type: does not use well-balanced diet: rarely or never caffeine: Yes Type: carbonated beverages Number of servings: 1 eating out: rarely or never during the past year weight has: increased > 10 lbs what type of physical activity do you participate in: none mikie/yarsanism: None seatbelt use: always do you feel safe at home: Yes 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 OB Visit BRIE Calculator Estimated Delivery Date Method Current WG Current Estimate 06/07/25 LMP (Certain) 37w 6d Other Estimates 06/05/25 Ultrasound #1 38w 1d Expected Delivery Route/Plan Labor Preferences- CB/BF classes: encouraged labor support person: Varghese labor intervention preferences: [] pain management options preferred: epidural if requested cut cord/dad catch: no : yes PP control planned: discussed discussed possible routes of delivery and associated risks: [] special requests: [] Specific Issue/Plans Covid status: [] Flu vaccine: [] Tdap vaccine: declines Rhogam: na LARC form signed: yes Problem list reviewed and updated with the most current plan of care details and appropriate orders placed. Relevant counseling for the gestational age provided. Continue routine care and follow up unless otherwise noted in visit notes/problem list details Initial Weight: 155 lb Date -?-?-?-?-?-?-?-?-?-?-?-?- EGA Weight BP Urine Prot -?-?-?-?-?-?-?-?-?-?-?-?- Glucose FHR FuHt Pres Dilation -?-?-?-?-?-?--?-?-?-?-?-?- Effaced St Visit Note 11/25/24 -?-?-?-?-?-?-?-?-?-?-?-?- 12w 2d 168 lb (+13 lb) 112/78 -?-?-?-?-?-?-?-?-?-?-?-?- 149 -?-?-?-?-?-?-?-?-?-?-?-?- KW- CRL cons wit h dates. accepts NIPT MFM US ordered 12/23/24 -?-?-?-?-?-?-?-?-?-?-?-?- 16w 2d 167 lb (+12 lb) 110/80 Negative -?-?-?-?-?-?-?-?-?-?-?-?- Negative 145 -?-?-?-?-?-?-?-?-?-?-?-?- MH-No VB. Nausea resolved. Reviewed PN labs 02/16/25 -?-?-?-?-?-?-?-?-?-?-?-?- 24w 1d 173 lb 4 oz (+18 lb 4 oz) 127/76 Negative -?-?-?-?-?-?-?-?-?-?-?-?- Negative 145 24 -?-?-?-?-?-?-?-?-?-?-?-?- SM- co dizzy spe lls where when she first stands up she will have heart rate and blood pressure spikes, her legs turn purple, she can't stand longer than a few minutes, she also co tingling in her legs when she's sitting for too long. she saw a financial planning analyst in the past and it was normal. she has a strong family history of heart disease. plan labs today and cardio consult 03/17/25 -?-?-?-?-?-?-?-?-?-?-?-?- 28w 2d 178 lb 8 oz (+23 lb 8 oz) 109/68 Negative -?-?-?-?-?-?-?-?-?-?-?-?- Negative 153 28 -?-?-?-?-?-?-?-?-?-?-?-?- -No Vb, LOF. G ood Fm. Dizzy spells improved. Larc. Declines tdap. Will RTO next few days for 28 wk labs. 03/28/25 -?-?-?-?-?-?-?-?-?-?-?-?- 29w 6d 178 lb (+23 lb) 116/75 Negative -?-?-?-?-?-?-?-?-?-?-?-?- Negative 155 30 -?-?-?-?-?-?-?-?-?-?-?-?- JV- no lof, vagi nal bleeding, or dec fm. has been experiencing some vasovagal symptoms without passing out. sees cardiology soon. wearing compression stockings and drinking over 100oz of water a day. 04/15/25 -?-?-?-?-?-?-?-?-?-?-?-?- 32w 3d 188 lb 2 oz (+33 lb 2 oz) 103/69 Negative -?-?-?-?-?-?-?-?-?-?-?-?- Negative 140 32 -?-?-?-?-?-?-?-?-?-?-?-?- KW- no vb/lof/ct x. good fm. saw cardiology and did not get any results from this. still having intermittent tachycardia (up to 160) and swelling- drinking 100+oz water and wearing compression hose. also recommended sports drink. discussed coming off work or light duty. will discuss with her work. 04/25/25 -?-?-?-?-?-?-?-?-?-?-?-?- 33w 6d 187 lb 2 oz (+32 lb 2 oz) 117/79 Negative -?-?-?-?-?-?-?-?-?-?-?-?- Negative 135 34 -?-?-?-?-?-?-?-?-?-?-?-?- kw- no vb/lof/ct x. good fm. still having episodes of not feeling well- but is doing light duty at work and not having episodes of tachycardia. FMLA papers to triage to get filled out. paper given to be US model for [facility] 05/09/25 -?-?-?-?-?-?-?-?-?-?-?-?- 35w 6d 192 lb (+37 lb) 121/73 Negative -?-?-?-?-?-?-?-?-?-?-?-?- Negative 140 36 Cephalic 1 .5 -?-?-?-?-?-?-?-?-?-?-?-?- 60 -2 KW- no vb/ lof/ctx. good fm GBS today. Light duty papers given for work due to episodes of tachycardia. albert just last week. 05/20/25 -?-?-?-?-?-?-?-?-?-?-?-?- 37w 3d 189 lb 6 oz (+34 lb 6 oz) 122/72 Negative -?-?-?-?-?-?-?-?-?-?-?-?- Negative 145 37 Cephalic 2 -?-?-?-?-?-?-?-?-?-?-?-?- 60 -2 KW- no vb/ lof/ctx. good fm. was in [facility] ER on friday for SOB and trouble breathing dx with Pleuritis- requesting 39 week IOL on 06/03. discussed risks of elective IOL 05/23/25 -?-?-?-?-?-?-?-?-?-?-?-?- 37w 6d 192 lb 4 oz (+37 lb 4 oz) 127/79 Trace -?-?-?-?-?-?-?-?-?-?-?-?- Negative 145 37 Cephalic 1 .5 -?-?-?-?-?-?-?-?-?-?-?-?- 60 -2 SM- no vb lof good fm nr oegular ctx co headache and swelling, trace protein, labs sent nl bps. SM- no vb lof good fm nr oeg ular ctx co headache and swelling, trace protein, labs sent nl bps. i wouldn't recommend IOL yet until she is more favorable for IOL. ACOG First Trimester First Trimester: Desire for , Alcohol, Tobacco Cessation, Illicit/Recreational Drug/Substance Use, Intimate Partner Violence, Barriers to care, Anticipated Course of Care, Use of Any medications, Sexual activity, Exercise, Dental Care, Sauna/Hot tub use, Seat Belt use, Childbirth classes/Hospital facilities, Travel, Indications for Ultrasound and Screening for Aneuploidy; Discussed Unstable Housing, Discussed Communication Barriers, Discussed Environmental/Work Hazards, Discussed Toxoplasmosis Precations and Discussed Second Trimester Second Trimester: Signs and Symptoms of Labor, Selecting a care provider, Reproductive Life Planning & Contreception and Care Planning; Discussed Tobacco Cessation, Discussed Depression/Anxiety and Discussed Intimate Partner Violence Third Trimester Third Trimester: Pain Management Plans, Labor support person(s), Immediate Larc, Circumcision preference, Signs and Symptoms of Preeclampsia, Feeding No , [place] Education and Family Medical Leave or Disability Forms ROS Const Denies fever(s) GI Reports as per HPI and Denies abdominal pain Reports as per HPI, Denies abnormal vaginal bleeding, Denies dysuria and Denies vaginal discharge Exam Const General: healthy appearing, comfortable and no acute distress GI Inspection: normal to inspection Palpation: soft and nontender Results POC Urinalysis 2 Dip (Clinic) Office Urine Glucose Negative Last Edit by Jarett Glasgow on 05/23/25 10:06 Office Urine Protein Trace Last Edit by Jarett Glasgow on 05/23/25 10:06 Coding Level of Care Code Off vis,est,level 3 Diagnoses Anemia affecting O99.019 Tachycardia R00.0 Palpitations R00.2 Dizziness R42 Rubella non-immune status, antepartum O09.899; Z28.39 Supervision of high risk in third trimester O09.93 Trimester: third trimester 37 weeks gestation of Z3A.37 Weeks of gestation: 37 weeks Anxiety F41.9 Assessment and Plan Assessment and Plan (1) Anemia affecting : Status: Acute Comment: PO iron. repeat early April (2) Tachycardia: Status: Acute (3) Palpitations: Status: Acute Comment: cardio consult. ekg ordered, labs. ekg nl. (4) Dizziness: Status: Acute (5) Rubella non-immune status, antepartum: Status: Acute Comment: offer MMR PP (6) Supervision of high-risk : Status: Acute Qualifiers: Trimester: third trimester Qualified Code(s): O09.93 - Supervision of high risk , unspecified, third trimester Comment: PRR, , BRIE 06/07/25 Boy, BF Varghese (7) : Status: Acute Qualifiers: Weeks of gestation: 37 weeks Qualified Code(s): Z3A.37 - 37 weeks gestation of Comment: GBS neg, NIPT low risk with gender- male, declines carrier (8) Anxiety: Status: Acute Orders: Orders POC Urinalysis 2 Dip (Clinic) Today 05/23/25 1015 <Electronically signed by Majo murcia MD> Date _ Majo Martins MD Cosigner Signature: Date (if applicable) CC: ~ [facility] Work Phone: Progress note Author Majo Martins [facility] Note Date/Time May 30, 2025 1:41 pm [facility] [address], [address] [place] [address] OFFICE VISIT Date of Service: 05/30/25 MR#: [id number] Acct: [id number] Name: MARILU MONDRAGON Rep #: [id number] : 2005 Provider: Dr. Alexys Martins MD Age/Sex: 19/F Location: [facility] Status: Signed Intake Vital Signs 04/25/25 11:32 05/25/25 15:37 05/30/25 12:50 Height 5 ft 8 in 5 ft 8 in 5 ft 8 in Weight: 192 lb 8 oz BMI 29.2 BP 125/80 H Intake Visit Reasons: 38wk ob/nst *per Medical Scientific Officer Required: No Is patient in pain?: No Allergies No Known Allergies Allergy (Verified 05/30/25 12:51) Medications ?Medication ?Instructions ?Recorded ?Confirmed ?Type PNV 153-FA 400 mcg-om3 35 mg-dha tab PO 11/19/2405/30 History 25 mg-epa 5 mg-fish oil chew tablet famotidine 20 mg tablet (Pepcid) 20 mg PO BID #60 tabs 03/28/25 05/30/25 Rx ferrous sulfate 325 mg (65 mg 325 mg PO QDAY 03/28/25 05/30/25 History iron) tablet ascorbic acid (vitamin C) 500 mg 500 mg PO QDAY 05/30/25 History tablet Last Menstrual Period: 08/31/24 Zika: Zika virus screening: Negative : No PFSH PFSH Medical History Tachycardia Palpitations Dizziness Supervision of high-risk Anxiety Surgical History No history of previous surgery Family History Grandmother Diabetes Paternal Mother Heart disease Grandfather Myocardial infarction, Onset Age: 40 Maternal Social History adopted: No household members: significant other current occupational status: unemployed pets and animals: No history of recent travel: No sexually active: Yes Smoking Status: Never smoker alcohol intake: current alcohol intake frequency: a few times a month details: not while substance use type: does not use well-balanced diet: rarely or never caffeine: Yes Type: carbonated beverages Number of servings: 1 eating out: rarely or never during the past year weight has: increased > 10 lbs what type of physical activity do you participate in: none mikie/yarsanism: None seatbelt use: always do you feel safe at home: Yes 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 OB Visit BRIE Calculator Estimated Delivery Date Method Current WG Current Estimate 06/07/25 LMP (Certain) 38w 6d Other Estimates 06/05/25 Ultrasound #1 39w 1d Expected Delivery Route/Plan Labor Preferences- CB/BF classes: encouraged labor support person: Varghese labor intervention preferences: [] pain management options preferred: epidural if requested cut cord/dad catch: no : yes PP control planned: discussed discussed possible routes of delivery and associated risks: [] special requests: [] Specific Issue/Plans Covid status: [] Flu vaccine: [] Tdap vaccine: declines Rhogam: na LARC form signed: yes Problem list reviewed and updated with the most current plan of care details and appropriate orders placed. Relevant counseling for the gestational age provided. Continue routine care and follow up unless otherwise noted in visit notes/problem list details Initial Weight: 155 lb Date -?-?-?-?-?-?-?-?-?-?-?-?- EGA Weight BP Urine Prot -?-?-?-?-?-?-?-?-?-?-?-?- Glucose FHR FuHt Pres Dilation -?-?-?-?-?-?-?-?-?-?-?-?- Effaced St Visit Note 11/25/24 -?-?-?-?-?-?-?-?-?-?-?-?- 12w 2d 168 lb (+13 lb) 112/78 -?-?-?-?-?-?-?-?-?-?-?-?- 149 -?-?-?-?-?-?-?-?-?-?-?-?- KW- CRL cons wit h dates. accepts NIPT MFM US ordered 12/23/24 -?-?-?-?-?-?-?-?-?-?-?-?- 16w 2d 167 lb (+12 lb) 110/80 Negative -?-?-?-?-?-?-?-?-?-?-?-?- Negative 145 -?-?-?-?-?-?-?-?-?-?-?-?- MH-No VB. Nausea resolved. Reviewed PN labs 02/16/25 -?-?-?-?-?-?-?-?-?-?-?-?- 24w 1d 173 lb 4 oz (+18 lb 4 oz) 127/76 Negative -?-?-?-?-?-?-?-?-?-?-?-?- Negative 145 24 -?-?-?-?-?-?-?-?-?-?-?-?- SM- co dizzy spe lls where when she first stands up she will have heart rate and blood pressure spikes, her legs turn purple, she can't stand longer than a few minutes, she also co tingling in her legs when she's sitting for too long. she saw a financial planning analyst in the past and it was normal. she has a strong family history of heart disease. plan labs today and cardio consult 03/17/25 -?-?-?-?-?-?-?-?-?-?-?-?- 28w 2d 178 lb 8 oz (+23 lb 8 oz) 109/68 Negative -?-?-?-?-?-?-?-?-?-?-?-?- Negative 153 28 -?-?-?-?-?-?-?-?-?--?-?-?- MH-No Vb, LOF. G ood Fm. Dizzy spells improved. Larc. Declines tdap. Will RTO next few days for 28 wk labs. 03/28/25 -?-?-?-?-?-?-?-?-?-?-?-?- 29w 6d 178 lb (+23 lb) 116/75 Negative -?-?-?-?-?-?-?-?-?-?-?-?- Negative 155 30 -?-?-?-?-?-?-?-?-?-?-?-?- JV- no lof, vagi nal bleeding, or dec fm. has been experiencing some vasovagal symptoms without passing out. sees cardiology soon. wearing compression stockings and drinking over 100oz of water a day. 04/15/25 -?-?-?-?-?-?-?-?-?-?-?-?- 32w 3d 188 lb 2 oz (+33 lb 2 oz) 103/69 Negative -?-?-?-?-?-?-?-?-?-?-?-?- Negative 140 32 -?-?-?-?--?-?-?-?-?-?-?-?- KW- no vb/lof/ct x. good fm. saw cardiology and did not get any results from this. still having intermittent tachycardia (up to 160) and swelling- drinking 100+oz water and wearing compression hose. also recommended sports drink. discussed coming off work or light duty. will discuss with her work. 04/25/25 -?-?-?-?-?-?-?-?-?-?-?-?- 33w 6d 187 lb 2 oz (+32 lb 2 oz) 117/79 Negative -?-?-?-?-?-?-?-?-?-?-?-?- Negative 135 34 -?-?-?-?-?-?-?-?-?-?-?-?- kw- no vb/lof/ct x. good fm. still having episodes of not feeling well- but is doing light duty at work and not having episodes of tachycardia. FMLA papers to triage to get filled out. paper given to be US model for [facility] 05/09/25 -?-?-?-?-?-?-?-?-?-?-?-?- 35w 6d 192 lb (+37 lb) 121/73 Negative -?-?-?-?-?-?-?-?-?-?-?-?- Negative 140 36 Cephalic 1 .5 -?-?-?-?-?-?-?-?-?-?-?-?- 60 -2 KW- no vb/ lof/ctx. good fm GBS today. Light duty papers given for work due to episodes of tachycardia. albert just last week. 05/20/25 -?-?-?-?-?-?-?-?-?-?-?-?- 37w 3d 189 lb 6 oz (+34 lb 6 oz) 122/72 Negative -?-?-?-?-?-?-?-?-?-?-?-?- Negative 145 37 Cephalic 2 -?-?-?-?-?-?-?-?-?-?-?-?- 60 -2 KW- no vb/ lof/ctx. good fm. was in [facility] ER on friday for SOB and trouble breathing dx with Pleuritis- requesting 39 week IOL on 06/03. discussed risks of elective IOL 05/23/25 -?-?-?-?-?-?-?-?-?-?-?-?- 37w 6d 192 lb 4 oz (+37 lb 4 oz) 127/79 Trace -?-?--?-?-?-?-?-?-?-?-?-?- Negative 145 37 Cephalic 1 .5 -?-?-?-?-?-?-?-?-?-?-?-?- 60 -2 SM- no vb lof good fm nr oegular ctx co headache and swelling, trace protein, labs sent nl bps. SM- no vb lof good fm nr oeg ular ctx co headache and swelling, trace protein, labs sent nl bps. i wouldn't recommend IOL yet until she is more favorable for IOL. 05/25/25 -?-?-?-?-?-?-?-?-?-?-?-?- 38w 1d 191 lb (+36 lb) 126/83 Negative -?-?-?-?-?-?-?-?-?-?-?-?- Negative 140 -?-?-?-?-?-?-?-?-?-?-?-?- SM- no vb lof go od fm no reuglar ctx 05/30/25 -?-?-?-?-?-?-?-?-?-?-?-?- 38w 6d 192 lb 8 oz (+37 lb 8 oz) 125/80 Negative -?-?-?-?-?-?-?-?-?-?-?-?- Negative 140 38 -?-?-?-?-?-?-?-?-?-?-?-?- SM- no vb lof fe eling fm now, intermittent [place] still, dizziness, proteinuria. nl bps. discussed IOL 39 weeks. ACOG First Trimester First Trimester: Desire for , Alcohol, Tobacco Cessation, Illicit/Recreational Drug/Substance Use, Intimate Partner Violence, Barriers to care, Anticipated Course of Care, Use of Any medications, Sexual activity, Exercise, Dental Care, Sauna/Hot tub use, Seat Belt use, Childbirth classes/Hospital facilities, Travel, Indications for Ultrasound and Screening for Aneuploidy; Discussed Unstable Housing, Discussed Communication Barriers, Discussed Environmental/Work Hazards, Discussed Toxoplasmosis Precations and Discussed Second Trimester Second Trimester: Signs and Symptoms of Labor, Selecting a care provider, Reproductive Life Planning & Contreception and Care Planning; Discussed Tobacco Cessation, Discussed Depression/Anxiety and Discussed Intimate Partner Violence Third Trimester Third Trimester: Pain Management Plans, Labor support person(s), Immediate Larc, Circumcision preference, Signs and Symptoms of Preeclampsia, Feeding No , Education and Family Medical Leave or Disability Forms ROS Const Reports system reviewed and no additional complaints, except as documented Card Reports system reviewed and no additional complaints, except as documented Resp Reports system reviewed and no additional complaints, except as documented GI Reports system reviewed and no additional complaints, except as documented and Reports nausea Reports system reviewed and no additional complaints, except as documented Musc Reports system reviewed and no additional complaints, except as documented Exam Const General: cooperative, healthy appearing, comfortable and anxious HENTX Head: normal to inspection Nose: external nose normal Face and sinus: normal facial exam Neck Neck: normal visual inspection, full ROM and no lymphadenopathy Thyroid: thyroid normal Chest Chest palpation & inspection: normal inspection of the chest Resp Effort & Inspection: normal respiratory effort GI Inspection: normal to inspection Palpation: soft and other (gravid uterus) Other: infant vertex and appropriate size for gestational age Other: Cervical Exam: Extrem General: pedal edema Office Procedures Non-stress Test Non-Stress Test Indications for Monitoring: Yes Proteinuria Heart Rate Baseline: 140 Heart Rate Variability: moderate Movement: Present Heart Rate Accelerations: Present Decelerations: Absent Contractions: Absent Impression: Yes Reactive Non-Stress Test Category 1 Results POC Urinalysis 2 Dip (Clinic) Office Urine Glucose Negative Last Edit by Jarett Glasgow on 05/30/25 13:04 Office Urine Protein Negative Last Edit by Jarett Glasgow on 05/30/25 13:04 Coding Level of Care Code Off vis,est,level 3 Diagnoses Anemia affecting O99.019 Tachycardia R00.0 Palpitations R00.2 Dizziness R42 Rubella non-immune status, antepartum O09.899; Z28.39 Supervision of high risk in third trimester O09.93 Trimester: third trimester 38 weeks gestation of Z3A.38 Weeks of gestation: 38 weeks Anxiety F41.9 CPT Codes Non-Stress Test (15893) Assessment and Plan Assessment and Plan (1) Anemia affecting : Status: Acute Comment: PO iron. repeat early April (2) Tachycardia: Status: Acute (3) Palpitations: Status: Acute Comment: cardio consult. ekg ordered, labs. ekg nl. (4) Dizziness: Status: Acute (5) Rubella non-immune status, antepartum: Status: Acute Comment: offer MMR PP (6) Supervision of high-risk : Status: Acute Qualifiers: Trimester: third trimester Qualified Code(s): O09.93 - Supervision of high risk , unspecified, third trimester Comment: PRR, , BRIE 06/07/25 Boy, BF Varghese (7) : Status: Acute Qualifiers: Weeks of gestation: 38 weeks Qualified Code(s): Z3A.38 - 38 weeks gestation of Comment: GBS neg, NIPT low risk with gender- male, declines carrier (8) Anxiety: Status: Acute Orders: Orders POC Urinalysis 2 Dip (Clinic) Today OB NST Today O99.019 - Anemia complicating , unspecified trimester, R00.0 - Tachycardia, unspecified, R00.2 - Palpitations 05/30/25 1341 <Electronically signed by Majo murcia MD> Date _ Majo Martins MD Cosigner Signature: Date (if applicable) CC: ~ [place] [facility] Work Phone: Reason for referral (narrative)* Diagnostic Procedure Only (Routine) - Authorized Specialty Diagnoses / Procedures Referred By Alejandro pena Referred To Contact US IMAGING Diagnoses Lump in the groin Procedures US PELVIS LTD US PELVIC NONOBSTETRIC IMAGE JUAN DIEGO LIMITED/F/U Elenita Jean APRN.CNP [address] [place] [address] Us Imaging Referral ID Status Reason Start Date Expiration Date Visits Requested Visits Authorized [id number] Authorized Auto-Generat ed Referral 02/25/2022 03/27/2023 1 1 [facility] for referral (narrative)* Diagnostic Procedure Only (Routine) - Closed Specialty Diagnoses / Procedures Referred By Alejandro pena Referred To Contact US IMAGING Diagnoses Lump in the groin Procedures US PELVIS LTD US PELVIC NONOBSTETRIC IMAGE JUAN DIEGO LIMITED/F/U Elenita Jean APRN.CNP [address] [place] [address] Us Imaging Referral ID Status Reason Start Date Expiration Date V isits Requested Visits Authorized [id number] Closed Auto-Generate d Referral 02/25/2022 03/27/2023 1 1 [facility] for visit Narrative* Cardiovascular (Routine) - Authorized Specialty Diagnoses / Procedures Referred By Contac t Referred To Contact Cardiology Diagnoses Palpitations Procedures Hol[employer] 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 [place] Nikita Daley APRN-OBIEE ARCHITECT [address] [place] [address] [address] Phone: tel: fax: Referral ID Status Reason Start Date Expiration Date V isits Requested Visits Authorized [id number] Authorized 09/23/2024 09/23/2025 1 1 [facility] Work Phone: Summary Purpose Family History Relationship Condition Age at Onset Recorded Date/T faby grandmother Diabetes mellitus Unknown mother Cardiac disease Unknown grandfather Myocardial infarction 40 Advance Directives No Advanced Directives Records FoundNo Advanced Directives Records FoundNo Advanced Directives Records FoundNo Advanced Directives Records FoundNo Advanced Directives Records FoundNo Advanced Directives Records FoundNo Advanced Directives Records FoundNo Advanced Directives Records FoundNo Advanced Directives Records Found Reason for Referral * Contusion of right footContusion of right foot Chief Complaint and Reason for Visit Chief Complaint Admit Date New OB, BRIE 06/07/25 per JV November 25, 2024 2:32pm 16wk OB December 23, 2024 10:12am 24 wk ob February 16, 2025 3:21 pm Reason for Visit Admit Date Anxiety November 25, 2024 2 :32pm November 25, 2024 2 :32pm Supervision of high-risk Janua ry 2024 2:32pm Anxiety December 23, 2024 10:12am December 23, 2024 10:12am Rubella non-immune status, antepartum Fe bruary 2024 10:12am Supervision of high-risk Febru taurus 2024 10:12am Anxiety February 16, 2025 3:21 pm Dizziness February 16, 2025 3:21 pm Palpitations February 16, 2025 3:21 pm February 16, 2025 3:21 pm Rubella non-immune status, antepartum Ap ril 2024 3:21pm Supervision of high-risk February 16, 2025 3:21pm Chief Complaint Admit Date New OB, BRIE 06/07/25 per JV November 25, 2024 2:32pm 16wk OB December 23, 2024 10:12am 24 wk ob February 16, 2025 3:21 pm DIZZINESS, PALPITATIONS March 01, 2025 1:29pm DIZZINESS, PALPITATIONS March 01, 2025 1:45pm 28wk ob/glucose March 17, 2025 9:34am Reason for Visit Admit Date Anxiety November 25, 2024 2 :32pm November 25, 2024 2 :32pm Supervision of high-risk Janua ry 2024 2:32pm Anxiety December 23, 2024 10:12am December 23, 2024 10:12am Rubella non-immune status, antepartum Fe bruary 2024 10:12am Supervision of high-risk Febru [email or web address] 10:12am Anxiety February 16, 2025 3:21 pm Dizziness February 16, 2025 3:21 pm Palpitations February 16, 2025 3:21 pm February 16, 2025 3:21 pm Rubella non-immune status, antepartum Ap ril 2024 3:21pm Supervision of high-risk February 16, 2025 3:21pm Anxiety March 17, 2025 9:34am Dizziness March 17, 2025 9:34am Palpitations March 17, 2025 9:34am March 17, 2025 9:34am Rubella non-immune status, antepartum Ma y 2024 9:34am Supervision of high-risk March 172024 9:34am Tachycardia March 17, 2025 9:34am Chief Complaint Admit Date 16wk OB December 23, 2024 10:12am 24 wk ob February 16, 2025 3:21 pm DIZZINESS, PALPITATIONS March 01, 2025 1:29pm DIZZINESS, PALPITATIONS March 01, 2025 1:45pm 28wk ob/glucose March 17, 2025 9:34am 30wk ob March 28, 2025 2:14p m Reason for Visit Admit Date Anxiety December 23, 2024 10:12am December 23, 2024 10:12am Rubella non-immune status, antepartum Fe bruary 2024 10:12am Supervision of high-risk Febru taurus 2024 10:12am Anxiety February 16, 2025 3:21 pm Dizziness February 16, 2025 3:21 pm Palpitations February 16, 2025 3:21 pm February 16, 2025 3:21 pm Rubella non-immune status, antepartum Ap ril 2024 3:21pm Supervision of high-risk February 16, 2025 3:21pm Anxiety March 17, 2025 9:34am Dizziness March 17, 2025 9:34am Palpitations March 17, 2025 9:34am March 17, 2025 9:34am Rubella non-immune status, antepartum Ma y 2024 9:34am Supervision of high-risk March 172024 9:34am Tachycardia March 17, 2025 9:34am Anemia affecting March 28 2:14pm Anxiety March 28, 2025 2:14p m Dizziness March 28, 2025 2:14p m Palpitations March 28, 2025 2:14p m March 28, 2025 2:14p m Rubella non-immune status, antepartum Ma y 2024 2:14pm Supervision of high-risk March 102024 2:14pm Tachycardia March 28, 2025 2:14p m Chief Complaint Admit Date 16wk OB December 23, 2024 10:12am 24 wk ob February 16, 2025 3:21 pm DIZZINESS, PALPITATIONS March 01, 2025 1:29pm DIZZINESS, PALPITATIONS March 01, 2025 1:45pm 28wk ob/glucose March 17, 2025 9:34am 30wk ob March 28, 2025 2:14p m Dizziness and Giddiness/Palps ([place]) March 30, 2025 2:07pm Chief Complaint Admit Date 16wk OB December 23, 2024 10:12am 24 wk ob February 16, 2025 3:21 pm DIZZINESS, PALPITATIONS March 01, 2025 1:29pm DIZZINESS, PALPITATIONS March 01, 2025 1:45pm 28wk ob/glucose March 17, 2025 9:34am 30wk ob March 28, 2025 2:14p m Dizziness and Giddiness/Palps ([place]) March 30, 2025 2:07pm 32wk ob April 15, 2025 12:47 pm Reason for Visit Admit Date Anxiety December 23, 2024 10:12am December 23, 2024 10:12am Rubella non-immune status, antepartum Fe bruary 2024 10:12am Supervision of high-risk Febru [email or web address] 10:12am Anxiety February 16, 2025 3:21 pm Dizziness February 16, 2025 3:21 pm Palpitations February 16, 2025 3:21 pm February 16, 2025 3:21 pm Rubella non-immune status, antepartum Ap ril 2024 3:21pm Supervision of high-risk February 16, 2025 3:21pm Anxiety March 17, 2025 9:34am Dizziness March 17, 2025 9:34am Palpitations March 17, 2025 9:34am March 17, 2025 9:34am Rubella non-immune status, antepartum Ma y 2024 9:34am Supervision of high-risk March 172024 9:34am Tachycardia March 17, 2025 9:34am Anemia affecting March 28 2:14pm Anxiety March 28, 2025 2:14p m Dizziness March 28, 2025 2:14p m Palpitations March 28, 2025 2:14p m March 28, 2025 2:14p m Rubella non-immune status, antepartum Ma y 2024 2:14pm Supervision of high-risk March 102024 2:14pm Tachycardia March 28, 2025 2:14p m Dizziness March 30, 2025 2:07p m Palpitations March 30, 2025 2:07p m Anemia affecting April 15 12:47pm Anxiety April 15, 2025 12:47 pm Dizziness April 15, 2025 12:47 pm Palpitations April 15, 2025 12:47 pm April 15, 2025 12:47 pm Rubella non-immune status, antepartum Ju ne 2024 12:47pm Supervision of high-risk April 15, 2025 12:47pm Tachycardia April 15, 2025 12:47 pm Chief Complaint Admit Date 24 wk ob February 16, 2025 3:21 pm DIZZINESS, PALPITATIONS March 01, 2025 1:29pm DIZZINESS, PALPITATIONS March 01, 2025 1:45pm 28wk ob/glucose March 17, 2025 9:34am 30wk ob March 28, 2025 2:14p m Dizziness and Giddiness/Palps (Concha banerjee) March 30, 2025 2:07pm 32wk ob April 15, 2025 12:47 pm 34 wk ob April 25, 2025 11:2 9am Reason for Visit Admit Date Anxiety February 16, 2025 3:21 pm Dizziness February 16, 2025 3:21 pm Palpitations February 16, 2025 3:21 pm February 16, 2025 3:21 pm Rubella non-immune status, antepartum Ap ril 2024 3:21pm Supervision of high-risk February 16, 2025 3:21pm Anxiety March 17, 2025 9:34am Dizziness March 17, 2025 9:34am Palpitations March 17, 2025 9:34am March 17, 2025 9:34am Rubella non-immune status, antepartum Ma y 2024 9:34am Supervision of high-risk March 172024 9:34am Tachycardia March 17, 2025 9:34am Anemia affecting March 28 2:14pm Anxiety March 28, 2025 2:14p m Dizziness March 28, 2025 2:14p m Palpitations March 28, 2025 2:14p m March 28, 2025 2:14p m Rubella non-immune status, antepartum Ma y 2024 2:14pm Supervision of high-risk March 102024 2:14pm Tachycardia March 28, 2025 2:14p m Dizziness March 30, 2025 2:07p m Palpitations March 30, 2025 2:07p m Anemia affecting April 15 12:47pm Anxiety April 15, 2025 12:47 pm Dizziness April 15, 2025 12:47 pm Palpitations April 15, 2025 12:47 pm April 15, 2025 12:47 pm Rubella non-immune status, antepartum Ju ne 2024 12:47pm Supervision of high-risk April 15, 2025 12:47pm Tachycardia April 15, 2025 12:47 pm Anemia affecting April 25 11:29am Anxiety April 25, 2025 11:2 9am Dizziness April 25, 2025 11:2 9am Palpitations April 25, 2025 11:2 9am April 25, 2025 11:2 9am Rubella non-immune status, antepartum Ju ne 2024 11:29am Supervision of high-risk April 25, 2025 11:29am Tachycardia April 25, 2025 11:2 9am Chief Complaint Admit Date 24 wk ob February 16, 2025 3:21 pm DIZZINESS, PALPITATIONS March 01, 2025 1:29pm DIZZINESS, PALPITATIONS March 01, 2025 1:45pm 28wk ob/glucose March 17, 2025 9:34am 30wk ob March 28, 2025 2:14p m Dizziness and Giddiness/Palps (Concha banerjee) March 30, 2025 2:07pm 32wk ob April 15, 2025 12:47 pm 34 wk ob April 25, 2025 11:2 9am 36 wk ob May 09, 2025 1:46 pm Reason for Visit Admit Date Anxiety February 16, 2025 3:21 pm Dizziness February 16, 2025 3:21 pm Palpitations February 16, 2025 3:21 pm February 16, 2025 3:21 pm Rubella non-immune status, antepartum Ap ril 2024 3:21pm Supervision of high-risk February 16, 2025 3:21pm Anxiety March 17, 2025 9:34am Dizziness March 17, 2025 9:34am Palpitations March 17, 2025 9:34am March 17, 2025 9:34am Rubella non-immune status, antepartum Ma y 2024 9:34am Supervision of high-risk March 172024 9:34am Tachycardia March 17, 2025 9:34am Anemia affecting March 28 2:14pm Anxiety March 28, 2025 2:14p m Dizziness March 28, 2025 2:14p m Palpitations March 28, 2025 2:14p m March 28, 2025 2:14p m Rubella non-immune status, antepartum Ma y 2024 2:14pm Supervision of high-risk March 102024 2:14pm Tachycardia March 28, 2025 2:14p m Dizziness March 30, 2025 2:07p m Palpitations March 30, 2025 2:07p m Anemia affecting April 15 12:47pm Anxiety April 15, 2025 12:47 pm Dizziness April 15, 2025 12:47 pm Palpitations April 15, 2025 12:47 pm April 15, 2025 12:47 pm Rubella non-immune status, antepartum Ju 2024 12:47pm Supervision of high-risk April 15, 2025 12:47pm Tachycardia April 15, 2025 12:47 pm Anemia affecting April 25 11:29am Anxiety April 25, 2025 11:2 9am Dizziness April 25, 2025 11:2 9am Palpitations April 25, 2025 11:2 9am April 25, 2025 11:2 9am Rubella non-immune status, antepartum Ju ne 2024 11:29am Supervision of high-risk April 25, 2025 11:29am Tachycardia April 25, 2025 11:2 9am Anemia affecting May 09 1:46pm Anxiety May 09, 2025 1:46 pm Dizziness May 09, 2025 1:46 pm Palpitations May 09, 2025 1:46 pm May 09, 2025 1:46 pm Rubella non-immune status, antepartum Ju ne 2024 1:46pm Supervision of high-risk May 09, 2025 1:46pm Tachycardia May 09, 2025 1:46 pm Chief Complaint Admit Date 24 wk ob February 16, 2025 3:21 pm DIZZINESS, PALPITATIONS March 01, 2025 1:29pm DIZZINESS, PALPITATIONS March 01, 2025 1:45pm 28wk ob/glucose March 17, 2025 9:34am 30wk ob March 28, 2025 2:14p m Dizziness and Giddiness/Palps (Jackieo ny) March 30, 2025 2:07pm 32wk ob April 15, 2025 12:47 pm 34 wk ob April 25, 2025 11:2 9am 36 wk ob May 09, 2025 1:46 pm 37 wk ob May 20, 2025 2:01 pm Reason for Visit Admit Date Anxiety February 16, 2025 3:21 pm Dizziness February 16, 2025 3:21 pm Palpitations February 16, 2025 3:21 pm February 16, 2025 3:21 pm Rubella non-immune status, antepartum Ap ril 2024 3:21pm Supervision of high-risk February 16, 2025 3:21pm Anxiety March 17, 2025 9:34am Dizziness March 17, 2025 9:34am Palpitations March 17, 2025 9:34am March 17, 2025 9:34am Rubella non-immune status, antepartum Ma y 2024 9:34am Supervision of high-risk March 172024 9:34am Tachycardia March 17, 2025 9:34am Anemia affecting March 28 2:14pm Anxiety March 28, 2025 2:14p m Dizziness March 28, 2025 2:14p m Palpitations March 28, 2025 2:14p m March 28, 2025 2:14p m Rubella non-immune status, antepartum Ma y 2024 2:14pm Supervision of high-risk March 102024 2:14pm Tachycardia March 28, 2025 2:14p m Dizziness March 30, 2025 2:07p m Palpitations March 30, 2025 2:07p m Anemia affecting April 15 12:47pm Anxiety April 15, 2025 12:47 pm Dizziness April 15, 2025 12:47 pm Palpitations April 15, 2025 12:47 pm April 15, 2025 12:47 pm Rubella non-immune status, antepartum Ju ne 2024 12:47pm Supervision of high-risk April 15, 2025 12:47pm Tachycardia April 15, 2025 12:47 pm Anemia affecting April 25 11:29am Anxiety April 25, 2025 11:2 9am Dizziness April 25, 2025 11:2 9am Palpitations April 25, 2025 11:2 9am April 25, 2025 11:2 9am Rubella non-immune status, antepartum Ju ne 2024 11:29am Supervision of high-risk April 25, 2025 11:29am Tachycardia April 25, 2025 11:2 9am Anemia affecting May 09 1:46pm Anxiety May 09, 2025 1:46 pm Dizziness May 09, 2025 1:46 pm Palpitations May 09, 2025 1:46 pm May 09, 2025 1:46 pm Rubella non-immune status, antepartum Ju ne 2024 1:46pm Supervision of high-risk May 09, 2025 1:46pm Tachycardia May 09, 2025 1:46 pm Anemia affecting May 20 2:01pm Anxiety May 20, 2025 2:01 pm Dizziness May 20, 2025 2:01 pm Palpitations May 20, 2025 2:01 pm May 20, 2025 2:01 pm Rubella non-immune status, antepartum Ju ly 2024 2:01pm Supervision of high-risk May 20, 2025 2:01pm Tachycardia May 20, 2025 2:01 pm Chief Complaint Admit Date 24 wk ob February 16, 2025 3:21 pm DIZZINESS, PALPITATIONS March 01, 2025 1:29pm DIZZINESS, PALPITATIONS March 01, 2025 1:45pm 28wk ob/glucose March 17, 2025 9:34am 30wk ob March 28, 2025 2:14p m Dizziness and Giddiness/Palps (Jackieo ny) March 30, 2025 2:07pm 32wk ob April 15, 2025 12:47 pm 34 wk ob April 25, 2025 11:2 9am 36 wk ob May 09, 2025 1:46 pm 37 wk ob May 20, 2025 2:01 pm 37/6, leg swelling, occ headache May 232024 9:49am Reason for Visit Admit Date Anxiety February 16, 2025 3:21 pm Dizziness February 16, 2025 3:21 pm Palpitations February 16, 2025 3:21 pm February 16, 2025 3:21 pm Rubella non-immune status, antepartum Ap ril 2024 3:21pm Supervision of high-risk February 16, 2025 3:21pm Anxiety March 17, 2025 9:34am Dizziness March 17, 2025 9:34am Palpitations March 17, 2025 9:34am March 17, 2025 9:34am Rubella non-immune status, antepartum Ma 2024 9:34am Supervision of high-risk March 172024 9:34am Tachycardia March 17, 2025 9:34am Anemia affecting March 28 2:14pm Anxiety March 28, 2025 2:14p m Dizziness March 28, 2025 2:14p m Palpitations March 28, 2025 2:14p m March 28, 2025 2:14p m Rubella non-immune status, antepartum Ma y 2024 2:14pm Supervision of high-risk March 102024 2:14pm Tachycardia March 28, 2025 2:14p m Dizziness March 30, 2025 2:07p m Palpitations March 30, 2025 2:07p m Anemia affecting April 15 12:47pm Anxiety April 15, 2025 12:47 pm Dizziness April 15, 2025 12:47 pm Palpitations April 15, 2025 12:47 pm April 15, 2025 12:47 pm Rubella non-immune status, antepartum Ju 2024 12:47pm Supervision of high-risk April 15, 2025 12:47pm Tachycardia April 15, 2025 12:47 pm Anemia affecting April 25 11:29am Anxiety April 25, 2025 11:2 9am Dizziness April 25, 2025 11:2 9am Palpitations April 25, 2025 11:2 9am April 25, 2025 11:2 9am Rubella non-immune status, antepartum Ju ne 2024 11:29am Supervision of high-risk April 25, 2025 11:29am Tachycardia April 25, 2025 11:2 9am Anemia affecting May 09 1:46pm Anxiety May 09, 2025 1:46 pm Dizziness May 09, 2025 1:46 pm Palpitations May 09, 2025 1:46 pm May 09, 2025 1:46 pm Rubella non-immune status, antepartum Ju ne 2024 1:46pm Supervision of high-risk May 09, 2025 1:46pm Tachycardia May 09, 2025 1:46 pm Anemia affecting May 20 2:01pm Anxiety May 20, 2025 2:01 pm Dizziness May 20, 2025 2:01 pm Palpitations May 20, 2025 2:01 pm May 20, 2025 2:01 pm Rubella non-immune status, antepartum Ju ly 2024 2:01pm Supervision of high-risk May 20, 2025 2:01pm Tachycardia May 20, 2025 2:01 pm Anemia affecting May 23 9:49am Anxiety May 23, 2025 9:49 am Dizziness May 23, 2025 9:49 am Palpitations May 23, 2025 9:49 am May 23, 2025 9:49 am Rubella non-immune status, antepartum Ju ly 2024 9:49am Supervision of high-risk May 23, 2025 9:49am Tachycardia May 23, 2025 9:49 am Chief Complaint Admit Date 24 wk ob February 16, 2025 3:21 pm DIZZINESS, PALPITATIONS March 01, 2025 1:29pm DIZZINESS, PALPITATIONS March 01, 2025 1:45pm 28wk ob/glucose March 17, 2025 9:34am 30wk ob March 28, 2025 2:14p m Dizziness and Giddiness/Palps (Concha banerjee) March 30, 2025 2:07pm 32wk ob April 15, 2025 12:47 pm 34 wk ob April 25, 2025 11:2 9am 36 wk ob May 09, 2025 1:46 pm 37 wk ob May 20, 2025 2:01 pm 37/6, leg swelling, occ headache May 232024 9:49am 38wk ob/nst, BP *ok per SM May 25 3:26pm Reason for Visit Admit Date Anxiety February 16, 2025 3:21 pm Dizziness February 16, 2025 3:21 pm Palpitations February 16, 2025 3:21 pm February 16, 2025 3:21 pm Rubella non-immune status, antepartum Ap 2024 3:21pm Supervision of high-risk February 16, 2025 3:21pm Anxiety March 17, 2025 9:34am Dizziness March 17, 2025 9:34am Palpitations March 17, 2025 9:34am March 17, 2025 9:34am Rubella non-immune status, antepartum Ma y 2024 9:34am Supervision of high-risk March 172024 9:34am Tachycardia March 17, 2025 9:34am Anemia affecting March 28 2:14pm Anxiety March 28, 2025 2:14p m Dizziness March 28, 2025 2:14p m Palpitations March 28, 2025 2:14p m March 28, 2025 2:14p m Rubella non-immune status, antepartum Ma y 2024 2:14pm Supervision of high-risk March 102024 2:14pm Tachycardia March 28, 2025 2:14p m Dizziness March 30, 2025 2:07p m Palpitations March 30, 2025 2:07p m Anemia affecting April 15 12:47pm Anxiety April 15, 2025 12:47 pm Dizziness April 15, 2025 12:47 pm Palpitations April 15, 2025 12:47 pm April 15, 2025 12:47 pm Rubella non-immune status, antepartum Ju 2024 12:47pm Supervision of high-risk April 15, 2025 12:47pm Tachycardia April 15, 2025 12:47 pm Anemia affecting April 25 11:29am Anxiety April 25, 2025 11:2 9am Dizziness April 25, 2025 11:2 9am Palpitations April 25, 2025 11:2 9am April 25, 2025 11:2 9am Rubella non-immune status, antepartum Ju ne 2024 11:29am Supervision of high-risk April 25, 2025 11:29am Tachycardia April 25, 2025 11:2 9am Anemia affecting May 09 1:46pm Anxiety May 09, 2025 1:46 pm Dizziness May 09, 2025 1:46 pm Palpitations May 09, 2025 1:46 pm May 09, 2025 1:46 pm Rubella non-immune status, antepartum Ju ne 2024 1:46pm Supervision of high-risk May 09, 2025 1:46pm Tachycardia May 09, 2025 1:46 pm Anemia affecting May 20 2:01pm Anxiety May 20, 2025 2:01 pm Dizziness May 20, 2025 2:01 pm Palpitations May 20, 2025 2:01 pm May 20, 2025 2:01 pm Rubella non-immune status, antepartum Ju ly 2024 2:01pm Supervision of high-risk May 20, 2025 2:01pm Tachycardia May 20, 2025 2:01 pm Anemia affecting May 23 9:49am Anxiety May 23, 2025 9:49 am Dizziness May 23, 2025 9:49 am Palpitations May 23, 2025 9:49 am May 23, 2025 9:49 am Rubella non-immune status, antepartum Ju ly 2024 9:49am Supervision of high-risk May 23, 2025 9:49am Tachycardia May 23, 2025 9:49 am Anemia affecting May 25 3:26pm Anxiety May 25, 2025 3:26 pm Dizziness May 25, 2025 3:26 pm Palpitations May 25, 2025 3:26 pm May 25, 2025 3:26 pm Rubella non-immune status, antepartum Ju ly 2024 3:26pm Supervision of high-risk May 25, 2025 3:26pm Tachycardia May 25, 2025 3:26 pm Chief Complaint Admit Date 24 wk ob February 16, 2025 3:21 pm DIZZINESS, PALPITATIONS March 01, 2025 1:29pm DIZZINESS, PALPITATIONS March 01, 2025 1:45pm 28wk ob/glucose March 17, 2025 9:34am 30wk ob March 28, 2025 2:14p m Dizziness and Giddiness/Palps (Marcantho ny) March 30, 2025 2:07pm 32wk ob April 15, 2025 12:47 pm 34 wk ob April 25, 2025 11:2 9am 36 wk ob May 09, 2025 1:46 pm 37 wk ob May 20, 2025 2:01 pm 37/6, leg swelling, occ headache May 232024 9:49am 38wk ob/nst, BP *ok per SM May 25 3:26pm growth May 25, 2025 5:52 pm Chief Complaint Admit Date 24 wk ob February 16, 2025 3:21 pm DIZZINESS, PALPITATIONS March 01, 2025 1:29pm DIZZINESS, PALPITATIONS March 01, 2025 1:45pm 28wk ob/glucose March 17, 2025 9:34am 30wk ob March 28, 2025 2:14p m Dizziness and Giddiness/Palps (Marcantho ny) March 30, 2025 2:07pm 32wk ob April 15, 2025 12:47 pm 34 wk ob April 25, 2025 11:2 9am 36 wk ob May 09, 2025 1:46 pm 37 wk ob May 20, 2025 2:01 pm 37/6, leg swelling, occ headache May 232024 9:49am 38wk ob/nst, BP *ok per SM May 25 3:26pm growth May 25, 2025 5:52 pm 38wk ob/nst *per SM May 30, 2025 12:4 4pm Reason for Visit Admit Date Anxiety February 16, 2025 3:21 pm Dizziness February 16, 2025 3:21 pm Palpitations February 16, 2025 3:21 pm February 16, 2025 3:21 pm Rubella non-immune status, antepartum Ap ril 2024 3:21pm Supervision of high-risk February 16, 2025 3:21pm Anxiety March 17, 2025 9:34am Dizziness March 17, 2025 9:34am Palpitations March 17, 2025 9:34am March 17, 2025 9:34am Rubella non-immune status, antepartum Ma y 2024 9:34am Supervision of high-risk March 172024 9:34am Tachycardia March 17, 2025 9:34am Anemia affecting March 28 2:14pm Anxiety March 28, 2025 2:14p m Dizziness March 28, 2025 2:14p m Palpitations March 28, 2025 2:14p m March 28, 2025 2:14p m Rubella non-immune status, antepartum Ma y 2024 2:14pm Supervision of high-risk March 102024 2:14pm Tachycardia March 28, 2025 2:14p m Dizziness March 30, 2025 2:07p m Palpitations March 30, 2025 2:07p m Anemia affecting April 15 12:47pm Anxiety April 15, 2025 12:47 pm Dizziness April 15, 2025 12:47 pm Palpitations April 15, 2025 12:47 pm April 15, 2025 12:47 pm Rubella non-immune status, antepartum Ju ne 2024 12:47pm Supervision of high-risk April 15, 2025 12:47pm Tachycardia April 15, 2025 12:47 pm Anemia affecting April 25 11:29am Anxiety April 25, 2025 11:2 9am Dizziness April 25, 2025 11:2 9am Palpitations April 25, 2025 11:2 9am April 25, 2025 11:2 9am Rubella non-immune status, antepartum Ju ne 2024 11:29am Supervision of high-risk April 25, 2025 11:29am Tachycardia April 25, 2025 11:2 9am Anemia affecting May 09 1:46pm Anxiety May 09, 2025 1:46 pm Dizziness May 09, 2025 1:46 pm Palpitations May 09, 2025 1:46 pm May 09, 2025 1:46 pm Rubella non-immune status, antepartum Ju ne 2024 1:46pm Supervision of high-risk May 09, 2025 1:46pm Tachycardia May 09, 2025 1:46 pm Anemia affecting May 20 2:01pm Anxiety May 20, 2025 2:01 pm Dizziness May 20, 2025 2:01 pm Palpitations May 20, 2025 2:01 pm May 20, 2025 2:01 pm Rubella non-immune status, antepartum Ju ly 2024 2:01pm Supervision of high-risk May 20, 2025 2:01pm Tachycardia May 20, 2025 2:01 pm Anemia affecting May 23 9:49am Anxiety May 23, 2025 9:49 am Dizziness May 23, 2025 9:49 am Palpitations May 23, 2025 9:49 am May 23, 2025 9:49 am Rubella non-immune status, antepartum Ju ly 2024 9:49am Supervision of high-risk May 23, 2025 9:49am Tachycardia May 23, 2025 9:49 am Anemia affecting May 25 3:26pm Anxiety May 25, 2025 3:26 pm Dizziness May 25, 2025 3:26 pm Palpitations May 25, 2025 3:26 pm May 25, 2025 3:26 pm Rubella non-immune status, antepartum Ju ly 2024 3:26pm Supervision of high-risk May 25, 2025 3:26pm Tachycardia May 25, 2025 3:26 pm Anemia affecting May 30 12:44pm Anxiety May 30, 2025 12:4 4pm Dizziness May 30, 2025 12:4 4pm Palpitations May 30, 2025 12:4 4pm May 30, 2025 12:4 4pm Rubella non-immune status, antepartum Ju ly 2024 12:44pm Supervision of high-risk May 30, 2025 12:44pm Tachycardia May 30, 2025 12:4 4pm Additional Source Comments Source Comments (unrecognize d section and content) In the event this informatio n is protected by the Federal Confidentiality of Alcohol and Drug Abuse Patient Records regulations: The Federal rules restrict any use of the information to criminally investigate or prosecute any alcohol or drug abuse patient.[facility] Center[facility] the event this information is protected by the Federal Confidentiality of Alcohol and Drug Abuse Patient Records regulations: The Federal rules restrict any use of the information to criminally investigate or prosecute any alcohol or drug abuse patient.[facility] Center[facility] the event this information is protected by the Federal Confidentiality of Alcohol and Drug Abuse Patient Records regulations: The Federal rules restrict any use of the information to criminally investigate or prosecute any alcohol or drug abuse patient.[facility] Reason for Visit (unrecogniz ed section and content) Reason Comments Follow Up not gotten bigger bu t has not gotten smaller with antibiotic Reason Comments Results Reason Comments Radiology US Specialty Diagnoses / Procedures Referred By Contac t Referred To Contact US IMAGING Diagnoses Lump in the groin Procedures US PELVIS LTD US PELVIC NONOBSTETRIC IMAGE DCMTN LIMITED/F/U Elenita Jean, ROSHAN.OBIEE ARCHITECT [address] [place] [address] Us Imaging Referral ID Status Reason Start Date Expiration Date V isits Requested Visits Authorized [id number] Closed Auto-Generate d Referral 02/25/2022 03/27/2023 1 1 Reason Comments TB test for school Reason Comments Chest Pain ED follow upNPV Specialty Diagnoses / Procedures Referred By Alejandro t Referred To Contact Diagnoses Palpitations Procedures ECG 12 lead (Clinic Performed) Nikita Daley, SOURCING ASSOCIATE-OBIEE ARCHITECT [address] [facility] [address] [place] [address] Phone: tel: fax: Referral ID Status Reason Start Date Expiration Date V isits Requested Visits Authorized [id number] Authorized 09/23/2024 09/23/2025 1 1 Reason Comments Chest Pain Pt states she was ru nning around playing tag around 45 minutes ago when she started feeling a fluttering in her chest, she states this caused her to feel panicked which she states made her chest hurt. EKG on arrival Reason Comments Follow-up 1 month INFORMATION SOURCE (unrecogn ized section and content) DATE CREATED AUTHOR 03/03/2022 [facility] DATE CREATED AUTHOR AUTHOR'S ORGANIZ ATION 09/11/2022 [facility] DATE CREATED AUTHOR AUTHOR'S ORGANIZ ATION 03/16/2023 [facility] DATE CREATED AUTHOR AUTHOR'S ORGANIZ ATION 05/27/2024 [facility] DATE CREATED AUTHOR AUTHOR'S ORGANIZ ATION 10/26/2024 [facility] DATE CREATED AUTHOR AUTHOR'S ORGANIZ ATION 11/05/2024 [facility] DATE CREATED AUTHOR AUTHOR'S ORGANIZ ATION 01/18/2025 [facility] DATE CREATED AUTHOR AUTHOR'S ORGANIZ ATION 05/25/2025 [facility] DATE CREATED AUTHOR AUTHOR'S ORGANIZ ATION 05/29/2025 [facility] <item> Privacy Markings (unrecogniz ed section and content) Section Author: Yolanda Duffy PROHIBITION ON REDISCLOSURE OF CONFIDENTIAL INFORMATION This notice accompanies a disclosure of information concerning a client made to you with the consent of such client. Care Teams (unrecognized sec tion and content) Behavioral Sciences Department Chair Relationship Specialty Start Date End Date Rustam Vallejo, [address] [place] [address] PCP - General 05/31/20 Behavioral Sciences Department Chair Relationship Specialty Start Date End Date Generic Provider, [place] [address] PCP - General Tool Distributor 09/23/24 Behavioral Sciences Department Chair Relationship Specialty Start Date End Date Generic Provider, [place] [address] PCP - General Tool Distributor 09/23/24 Behavioral Sciences Department Chair Relationship Specialty Start Date End Date Generic Provider, [place] [address] PCP - General Tool Distributor 09/23/24 Team Status: Active Member Role Status Dates No Primary Care Physician Primary Care Provider Active Team Status: Inactive Member Role Status Dates No Primary Care Physician Primary Care Provider Active Start: November 25, 2024 End: November 25, 2024 No Primary Care Physician Referring Provider Active Start: November 25, 2024 End: November 25, 2024 Rebeca Cruz CNM Attending Provider Active S tart: November 25, 2024 End: November 25, 2024 Team Status: Inactive Member Role Status Dates No Primary Care Physician Primary Care Provider Active Start: November 25, 2024 End: November 25, 2024 Rebeca Cruz CNM Attending Provider Active S tart: November 25, 2024 End: November 25, 2024 Rebeca Cruz CNM Referring Provider Active S tart: November 25, 2024 End: November 25, 2024 Team Status: Inactive Member Role Status Dates No Primary Care Physician Primary Care Provider Active Start: December 23, 2024 End: December 23, 2024 No Primary Care Physician Referring Provider Active Start: December 23, 2024 End: December 23, 2024 Jarett Pendleton CORPORATE ADMINISTRATOR, CORPORATE ADMINISTRATOR-C Attending Provider Active Start: December 23, 2024 End: December 23, 2024 Team Status: Inactive Member Role Status Dates No Primary Care Physician Primary Care Provider Active Start: February 16, 2025 End: February 16, 2025 No Primary Care Physician Referring Provider Active Start: February 16, 2025 End: February 16, 2025 Dr. Majo Martins MD Attending Provider Active Start: February 16, 2025 End: February 16, 2025 Team Status: Inactive Member Role Status Dates No Primary Care Physician Primary Care Provider Active Start: February 16, 2025 End: February 16, 2025 Rebeca Cruz CNM Attending Provider Active S tart: February 16, 2025 End: February 16, 2025 Rebeca Cruz CNM Referring Provider Active S tart: February 16, 2025 End: February 16, 2025 Team Status: Inactive Member Role Status Dates No Primary Care Physician Primary Care Provider Active Start: March 01, 2025 End: March 01, 2025 Dr. Majo Martins MD Attending Provider Active Start: March 01, 2025 End: March 01, 2025 Dr. Majo Martins MD Referring Provider Active Start: March 01, 2025 End: March 01, 2025 Team Status: Active Member Role Status Dates No Primary Care Physician Primary Care Provider Active Start: March 01, 2025 End: March 01, 2025 Dr. Jakub Bush MD Attending Provider Active S tart: March 01, 2025 End: March 01, 2025 Dr. Majo Martins MD Referring Provider Active Start: March 01, 2025 End: March 01, 2025 Team Status: Inactive Member Role Status Dates No Primary Care Physician Primary Care Provider Active Start: March 17, 2025 End: March 17, 2025 No Primary Care Physician Referring Provider Active Start: March 17, 2025 End: March 17, 2025 Jarett Pendleton CORPORATE ADMINISTRATOR, CORPORATE ADMINISTRATOR-C Attending Provider Active Start: March 17, 2025 End: March 17, 2025 Team Status: Inactive Member Role Status Dates No Primary Care Physician Primary Care Provider Active Start: March 21, 2025 End: March 21, 2025 Rebeca Cruz CNM Attending Provider Active S tart: March 21, 2025 End: March 21, 2025 Rebeca Cruz CNM Referring Provider Active S tart: March 21, 2025 End: March 21, 2025 Team Status: Inactive Member Role Status Dates No Primary Care Physician Primary Care Provider Active Start: March 28, 2025 End: March 28, 2025 No Primary Care Physician Referring Provider Active Start: March 28, 2025 End: March 28, 2025 Dr. Marie Kelly DO Attending Provider Activ e Start: March 28, 2025 End: March 28, 2025 Team Status: Inactive Member Role Status Dates No Primary Care Physician Primary Care Provider Active Start: March 30, 2025 End: March 30, 2025 No Primary Care Physician Referring Provider Active Start: March 30, 2025 End: March 30, 2025 Dr. Jakub Bush MD Attending Provider Active S tart: March 30, 2025 End: March 30, 2025 Team Status: Inactive Member Role Status Dates No Primary Care Physician Primary Care Provider Active Start: April 15, 2025 End: April 15, 2025 No Primary Care Physician Referring Provider Active Start: April 15, 2025 End: April 15, 2025 Rebeca Cruz CNM Attending Provider Active S tart: April 15, 2025 End: April 15, 2025 Team Status: Inactive Member Role Status Dates No Primary Care Physician Primary Care Provider Active Start: April 25, 2025 End: April 25, 2025 No Primary Care Physician Referring Provider Active Start: April 25, 2025 End: April 25, 2025 Rebeca Cruz CNM Attending Provider Active S tart: April 25, 2025 End: April 25, 2025 Team Status: Active Member Role/Relationship Status Dates No Primary Care Physician Primary Care Provider Active Team Status: Inactive Member Role/Relationship Status Dates No Primary Care Physician Primary Care Provider Active Start: February 16, 2025 End: February 16, 2025 No Primary Care Physician Referring Provider Active Start: February 16, 2025 End: February 16, 2025 Dr. Majo Martins MD Attending Provider Active Start: February 16, 2025 End: February 16, 2025 Team Status: Inactive Member Role/Relationship Status Dates No Primary Care Physician Primary Care Provider Active Start: February 16, 2025 End: February 16, 2025 Rebeca Cruz CNM Attending Provider Active S tart: February 16, 2025 End: February 16, 2025 Rebeca Cruz CNM Referring Provider Active S tart: February 16, 2025 End: February 16, 2025 Team Status: Inactive Member Role/Relationship Status Dates No Primary Care Physician Primary Care Provider Active Start: March 01, 2025 End: March 01, 2025 Dr. Majo Martins MD Attending Provider Active Start: March 01, 2025 End: March 01, 2025 Dr. Majo Martins MD Referring Provider Active Start: March 01, 2025 End: March 01, 2025 Team Status: Active Member Role/Relationship Status Dates No Primary Care Physician Primary Care Provider Active Start: March 01, 2025 End: March 01, 2025 Dr. Jakub Bush MD Attending Provider Active S tart: March 01, 2025 End: March 01, 2025 Dr. Majo Martins MD Referring Provider Active Start: March 01, 2025 End: March 01, 2025 Team Status: Inactive Member Role/Relationship Status Dates No Primary Care Physician Primary Care Provider Active Start: March 17, 2025 End: March 17, 2025 No Primary Care Physician Referring Provider Active Start: March 17, 2025 End: March 17, 2025 Jarett Pendleton NP, CORPORATE ADMINISTRATOR-C Attending Provider Active Start: March 17, 2025 End: March 17, 2025 Team Status: Inactive Member Role/Relationship Status Dates No Primary Care Physician Primary Care Provider Active Start: March 21, 2025 End: March 21, 2025 Rebeca Cruz CNM Attending Provider Active S tart: March 21, 2025 End: March 21, 2025 Rebeca Cruz CNM Referring Provider Active S tart: March 21, 2025 End: March 21, 2025 Team Status: Inactive Member Role/Relationship Status Dates No Primary Care Physician Primary Care Provider Active Start: March 28, 2025 End: March 28, 2025 No Primary Care Physician Referring Provider Active Start: March 28, 2025 End: March 28, 2025 Dr. Marie Kelly DO Attending Provider Activ e Start: March 28, 2025 End: March 28, 2025 Team Status: Inactive Member Role/Relationship Status Dates No Primary Care Physician Primary Care Provider Active Start: March 30, 2025 End: March 30, 2025 No Primary Care Physician Referring Provider Active Start: March 30, 2025 End: March 30, 2025 Dr. Jakub Bush MD Attending Provider Active S tart: March 30, 2025 End: March 30, 2025 Team Status: Inactive Member Role/Relationship Status Dates No Primary Care Physician Primary Care Provider Active Start: April 15, 2025 End: April 15, 2025 No Primary Care Physician Referring Provider Active Start: April 15, 2025 End: April 15, 2025 Rebeca Cruz CNM Attending Provider Active S tart: April 15, 2025 End: April 15, 2025 Team Status: Inactive Member Role/Relationship Status Dates No Primary Care Physician Primary Care Provider Active Start: April 25, 2025 End: April 25, 2025 No Primary Care Physician Referring Provider Active Start: April 25, 2025 End: April 25, 2025 Rebeca Cruz CNM Attending Provider Active S tart: April 25, 2025 End: April 25, 2025 Team Status: Inactive Member Role/Relationship Status Dates No Primary Care Physician Primary Care Provider Active Start: May 09, 2025 End: May 09, 2025 No Primary Care Physician Referring Provider Active Start: May 09, 2025 End: May 09, 2025 Rebeca Cruz CNM Attending Provider Active S tart: May 09, 2025 End: May 09, 2025 Team Status: Inactive Member Role/Relationship Status Dates No Primary Care Physician Primary Care Provider Active Start: May 09, 2025 End: May 09, 2025 Rebeca Cruz CNM Attending Provider Active S tart: May 09, 2025 End: May 09, 2025 Rebeca Cruz CNM Referring Provider Active S tart: May 09, 2025 End: May 09, 2025 Team Status: Inactive Member Role/Relationship Status Dates No Primary Care Physician Primary Care Provider Active Start: May 20, 2025 End: May 20, 2025 No Primary Care Physician Referring Provider Active Start: May 20, 2025 End: May 20, 2025 Rebeca Cruz CNM Attending Provider Active S tart: May 20, 2025 End: May 20, 2025 Team Status: Inactive Member Role/Relationship Status Dates No Primary Care Physician Primary Care Provider Active Start: May 23, 2025 End: May 23, 2025 No Primary Care Physician Referring Provider Active Start: May 23, 2025 End: May 23, 2025 Dr. Majo Martins MD Attending Provider Active Start: May 23, 2025 End: May 23, 2025 Team Status: Active Member Role/Relationship Status Dates No Primary Care Physician Primary Care Provider Active Start: May 23, 2025 Dr. Majo Martins MD Attending Provider Active Start: May 23, 2025 Dr. Majo Martins MD Referring Provider Active Start: May 23, 2025 Team Status: Inactive Member Role/Relationship Status Dates No Primary Care Physician Primary Care Provider Active Start: May 25, 2025 End: May 25, 2025 No Primary Care Physician Referring Provider Active Start: May 25, 2025 End: May 25, 2025 Dr. Majo Martins MD Attending Provider Active Start: May 25, 2025 End: May 25, 2025 Team Status: Inactive Member Role/Relationship Status Dates No Primary Care Physician Primary Care Provider Active Start: May 23, 2025 End: May 23, 2025 Dr. Majo Martins MD Attending Provider Active Start: May 23, 2025 End: May 23, 2025 Dr. Majo Martins MD Referring Provider Active Start: May 23, 2025 End: May 23, 2025 Team Status: Active Member Role/Relationship Status Dates No Primary Care Physician Primary Care Provider Active Start: May 25, 2025 Dr. Majo Martins MD Attending Provider Active Start: May 25, 2025 Dr. Majo Martins MD Referring Provider Active Start: May 25, 2025 Team Status: Inactive Member Role/Relationship Status Dates No Primary Care Physician Primary Care Provider Active Start: May 30, 2025 End: May 30, 2025 No Primary Care Physician Referring Provider Active Start: May 30, 2025 End: May 30, 2025 Dr. Majo Martins MD Attending Provider Active Start: May 30, 2025 End: May 30, 2025 Team Status: Inactive Member Role/Relationship Status Dates No Primary Care Physician Primary Care Provider Active Start: May 25, 2025 End: May 25, 2025 Dr. Majo Martins MD Attending Provider Active Start: May 25, 2025 End: May 25, 2025 Dr. Majo Martins MD Referring Provider Active Start: May 25, 2025 End: May 25, 2025 Goals (unrecognized section and content) Goals may be documented in a n alternate sectionGoals may be documented in an alternate sectionGoals may be documented in an alternate sectionGoals may be documented in an alternate sectionGoals may be documented in an alternate sectionGoals may be documented in an alternate sectionGoals may be documented in an alternate sectionGoals may be documented in an alternate sectionGoals may be documented in an alternate sectionGoals may be documented in an alternate sectionGoals may be documented in an alternate sectionGoals may be documented in an alternate sectionGoals may be documented in an alternate sectionGoals may be documented in an alternate section FOR RECORDS PERTAINING TO PATIENTS WHO ARE OR HAVE BEEN ENROLLED IN A CHEMICAL DEPENDENCY/SUBSTANCEABUSE PROGRAM, SOME INFORMATION MAY BE OMITTED. This clinical summary was aggregated from multiple sources. Caution should be exercised in using it in the provision of clinical care. This summary normalizes information from multiple sources, and as a consequence, information in this document may materially change the coding, format and clinical context of patient data. In addition, data may be omitted in some cases. CLINICAL DECISIONS SHOULD BE BASED ON THE PRIMARY CLINICAL RECORDS. [employer] provides no warranty or guarantee of the accuracy or completeness of information in this document.
--- NOTE | 2025-05-31 07:31 | HP.PCM_ITS ---
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 Required: No Is patient in pain?: No Allergies No Known Allergies Allergy (Verified 05/30/25 12:51) Medications ?Medication ?Instructions ?Recorded ?Confirmed ?Type PNV 153-FA 400 mcg-om3 35 mg-dha tab PO 11/19/24 05/30/25 History 25 mg-epa 5 mg-fish oil chew tablet famotidine 20 mg tablet (Pepcid) 20 mg PO BID #60 tabs 03/28/25 05/30/25 Rx ferrous sulfate 325 mg (65 mg 325 mg PO QDAY 03/28/25 05/30/25 History iron) tablet ascorbic acid (vitamin C) 500 mg 500 mg PO QDAY 03/30/25 05/30/25 History tablet Last Menstrual Period: 08/31/24 Zika: Zika virus screening: Negative : No PFSH PFSH Medical History Tachycardia Palpitations Dizziness Supervision of high-risk Anxiety Surgical History No history of previous surgery Family History Grandmother Diabetes PaternalMother Heart diseaseGrandfather Myocardial infarction, Onset Age: 40 Maternal Social History adopted: No household members: significant other current occupational status: unemployed pets and animals: No history of recent travel: No sexually active: Yes Smoking Status: Never smoker alcohol intake: current alcohol intake frequency: a few times a month details: not while substance use type: does not use well-balanced diet: rarely or never caffeine: Yes Type: carbonated beverages Number of servings: 1 eating out: rarely or never during the past year weight has: increased > 10 lbs what type of physical activity do you participate in: none mikie/methodist: None seatbelt use: always do you feel safe at home: Yes additional social history: BF- Varghese- 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 proteinuria with neurologic symptoms. no vb lof goo dfm in termittent headaches and severe dizzy episodes. OB Visit BRIE Calculator Estimated Delivery Date Method Current WG Current Estimate 06/07/25 LMP (Certain) 38w 6d Other Estimates 06/05/25 Ultrasound #1 39w 1d Expected Delivery Route/Plan Labor Preferences- CB/BF classes: encouraged labor support person: Varghese labor intervention preferences: [] pain management options preferred: epidural if requested cut cord/dad catch: no : yes PP control planned: discussed discussed possible routes of delivery and associated risks: [] special requests: [] Specific Issue/Plans Covid status: [] Flu vaccine: [] Tdap vaccine: declines Rhogam: na LARC form signed: yes Problem list reviewed and updated with the most current plan of care details and appropriate orders placed. Relevant counseling for the gestational age provided. Continue routine care and follow up unless otherwise noted in visit notes/problem list details Initial Weight: 155 lb Date -?-?-?--?-?-?-?-?-?-?-?-?- EGA Weight BP Urine Prot -?-?-?-?-?-?-?-?-?-?-?-?- Glucose FHR FuHt Pres Dilation -?-?-?-?-?-?-?-?-?-?-?-?- Effaced St Visit Note 11/25/24-?-?-?-?-?-?-?-?-?-?-?-?- 12w 2d 168 lb(+13 lb) 112/78 -?-?-?-?-?-?-?-?-?-?-?-?- 149 -?-?-?-?-?--?-?-?-?-?-?-?- KW- CRL cons with dates. accepts NIPT MFM US ordered 12/23/24-?-?-?-?-?-?-?-?-?-?-?-?- 16w 2d 167 lb(+12 lb) 110/80 Negative -?-?-?-?-?-?-?-?-?-?-?-?- Negative 145 -?-?-?-?-?-?-?-?-?-?-?-?- MH-No VB. Nausea resolved. Reviewed PN labs 02/16/25-?-?-?--?-?-?-?-?-?-?-?-?- 24w 1d 173 lb 4 oz(+18 lb 4 oz) 127/76 Negative -?-?-?-?-?-?-?-?-?-?-?-?- Negative 145 24 -?-?-?-?-?-?-?-?--?-?-?-?- SM- co dizzy spells where when she first stands up she will have heart rate and blood pressure spikes, her legs turn purple, she can't stand longer than a few minutes, she also co tingling in her legs when she's sitting for too long. she saw a thickener operator in the past and it was normal. she has a strong family history of heart disease. plan labs today and cardio consult 03/17/25-?-?-?-?-?-?-?-?-?-?-?-?- 28w 2d 178 lb 8 oz(+23 lb 8 oz) 109/68 Negative -?-?-?-?-?-?-?-?-?-?-?-?- Negative 153 28 -?-?-?-?-?-?-?-?-?-?-?-?- MH-No Vb, LOF. Good Fm. Dizzy spells improved. Larc. Declines tdap. Will RTO next few days for 28 wk labs. 03/28/25-?-?-?-?-?--?-?-?-?-?-?-?- 29w 6d 178 lb(+23 lb) 116/75 Negative -?-?-?-?-?-?-?-?-?-?-?-?- Negative 155 30 -?-?-?-?-?-?-?-?-?-?-?-?- JV- no lof, vaginal bleeding, or dec fm. has been experiencing some vasovagal symptoms without passing out. sees cardiology soon. wearing compression stockings and drinking over 100oz of water a day. 04/15/25-?-?-?-?-?-?-?-?-?-?-?-?- 32w 3d 188 lb 2 oz(+33 lb 2 oz) 103/69 Negative -?-?-?-?-?-?-?-?-?-?-?-?- Negative 140 32 -?-?-?-?-?-?-?-?-?-?-?-?- KW- no vb/lof/ctx. good fm. saw cardiology and did not get any results from this. still having intermittent tachycardia (up to 160) and swelling- drinking 100+oz water and wearing compression hose. also recommended sports drink. discussed coming off work or light duty. will discuss with her work. 04/25/25-?-?--?-?-?-?-?-?-?-?-?-?- 33w 6d 187 lb 2 oz(+32 lb 2 oz) 117/79 Negative -?-?-?-?-?-?-?-?-?-?-?-?- Negative 135 34 -?-?-?-?-?-?-?--?-?-?-?-?- kw- no vb/lof/ctx. good fm. still having episodes of not feeling well- but is doing light duty at work and not having episodes of tachycardia. FMLA papers to triage to get filled out. paper given to be [place] model for [facility] 05/09/25-?-?-?-?-?-?-?-?-?-?-?-?- 35w 6d 192 lb(+37 lb) 121/73 Negative -?-?-?-?-?-?-?-?-?-?-?-?- Negative 140 36 Cephalic 1.5-?-?-?-?-?-?-?-?- ?-?-?-?- 60 -2 KW- no vb/lof/ctx. portia morin GBS today. Light duty papers given for work due to episodes of tachycardia. albert just last week. 05/20/25-?-?-?-?-?-?-?-?-?-?-?-?- 37w 3d 189 lb 6 oz(+34 lb 6 oz) 122/72 Negative -?-?-?-?-?-?-?-?-?-?-?-?- Negative 145 37 Cephalic 2-?-?-?-?-?-?-?-?-?- ?-?-?- 60 -2 KW- no vb/lof/ctx. portia harris was in [facility] on friday for SOB and trouble breathing dx with Pleuritis- requesting 39 week IOL on 06/03. discussed risks of elective IOL 05/23/25-?-?-?-?-?-?-?-?-?-?-?-?- 37w 6d 192 lb 4 oz(+37 lb 4 oz) 127/79 Trace -?-?-?-?-?-?-?-?-?-?-?-?- Negative 145 37 Cephalic 1.5-?-?-?-?-?-?-?-?- ?-?-?-?- 60 -2 SM- no vb lof good fm nr oegular ctx co headache and swelling, trace protein, labs sent nl bps. SM- no vb lof good fm nr oegular ctx co headache and swelling, trace protein, labs sent nl bps. i wouldn't recommend IOL yet until she is more favorable for IOL. 05/25/25-?-?-?-?-?-?-?-?-?-?-?-?- 38w 1d 191 lb(+36 lb) 126/83 Negative -?-?-?-?-?-?-?-?-?-?-?-?- Negative 140 -?-?-?-?-?-?-?-?-?-?-?-?- SM- no vb lof good fm no reuglar ctx 05/30/25-?-?-?-?-?-?-?-?-?-?-?-?- 38w 6d 192 lb 8 oz(+37 lb 8 oz) 125/80 Negative -?-?-?-?-?-?-?-?-?-?-?-?- Negative 140 38 -?-?-?-?-?-?-?-?-?-?-?-?- SM- no vb lof feeling fm now, intermittent [place] still, dizziness, proteinuria. nl bps. discussed IOL 39 weeks. ACOG First Trimester First Trimester: Desire for , Alcohol, Tobacco Cessation, Illicit/Recreational Drug/Substance Use, Intimate Partner Violence, Barriers to care, Anticipated Course of Care, Use of Any medications, Sexual activity, Exercise, Dental Care, Sauna/Hot tub use, Seat Belt use, Childbirth classes/Hospital facilities, Travel, Indications for Ultrasound and Screening for Aneuploidy; Discussed Unstable Housing, Discussed Communication Barriers, Discussed Environmental/Work Hazards, Discussed Toxoplasmosis Precations and Discussed Second Trimester Second Trimester: Signs and Symptoms of Labor, Selecting a care provider, Reproductive Life Planning & Contreception and Care Planning; Discussed Tobacco Cessation, Discussed Depression/Anxiety and Discussed Intimate Partner Violence Third Trimester Third Trimester: Pain Management Plans, Labor support person(s), Immediate Larc, Circumcision preference, Signs and Symptoms of Preeclampsia, Infant Feeding No , Education and Family Medical Leave or Disability Forms ROS Const Reports system reviewed and no additional complaints, except as documented Card Reports system reviewed and no additional complaints, except as documented Resp Reports system reviewed and no additional complaints, except as documented GI Reports system reviewed and no additional complaints, except as documented and Reports nausea Reports system reviewed and no additional complaints, except as documented Musc Reports system reviewed and no additional complaints, except as documented Exam Const General: cooperative, healthy appearing, comfortable and anxious HENMA Head: normal to inspection Nose: external nose normal Face and sinus: normal facial exam Neck Neck: normal visual inspection, full ROM and no lymphadenopathy Thyroid: thyroid normal Chest Chest palpation & inspection: normal inspection of the chest Resp Effort & Inspection: normal respiratory effort GI Inspection: normal to inspection Palpation: soft and other (gravid uterus) Other: infant vertex and appropriate size for gestational age Other: Cervical Exam: Extrem General: pedal edema Office Procedures Non-stress Test Non-Stress Test Indications for Monitoring: Yes Proteinuria Heart Rate Baseline: 140 Heart Rate Variability: moderate Movement: Present Heart Rate Accelerations: Present Decelerations: Absent Contractions: Absent Impression: Yes Reactive Non-Stress Test Category 1 Results POC Urinalysis 2 Dip (Clinic) Office Urine Glucose Negative Last Edit by Carola Glasgow on 05/30/25 13:04 Office Urine Protein Negative Last Edit by Carola Glasgow on 05/30/25 13:04 Coding Level of Care Code Off vis,est,level 3 Diagnoses Anemia affecting O99.019 Tachycardia R00.0 Palpitations R00.2 Dizziness R42 Rubella non-immune status, antepartum O09.899; Z28.39 Supervision of high risk in third trimester O09.93 Trimester: third trimester 38 weeks gestation of Z3A.38 Weeks of gestation: 38 weeks Anxiety F41.9 CPT Codes Non-Stress Test (99033) Assessment and Plan Assessment and Plan (1) Anemia affecting : Status: Acute Comment: PO iron. repeat early April (2) Tachycardia: Status: Acute (3) Palpitations: Status: Acute Comment: cardio consult. ekg ordered, labs. ekg nl. (4) Dizziness: Status: Acute (5) Rubella non-immune status, antepartum: Status: Acute Comment: offer MMR PP (6) Supervision of high-risk : Status: Acute Qualifiers: Trimester: third trimester Qualified Code(s): O09.93 - Supervision of h igh risk , unspecified, third trimester Comment: PRR, , BRIE 06/07/25 Boy, BF Varghese (7) : Status: Acute Qualifiers: Weeks of gestation: 38 weeks Qualified Code(s): Z3A.38 - 38 weeks gestation of Comment: GBS neg, NIPT low risk with gender- male, declines carrier (8) Anxiety: Status: Acute Orders: Orders POC Urinalysis 2 Dip (Clinic) Today OB NST Today O99.019 - Anemia complicating , unspecified trimester, R00.0 - Tachycardia, unspecified, R00.2 - Palpitations plan IOL pit and fb epidural PRN UPDATE- I have seen the patient and performed any clinically relevant updates to the history and physical exam. Majo Martins MD
[2025-05-31] MEDS: Lactated Ringers 1,000 ML 50 ML IV (08:00)
[2025-05-31] MEDS: Oxytocin 15 Units/NS 250ml 15 UNITS/250 ML IV.SOLN 2 UNITS IV (08:20)
[2025-05-31] MEDS: 0.9% Normal Saline Single 100 ML IV.SOLN. INTRA-UTER (08:27)
[2025-05-31 08:29] LABS: Hematocrit 29.3 % (37-47); Hemoglobin 9.2 g/dL (12.0-15.0); Immature Granulocytes Count 0.200 X10^3/uL (0.0-0.0); Mean Corp Hgb Conc 31.4 g/dL (32-36); Mean Corpuscular Volume 79.4 fL (81-99); Mean Platelet Vol. 12.1 fl (6.2-12.0); NRBC Flagged by Analyzer 0 % (0-5); Platelet Count 229 K/mm3 (150-450); RBC Distribution Width CV 17.3 % (11.6-14.6); RBC Distribution Width SD 49.4 fl (35.1-43.9); Red Blood Count 3.69 M/mm3 (4.2-5.4); White Blood Count 12.9 K/mm3 (4.4-11.0)
[2025-05-31 09:29] LABS: AST(SGOT) 15 U/L (<=31); Alanine Aminotransfer ALT/SGPT 9 U/L (<=34); Albumin, Serum 3.3 g/dL (3.5-5.0); Alkaline Phosphatase 184 U/L (35-104); Anion Gap 10 (5-15); BUN 9 mg/dL (4-19); BUN/Creat Ratio 13.2 RATIO (10-20); Calcium,Total 8.7 mg/dL (7.6-11.0); Carbon Dioxide 21.7 mmol/L (21.0-32.0); Chloride 107 mmol/L (98-108); Estimated Creatinine Clearance 158.21 ml/min (50-250); Globulin 3.0 g/dL (2.2-4.2); Glucose 101 mg/dL (70-99); Potassium 4.2 mmol/L (3.3-5.1)
[2025-05-31 09:33] LABS: Syphilis Antibodies Nonreactive (Nonreactive)
[2025-05-31] MEDS: Lactated Ringers 1,000 ML 999 ML IV (12:25)
[2025-05-31] MEDS: fentaNYL-bupivacaine (epidural) 100 ML BAG EPIDURAL ×2 (13:44→18:02)
--- NOTE | 2025-05-31 15:08 | NURSING ---
student charting reviewed
--- NOTE | 2025-05-31 16:50 | PCM.PN.BLA ---
Progress Note LATE ENTRY arom clear fluid, bladder drained, cat i tracing continue pit per protocol s/p epidural
[2025-05-31] MEDS: Lactated Ringers 1,000 ML 200 ML IV (17:05)
--- NOTE | 2025-05-31 18:03 | NURSING ---
currently with effective epidural
--- NOTE | 2025-05-31 20:03 | OB.VAGDELI_ITS ---
Assessment & Plan (1) Anxiety: (2) : QUALIFIERS: Weeks of gestation: 38 weeks Qualified Code(s): Z3A.38 - 38 weeks gestation of COMMENT: GBS neg, NIPT low risk with gender- male, declines carrier (3) Supervision of high-risk : QUALIFIERS: Trimester: third trimester Qualified Code(s): O09.93 - Supervision of high risk , unspecified, third trimester COMMENT: PRR, , BRIE 06/07/25 Boy, BF Varghese (4) Dizziness: (5) Palpitations: COMMENT: cardio consult. ekg ordered, labs. ekg nl. (6) Tachycardia: (7) Rubella non-immune status, antepartum: COMMENT: offer MMR PP (8) Anemia affecting : COMMENT: PO iron. repeat early April (9) Vaginal delivery: COMMENT: SM IOL proteinuria with neuro symptoms 39 boy [place] Maternal Data Information BRIE Calculator Estimated Delivery Date Method Current WG Current Estimate 06/07/25 LMP (Certain) 39w 0d Other Estimates 06/05/25 Ultrasound #1 39w 2d Vaginal Delivery Maternal Presentation Maternal Presentation: see assessment and plan Vaginal Delivery Information Procedure Performed: Spontaneous Vaginal Delivery Surgeon/Practitioner: Majo Martins Pre-Procedure Diagnosis: see assessment and plan Post-Procedure Diagnosis: same Type of anesthesia: Epidural Findings Description of procedure: Patient began pushing and delivered the head in the NABIL presentation. The head was delivered atraumatically . The anterior and posterior shoulders delivered without complication followed by the rest of the and the was placed on the maternal abdomen. Delayed cord clamping was employed for appro ximately 60 seconds. Cord was clamped and cut and gentle traction was applied to the cord and the placenta delivered spontaneously immediately following it was noted to be intact with three-vessel cord. The perineum and vagina were inspected and was noted to have a third -degree laceration that was repaired in the usual fashion with 3-0 vicryl rapide . EBL was 300. Patient and tolerated delivery well. 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
--- NOTE | 2025-05-31 20:05 | DCINST_ITS ---
Discharge Instructions DC O2, CPAP, BIPAP needs Home O2 Discharge instructions: No Dressing / Incision Discharge Activity: Return to Normal Activity, May Not Drive (while taking narcotic pain medications.) and May Shower May resume sexual activity in: 4-6 weeks Dressing / Incision Call your doctor if your incision/area has: Continuous Slow Oozing, Sudden Increased Bleeding, Increased Pain/ Swelling, Increased Redness and Foul Smelling Discharge Follow Up Care Please Follow Up With: Majo Martins MD When: Call [phone] to make an appointment with your doctor in 6 weeks. If you had elevated blood pressure or 4th degree laceration, you will need to be seen in 2 weeks. Test Results: Test results from this visit will be discussed in further detail at your follow- up appointment, if applicable. Discharge Plan Admission Admit Date/Time: 05/31/25 07:20 Attending Provider: Majo Martins Primary Care Provider: Edson Physician,Yuliana Primary Discharge Orders/Prescriptions Prescriptions: No Action PNV no.[id number] 400 mcg-35 mg- 25 mg-5 mg tablet,chewable 1 tab PO ferrous sulfate 325 mg (65 mg iron) tablet 325 mg PO QDAY ascorbic acid (vitamin C) 500 mg tablet 500 mg PO QDAY Referrals / Follow Up: Care Physician,No Primary [Primary Care Provider] -
[2025-05-31] MEDS: Oxytocin 15 Units/NS 250ml 15 UNITS/250 ML IV.SOLN 83 UNITS IV (21:07)
[2025-05-31] MEDS: Ketorolac 30 MG/ML Syringe IV (21:54)
[2025-05-31] MEDS: Cefazolin 2 GM in 0.9% Normal Saline (100mL Bag) 100 ML IV (21:54)
[2025-06-01 03:35] VITALS: BP 118/72; PULSE 102; RESP 16; TEMP 37.1; O2SAT 97
[2025-06-01] MEDS: Ketorolac 30 MG/ML Syringe IV ×4 (03:41→22:38)
[2025-06-01] MEDS: 0.9% Saline Lock 10 ML Syringe IV ×2 (03:41→22:38)
--- NOTE | 2025-06-01 03:42 | NURSING ---
SITZ BATH SETUP FOR PATIENT. EDUCATION GIVEN ON HOW TO USE FOR 3RD DEG NIHARIKA LAC. PT VERBALIZES UNDERSTANDING.
--- NOTE | 2025-06-01 06:10 | PCM.PN.OB ---
Subjective Subjective Patient doing well without complaints. Tolerating PO. Ambulating and voiding without difficulty. feeding well. Denies chest pain, shortness of breath, calf pain/swelling, fevers, chills, lightheadedness. Objective Data Objective Data Vital Signs: Vital Signs Temp Pulse Resp BP Pulse Ox O2 Del Method 98.8 F 102 H 16 118/72 97 Room Air 06/01/25 03:35 06/01/25 03:35 06/01/25 03:35 06/01/25 03:35 06/01/25 03:35 06/01/25 03:35 Oxygen Delivery Method Room Air Weight: 194 lb 10.691 oz Body Mass Index (BMI) 27.9 Intake & Output: Intake and Output for Last 24 Hours 05/30/25 05/31/25 06/01/25 23:59 23:59 23:59 Intake Total 3500.83 / 3500.83 250 / 250 Output Total 925 / 925 600 / 600 Balance 2575.83 / 2575.83 -350 / -350 Lab / Micro Data 05/31/25 08:00 05/31/25 08:00 Labs: Laboratory Results - last 24 hr 05/31/25 08:00: WBC 12.9 H, RBC 3.69 L, Hgb 9.2 L, Hct 29.3 L, MCV 79.4 L, MCH 24.9 L, MCHC 31.4 L, RDW Std Deviation 49.4 H, RDW Coeff of Bettie 17.3 H, Plt Count 229, MPV 12.1 H, Immature Gran % (Auto) 1.600 H, Neut % (Auto) 70.1 H, Lymph % (Auto) 20.6, [place] % (Auto) 6.3, Eos % (Auto) 0.9, Baso % (Auto) 0.5, Absolute Neuts (auto) 9.0 H, Absolute Lymphs (auto) 2.65, Nucleated RBC % 0, Sodium 139, Potassium 4.2, Chloride 107, Carbon Dioxide 21.7, Anion Gap 10, BUN 9, Creatinine 0.69 L, Estim Creat Clear Calc 158.21, Est GFR (MDRD) Non-Af 128, BUN/Creatinine Ratio 13.2, Glucose 101 H, Calcium 8.7, Total Bilirubin 0.33, AST 15, ALT 9, Alkaline Phosphatase 184 H, Total Protein 6.4, Albumin 3.3 L, Globulin 3.0, Albumin/Globulin Ratio 1.1, Syphilis Total Ab Nonreactive, Blood Type O POSITIVE, Antibody Screen NEGATIVE ROS Constitutional Constitutional: Reports systems reviewed and no addt'l complaints, except as documented Cardiovascular Cardiovascular: Reports systems reviewed and no addt'l complaints, except as documented Respiratory/Chest Respiratory/Chest: Reports systems reviewed and no addt'l complaints, except as documented Gastrointestinal Gastrointestinal: Reports systems reviewed and no addt'l complaints, except as documented Physical Exam Const alert, oriented x3 and no apparent distress HEENT Head and Scalp: atraumatic Resp normal respiratory effort GI soft to palpation and non-tender Bimanual Exam - Vag & Uterus: uterus non-tender Uterus Palpation: uterus fundus firm (below Umbilicus) Assessment & Plan (1) Third degree laceration of perineum, type 3c: (2) Proteinuria affecting : (3) Vaginal delivery: COMMENT: SM IOL proteinuria with neuro symptoms 39 boy [place] 9 lbs 3rd degree laceration (4) Anemia affecting : COMMENT: PO iron. repeat early April (5) Rubella non-immune status, antepartum: COMMENT: offer MMR PP (6) Tachycardia: (7) Palpitations: COMMENT: cardio consult. ekg ordered, labs. ekg nl. (8) Dizziness: (9) Supervision of high-risk : QUALIFIERS: Trimester: third trimester Qualified Code(s): O09.93 - Supervision of high risk , unspecified, third trimester COMMENT: PRR, , BRIE 06/07/25 Boy, BF Varghese (10) : QUALIFIERS: Weeks of gestation: 38 weeks Qualified Code(s): Z3A.38 - 38 weeks gestation of COMMENT: GBS neg, NIPT low risk with gender- male, declines carrier (11) Anxiety: PLAN: Plan s/p PPD # 1 1. routine post delivery care 2. breast feeding- support given 3. rh positive 4. rubella immune third degree laceration routine support stool sofener, toradol s/p additional antibiotics
[2025-06-01 08:34] VITALS: BP 125/81; PULSE 83; RESP 16; TEMP 37
[2025-06-01 12:17] VITALS: BP 120/77; PULSE 81; RESP 16
--- NOTE | 2025-06-01 14:20 | CASEMGMT ---
Social Work Assessment Labor and Delivery Unit Patient Address: [address] [place] [id number] Phone number: [phone] Date of Referral: 06/01/25 Time of Referral:? 7 Referred By: Dr. Martins Date of Intervention: ??06/01/25 Time of Intervention:? 1400 Reason for Referral:? mental health Sw completed chart review and acknowledges social work consult. Sw presented to bedside and introduced self to mother of baby (MOB- Marilu) and father of baby (FOB- Varghese Hoang). Sw explained reason for sw involvement and completed psychosocial assessment. History obtained from: medical records, MOB and FOB Household composition: JANY states that she currently resides with her friend, her friends partner and their two children. LUKAS statse that he lives on his own in his own apartment. JANY denies any problems with housing, stating that where she lives she has her own space and space for . Patient's parent/guardian status:? Parents report that they started dating last June after meeting on [employer], and at this time they are not in a relationship with one another. JANY states that she and LUKAS are not in a relationship, but they are considering working things out with each other, and co-parenting at the minimum. ? Medical History: ?JANY is 19 year old female who is 1, para 0- now 1 following labor and delivery of . JANY received routine care during with [facility]. JANY presented to hospital for induction of labor due to pre-eclampsia. JANY delivered baby via spontaneous vaginal delivery on 05/31/25 at 38 weeks gestation. Baby boy, named Kevin Rose, was born weighing 8lb 16oz with apgars of 8 and 9 at one and five minutes of life, respectfully. JANY is breast feeding and baby will be followed by Dr. Perez for pediatrics. Educational Status:? Both parents graduated from high school, no college education. Parents deny problems with reading, learning or comprehension. Financial Status: Both parents are gainfully employed outside of the home. JANY works at [employer] and LUKAS works at a [employer] in [place]. Supplies:?All necessary baby supplies obtained, including: car seat, safe sleep space, clothes, diapers and wipes. ? Childcare/Caregiver(s): JANY states that she will be the primary caregiver to baby. Parents state that they are working on figuring out what co-parenting will look like ? Transportation:??Both parents have their drivers license and reliable means of transportation, no barriers. Programs/Agencies Involved: JANY is connected to resources that provide her financial assistance: [employer] provides insurance and food benefits, WIC and [employer]. ??? Children Services/Legal Issues:??No history of children services involvement, and no issues or concerns warranting referral to be made at this time. ? Behavioral Health Issues: ??Mental Health History: FORebeka states that he has had anxiety at baseline throughout his life. FOB states that he is able to manage his anxiety and does not need medication to help. MOB states that she also has anxiety, and this usually looks like anxious thoughts that she is not able to control. MOB states that since having baby she has not been able to sleep well due to worrying about baby sleeping when both parents are asleep. ??? Substance Use History:??Parents deny substance use prior to and during . Family History: Parents deny family history of substance use and significant mental health history. ? Drug Screens: No drug screens observed while completing chart review. ?? Family/Social Stressors:?MOB states that although she and LUKAS are not in a romantic relationship with one another at this time, they are civil with one another and are being responsible and respectful when navigating co-parenting together. Parents state that although they are not in a relationship at this time, they are not taking it off of the table. Support Systems: JANY reports that the couple that she lives with are her biggest supports. Depression/Shaken Baby/Safe Sleeping:? Tomasz educated parents on signs and symptoms of baby blues and depression and anxiety to be mindful of during this period. Tomasz explained to MOB that she is more at risk for experiencing symptoms due to her mental health history, MOB expressed understanding. MOB states that she was nervous during her , and felt more on edge. MOB states that now that baby is here she feels more like herself. MOB states that if she were to struggle during this period she would feel comfortable talking to her roommate who has also experienced symptoms. Sw also encourage MOB to talk to her OBGYN or consider getting connected to a community mental health professional, MOB expressed agreement. Tomasz educated parents on shaken baby prevention and ABCs of safe sleep, parents express understanding. ASSESSMENT:?MOB and baby admitted following labor and delivery of . MOB with mental health history positive for anxiety. MOB able to recognize that she did experience heightened anxiety throughout parts of her , and at certain points following delivery. MOB and FOB were in a short term relationship that resulted in , however are no longer together. Parents state that they are civil and are committed to co-parenting together, and maybe eventually getting back together. They do not live together, but both have obtained baby supplies and have natural supports in place. MOB was observed laying in bed comfortably and holding baby in loving manner. FOB sitting in chair. FOB reports that he is not feeling anxious, but states that he does feel as though he is struggling with bonding with baby. Sw encouraged FOB to be involved with baby for diaper changes and holding him in between feeds. FOB expressed understanding and willingness. Parents were talkative and engaging throughout completion of assessment. PLAN:? No other services requested or indicated. MOB and baby to be discharged when medically ready. Parents were provided literature regarding: signs and symptoms of baby blues and mood and anxiety disorders, [employer] Me [employer], shaken baby prevention, ABCs of safe sleep and a list of county resources that are available for them should any needs present themselves. Jf Choi, [employer], [employer]
[2025-06-01 16:22] VITALS: BP 119/87; PULSE 96; RESP 16
[2025-06-01 20:30] VITALS: BP 123/72; PULSE 90; RESP 16; TEMP 36.5; O2SAT 99
[2025-06-02 02:50] VITALS: BP 121/84; PULSE 85; RESP 16; TEMP 36.6; O2SAT 100
--- NOTE | 2025-06-02 07:29 | PN.OBGYN_ITS ---
Subjective Subjective Patient doing well without complaints. Tolerating PO. Ambulating and voiding without difficulty. feeding well. Denies chest pain, shortness of breath, calf pain/swelling, fevers, chills, lightheadedness. Objective Data Objective Data Vital Signs: Vital Signs Temp Pulse Resp BP Pulse Ox O2 Del Method 97.8 F 85 16 121/84 H 100 Room Air 06/02/25 02:50 06/02/25 02:50 06/02/25 02:50 06/02/25 02:50 06/02/25 02:50 06/02/25 02:50 Oxygen Delivery Method Room Air Weight: 194 lb 10.691 oz Body Mass Index (BMI) 27.9 Intake & Output: Intake and Output for Last 24 Hours 05/31/25 06/01/25 06/02/25 23:59 23:59 23:59 Intake Total 3500.83 / 3500.83 250 / 250 Output Total 925 / 925 600 / 600 Balance 2575.83 / 2575.83 -350 / -350 Lab / Micro Data 05/31/25 08:00 05/31/25 08:00 Labs: Laboratory Results - last 24 hr 05/31/25 08:00: WBC 12.9 H, RBC 3.69 L, Hgb 9.2 L, Hct 29.3 L, MCV 79.4 L, MCH 24.9 L, MCHC 31.4 L, RDW Std Deviation 49.4 H, RDW Coeff of Bettie 17.3 H, Plt Count 229, MPV 12.1 H, Immature Gran % (Auto) 1.600 H, Neut % (Auto) 70.1 H, Lymph % (Auto) 20.6, [place] % (Auto) 6.3, Eos % (Auto) 0.9, Baso % (Auto) 0.5, A bsolute Neuts (auto) 9.0 H, Absolute Lymphs (auto) 2.65, Nucleated RBC % 0, Sodium 139, Potassium 4.2, Chloride 107, Carbon Dioxide 21.7, Anion Gap 10, BUN 9, Creatinine 0.69 L, Estim Creat Clear Calc 158.21, Est GFR (MDRD) Non-Af 128, BUN/Creatinine Ratio 13.2, Glucose 101 H, Calcium 8.7, Total Bilirubin 0.33, AST 15, ALT 9, Alkaline Phosphatase 184 H, Total Protein 6.4, Albumin 3.3 L, Globulin 3.0, Albumin/Globulin Ratio 1.1, Syphilis Total Ab Nonreactive, Blood Type O POSITIVE, Antibody Screen NEGATIVE ROS Constitutional Constitutional: Reports systems reviewed and no addt'l complaints, except as documented Cardiovascular Cardiovascular: Reports systems reviewed and no addt'l complaints, except as documented Respiratory/Chest Respiratory/Chest: Reports systems reviewed and no addt'l complaints, except as documented Gastrointestinal Gastrointestinal: Reports systems reviewed and no addt'l complaints, except as documented Physical Exam Const alert, oriented x3 and no apparent distress HEENT Head and Scalp: atraumatic Resp normal respiratory effort GI soft to palpation and non-tender Bimanual Exam - Vag & Uterus: uterus non-tender Uterus Palpation: uterus fundus firm (below Umbilicus) Assessment & Plan (1) Third degree laceration of perineum, type 3c: (2) Proteinuria affecting : (3) Vaginal delivery: COMMENT: SM IOL proteinuria with neuro symptoms 39 boy [place] 9 lbs 3rd degree laceration (4) Anemia affecting : COMMENT: PO iron. repeat early April (5) Rubella non-immune status, antepartum: COMMENT: offer MMR PP (6) Tachycardia: (7) Palpitations: COMMENT: cardio consult. ekg ordered, labs. ekg nl. (8) Dizziness: (9) Supervision of high-risk : QUALIFIERS: Trimester: third trimester Qualified Code(s): O09.93 - Supervision of high risk , unspecified, third trimester COMMENT: PRR, , BRIE 06/07/25 Boy, BF Varghese (10) : QUALIFIERS: Weeks of gestation: 38 weeks Qualified Code(s): Z 3A.38 - 38 weeks gestation of COMMENT: GBS neg, NIPT low risk with gender- male, declines carrier (11) Anxiety: PLAN: Plan s/p PPD # 2 1. routine post delivery care 2. breast feeding- support given 3. rh positive 4. rubella immune third degree laceration routine support stool sofener, toradol s/p additional antibiotics
[2025-06-02 08:26] VITALS: BP 130/89; PULSE 74; RESP 16; TEMP 36.6; O2SAT 98
[2025-06-02] MEDS: Benzocaine/Lanolin/Aloe Vera 85 GM Spray 1 SPRAY TOPICAL (08:35)
== END 2025-06-02 11:30 | disposition home or self-care (01) | DRG 768 ==
PROVIDERS: Admitting Provider Obstetrics & Gynecology; Referring Provider Obstetrics & Gynecology; Visit Provider Obstetrics & Gynecology
DX: O12.14 Gestational proteinuria, complicating childbirth (principal); Z37.0 Single live birth; F41.9 Anxiety disorder, unspecified; O99.02 Anemia complicating childbirth; O70.23 Third degree perineal laceration during delivery, IIIc; O99.344 Other mental disorders complicating childbirth; O99.892 Other specified diseases and conditions complicating childbirth; R00.2 Palpitations; R00.0 Tachycardia, unspecified; Z3A.39 39 weeks gestation of pregnancy
CPT/HCPCS: 59025; 59050; 80053; 85025; 86780; 86850; 86900; 86901; 99221; A4216; G0378

== ENCOUNTER → 2025-07-12 | Outpatient (CLI) | payer OTHER, MEDICAID, SELFPAY ==
[2025-07-12 12:37] LABS: Hematocrit 35.3 % (37-47); Hemoglobin 10.7 g/dL (12.0-15.0); Immature Granulocytes Count 0.010 X10^3/uL (0.0-0.0); Mean Corp Hgb Conc 30.3 g/dL (32-36); Mean Corpuscular Volume 79.0 fL (81-99); Mean Platelet Vol. 10.6 fl (6.2-12.0); NRBC Flagged by Analyzer 0 % (0-5); Platelet Count 323 K/mm3 (150-450); RBC Distribution Width CV 15.5 % (11.6-14.6); RBC Distribution Width SD 44.2 fl (35.1-43.9); Red Blood Count 4.47 M/mm3 (4.2-5.4); White Blood Count 5.7 K/mm3 (4.4-11.0)
== END | disposition home or self-care (01) ==
PROVIDERS: Visit Provider Nurse Practitioner Women's Health
DX: D64.9 Anemia, unspecified (principal)
CPT/HCPCS: 36415; 85025